=== PATIENT | male | born 1935 | race Caucasian/White ===

== ENCOUNTER 2018-05-09 12:53 | Inpatient (IN) | payer OTHER ==
--- OUTSIDE RECORDS SUMMARY | 2018-05-09 12:55 | XMS REPORT ---
:1935 [facility] Address [address] [place] [id number] Care Team Providers Name Role Phone Unavailable Unavailable Unavailable Problems This patient has no known problems. Allergies, Adverse Reactions, Alerts This patient has no known allergies or adverse reactions. Medications This patient has no known medications.
--- OUTSIDE RECORDS SUMMARY | 2018-05-09 12:55 | XMS REPORT | Clinical Summary ---
:1935 Author Organization [facility] Address [address] [place] [address] Care Team Providers Name Role Phone Rogelio Subramanian MD Primary Care Provider Allergies Active Allergy Reactions Severity Noted Date Comments Rlefdwnc-Ddakccirzy-Qcclpmhyv Other (See Comments) Medium 12/15/2015 BUMPS Medications Medication Sig Dispensed Refills Start Date End Date Status clobetasol Apply 1 2 06/26/2015 Active (TEMOVATE) 0.05 % application external solution topically nightly. clopidogrel (PLAVIX) Take 75 mg by 3 05/07/2015 Active 75 mg tablet mouth daily. TK 1 T PO QD flunisolide 1 spray daily. 0 08/06/2015 Active (NASALIDE) 25 mcg (0.025 %) spray,non-aerosol isosorbide Take 20 mg by 5 07/17/2015 Active mononitrate mouth 2 (two) (ISMO,MONOKET) 20 MG times a day. tablet TAKE 1 TABLET BY MOUTH BID metFORMIN Take 500 mg by 5 05/23/2015 Active (GLUCOPHAGE) 500 MG mouth 2 (two) tablet times a day with meals. 1 in am and 2 tabs at night pantoprazole Take 40 mg by 2 07/10/2015 Active (PROTONIX) 40 MG EC mouth nightly. tablet TK 1 T PO D multivitamin with Take 1 tablet by 0 Active minerals tablet mouth nightly. polyethylene glycol Take 17 g by 0 Active (MIRALAX) 17 gram mouth daily as packet needed. CYANOCOBALAMIN, Take 1,000 mcg 0 Active VITAMIN B-12, (B-12 by mouth DOTS ORAL) nightly. sotalol (BETAPACE) Take 80 mg by 0 Active 80 MG tablet mouth 2 (two) times a day. NITROGLYCERIN SL Place 0.4 mg 0 Active under the tongue as needed. As needed for chest pain as ordered and instructed by MD diphenhydrAMINE Take 25 mg by 0 Active (DIPHEDRYL) 25 mg mouth nightly as tablet needed for sleep. aspirin (ECOTRIN) 81 Take 81 mg by 0 Active MG enteric coated mouth nightly. tablet digOXIN (DIGOX) 125 Take 125 mcg by 0 Active mcg tablet mouth daily. losartan (COZAAR) 50 Take 50 mg by 0 Active MG tablet mouth daily. artificial 1 drop every 0 Active tears,hypromellose, morning. (SYSTANE) 0.3 % gel atorvastatin Take 40 mg by 0 Active (LIPITOR) 40 MG mouth daily. tablet predniSONE Take 10 mg by 0 Active (DELTASONE) 10 mg mouth daily. tablet glycopyrrolate/formo Inhale 2 0 Active terol fum (BEVESPI inhalations 2 AEROSPHERE INHL) (two) times a day. lutein 20 mg capsule Take 1 tablet by 0 Active mouth nightly. ketotifen fumarate Administer 1 0 Active (ZADITOR OPHT) drop to both eyes nightly. cholecalciferol, Take 1,000 Units 0 Active vitamin D3, (VITAMIN by mouth daily. D3) 1,000 unit tablet omeg3/epa/dha/fish Take 1 drop by 0 Active oil/flax/E (THERA mouth nightly. TEARS NUTRITION Eye drops not ORAL) oral ZETIA 10 mg tablet nightly. TK 1 T 3 07/09/2015 09/04/19 Discontinued PO QD 18 SPIRIVA WITH INHALE 1 CAPSULE 3 06/11/2015 08/26/19 Discontinued HANDIHALER 18 mcg VIA HANDIHALER 18 per inhalation PO QD capsule KETOTIFEN FUMARATE Apply 1 drop to 0 08/26/19 Discontinued (ZADITOR OPHT) eye nightly. 18 predniSONE TK 1 T PO QD PRN 1 01/10/2017 08/26/19 Discontinued (DELTASONE) 10 mg 18 tablet ezetimibe (ZETIA) 10 Take 10 mg by 0 08/26/19 Discontinued mg tablet mouth daily. 18 OMEG3/EPA/DHA/FISH Take by mouth. 0 09/04/19 Discontinued OIL/FLAX/E (THERA 18 TEARS NUTRITION ORAL) STIOLTO RESPIMAT 0 04/01/2017 08/26/19 Discontinued 2.5-2.5 18 mcg/actuation inhalation solution polyethylene glycol Take 1 packet by 0 09/04/19 Discontinued 3350 (MIRALAX ORAL) mouth nightly. 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 02/12/2016 Personal history of bladder cancer 11/13/2015 History of bladder cancer 08/07/2015 Encounters Date Type Specialty Care Team Description 12/10/2017 Lab Lab William Fragoso MD 12/10/2017 Office Visit [facility] [place], Malignant neoplasm alison Thomas MD urinary bladder, unspecified site (Primary Dx) 09/03/2017 Surgery Procedural [facility] Cv left heart cath w Cardiology MD Alvin lv gram cors [[id number] (CPT)] 09/03/2017 - Hospital Encounter Cardiology [place] [facility] History of bladder cancer (Primary Dx); 09/04/2017 MD Alvin 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 08/29/2017 Orders Only Cardiology [facility], Coronary artery ROSIO Burton disease involving morongo coronary artery of morongo heart with angina pectoris (Primary Dx) 08/25/2017 Surgery Procedural [place], Cv left heart cath w Cardiology MD Elaina lv gram cors [[id number] (CPT)] 08/25/2017 Hospital Encounter Procedural [place], Cardiomyopathy, unspecified type; Cardiology MD Elaina Coronary artery disease with angina pectoris, unspecified vessel or lesion type, unspecified whether morongo or transplanted heart 08/08/2017 Lab Lab [place] Malignant neoplasm alison Thomas MD urinary bladder, unspecified site (Primary Dx) 08/08/2017 Office Visit [facility] [place] Malignant Gildardo MD urinary bladder, unspecified site (Primary Dx) after 05/08/2017 Family History Medical History Relation Name Comments Lung disease Father Alzheimer's disease Mother Relation Name Status Comments Father Mother Social History Tobacco Use Types Packs/Day Years Used Date Current Some Day Smoker Cigarettes 0.25 Smokeless Tobacco: Current User Comments: 1 pack a week Alcohol Use Drinks/Week oz/Week Comments Yes 2 drink per year Sex Assigned at Date Recorded Not on file Job Start Date Occupation Industry Not on file Not on file Not on file Travel History Travel Start Travel End No recent travel history available. Last Filed Vital Signs Vital Sign Reading Time Taken Blood Pressure 101/58 09/04/2017 12:06 PM CDT Pulse 61 09/04/2017 12:06 PM CDT Temperature 36.7 C (98 F) 09/04/2017 12:06 PM CDT Respiratory Rate 16 09/04/2017 12:06 PM CDT Oxygen Saturation 96% 09/04/2017 12:06 PM CDT Inhaled Oxygen Concentration - - Weight 66.7 kg (147 lb) 09/03/2017 11:00 AM CDT Height 170.2 cm (5' 7") 09/03/2017 11:00 AM CDT Body Mass Index 23.02 09/03/2017 11:00 AM CDT Plan of Treatment Date Type Specialty Care Team Description 06/10/2018 Procedure visit Urology William Fragoso MD [address] [facility] [address] [place] [address] Health Maintenance Due Date Last Done Comments SHINGLES VACCINES (1 of 2) 1986 PNEUMOCOCCAL POLYSACCHARIDE VACCINE AGE 65 AND OVER 2001 PNEUMOCOCCAL-13 2001 INFLUENZA VACCINE 11/26/2017 Implants Implanted Type Area Direct Care Specialist Device Shelf Model / Identifier Expiration Serial / Date Lot Quartet, Lv Leads, Model 1458q-86 - [id number] Cardiac Pacing N/A: [employer] 01/25/2019 [id number] / Implanted: 05/10/2016 (Quantity not on file) Leads or N/A [id number] / Electrodes or [id number] Accessories Tendril Sts, Pacemaker Leads, Model 2088tc/52 - [id number] Cardiac Pacing N/A : [employer] 02/25/20198TC/52 / Implanted: 05/10/2016 (Quantity not on file) Leads or N/A [id number] / Electrodes or [id number] Accessories Envlp Impl Crdvrtr Dfb Antbctrl Fully Resorb Lg Aigissrx R - [id number] Cardiovascular N/A: [employer] [id number] / Implanted: 05/10/2016 (Quantity not on file) Implants N/A / Catheter Pump Set Impella Cp - [id number] Cardiovascular N/A: [employer] [id number] / Implanted: 09/03/2017 (Quantity not on file) Implants N/A / [id number] Stent Coronary Syst Synergy (Mr) 3.50mm X 24mm - [id number] Coronary Stents N /A[place] [facility] [id number] / Implanted: 09/03/2017 (Quantity not on file) N/A INTERVENTIONAL / CARDIOLOGY [id number] Stent Coronary Syst Synergy (Mr) 3.50mm X 12mm - [id number] Coronary Stents N /A: [facility] [place]/02/2018 [id number] / Implanted: 09/03/2017 (Quantity not on file) N/A INTERVENTIONAL / CARDIOLOGY [id number] Stent Coronary Syst Synergy (Mr) 3.00mm X 16mm - [id number] Coronary Stents N /A: [facility] [place]/26/2018 [id number] / Implanted: 09/03/2017 (Quantity not on file) N/A INTERVENTIONAL / CARDIOLOGY [id number] Stent Coronary Syst Synergy (Mr) 3.00mm X 8mm - [id number] Coronary Stents N/ A: [facility] [place]/05/2018 [id number] / Implanted: 09/03/2017 (Quantity not on file) N/A INTERVENTIONAL / CARDIOLOGY [id number] [employer] Mp Ecologist Technician-D Defibrillators & N/A: [employer] 01/25/2018 [id number] / Implanted: Qty: 1 on 05/10/2016 by Renata Sen Jr., MD Leads N/A [id number] / [id number] System Clsr Sut Meditd 6fr Perclose Proglide - [id number] Surgical N/A: [facility] 05/28/2019 [id number] / Implanted: 09/03/2017 (Quantity not on file) Implants; N/A DEVICES / Expanders; [id number] Extenders; Surgical Wires System Clsr Sut Meditd 6fr Perclose Proglide - [id number] Surgical N/A: [facility] 05/28/2019 [id number] / Implanted: 09/03/2017 (Quantity not on file) Implants; N/A DEVICES / Expanders; [id number] Extenders; Surgical Wires Procedures Procedure Name Priority Date/Time Associated Diagnosis Comments CYTOLOGY Routine 12/10/2017 2:12 Results for this (NON-GYNECOLOGICAL) PM CDT procedure are in REQUEST the results section. POC URINALYSIS Routine 12/10/2017 10:12 Malignant neoplasm Results for this DIPSTICK AM CDT of urinary bladder, procedure are in unspecified site the results section. POC GLUCOSE Routine 09/04/2017 7:28 Results for this AM CDT procedure are in the results section. ECG 12-LEAD Routine 09/04/2017 6:28 Results for this AM CDT procedure are in the results section. POC GLUCOSE Routine 09/04/2017 4:02 Results for this AM CDT procedure are in the results section. IONIZED CALCIUM Routine 09/04/2017 1:30 Results for this AM CDT procedure are in the results section. PHOSPHORUS LEVEL Routine 09/04/2017 1:30 Results for this AM CDT procedure are in the results section. MAGNESIUM LEVEL Routine 09/04/2017 1:20 Results for this AM CDT procedure are in the results section. ZZESTIMATED GFR Routine 09/04/2017 1:20 Results for this AM CDT procedure are in the results section. LIPID PANEL Routine 09/04/2017 1:20 Results for this AM CDT procedure are in the results section. HC COMPLETE BLD COUNT Routine 09/04/2017 1:20 Results for this W/AUTO DIFF AM CDT procedure are in the results section. BASIC METABOLIC PANEL Routine 09/04/2017 1:20 Results for this AM CDT procedure are in the results section. POC GLUCOSE Routine 09/03/2017 9:46 Results for this PM CDT procedure are in the results section. POC GLUCOSE Routine 09/03/2017 4:00 Results for this PM CDT procedure are in the results section. ECG PRE/POST OP Routine 09/03/2017 3:57 Results for this PM CDT procedure are in the results section. CV PERCUTANEOUS Routine 09/03/2017 3:02 Coronary artery Results for this INSERTION VAD ARTERY PM CDT disease involving procedure are in ACCESS morongo coronary the results artery of morongo section. heart with angina pectoris CV PCI STENT Routine 09/03/2017 3:02 Coronary artery Results for this PM CDT disease involving procedure are in morongo coronary the results artery of morongo section. heart with angina pectoris CV LEFT HEART CATH LV Routine 09/03/2017 3:02 Coronary artery Results for this GRAM WITH CORS PM CDT disease involving procedure are in morongo coronary the results artery of morongo section. heart with angina pectoris ACTIVATED CLOTTING Routine 09/03/2017 1:41 Results for this TIME PM CDT procedure are in the results section. POC GLUCOSE Routine 09/03/2017 11:04 Results for this AM CDT procedure are in the results section. ECG PRE/POST OP STAT 09/03/2017 11:02 Results for this AM CDT procedure are in the results section. POC GLUCOSE Routine 08/25/2017 5:57 Results for this PM CDT procedure are in the results section. CV LEFT HEART CATH LV Routine 08/25/2017 5:20 Cardiomyopathy, Results for this GRAM WITH CORS PM CDT unspecified type procedure are in Coronary artery the results disease with angina section. pectoris, unspecified vessel or lesion type, unspecified whether morongo or transplanted heart HC COMPLETE BLD COUNT STAT 08/25/2017 1:39 Results for this W/AUTO DIFF PM CDT procedure are in the results section. ZZESTIMATED GFR STAT 08/25/2017 1:18 Results for this PM CDT procedure are in the results section. BASIC METABOLIC PANEL STAT 08/25/2017 1:18 Results for this PM CDT procedure are in the results section. CYTOLOGY Routine 08/08/2017 11:43 Results for this (NON-GYNECOLOGICAL) AM CDT procedure are in REQUEST the results section. POC URINALYSIS Routine 08/08/2017 11:22 Malignant neoplasm Results for this DIPSTICK AM CDT of urinary bladder, procedure are in unspecified site the results section. after 05/08/2017 Results Cytology (non-gynecological) request (12/10/2017 2:12 PM CDT)Only the most recent of2 resultswithin the time period is included. [facility] DEPARTMENT OF PATHOLOGY AND GENOMIC MEDICINE Cytology See link below for PDF [facility] DEPARTMENT OF (non-gynecological) report Lab Report PATHOLOGY AND GENOMIC MEDICINE Result status This is Final Report to [facility] DEPARTMENT OF [id number] PATHOLOGY AND GENOMIC MEDICINE Performing Organization Address City/State/Zipcode Phone Number [facility] DEPARTMENT OF PATHOLOGY AND [address] [place] [address] GENOMIC MEDICINE POC urinalysis dipstick (12/10/2017 10:12 AM CDT)Only the most recent of2 resultswithin the time period is included. Color urine, POC Yellow Clarity urine, POC Clear Glucose urine, POC Negative Negative Bilirubin urine, POC Positive (A) Negative Ketones urine, POC 1+ (A) Negative Specific gravity urine, POC >/=1.030 1.005 - 1.030 Blood urine, POC Trace (A) Negative pH urine, POC 5.5 5.0, 5.5, 6.0, 6.5, 7.0, 7.5, 8.0, 8.5 Protein urine, POC 1+ (A) Negative Urobilinogen urine, POC <2.0 <2.0 Nitrite urine, POC Negative Negative Leukocyte esterase urine, POC Negative Negative Specimen Urine POC glucose (09/04/2017 7:28 AM CDT)Only the most recent of6 resultswithin the time period is included. POC glucose 141 (H) 65 - 99 mg/dL [facility] DEPARTMENT OF PATHOLOGY Comment: AND GENOMIC MEDICINE Meter ID: [id number] Fixed Wing Aircraft Crew Chief: Stoney Rivera Performing Organization Address City/[facility] Phone Number [facility] DEPARTMENT OF PATHOLOGY AND [address] [place] [phone] GENOMIC MEDICINE ECG 12 lead (09/04/2017 6:28 AM CDT) Ventricular rate 60 [facility] Atrial rate 60 [facility] NV interval 126 [facility] QRSD interval 116 [facility] QT interval 458 [facility] QTC interval 458 [facility] MUSE P axis 1 28 [facility]USE QRS axis 1 -8 [facility] MUSE T wave axis 168 [facility] MUSE EKG impression Electronic ventricular pacemaker-In automated [facility] MUSE comparison with ECG of 03-SEP-2017 15:57,-No significant change was found- Performing Organization Address City/[facility] Phone Number [facility] MUSE [address] [place] [phone] Phosphorus level (09/04/2017 1:30 AM CDT) Phosphorus 2.9 2.4 - 4.5 mg/dL [facility] DEPARTMENT OF PATHOLOGY AND GENOMIC MEDICINE Specimen Plasma specimen Performing Organization Address City/[facility] Phone Number [facility] DEPARTMENT OF PATHOLOGY AND [address] Ionized calcium (09/04/2017 1:30 AM CDT) pH 7.68 [facility] DEPARTMENT OF PATHOLOGY AND GENOMIC MEDICINE Ionized calcium 1.05 (L) 1.11 - 1.32 mmol/L [facility] DEPARTMENT OF PATHOLOGY AND GENOMIC MEDICINE Specimen Plasma specimen Performing Organization Address [facility] Phone Number [facility] DEPARTMENT PATHOLOGY AND [address] [place] [address] Estimated GFR (09/04/2017 1:20 AM CDT)Only the most recent of2 resultswithin the time period is included. GFR Non Af Amer >90 mL/min/1.73 m2 [facility] DEPARTMENT OF PATHOLOGY AND GENOMIC MEDICINE GFR Af Amer >90 mL/min/1.73 m2 [facility] DEPARTMENT OF Comment: PATHOLOGY AND GENOMIC Chronic kidney disease: <60 mL/min/1.73m2 MEDICINE Kidney failure: <15 mL/min/1.73m2 The estimated GFR is calculated from the IDMS-traceable Modification of Diet in Renal Disease Equation. The accuracy of the calculation is poor when the creatinine is normal. Calculated values >90 mL/min/1.73m2 are not reported. This equation has not been validated in children (<18 years), women, the elderly (>70 years), or ethnic groups other than Caucasians and Americans. Specimen Plasma specimen Performing Organization Address City/[facility] Phone Number [facility] DEPARTMENT OF PATHOLOGY AND [address] [place] [address] CBC with platelet and differential (09/04/2017 1:20 AM CDT)Only the most recent of2 resultswithin the time period is included. WBC 10.28 4.50 - 11.00 k/uL [facility] DEPARTMENT OF PATHOLOGY AND GENOMIC MEDICINE RBC 3.82 (L) 4.40 - 6.00 m/uL [facility] DEPARTMENT OF PATHOLOGY AND GENOMIC MEDICINE HGB 12.6 (L) 14.0 - 18.0 g/dL [facility] DEPARTMENT OF PATHOLOGY AND GENOMIC MEDICINE HCT 36.9 (L) 41.0 - 51.0 % [facility] DEPARTMENT OF PATHOLOGY AND GENOMIC MEDICINE MCV 96.6 82.0 - 100.0 fL [facility] DEPARTMENT OF PATHOLOGY AND GENOMIC MEDICINE MCH 33.0 27.0 - 34.0 pg [facility] DEPARTMENT OF PATHOLOGY AND GENOMIC MEDICINE MCHC 34.1 31.0 - 37.0 g/dL [facility] DEPARTMENT OF PATHOLOGY AND GENOMIC MEDICINE RDW - SD 44.2 37.0 - 55.0 fL [facility] DEPARTMENT OF PATHOLOGY AND GENOMIC MEDICINE MPV 10.3 8.8 - 13.2 fL [facility] DEPARTMENT OF PATHOLOGY AND GENOMIC MEDICINE Platelet count 164 150 - 400 k/uL [facility] DEPARTMENT OF PATHOLOGY AND GENOMIC MEDICINE Nucleated RBC 0.00 /100 WBC [facility] DEPARTMENT OF PATHOLOGY AND GENOMIC MEDICINE Neutrophils 67.6 39.0 - 69.0 % [facility] DEPARTMENT OF PATHOLOGY AND GENOMIC MEDICINE Lymphocytes 22.0 (L) 25.0 - 45.0 % [facility] DEPARTMENT OF PATHOLOGY AND GENOMIC MEDICINE Monocytes 8.4 0.0 - 10.0 % [facility] DEPARTMENT OF PATHOLOGY AND GENOMIC MEDICINE Eosinophils 1.2 0.0 - 5.0 % [facility] DEPARTMENT OF PATHOLOGY AND GENOMIC MEDICINE Basophils 0.5 0.0 - 1.0 % [facility] DEPARTMENT OF PATHOLOGY AND GENOMIC MEDICINE Immature granulocytes 0.3Comment: 0.0 - 1.0 % [facility] DEPARTMENT OF "Immature PATHOLOGY AND GENOMIC granulocytes" MEDICINE (promyelocytes, myelocytes, metamyelocytes) Specimen Blood Performing Organization Address City/[facility]/Zipcode Phone Number [facility] DEPARTMENT OF PATHOLOGY AND [address] [place] [phone] [facility] Magnesium level (09/04/2017 1:20 AM CDT) Magnesium 1.9 1.6 - 2.4 mg/dL [facility] DEPARTMENT OF PATHOLOGY AND GENOMIC MEDICINE Specimen Plasma specimen Performing Organization Address [facility]/Zipcode Phone Number [facility] DEPARTMENT OF PATHOLOGY AND [address] [place] [phone] [facility] Lipid panel (09/04/2017 1:20 AM CDT) Cholesterol 151 <200 mg/dL [facility] DEPARTMENT OF PATHOLOGY AND GENOMIC MEDICINE Triglycerides 124 <150 mg/dL [facility] DEPARTMENT OF PATHOLOGY AND GENOMIC MEDICINE HDL cholesterol 34 (L) >40 mg/dL [facility] DEPARTMENT OF PATHOLOGY AND GENOMIC MEDICINE LDL cholesterol 105 (H)Comment: Result <100 mg/dL [facility] DEPARTMENT OF obtained by direct LDL PATHOLOGY AND GENOMIC measurement MEDICINE Lipid panel interpretation SeeBelow [facility] DEPARTMENT OF Comment: PATHOLOGY AND GENOMIC Total Cholesterol (mg/dL) MEDICINE <200 Desirable 366-204Xuiimraoyn-vneu >=240High Triglycerides (mg/dL) <150 Normal [id number]-zgip 200-499High >=500Very high HDL Cholesterol (mg/dL) <40Low (male) <40Low (female) LDL Cholesterol (mg/dL) <100 Optimal 100-129Near or above optimal [phone]-gsif 160-189High >=190Very high Risk Catergories that modify LDL goals. Risk CatergoriesLDL goal (mg/dL) CHD and CHD risk equivalent<100 (10-year risk >20%) Multiple (2+) risk factors <130 (10-year risk=<20%) 0-1 risk factors <160 (<10-year risk) Defining levels of lipids in metabolic syndrome Triglycerides>=150 mg/dL HDL Cholesterol Men<40 mg/dL Women<40 mg/dL Non-HDL cholesterol is a second target for therapy in persons with high triglycerides (>=200 mg/dL) Specimen Plasma specimen Performing Organization Address City/[facility] Phone Number [facility] DEPARTMENT OF PATHOLOGY AND [address] [place] [phone] [employer] Basic metabolic panel (09/04/2017 1:20 AM CDT)Only the most recent of2 resultswithin the time period is included. Sodium 139 135 - 148 mEq/L [facility] DEPARTMENT OF PATHOLOGY AND GENOMIC MEDICINE Potassium 3.9 3.5 - 5.0 mEq/L [facility] DEPARTMENT OF PATHOLOGY AND GENOMIC MEDICINE Chloride 103 98 - 112 mEq/L [facility] DEPARTMENT OF PATHOLOGY AND GENOMIC MEDICINE CO2 25 24 - 31 mEq/L [facility] DEPARTMENT OF PATHOLOGY AND GENOMIC MEDICINE Anion gap 11 7 - 15 mEq/L [facility] DEPARTMENT OF PATHOLOGY Comment: AND GENOMIC MEDICINE Starting from July , anion gap calculation no longer incorporates potassium. Please note the change. BUN 13 8 - 23 mg/dL [facility] DEPARTMENT OF PATHOLOGY AND GENOMIC MEDICINE Creatinine 0.8 0.7 - 1.2 mg/dL [facility] DEPARTMENT OF PATHOLOGY AND GENOMIC MEDICINE Glucose 120 (H) 65 - 99 mg/dL [facility] DEPARTMENT OF PATHOLOGY AND GENOMIC MEDICINE Calcium 8.5 (L) 8.8 - 10.2 mg/dL [facility] DEPARTMENT OF PATHOLOGY AND GENOMIC MEDICINE Specimen Plasma specimen Performing Organization Address City/[facility] Phone Number [facility] DEPARTMENT OF PATHOLOGY AND [address] [place] [phone] [employer] [facility] ECG Pre/Post Op (in AM) (09/03/2017 3:57 PM CDT)Only the most recent of2 resultswithin the time period is included. Ventricular rate 60 [facility] Atrial rate 60 [facility] NV interval 128 [facility] QRSD interval 114 [facility] QT interval 402 [facility] QTC interval 402 [facility] P axis 1 13 [facility] QRS axis 1 47 [facility] T wave axis 61 [facility] EKG impression AV sequential or dual chamber electronic [facility] MUSE pacemaker-In automated comparison with ECG of 03-SEP-2017 11:02,-No significant change was found- Performing Organization Address [facility] Phone Number [facility] MUSE [address] [place] [address] Cv labor relations manager procedure (09/03/2017 3:02 PM CDT) Narrative Performed At Abdominal aortogram revealed tortuous but not-obstructed iliac arteries HM CUPID bilaterally Impella CP assisted PCI. PCI of SVG-LAD with overlapping 3.5 x 12 mm and 3.5 x 24 mm SARA stent post dilated with 3.75 mm NC balloon PCI of SVG-LAD at distal anastomosis with overlapping 3.0 x 16 mm and 3.0 x 8 mm SARA stents Left heart cath revealed LVEDP=28 mm Hg Moderate sedation was administered with physician supervisionof patient consciousness, respiration, Oxygen saturation and CO2 monitoring, beginning au9684 ( time)for a total period of 109 minutes. I was physically present for the critical portions of all procedures performed during this episode of care Performing Organization Address [facility] Phone Number [facility] [id number] [place] [address] Activated clotting time (09/03/2017 1:41 PM CDT) Activated clotting time 354 (H) 96 - 152 sec [facility] DEPARTMENT OF Comment: PATHOLOGY AND GENOMIC Meter ID: [id number] MEDICINE Fixed Wing Aircraft Crew Chief: Jnaa Tan Performing Organization Address [facility]/Zipcode Phone Number [facility] DEPARTMENT OF PATHOLOGY AND [address] [place] [address] GENOMIC MEDICINE Cv labor relations manager procedure (08/25/2017 5:20 PM CDT) Cath EF Estimated 25 % [facility] Narrative Performed At LAD, circumflex, and RCA 100% occluded. SVG to RCA severely and diffusely [facility] narrowed with distal right small. HART to OM patent. SVG to LAD with proximal patent stent; stent is followed immediately with a 75% lesion. At midpoint of the graft, there are two 50% lesions and then distal to anastomosis with a 95% lesion. LV EF 20-30%. Performing Organization Address City/State/Zipcode Phone Number [facility] [id number] [place] [address] after 05/08/2017 Insurance Payer Benefit Plan / Group Subscriber ID Type Phone Address AETNA MEDICARE AETNA MEDICARE HMO/PPO [facility] xxxxxxxx HMO ([place]) [place] [address] Advance Directives Patient has advance care planning documents on file. For more information, please contact:Marciano Yousif[address] [place] [address]
[2018-05-09 13:39] LABS: Absolute Lymphocytes (CBC) 0.9 K/uL (0.7-4.9); Absolute Monocytes 0.5 K/uL (0.1-1.3); Absolute Neutrophil 8.7 K/uL (1.8-8.0); Basophils % 0.6 % (0-1.3); Eosinophils % 0.2 % (0-4.4); Hematocrit 43.4 % (39.6-49.0); Lymphocytes % 8.5 % (15.3-44.8); MPV 8.9 fL (7.6-11.3); RBC Red Blood Cell Count 4.57 M/uL (4.33-5.43)
[2018-05-09] MEDS ORDERED: FUROSEMIDE 20 MG/ 2ML VIAL ONE (13:40)
[2018-05-09] MEDS ORDERED: ALBUTEROL 2.5 MG/3 ML NEB SOL ONE (13:40)
[2018-05-09] MEDS ORDERED: predniSONE 20 MG TAB ONE (13:40)
[2018-05-09] MEDS ORDERED: IPRATROPIUM BROM 0.5MG/2.5ML ONE (13:40)
[2018-05-09 13:41] LABS: Protime INR 1.02
[2018-05-09 14:06] LABS: ALT/SGPT 25 U/L (12-78); AST/SGOT 23 U/L (15-37); Albumin 3.4 g/dL (3.4-5.0); Alkaline Phosphatase 51 U/L (45-117); BUN Blood Urea Nitrogen 18 mg/dL (7-18); Bicarbonate 30 mmol/L (21-32); Bilirubin Direct 0.2 mg/dL (0-0.2); Bilirubin Total 0.8 mg/dL (0.2-1.0); Blood Morphology Comment NOT SEEN (NOT SEEN); Glucose Level 162 mg/dL (74-106); Magnesium 2.1 mg/dL (1.8-2.4); NT PRO-BNP 817 pg/mL (<450); Platelet Estimate ADEQ; Potassium 4.7 mmol/L (3.5-5.1); Protein, Total 7.1 g/dL (6.4-8.2); Sodium Level 141 mmol/L (136-145); Troponin (Emerg Dept Use Only) < 0.02 ng/mL (0.0-0.045); Urine White Blood Cell Casts OK
--- NOTE | 2018-05-09 14:26 | RAD REPORT ---
EXAM DESCRIPTION: RAD - Chest Single View - 05/09/2018 1:42 pm CLINICAL HISTORY: COPD, shortness of breath COMPARISON: August 2016 TECHNIQUE: AP portable chest image was obtained 1336 hours . FINDINGS: No focal infiltrate, mass or failure finding. Chronic interstitial lung disease is present not clearly different from comparison. Minimal acute disease could be masked by the chronic presenta tion. Left-sided pacemaker defibrillator is in place. Sternotomy wires also in place. Heart and vasculature are normal. No measurable pleural effusion and no pneumothorax. No acute bony abnormality seen. No a cute aortic findings suspected. IMPRESSION: Chronic interstitial lung disease present similar to comparison. No focal mass or consolidation. Early interstitial edema or infiltrate can be masked by chronic disea se.
--- NOTE | 2018-05-09 15:34 | ER ---
Nurse's Notes [facility] Name: Cornelius Tierney Age: 82 yrs Sex: Male : 1935 Arrival Date: 05/09/2018 Time: 12:54 Bed 4 Private MD: Sada Subramanian C Diagnosis: Chronic obstructive pulmonary disease with (acute) exacerbation;Hypoxemia Presentation: 05/09 13:05 Presenting complaint: Patient states: SOB that began 1 week ago, but has been getting ss worse over time. Pt was seen by his PCP (Dr. Subramanian) and given medications 3 days ago, but reports that he has not had any improvement as of yet. Denies fever. Transition of care: patient was not received from another setting of care. Onset of symptoms was May 04, 2018. Risk Assessment: Do you want to hurt yourself or someone else? Patient reports no desire to harm self or others. Initial Sepsis Screen: Does the patient meet any 2 criteria? No. Patient's initial sepsis screen is negative. Does the patient have a suspected source of infection? Yes: Productive cough/pneumonia. Care prior to arrival: None. 13:05 Method Of Arrival: Ambulatory ss 13:05 Acuity: WEI 2 ss Triage Assessment: 18:12 General: Appears in no apparent distress. Respiratory: Onset: The symptoms/episode aj1 began/occurred one week ago, the patient has mild shortness of breath. Respiratory: Airway is patent. Historical: - Allergies: 13:22 Neosporin ([id number]); ss - PMHx: 13:22 CHF; GERD; COPD; High Cholesterol; CAD; macular degeneration; constipation; AAA; ss Diabetes - NIDDM; cardiac arrest; - PSHx: 13:22 internal defib; Cataracts; AAA repair; Angioplasty; CABG; ss - Immunization history:: Adult Immunizations up to date. - Social history:: Smoking status: Patient uses tobacco products, denies chronic smoking, but will smoke occasionally. - Ebola Screening: : Patient denies exposure to infectious person Patient denies travel to an Ebola-affected area in the 21 days before illness onset. Screenin:30 Abuse screen: Denies threats or abuse. Denies injuries from another. Nutritional aj1 screening: No deficits noted. Tuberculosis screening: No symptoms or risk factors identified. 16:36 Fall Risk None identified. No fall in past 12 months (0 pts). No secondary diagnosis (0 ph pts). IV access (20 points). Ambulatory Aid- Crutches/Cane/Walker (15 pts). Gait-. Assessment: 13:30 General: Appears in no apparent distress. uncomfortable, Behavior is calm, cooperative, aj1 appropriate for age. Pain: Denies pain. Neuro: Level of Consciousness is awake, alert, obeys commands. Cardiovascular: Reports shortness of breath, Denies chest pain, Patient's skin is warm and dry. Rhythm is sinus rhythm. Respiratory: Reports cough that is persistent Airway is patent Respiratory effort is even, unlabored, Respiratory pattern is regular, symmetrical, tachypnea Breath sounds with wheezes bilaterally. GI: No signs and/or symptoms were reported involving the gastrointestinal system. : No signs and/or symptoms were reported regarding the genitourinary system. EENT: No signs and/or symptoms were reported regarding the EENT system. Derm: No signs and/or symptoms reported regarding the dermatologic system. Skin is pink, warm \T\ dry. normal. Musculoskeletal: No signs and/or symptoms reported regarding the musculoskeletal system. Circulation, motion, and sensation intact. 14:30 Reassessment: Patient appears in no apparent distress at this time. Patient and/or aj1 family updated on plan of care and expected duration. Pain level reassessed. Patient is alert, oriented x 3, equal unlabored respirations, skin warm/dry/pink. Patient states symptoms have improved. 15:28 Reassessment: Patient appears in no apparent distress at this time. No changes from aj1 previously documented assessment. Patient and/or family updated on plan of care and expected duration. Pain level reassessed. Patient is alert, oriented x 3, equal unlabored respirations, skin warm/dry/pink. 16:36 Reassessment: Patient appears in no apparent distress at this time. No changes from aj1 previously documented assessment. Patient and/or family updated on plan of care and expected duration. Pain level reassessed. Patient is alert, oriented x 3, equal unlabored respirations, skin warm/dry/pink. 17:30 Reassessment: Patient and/or family updated on plan of care and expected duration. Pain aj1 level reassessed. General: Appears in no apparent distress. comfortable, Behavior is calm, cooperative. Neuro: Level of Consciousness is awake, alert, obeys commands. Cardiovascular: Patient's skin is warm and dry. Rhythm is sinus rhythm. Respiratory: Airway is patent Respiratory effort is even, unlabored, Respiratory pattern is regular, symmetrical, Breath sounds with wheezes bilaterally. Derm: Skin is pink, warm \T\ dry. normal. Musculoskeletal: No signs and/or symptoms reported regarding the musculoskeletal system. Circulation, motion, and sensation intact. 18:05 Reassessment: Patient appears in no apparent distress at this time. No changes from aj1 previously documented assessment. Patient and/or family updated on plan of care and expected duration. Pain level reassessed. Patient is alert, oriented x 3, equal unlabored respirations, skin warm/dry/pink. Vital Signs: 13:22 BP 159 / 80; Pulse 64; Resp 25; Temp 97.4; Pulse Ox 91% on R/A; Weight 65.77 kg; Height ss 5 ft. 7 in. (170.18 cm); Pain 0/10; 15:28 BP 113 / 70; Pulse 62; Resp 26; Pulse Ox 95% on 2 lpm NC; aj1 16:35 BP 124 / 65; Pulse 60; Resp 16; Temp 97.5; Pulse Ox 93% on 2 lpm NC; ph 18:05 BP 111 / 60; Pulse 63; Resp 22; Pulse Ox 97% on 2 lpm NC; aj1 13:22 Body Mass Index 22.71 (65.77 kg, 170.18 cm) ED Course: 12:54 Patient arrived in ED. as 12:54 Sada Subramanian MD is Private Physician. as 13:00 Fernie Olivo MD is Attending Physician. gs 13:07 Triage completed. ss 13:13 Eboni Vazquez, RN is Primary Nurse. ph 13:22 Arm band placed on right wrist. ss 13:25 Initial lab(s) drawn, by ks, sent to lab. First set of blood cultures drawn. Inserted em1 saline lock: 20 gauge in right wrist, using aseptic technique. Blood collected. 13:30 Patient has correct armband on for positive identification. Bed in low position. Call aj1 light in reach. Side rails up X 1. loom technician on. Pulse ox on. NIBP on. 13:30 No provider procedures requiring assistance completed. aj1 13:42 XRAY Chest (1 view) In Process Unspecified. EDMS 15:32 Carlos Cook MD is Hospitalizing Provider. 15:32 Hospitalizing Provider role handed off by Carlos Cook MD 15:32 Sada Subramanian MD is Hospitalizing Provider. 18:02 Report given to ROSIO Gonzalez on 4th floor. aj1 18:02 Patient admitted, IV remains in place. aj1 Administered Medications: 13:42 Drug: Lasix 20 mg Route: IVP; Site: right forearm; ss 13:43 Drug: Albuterol 2.5 mg Route: Inhalation; ss 13:43 Drug: AtroVENT Aerosol 0.5 mg Route: Inhalation; ss 13:43 Drug: predniSONE 40 mg Route: PO; Outcome: 15:33 Decision to Hospitalize by Provider. 18:13 Admitted to Tele accompanied by tech, via wheelchair, with chart. aj1 18:13 Condition: stable 18:13 Discharge instructions given to patient, family, Instructed on the need for admit, Demonstrated understanding of instructions. 18:20 Patient left the ED. aj1 Signatures: Dispatcher [employer] EDKaterine Sarabia, RN RN [email or web address] Abbey Johnson Eric em1 Kateryna De Anda RN RN Eboni Vazquez RN RN Fernie Olivo MD MD
--- NOTE | 2018-05-09 15:34 | EDPHYS ---
Physician Documentation [facility] Name: Cornelius Tierney Age: 82 yrs Sex: Male : 1935 Arrival Date: 05/09/2018 Time: 12:54 Bed 4 Private MD: Sada Subramanian C ED Physician Fernie Olivo HPI: 05/09 15:27 This 82 yrs old Male presents to ER via Ambulatory with complaints of gs Shortness Of Breath. 15:27 Onset: The symptoms/episode began/occurred 1 week(s) ago, and became worse and became gs persistent. Duration: The symptoms are continuous. The patient's shortness of breath is aggravated by coughing. Associated signs and symptoms: Pertinent negatives: chest pain, diaphoresis, fever, hemoptysis, nausea. The patient has experienced similar episodes in the past, multiple times. The patient has been recently seen by a physician: Dr. Subramanian with similar presenting complaints, was given a prescription for antibiotics. Historical: - Allergies: 13:22 Neosporin ([id number]); ss - PMHx: 13:22 CHF; GERD; COPD; High Cholesterol; CAD; macular degeneration; constipation; AAA; ss Diabetes - NIDDM; cardiac arrest; - PSHx: 13:22 internal defib; Cataracts; AAA repair; Angioplasty; CABG; ss - Immunization history:: Adult Immunizations up to date. - Social history:: Smoking status: Patient uses tobacco products, denies chronic smoking, but will smoke occasionally. - Ebola Screening: : Patient denies exposure to infectious person Patient denies travel to an Ebola-affected area in the 21 days before illness onset. ROS: 15:27 All other systems are negative. gs Exam: 15:27 Head/Face: Normocephalic, atraumatic. Eyes: Pupils equal round and reactive to light, gs extra-ocular motions intact. Lids and lashes normal. Conjunctiva and sclera are non-icteric and not injected. Cornea within normal limits. Periorbital areas with no swelling, redness, or edema. ENT: Nares patent. No nasal discharge, no septal abnormalities noted. Tympanic membranes are normal and external auditory canals are clear. Oropharynx with no redness, swelling, or masses, exudates, or evidence of obstruction, uvula midline. Mucous membranes moist. Neck: Trachea midline, no thyromegaly or masses palpated, and no cervical lymphadenopathy. Supple, full range of motion without nuchal rigidity, or vertebral point tenderness. No Meningismus. Chest/axilla: Normal chest wall appearance and motion. Nontender with no deformity. No lesions are appreciated. 15:27 Abdomen/GI: Soft, non-tender, with normal bowel sounds. No distension or tympany. No guarding or rebound. No evidence of tenderness throughout. Back: No spinal tenderness. No costovertebral tenderness. Full range of motion. Skin: Warm, dry with normal turgor. Normal color with no rashes, no lesions, and no evidence of cellulitis. MS/ Extremity: Pulses equal, no cyanosis. Neurovascular intact. Full, normal range of motion. Neuro: Awake and alert, GCS 15, oriented to person, place, time, and situation. Cranial nerves II-XII grossly intact. Motor strength 5/5 in all extremities. Sensory grossly intact. Cerebellar exam normal. Normal gait. 15:27 Constitutional: The patient appears alert, awake, in obvious distress, severely distressed. 15:27 Cardiovascular: Rate: normal, Rhythm: regular, Edema: is not appreciated. 15:27 ECG was reviewed by the Attending Physician. 15:27 Respiratory: moderate respiratory distress is noted, Respirations: tachypnea, Breath sounds: rales, rhonchi, that are moderate, are heard diffusely. Vital Signs: 13:22 BP 159 / 80; Pulse 64; Resp 25; Temp 97.4; Pulse Ox 91% on R/A; Weight 65.77 kg; Height ss 5 ft. 7 in. (170.18 cm); Pain 0/10; 15:28 BP 113 / 70; Pulse 62; Resp 26; Pulse Ox 95% on 2 lpm NC; aj1 16:35 BP 124 / 65; Pulse 60; Resp 16; Temp 97.5; Pulse Ox 93% on 2 lpm NC; ph 18:05 BP 111 / 60; Pulse 63; Resp 22; Pulse Ox 97% on 2 lpm NC; aj1 13:22 Body Mass Index 22.71 (65.77 kg, 170.18 cm) MDM: 13:11 Patient medically screened. 15:27 Differential diagnosis: CHF exacerbation, Chronic Obstructive Pulmonary Disease gs Myocardial Infarction pneumonia. Data reviewed: vital signs, nurses notes. Counseling: I had a detailed discussion with the patient and/or guardian regarding: the historical points, exam findings, and any diagnostic results supporting the discharge/admit diagnosis, the need for further work-up and treatment in the hospital. Physician consultation: Carlos Cook MD and will see patient in office. 05/09 13:13 Order name: Basic Metabolic Panel; Complete Time: 14:21 05/09 13:13 Order name: CBC with Diff; Complete Time: 14:21 05/09 13:13 Order name: LFT's; Complete Time: 14:21 05/09 13:13 Order name: Magnesium; Complete Time: 14:21 05/09 13:13 Order name: NT PRO-BNP; Complete Time: 14:21 05/09 13:13 Order name: PT-INR; Complete Time: 14:21 05/09 13:13 Order name: Troponin (emerg Dept Use Only); Complete Time: 14:21 05/09 13:13 Order name: Blood Culture* 05/09 13:13 Order name: Digoxin; Complete Time: 14:21 05/09 13:42 Order name: CBC Smear Scan; Complete Time: 14:21 EDWA 05/09 15:41 Order name: Basic Metabolic Panel EDWA 05/09 15:41 Order name: Basic Metabolic Panel [facility] 05/09 15:41 Order name: CBC with Automated Diff EDWA 05/09 15:41 Order name: CBC with Automated Diff EDWA 05/09 13:13 Order name: XRAY Chest (1 view); Complete Time: 14:27 05/09 13:13 Order name: EKG; Complete Time: 13:14 05/09 13:13 Order name: Cardiac monitoring; Complete Time: 13:29 05/09 13:13 Order name: EKG - Nurse/Tech; Complete Time: 15:16 05/09 13:13 Order name: IV Saline Lock; Complete Time: 13:29 05/09 13:13 Order name: Labs collected and sent; Complete Time: 13:29 05/09 15:41 Order name: Heart Healthy EDWA 05/09 15:41 Order name: NT PRO-BNP EDWA 05/09 15:41 Order name: NT PRO-BNP [facility] 05/09 15:41 Order name: Troponin I EDWA 05/09 15:41 Order name: Troponin I [facility] 05/09 15:41 Order name: Troponin I [facility] 05/09 13:13 Order name: O2 Per Protocol; Complete Time: 13:29 05/09 13:13 Order name: O2 Sat Monitoring; Complete Time: 13:30 EC:27 Rate is 60 beats/min. Rhythm is regular. LA interval is normal. QRS interval is gs prolonged. QT interval is normal. T waves are Normal. No ST changes noted. Clinical impression: Abnormal EKG without significant change and av paced. Interpreted by me. Administered Medications: 13:42 Drug: Lasix 20 mg Route: IVP; Site: right forearm; 13:43 Drug: Albuterol 2.5 mg Route: Inhalation; 13:43 Drug: AtroVENT Aerosol 0.5 mg Route: Inhalation; 13:43 Drug: predniSONE 40 mg Route: PO; Disposition: 15:27 Critical Care:. Disposition: 05/09/18 15:33 Hospitalization ordered by Sada Subramanian for Inpatient Admission. Preliminary diagnosis are Chronic obstructive pulmonary disease with (acute) exacerbation, Hypoxemia. - Bed requested for Telemetry/MedSurg (Inpatient). - Status is Inpatient Admission. aj1 - Condition is Stable. - Problem is new. - Symptoms have improved. UTI on Admission? No Critical care time excluding procedures: 15:27 Critical care time: Bedside Care: 10 minutes, Consultation: 10 minutes, Family gs Intervention: 10 minutes. Total time: 30 minutes Signatures: Dispatcher [employer] Katerine Sarabia RN RN aj1 Kateryna De Anda RN RN Fernie Olivo MD MD Corrections: (The following items were deleted from the chart) 16:18 15:33 Hospitalization Ordered by A Moris CASTANON for Inpatient Admission. Preliminary ss diagnosis is Chronic obstructive pulmonary disease with (acute) exacerbation; Hypoxemia. Bed requested for Telemetry/MedSurg (Inpatient). Status is Inpatient Admission. Condition is Stable. Problem is new. Symptoms have improved. UTI on Admission? No. gs 18:20 16:18 05/09/2018 15:33 Hospitalization Ordered by A Moris CASTANON for Inpatient Admission. aj1 Preliminary diagnosis is Chronic obstructive pulmonary disease with (acute) exacerbation; Hypoxemia. Bed requested for Telemetry/MedSurg (Inpatient). Status is Inpatient Admission. Condition is Stable. Problem is new. Symptoms have improved. UTI on Admission? No. ss
[2018-05-09] MEDS ORDERED: IPRATROPIUM BROM 0.5MG/2.5ML NEB PRN (15:38)
[2018-05-09] MEDS ORDERED: ACETAMINOPHEN 500 MG TAB PO PRN (15:38)
[2018-05-09] MEDS ORDERED: ALBUTEROL 2.5 MG/3 ML NEB SOL NEB PRN (15:38)
[2018-05-09] MEDS ORDERED: D50W 25 GM/50 ML SYRINGE IV PRN (16:36)
[2018-05-09] MEDS ORDERED: GLUCAGON 1 MG/VIAL IM PRN (16:36)
[2018-05-09] MEDS: ENOXAPARIN 30 MG/0.3 ML SQ SCH (17:00)
[2018-05-09] MEDS: ALBUTEROL 2.5 MG/3 ML NEB SOL NEB SCH ×3 (17:00→23:30)
[2018-05-09] MEDS ORDERED: METHYLPREDNISOLONE 40 MG INJ IV SCH (17:00)
[2018-05-09] MEDS ORDERED: AMPICILLIN/SULBACT 1.5GM VIAL IVPB SCH (17:00)
[2018-05-09] MEDS ORDERED: IPRATROPIUM BROM 0.5MG/2.5ML NEB SCH (17:15)
[2018-05-09] MEDS: AMPICILLIN/SULBACT 1.5 GM in NA CHLORIDE 0.9% 100 ML IVPB SCH (17:49)
[2018-05-09] MEDS: SOTALOL HCL 80 MG TAB PO SCH (18:50)
[2018-05-09] MEDS: METHYLPREDNISOLONE 40 MG INJ IV SCH (18:51)
[2018-05-09] MEDS: IPRATROPIUM BROM 0.5MG/2.5ML NEB SCH ×2 (19:00→23:30)
[2018-05-09] MEDS: ISOSORBIDE DINIT 20 MG TAB PO SCH ×2 (21:00→21:30)
[2018-05-09] MEDS: ATORVASTATIN 80 MG TAB PO SCH ×2 (21:00→21:30)
[2018-05-09] MEDS: INSULIN -REGULAR HUMAN 50 UNIT/0.5 ML ML SQ SCH (21:00)
[2018-05-09 22:37] LABS: Urine Bilirubin NEGATIVE (NEG); Urine Blood NEGATIVE (NEG); Urine Color YELLOW; Urine Glucose NEGATIVE (NEG); Urine Protein NEGATIVE (NEG); Urine Specific Gravity 1.025 (1.005-1.030)
--- NOTE | 2018-05-09 22:41 | EKG ---
Test Date: 2018-05-09 Test Time: 14:35:27 Paper Inserter: RADHA MEASUREMENT RESULTS: Intervals: Rate: 60 IA: 120 QRSD: 120 QT: 470 QTc: 470 Bailey: P: 96 IA: 120 QRS: 71 T: 99 INTERPRETIVE STATEMENTS: AV dual-paced rhythm Biventricular pacemaker detected Abnormal ECG Compared to ECG 08/23/2014 11:55:32 Sinus bradycardia no longer present Ventricular premature complex(es) no longer present Intraventricular conduction delay no longer present ST (T wave) deviation no longer present Possible ischemia no longer present Electronically Signed On 05-09-18 22:40:41 KIT ASSEMBLER by Fred Gan
[2018-05-09 22:49] LABS: Urine Appearance CLEAR; Urine Microscopic Reflex NO UMIC
[2018-05-10] MEDS: METHYLPREDNISOLONE 40 MG INJ IV SCH ×4 (00:17→17:06)
[2018-05-10] MEDS: AMPICILLIN/SULBACT 1.5 GM in NA CHLORIDE 0.9% 100 ML IVPB SCH ×3 (00:18→17:05)
[2018-05-10] MEDS: IPRATROPIUM BROM 0.5MG/2.5ML NEB SCH ×6 (04:00→20:06)
[2018-05-10] MEDS: ALBUTEROL 2.5 MG/3 ML NEB SOL NEB SCH ×6 (04:00→20:06)
[2018-05-10] MEDS: SOTALOL HCL 80 MG TAB PO SCH ×2 (05:53→17:06)
[2018-05-10] MEDS: PANTOPRAZOLE 40MG TABLET PO SCH (05:54)
[2018-05-10 07:04] LABS: Absolute Lymphocytes (CBC) 0.8 K/uL (0.7-4.9); Absolute Monocytes 0.2 K/uL (0.1-1.3); Absolute Neutrophil 8.6 K/uL (1.8-8.0); Basophils % 0.1 % (0-1.3); Hematocrit 38.5 % (39.6-49.0); Lymphocytes % 8.4 % (15.3-44.8); MPV 9.4 fL (7.6-11.3); Monocytes % 2.3 % (3.3-12.3); RBC Red Blood Cell Count 4.05 M/uL (4.33-5.43)
[2018-05-10 07:27] LABS: Potassium 4.2 mmol/L (3.5-5.1)
[2018-05-10] MEDS: INSULIN -REGULAR HUMAN 50 UNIT/0.5 ML ML SQ SCH ×4 (07:30→20:46)
[2018-05-10] MEDS ORDERED: PNEUMOCOCCAL VACCINE 0.5 ML IMVAC ONE (09:00)
[2018-05-10] MEDS ORDERED: ASPIRIN EC 81 MG TAB PO SCH (09:00)
[2018-05-10] MEDS: LOSARTAN POTASSIUM 50 MG TABLET PO SCH (10:01)
[2018-05-10] MEDS: ASPIRIN EC 81 MG TAB PO SCH (10:01)
[2018-05-10] MEDS: DIGOXIN 0.125 MG TABLET PO SCH (10:01)
[2018-05-10] MEDS: CLOPIDOGREL 75 MG TABLET PO SCH (10:01)
[2018-05-10] MEDS: ISOSORBIDE DINIT 20 MG TAB PO SCH ×2 (10:01→20:46)
[2018-05-10] MEDS: ENOXAPARIN 30 MG/0.3 ML SQ SCH (17:00)
[2018-05-10] MEDS: ATORVASTATIN 80 MG TAB PO SCH (20:46)
[2018-05-11] MEDS: AMPICILLIN/SULBACT 1.5 GM in NA CHLORIDE 0.9% 100 ML IVPB SCH ×2 (00:30→08:45)
[2018-05-11] MEDS: METHYLPREDNISOLONE 40 MG INJ IV SCH ×2 (00:30→06:34)
[2018-05-11] MEDS: ALBUTEROL 2.5 MG/3 ML NEB SOL NEB SCH ×3 (00:56→07:43)
[2018-05-11] MEDS: IPRATROPIUM BROM 0.5MG/2.5ML NEB SCH ×3 (00:56→07:43)
--- NOTE | 2018-05-11 04:58 | HP ---
Date of Admission: 05/10/2018 Chief Complaint: Shortness of breath. History Of Present Illness: This is an 82-year-old male patient, who came in to see me on 05/07/2018 with 2 weeks history of cough, productive sputum, congestion, and sore throat. The patient denied any shortness of breath, nausea , vomiting, diarrhea. He takes prednisone [address] Galdamez for his COPD, and has been taking it like this for last 2 years. When I saw him, I diagnosed him as having acute bronchitis, and started him on antibiotic Augmentin. The patient came into emergency room yesterday with shortness of breath complaint. As his condition had deteriorated, and after he was evaluated , he was admitted to hospital with acute exacerbation of COPD. Allergies: HE IS LISTED ALLERGIC TO AMIODARONE, BACITRACIN, NEOMYCIN. Medications: List reviewed. Review of Systems: Respiratory: As mentioned above. All other systems reviewed and negative. Past Medical History: Significant for COPD, hyperlipidemia, type 2 diabetes mellitus, abdominal aortic aneurysm, hypertension, coronary artery disease, diverticulosis, gastroesophageal reflux disease, allergic rhinitis. 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 Family History: Significant for Alzheimer's disease and abdominal aortic aneurysm. Social History: Positive for smoking. Use of alcohol, negative. Physical Examination: Vital Signs: This morning, temperature 97.6, pulse 62, respiratory rate 18, blood pressure 135/61, height 5 feet 7 inches, weight 145 pounds. General: Awake, alert, oriented, not in distress. HEENT: Head atraumatic, normocephalic. Conjunctivae nonerythematous. Sclerae white. Mouth, no thrush or edema noted. Ears/Nose, no mass, lesion, discharge noted. Neck: Supple. No JVD, lymph nodes, bruit, thyromegaly noted. Lungs: Bilateral scattered wheezing. Not in any respiratory distress. Heart: Normal heart sounds, no murmur or gallop. Abdomen: Soft, bowel sounds normal. No guarding, rigidity, tenderness, mass, hepatosplenomegaly, distention, or bruit noted. Extremities: No leg edema. No calf tenderness. Skin: No rash, ulcer, cellulitis. Lymphatics: No lymph node enlargement in neck, supraclavicular, infraclavicular region. Neuro: No focal neurological deficit. Chest: Unremarkable. External Genitalia: Deferred. Rectal: Deferred. Laboratory Data: Chest x-ray, no infiltrate, no acute cardiopulmonary changes. White count yesterday 10.1, hemoglobin 14.4, platelets 197,000. This morning , white count 9.6, hemoglobin 13.2, platelets 169,000. Yesterday, sodium 141, potassium 4.7, chloride 105, bicarb 30, BUN 18, creatinine 0.95, glucose 162. Liver function tests normal. Troponin less than 0.02. Today, sodium 141, potassium 4.2, chloride 104, bicarb 29, BUN 28, creatinine 0.95, glucose 168. Urinalysis negative. Digoxin level 1.20. Impression: 1. Acute exacerbation of chronic obstructive pulmonary disease. 2. Acute bronchitis. 3. Type 2 diabetes mellitus. 4. Hypertension. 5. Mixed hyperlipidemia. 6. Abdominal aortic aneurysm. 7. Coronary artery disease. 8. Hypertension. 9. Diverticulosis. 10. Gastroesophageal reflux disease. 11. Anemia, unspecified. Plan: Admit the patient to hospital for further evaluation and management of this problem. The patient is appropriate for inpatient, and is expected to spend 2 midnights in hospital. We will go ahead and continue his necessary home medications per order. We will give IV antibiotic, Unasyn, for acute bronchitis problem. Treat COPD exacerbation with oxygen, nebulizer treatment, IV steroid. DVT prophylaxis will be given using Lovenox. Diabetes will be managed with sliding scale insulin, and home medications will be continued per order. Details and plan of treatment discussed with the patient. I will see him tomorrow for followup. FILOMENA/MODL Voice ID: [id number]
[2018-05-11] MEDS: SOTALOL HCL 80 MG TAB PO SCH (06:34)
[2018-05-11] MEDS: PANTOPRAZOLE 40MG TABLET PO SCH (06:34)
[2018-05-11] MEDS: INSULIN -REGULAR HUMAN 50 UNIT/0.5 ML ML SQ SCH (07:30)
[2018-05-11] MEDS: ASPIRIN EC 81 MG TAB PO SCH (08:42)
[2018-05-11] MEDS: CLOPIDOGREL 75 MG TABLET PO SCH (08:43)
[2018-05-11] MEDS: DIGOXIN 0.125 MG TABLET PO SCH (08:44)
[2018-05-11] MEDS: LOSARTAN POTASSIUM 50 MG TABLET PO SCH (10:30)
[2018-05-11] MEDS: ISOSORBIDE DINIT 20 MG TAB PO SCH (10:30)
--- NOTE | 2018-05-12 19:10 | DS ---
Date of Discharge: 05/11/2018 Disposition: Discharged to go home. Physical Examination: HEENT: Unremarkable. Lungs: Clear to auscultation. Heart: Sounds normal. Abdomen: Soft. Bowel sounds normal. No guarding, rigidity, tenderness, distention. Extremities: No leg edema. Discharge Medications And Instructions: 1. Continue all prior home medications except change prednisone 10 mg, the patient to take 3 tablets by mouth daily for 4 days, then 2 tablets by mouth daily for 2 days, then 1 tablet by mouth daily to continue as his maintenance dose. 2. Follow up at my office as per scheduled appointment. Laboratory Data: Labs done during this hospitalization, initial white count 10.1, hemoglobin 14.4, platelets 197. White count day after admission 9.6, hemoglobin 13.2, platelets 169. Initial chemistry, sodium 141, potassium 4.7, chloride 105, bicarb 30, BUN 18, creatinine 0.95, glucose 162. Liver function tests unremarkable. Troponin less than 0.02. Chest x-ray shows changes of COPD. No infiltrate. Hospital Course: An 82-year-old male patient who was recently diagnosed as having acute bronchitis and was prescribed Augmentin. He came into emergency room with shortness of breath problem. Please see dictated H and P for more information. After patient was evaluated in the ER, he was admitted to the hospital. The patient was started on oxygen nebulizer treatment, IV steroid and IV antibiotics. His home medications were continued. Overall, his condition improved. He started ambulating well. Shortness of breath has improved. Today, his room air oxygen saturation was 95%. The patient was discharged to go home in stable condition with above-mentioned medications and instructions. Final Diagnoses: 1. Acute exacerbation of chronic obstructive pulmonary disease. 2. Acute bronchitis. 3. Type 2 diabetes mellitus. 4. Hypertension. 5. Mixed hyperlipidemia. 6. Abdominal aortic aneurysm. 7. Coronary artery disease. 8. Hypertension. 9. Diverticulosis. 10. Gastroesophageal reflux disease. 11. Anemia, unspecified. FILOMENA/MODL Voice ID: [id number] Report ID: [id number] MTDD
== END 2018-05-11 11:28 | disposition home or self-care (01) | DRG 192 ==
LOC: ER 12:53 → ERHOLD 15:37 → 4TH 18:02
PROVIDERS: ADMIT Internal Medicine; ATTEND Internal Medicine
DX: J44.0 Chronic obstructive pulmonary disease with (acute) lower respiratory infection (principal); J44.1 Chronic obstructive pulmonary disease with (acute) exacerbation; J20.9 Acute bronchitis, unspecified; E11.9 Type 2 diabetes mellitus without complications; I10 Essential (primary) hypertension; E78.2 Mixed hyperlipidemia; I71.4 Abdominal aortic aneurysm, without rupture; I25.10 Atherosclerotic heart disease of native coronary artery without angina pectoris; K57.90 Diverticulosis of intestine, part unspecified, without perforation or abscess without bleeding; K21.9 Gastro-esophageal reflux disease without esophagitis; D64.9 Anemia, unspecified; Z23 Encounter for immunization
CPT/HCPCS: 36415; 71045; 80048; 80076; 80162; 81003; 82962; 83735; 83880; 84484; 85025; 85610; 87040; 90670; 93005; 94640; 94760; 96374; 97162; 99285; G0009; J0295; J1650; J1940; J2920; J7512

== ENCOUNTER 2018-07-06 10:06 | Emergency (ER) | payer OTHER ==
--- OUTSIDE RECORDS SUMMARY | 2018-07-06 10:08 | XMS REPORT | Clinical Summary ---
:1935 Author Organization [facility] Address [address] [place] [address] Care Team Providers Name Role Phone Rogelio Subramanian MD Primary Care Provider Allergies Active Allergy Reactions Severity Noted Date Comments Wzwuqjhs-Uhdrskpbpr-Zjwaaonbv Other (See Comments) Medium 12/15/2015 BUMPS Medications Medication Sig Dispensed Refills Start End Date Status Date clobetasol Apply 1 2 Active (TEMOVATE) 0.05 % application 6 external solution topically nightly. clopidogrel (PLAVIX) Take 75 mg by 3 Active 75 mg tablet mouth daily. TK 6 1 T PO QD flunisolide 1 spray daily. 0 Active (NASALIDE) 25 mcg 6 (0.025 %) spray,non-aerosol isosorbide Take 20 mg by 5 Active mononitrate mouth 2 (two) 6 (ISMO,MONOKET) 20 MG times a day. tablet TAKE 1 TABLET BY MOUTH BID metFORMIN Take 500 mg by 5 Active (GLUCOPHAGE) 500 MG mouth 2 (two) 6 tablet times a day with meals. 1 in am and 2 tabs at night pantoprazole Take 40 mg by 2 Active (PROTONIX) 40 MG EC mouth nightly. 6 tablet TK 1 T PO D multivitamin [...] mg tablet nightly. TK 1 T 3 09/04/19 Discontinued PO QD 6 18 SPIRIVA WITH INHALE 1 CAPSULE 3 08/26/19 Discontinued HANDIHALER 18 mcg VIA HANDIHALER 6 18 per inhalation PO QD capsule KETOTIFEN FUMARATE Apply 1 drop to 0 08/26/19 Discontinued (ZADITOR OPHT) eye nightly. 18 predniSONE TK 1 T PO QD PRN 1 08/26/19 Discontinued (DELTASONE) 10 mg 7 18 tablet ezetimibe (ZETIA) 10 Take 10 mg by 0 08/26/19 Discontinued mg tablet mouth daily. 18 OMEG3/EPA/DHA/FISH Take by mouth. 0 09/04/19 Discontinued OIL/FLAX/E (THERA 18 TEARS NUTRITION ORAL) STIOLTO RESPIMAT 0 08/26/19 Discontinued 2.5-2.5 7 18 mcg/actuation inhalation solution polyethylene glycol Take 1 packet by 0 09/04/19 Discontinued 3350 (MIRALAX ORAL) mouth nightly. 18 nitrofurantoin, Take 1 capsule 14 capsule 0 06/17/19 macrocrystal-monohyd (100 mg total) 9 19 rate, (MACROBID) 100 by mouth 2 (two) MG capsule times a day for 7 days. 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 02/12/2016 Personal history of bladder cancer 11/13/2015 History of bladder cancer 08/07/2015 Encounters Date Type Specialty Care Team Description 06/10/2018 Lab [facility] [place], History of bladder MD William cancer (Primary Dx) 06/10/2018 Procedure visit [facility] [place], History of bladder MD William cancer 12/10/2017 Lab Lab William Fragoso MD 12/10/2017 Office Visit [facility] [place], Malignant neoplasm of MD William urinary bladder, unspecified site (Primary Dx) 09/03/2017 Surgery Procedural [place] Cv left heart cath w Cardiology MD Alvin lv gram cors [[id number] (CPT)] 09/03/2017 - Hospital Encounter Cardiology [place] History of bladder cancer (Primary Dx); 09/04/2017 MD Alvin 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 08/29/2017 Orders Only Cardiology Ang, Coronary artery ROSIO Burton disease involving lone pine coronary artery of lone pine heart with angina pectoris (Primary Dx) 08/25/2017 Surgery Procedural [place], Cv left heart cath w Nasima Delaney MD lv gram cors [[id number] (CPT)] 08/25/2017 Hospital Encounter Procedural [place], Cardiomyopathy, unspecified type; Cardiology MD Elaina Coronary artery disease with angina pectoris, unspecified vessel or lesion type, unspecified whether lone pine or transplanted heart 08/08/2017 Lab Lab [place] Malignant neoplasm of MD William urinary bladder, unspecified site (Primary Dx) 08/08/2017 Office Visit [facility] [place] Malignant neoplasm of MD William urinary bladder, unspecified site (Primary Dx) after 07/05/2017 Family History Medical History Relation Name Comments [...] Treatment Date Type Specialty Care Team Description 06/11/2019 Procedure visit Urology William Fragoso MD [address] [facility] [address] [place] [address] Health Maintenance Due Date Last Done Comments SHINGLES VACCINES (#1) 1986 65+ PNEUMOCOCCAL VACCINE (1 of 2 - PCV13) 2001 PNEUMOCOCCAL POLYSACCHARIDE VACCINE AGE 65 AND OVER 2001 INFLUENZA VACCINE 11/26/2017 Implants Implanted Type Area Mirror Polisher Device Shelf Model / Identifier Expiration Serial / Date Lot Angelina, Lv Leads, Model 1458q-86 - [id number] Cardiac Pacing N/A: [employer] 01/25/2019 [id number] / Implanted: 05/10/2016 (Quantity not on file) Leads or N/A [id number] / Electrodes or [id number] Accessories Tendril Sts, Pacemaker Leads, Model 2088tc/52 - [id number] Cardiac Pacing N/A : [employer] 02/25/[id number] / Implanted: 05/10/2016 (Quantity not on file) Leads or N/A [id number] / Electrodes or [id number] Accessories Envlp Impl Crdvrtr Dfb Antbctrl Fully Resorb Lg Aigissrx R - [id number] Cardiovascular N/A: [employer] [id number] / Implanted: 05/10/2016 (Quantity not on file) Implants N/A / Catheter Pump Set Impella Cp - [id number] Cardiovascular N/A: [employer] [id number] / Implanted: 09/03/2017 (Quantity not on file) Implants N/A / [id number] Stent Coronary Syst Synergy (Mr) 3.50mm X 24mm - [id number] Coronary Stents N /A: [facility] [place] [id number] / Implanted: 09/03/2017 (Quantity not on file) N/A INTERVENTIONAL / CARDIOLOGY [id number] Stent Coronary Syst Synergy (Mr) 3.50mm X 12mm - [id number] Coronary Stents N /A: [facility] [place]/02/2018 [id number] / Implanted: 09/03/2017 (Quantity not on file) N/A INTERVENTIONAL / CARDIOLOGY [id number] Stent Coronary Syst Synergy (Mr) 3.00mm X 16mm - [id number] Coronary Stents N /A: [facility] [place]/26/2018 [id number] / Implanted: 09/03/2017 (Quantity not on file) N/A INTERVENTIONAL / CARDIOLOGY [id number] Stent Coronary Syst Synergy (Mr) 3.00mm X 8mm - [id number] Coronary Stents N/ A: [facility] [place]/05/2018 [id number] / Implanted: 09/03/2017 (Quantity not on file) N/A INTERVENTIONAL / CARDIOLOGY [id number] [employer] Mp Cuff Presser-D Defibrillators & N/A: [employer] 01/25/2018 [id number] / Implanted: Qty: 1 on 05/10/2016 by Renata Sen Jr., MD Leads N/A [id number] / [id number] System Clsr Sut Meditd 6fr Perclose Proglide - [id number] Surgical N/A: [facility] 05/28/2019 [id number] / Implanted: 09/03/2017 (Quantity not on file) Implants; N/A DEVICES / Expanders; [id number] Extenders; Surgical Wires System Clsr Sut Meditd 6fr Perclose Proglide - [id number] Surgical N/A: [facility] VASCULAR 05/28/2019 [id number] / Implanted: 09/03/2017 (Quantity not on file) Implants; N/A DEVICES / Expanders; [id number] Extenders; Surgical Wires Procedures Procedure Name Priority Date/Time Associated Diagnosis Comments CYTOLOGY Routine 06/10/2018 3:03 Results for this (NON-GYNECOLOGICAL) PM JOB LITHOGRAPHER procedure are in REQUEST the results section. CYTOLOGY Routine 12/10/2017 2:12 Results for this [...] CDT disease involving procedure are in ACCESS lone pine coronary the results artery of lone pine section. heart with angina pectoris CV PCI STENT Routine 09/03/2017 3:02 Coronary artery Results for this PM CDT disease involving procedure are in lone pine coronary the results artery of lone pine section. heart with angina pectoris CV LEFT HEART CATH LV Routine 09/03/2017 3:02 Coronary artery Results for this GRAM WITH CORS PM CDT disease involving procedure are in lone pine coronary the results artery of lone pine section. heart with angina pectoris ACTIVATED CLOTTING [...] unspecified vessel or lesion type, unspecified whether lone pine or transplanted heart HC COMPLETE BLD COUNT [...] in unspecified site the results section. after 07/05/2017 Results Cytology (non-gynecological) request (06/10/2018 3:03 PM JOB LITHOGRAPHER)Only the most recent of3 resultswithin the time period is included. [facility] DEPARTMENT OF PATHOLOGY AND GENOMIC MEDICINE Cytology See link below for PDF [facility] DEPARTMENT OF (non-gynecological) report Lab Report PATHOLOGY AND GENOMIC MEDICINE Result status This is Final Report [facility] DEPARTMENT OF for [id number] PATHOLOGY AND GENOMIC MEDICINE Performing Organization Address City/[facility] Phone Number [facility] DEPARTMENT OF PATHOLOGY AND [address] [place] [address] GENOMIC MEDICINE POC urinalysis dipstick (12/10/2017 10:12 [...] glucose 141 (H) 65 - 99 mg/dL [facility] DEPARTMENT OF PATHOLOGY Comment: AND GENOMIC MEDICINE Meter ID: [id number] Inspector Eyeglass Frames: Stoney Rivera Performing Organization Address City/[facility] Phone Number [facility] DEPARTMENT OF PATHOLOGY AND [address] [place] [address] [facility] MEDICINE ECG 12 lead (09/04/2017 6:28 AM CDT) Ventricular rate 60 [facility] Atrial rate 60 [facility] [place] interval 126 [facility] QRSD interval 116 [facility] QT interval 458 [facility] QTC interval 458 [facility] P axis 1 28 [facility] QRS axis 1 -8 [facility] T wave axis 168 [facility]USE EKG impression Electronic ventricular pacemaker-In automated [facility] MUSE comparison with ECG of 03-SEP-2017 15:57,-No significant change was found- Performing Organization Address City/[facility] Phone Number [facility] MUSE [address] [place] [address] Phosphorus level (09/04/2017 1:30 AM CDT) Phosphorus 2.9 2.4 - 4.5 mg/dL [facility] DEPARTMENT OF PATHOLOGY AND GENOMIC MEDICINE Specimen Plasma specimen Performing Organization Address [facility] Phone Number [facility] DEPARTMENT OF PATHOLOGY AND [address] [place] [address] MEDICINE Ionized calcium (09/04/2017 1:30 AM CDT) pH 7.68 [facility] DEPARTMENT OF PATHOLOGY AND GENOMIC MEDICINE Ionized calcium 1.05 (L) 1.11 - 1.32 mmol/L [facility] DEPARTMENT OF PATHOLOGY AND GENOMIC MEDICINE Specimen Plasma specimen Performing Organization Address [facility] Phone Number [facility] DEPARTMENT OF PATHOLOGY AND [address] [place] [address] MEDICINE Estimated GFR (09/04/2017 1:20 AM CDT)Only the most recent of2 resultswithin the time period is included. GFR Non Af Amer >90 mL/min/1.73 m2 [facility] DEPARTMENT OF PATHOLOGY AND GENOMIC MEDICINE GFR Af Amer >90 mL/min/1.73 m2 [facility] DEPARTMENT OF Comment: PATHOLOGY AND GENOMIC Chronic [...] Americans. Specimen Plasma specimen Performing Organization Address [facility] Phone Number [facility] DEPARTMENT OF PATHOLOGY AND [address] [place] [address] CBC with platelet and differential (09/04/2017 1:20 AM CDT)Only the most recent of2 resultswithin the time period is included. WBC 10.28 4.50 - 11.00 k/uL [facility] DEPARTMENT OF PATHOLOGY AND GENOMIC MEDICINE RBC 3.82 (L) 4.40 - 6.00 m/uL [facility] DEPARTMENT OF PATHOLOGY AND GENOMIC MEDICINE HGB 12.6 (L) 14.0 - 18.0 g/dL [facility] DEPARTMENT OF PATHOLOGY AND GENOMIC MEDICINE HCT 36.9 (L) 41.0 - 51.0 % [facility] DEPARTMENT OF PATHOLOGY AND GENOMIC MEDICINE MCV 96.6 82.0 - 100.0 fL [facility] DEPARTMENT OF PATHOLOGY AND GENOMIC MEDICINE MCH 33.0 27.0 - 34.0 pg [facility] DEPARTMENT OF PATHOLOGY AND GENOMIC MEDICINE MCHC 34.1 31.0 - 37.0 g/dL [facility] DEPARTMENT OF PATHOLOGY AND GENOMIC MEDICINE RDW - SD 44.2 37.0 - 55.0 fL [facility] DEPARTMENT OF PATHOLOGY AND GENOMIC MEDICINE MPV 10.3 8.8 - 13.2 fL [facility] DEPARTMENT OF PATHOLOGY AND GENOMIC MEDICINE Platelet count 164 150 - 400 k/uL [facility] DEPARTMENT OF PATHOLOGY AND GENOMIC MEDICINE Nucleated RBC 0.00 /100 WBC [facility] DEPARTMENT OF PATHOLOGY AND GENOMIC MEDICINE Neutrophils 67.6 39.0 - 69.0 % [facility] DEPARTMENT OF PATHOLOGY AND GENOMIC MEDICINE Lymphocytes 22.0 (L) 25.0 - 45.0 % [facility] DEPARTMENT OF PATHOLOGY AND GENOMIC MEDICINE Monocytes 8.4 0.0 - 10.0 % [facility] DEPARTMENT OF PATHOLOGY AND GENOMIC MEDICINE Eosinophils 1.2 0.0 - 5.0 % [facility] DEPARTMENT OF PATHOLOGY AND GENOMIC MEDICINE Basophils 0.5 0.0 - 1.0 % [facility] DEPARTMENT OF PATHOLOGY AND GENOMIC MEDICINE Immature granulocytes 0.3Comment: 0.0 - 1.0 % [facility] DEPARTMENT OF "Immature PATHOLOGY AND GENOMIC granulocytes" MEDICINE (promyelocytes, myelocytes, metamyelocytes) Specimen Blood Performing Organization Address City/[facility]/Zipcode Phone Number [facility] DEPARTMENT OF PATHOLOGY AND [address] [place] [address] [facility] Magnesium level (09/04/2017 1:20 AM CDT) Magnesium 1.9 1.6 - 2.4 mg/dL [facility] DEPARTMENT OF PATHOLOGY AND GENOMIC MEDICINE Specimen Plasma specimen Performing Organization Address City/State/Zipcode Phone Number [facility] DEPARTMENT OF PATHOLOGY AND [address] [place] [address] GENOMIC MEDICINE Lipid panel (09/04/2017 1:20 AM CDT) Cholesterol 151 <200 mg/dL [facility] DEPARTMENT OF PATHOLOGY AND GENOMIC MEDICINE Triglycerides 124 <150 mg/dL [facility] DEPARTMENT OF PATHOLOGY AND GENOMIC MEDICINE HDL cholesterol 34 (L) >40 mg/dL [facility] DEPARTMENT OF PATHOLOGY AND GENOMIC MEDICINE LDL cholesterol 105 (H)Comment: Result <100 mg/dL [facility] DEPARTMENT obtained by direct LDL PATHOLOGY AND GENOMIC measurement MEDICINE Lipid panel interpretation SeeBelow [facility] DEPARTMENT OF Comment: PATHOLOGY AND GENOMIC Total Cholesterol (mg/dL) MEDICINE <200 Desirable [phone]-qqod >=240High Triglycerides (mg/dL) <150 Normal [phone]-rszc 200-499High >=500Very high HDL Cholesterol (mg/dL) <40Low (male) <40Low (female) LDL Cholesterol (mg/dL) <100 Optimal 100-129Near or above optimal 324-809Mgxzzbwgog-aaor 160-189High >=190Very high Risk Catergories that modify [...] mg/dL) Specimen Plasma specimen Performing Organization Address City/State/[facility] Phone Number [facility] DEPARTMENT OF PATHOLOGY AND [address] [place] [address] [facility] MEDICINE Basic metabolic panel (09/04/2017 1:20 AM CDT)Only the most recent of2 resultswithin the time period is included. Sodium 139 135 - 148 mEq/L [facility] DEPARTMENT OF PATHOLOGY AND GENOMIC MEDICINE Potassium 3.9 3.5 - 5.0 mEq/L [facility] DEPARTMENT OF PATHOLOGY AND GENOMIC MEDICINE Chloride 103 98 - 112 mEq/L [facility] DEPARTMENT OF PATHOLOGY AND GENOMIC MEDICINE CO2 25 24 - 31 mEq/L [facility] DEPARTMENT OF PATHOLOGY AND GENOMIC MEDICINE Anion gap 11 7 - 15 mEq/L [facility] DEPARTMENT OF PATHOLOGY Comment: AND GENOMIC MEDICINE Starting from July , anion gap calculation no longer incorporates potassium. Please note the change. BUN 13 8 - 23 mg/dL [facility] DEPARTMENT OF PATHOLOGY AND GENOMIC MEDICINE Creatinine 0.8 0.7 - 1.2 mg/dL [facility] DEPARTMENT OF PATHOLOGY AND GENOMIC MEDICINE Glucose 120 (H) 65 - 99 mg/dL [facility] DEPARTMENT OF PATHOLOGY AND GENOMIC MEDICINE Calcium 8.5 (L) 8.8 - 10.2 mg/dL [facility] DEPARTMENT OF PATHOLOGY AND GENOMIC MEDICINE Specimen Plasma specimen Performing Organization Address City/[facility] Phone Number [facility] OF PATHOLOGY AND [address] [place] [address] [facility] MEDICINE ECG Pre/Post Op (in AM) (09/03/2017 3:57 PM CDT)Only the most recent of2 resultswithin the time period is included. Ventricular rate 60 [facility] Atrial rate 60 [facility] MUSE [place] interval 128 [facility] QRSD interval 114 [facility] M[facility] QT interval 402 [facility] QTC interval 402 [facility] MUSE P axis 1 13 [facility] QRS axis 1 47 [facility] T wave axis 61 [facility] EKG impression AV sequential or dual chamber electronic [facility] MUSE pacemaker-In automated comparison with ECG of 03-SEP-2017 11:02,-No significant change was found- Performing Organization Address [facility] Phone Number [facility] MUSE [address] [place] [address] Cv senior laboratory technician procedure (09/03/2017 3:02 PM CDT) Narrative Performed [...] respiration, Oxygen saturation and CO2 monitoring, beginning [id number] ( time)for a total period of 109 minutes. I was physically present for the critical portions of all procedures performed during this episode of care Performing Organization Address City/[facility]/Zipcode Phone Number [facility] [address] [place] [address] Activated clotting time (09/03/2017 1:41 PM CDT) Activated clotting time 354 (H) 96 - 152 sec [facility] DEPARTMENT OF Comment: PATHOLOGY AND GENOMIC Meter ID: [id number] MEDICINE Inspector Eyeglass Frames: Jana Tan Performing Organization Address City/[facility]/Zipcode Phone Number [facility] DEPARTMENT OF PATHOLOGY AND [address] [place] [address] [facility] Cv senior laboratory technician procedure (08/25/2017 5:20 PM CDT) Cath EF [...] lesion. LV EF 20-30%. Performing Organization Address [facility] Phone Number [facility] [address] [place] [address] after 07/05/2017 Insurance Payer Benefit Plan / Group Subscriber ID Type Phone Address AETNA MEDICARE AETNA MEDICARE HMO/PPO [facility] xxxxxxxx HMO ([place]) [place] [address] Advance Directives Patient has advance care planning documents on file. For more information, please contact:[facility] [place] [address]
--- OUTSIDE RECORDS SUMMARY | 2018-07-06 10:08 | XMS REPORT ---
:1935 Author [facility] Address [address] [place] [address] Care Team Providers Name Role Phone Unavailable Unavailable Unavailable Problems This patient has no known problems. Allergies, Adverse Reactions, Alerts This patient has no known allergies or adverse reactions. Medications This patient has no known medications.
[2018-07-06] MEDS ORDERED: TETANUS & DIPHTHERIA TOX,ADULT 0.5 ML VIAL ONE (10:47)
--- NOTE | 2018-07-06 11:41 | RAD REPORT ---
EXAM DESCRIPTION: CT - [id number] - 07/06/2018 10:28 am CLINICAL HISTORY: Fall, head and neck injury, patient on Plavix therapy, left ear pain COMPARISON: CT head August 2016 TECHNIQUE: Axial 5 mm thick images of the head were obtained. Axial 2 mm thick images of the cervic al spine were obtained with sagittal and coronal reconstruction images generated and reviewed. All CT scans are performed using dose optimization technique as appropriate and may include automated exposure control or mA/KV adjustment according to patient size. FINDINGS: No intracranial hemorrhage, mass, edema or acute intracranial finding. Minimal hyperdensit y along the anterior falx is similar to the comparison. No suspicion for acute infarction. Patient dee s advanced atrophy and chronic ischemic change. Ventricles are in proportion to the volume loss in th e intracranial findings are similar to the comparison. Old right occipital CVA changes are present. M astoid air cells and paranasal sinuses are clear. No globe or orbit abnormality seen. Cervical body height and alignment are normal. No significant disc space narrowing. No pathologic bon e process. No significant central spinal stenosis or foraminal stenosis identified. No fracture or ac tanana bony abnormality. Approximately 12 x 14 millimeter area of increased density is present within th e left parotid gland. No prior imaging of this region. A parotid mass is possible. Hemorrhage within the parotid gland is possible given the history of fall and left ear pain. No paraspinal mass or other hematoma. Due to technical problems with the PACs system, report was delayed due to unavailability of the image s. IMPRESSION: Advanced atrophy and chronic ischemic change with no acute intracranial finding identifi able. Cervical spine degenerative changes are present with no fracture or acute finding. A 12-14 millimeter focal density in the left parotid gland is identified. No comparison available to establish stability. Available history indicates trauma and pain to the left side of the head near the ear. It is possible for the parotid mass to be posttraumatic hemorrhage within the gland. A solid mass of the parotid gl and such as pleomorphic adenoma or Warthin's tumor cannot be excluded. Follow-up sonography in 4 week s could be performed of the left parotid gland to evaluate for a mass and to allow resolution of any hemorrhage.
--- NOTE | 2018-07-06 12:05 | RAD REPORT ---
EXAM DESCRIPTION: RAD - Chest Single View - 07/06/2018 11:59 am CLINICAL HISTORY: fall Chest pain. COMPARISON: Chest Single View dated 05/09/2018; Chest Pa And Lat (2 Views) dated 09/02/2016; CHEST PA A ND LAT 2 VIEW dated 07/27/2014; CHEST PA AND LAT 2 VIEW dated 02/07/2014 FINDINGS: Portable technique limits examination quality. Emphysematous changes are present throughout the lungs. No focal infiltrate detected. The heart is no rmal in size. Sternotomy wires present. Multi lead pacer/ defibrillator device present. IMPRESSION: COPD.
--- NOTE | 2018-07-06 12:08 | RAD REPORT ---
EXAM DESCRIPTION: RAD - Knee Left 3 View - 07/06/2018 11:59 am CLINICAL HISTORY: fall;Pain COMPARISON: No comparisons FINDINGS: Mild degenerative changes are present involving the medial joint space. Diffuse osteopenia seen. No acute fracture or dislocation. A small suprapatellar joint effusion is present.
--- NOTE | 2018-07-06 12:10 | RAD REPORT ---
EXAM DESCRIPTION: RAD - Elbow Left 3 View - 07/06/2018 11:59 am CLINICAL HISTORY: fall;Pain COMPARISON: No comparisons FINDINGS: No acute fracture or dislocation is seen. Mild soft tissue swelling is seen about the olec ranon.
--- NOTE | 2018-07-06 12:11 | RAD REPORT ---
EXAM DESCRIPTION: RAD - Pelvis - 07/06/2018 12:02 pm CLINICAL HISTORY: fall COMPARISON: No comparisons FINDINGS: Mild arthritic changes are present both hips. No acute fracture or dislocation is seen.
[2018-07-06] MEDS ORDERED: TRAMADOL HCL 50 MG TAB ONE (12:36)
--- NOTE | 2018-07-06 13:50 | RAD REPORT ---
EXAM DESCRIPTION: CT - Chest Abd Pelvis Wo Con - 07/06/2018 1:28 pm CLINICAL HISTORY: Chest and abdomen pain. left lower rib pain COMPARISON: No comparisons TECHNIQUE: A limited noncontrast study is submitted. All CT scans are performed using dose optimization technique as appropriate and may include automated exposure control or mA/KV adjustment according to patient size. FINDINGS: Emphysematous changes are present throughout the lungs.No pulmonary nodule, mass or infilt rate is seen.No pleural or pericardial effusion.Pacer wiring is noted.No intrathoracic adenopathy. The liver, spleen, pancreas, adrenal glands are within normal limits. 8 cm cyst is present superior m edial left kidney, benign appearance. Punctate right nephrolithiasis. No hydronephrosis is evident. . No bowel obstruction, free air, free fluid or abscess. Normal appendix. Aortoiliac atherosclerosis. N o pathologic lymphadenopathy in the abdomen or pelvis. No rib fracture identified. IMPRESSION: No acute abnormality is seen.
--- NOTE | 2018-07-06 14:19 | ER ---
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 Transition of care: patient was not received from another setting of care. Onset of symptoms was July 06, 2018. Risk Assessment: Do you want to hurt yourself or someone else? Patient reports no desire to harm self or others. Initial Sepsis Screen: Does the patient meet any 2 criteria? No. Patient's initial sepsis screen is negative. Does the patient have a suspected source of infection? No. Patient's initial sepsis screen is negative. Care prior to arrival: None. 10:09 Method Of Arrival: EMS: [facility] 10:09 Acuity: WEI 4 10:19 Mechanism of Injury: Fall from standing position. Trauma event details: Injury occurred hj in the [facility], Injury occurred: at home. Injury occurred: July 06, 2018. Triage Assessment: 10:18 General: Appears in no apparent distress. uncomfortable, Behavior is calm, cooperative, hj appropriate for age. Pain: Complains of pain in left ear. Trauma Activation: Alert Physician: ED Physician; Name: ; Notified At: ; Arrived At: Physician: General Surgeon; Name: ; Notified At: ; Arrived At: Physician: Radiology; Name: ; Notified At: ; Arrived At: Physician: Respiratory; Name: ; Notified At: ; Arrived At: Physician: Lab; Name: ; Notified At: ; Arrived At: Historical: - Allergies: 10:13 Neosporin ([id number]); hj - Home Meds: 10:30 aspirin 81 mg Oral TbEC [Active]; Benadryl 25 mg Oral cap [Active]; clopidogrel 75 mg pc1 oral tab [Active]; Digoxin Oral [Active]; isosorbide mononitrate 20 mg Oral tab [Active]; losartan 50 mg oral tab [Active]; lutein 20 mg oral cap [Active]; metformin 500 mg Oral tab [Active]; Nitroglycerin Oral [Active]; pantoprazole 40 mg oral TbEC [Active]; sotalol 80 mg Oral tab [Active]; Ventolin HFA 90 mcg/actuation Nebulizer HFAA [Active]; - PMHx: 10:13 AAA; CAD; cardiac arrest; CHF; constipation; COPD; Diabetes - NIDDM; GERD; High hj Cholesterol; macular degeneration; - PSHx: 10:13 internal defib; Cataracts; AAA repair; Angioplasty; CABG; hj - Immunization history:: Adult Immunizations up to date. - Social history:: Smoking status: Patient/guardian denies using tobacco, Patient/guardian denies using alcohol. - Immunization history: Last tetanus immunization: - up to date. - Ebola Screening: : Patient negative for fever greater than or equal to 101.5 degrees Fahrenheit, and additional compatible Ebola Virus Disease symptoms Patient denies exposure to infectious person Patient denies travel to an Ebola-affected area in the 21 days before illness onset. Screenin:13 Abuse screen: Denies threats or abuse. Denies injuries from another. Nutritional hj screening: No deficits noted. Tuberculosis screening: No symptoms or risk factors identified. Fall Risk None identified. Primary Survey: 10:13 NO uncontrolled hemorrhage observed. A: The patient is alert. Airway: patent, No hj supplemental oxygen in use on arrival. Oral cavity: clear, gag reflex present, Trachea midline. Breathing/Chest: Respiratory pattern: regular, Respiratory effort: spontaneous, unlabored, Breath sounds: clear, Chest inspection: symmetrical rise and fall of the chest. Circulation: Cardiac rhythm: Heart tones present. Pulses: palpable right radial artery, right posterior tibial artery, left radial artery and left posterior tibial artery. Skin color: pink, Skin temperature: warm, dry. Disability Alert. Exposure/Environment: All clothing and personal items were removed. Forensic evidence collection is not deemed to be indicated at this time. Items placed in patient belonging bag. There is no evidence of uncontrolled external bleeding. A warming method has been applied: A warm blanket has been provided to the patient. 10:18 Reassessment Airway Airway Patent Oxygen Nasal cannula Oral cavity Clear +Gag reflex hj Trachea Midline Breathing/Chest Respiratory pattern Regular Respiratory effort Spontaneous Breath sounds Clear Chest inspection Symmetrical Circulation Heart rhythm Sinus rhythm Heart tones Present Pulses Palpable Color [place] Temperature Warm Dry Disability Alert. 11:30 Reassessment Airway Airway Patent Oxygen No O2 Oral cavity Clear +Gag reflex Trachea hj Midline Breathing/Chest Respiratory pattern Regular Respiratory effort Spontaneous Unlabored Breath sounds Clear Chest inspection Symmetrical Circulation Heart rhythm Sinus rhythm Heart tones Present Pulses Palpable Color [place] Temperature Warm Dry Disability Alert. 14:33 Reassessment Airway Airway Patent Oxygen No O2 Nasal cannula Oral cavity Clear +Gag hj reflex Trachea Midline Breathing/Chest Respiratory pattern Regular Respiratory effort Spontaneous Unlabored Breath sounds Clear Chest inspection Symmetrical Circulation Heart rhythm Sinus rhythm Heart tones Present Pulses Palpable Color [place] Temperature Warm Dry Disability Alert. Secondary Survey: 10:13 HEENT: Ears: bleeding noted from left ear lac. Gastrointestinal: No deficits noted. : hj No signs and/or symptoms were reported regarding the genitourinary system. Musculoskeletal: No signs and/or symptoms reported regarding the musculoskeletal system. Assessment: 10:13 General: Appears in no apparent distress. uncomfortable, Behavior is calm, cooperative, hj appropriate for age. Pain: Complains of pain in left ear. Neuro: Level of Consciousness is awake, alert, obeys commands, Oriented to person, place, time, situation, Appropriate for age. Cardiovascular: Capillary refill < 3 seconds Patient's skin is warm and dry. Respiratory: Airway is patent Respiratory effort is even, unlabored, Respiratory pattern is regular, symmetrical. GI: No signs and/or symptoms were reported involving the gastrointestinal system. : No signs and/or symptoms were reported regarding the genitourinary system. EENT: No signs and/or symptoms were reported regarding the EENT system. Derm: No signs and/or symptoms reported regarding the dermatologic system. Musculoskeletal: No signs and/or symptoms reported regarding the musculoskeletal system. 12:30 Reassessment: Patient and/or family updated on plan of care and expected duration. Pain hj level reassessed. Patient is alert, oriented x 3, equal unlabored respirations, skin warm/dry/pink. able to ambulate approx 50-70 steps with cane and minimal assistance;. 13:30 Reassessment: Patient and/or family updated on plan of care and expected duration. Pain hj level reassessed. Patient is alert, oriented x 3, equal unlabored respirations, skin warm/dry/pink. awaiting results and POC;. 14:27 Reassessment: D/C instructions given;. hj Vital Signs: 10:17 Pulse Ox 96% on 2 lpm NC; hj 10:17 BP 107 / 73; Pulse 76; Resp 18; Temp 98.1(O); Pulse Ox 92% on R/A; Weight 68.04 kg; hj Height 5 ft. 10 in. (177.80 cm); 14:28 BP 110 / 75; Pulse 75; Resp 18; Pulse Ox 100% on R/A; hj 10:17 Body Mass Index 21.52 (68.04 kg, 177.80 cm) hj Ider Coma Score: 10:17 Eye Response: spontaneous(4). Verbal Response: oriented(5). Motor Response: obeys hj commands(6). Total: 15. Trauma Score (Adult): 10:17 Eye Response: spontaneous(1); Verbal Response: oriented(1); Motor Response: obeys hj commands(2); Systolic BP: > 89 mm Hg(4); Respiratory Rate: 10 to 29 per min(4); Lorelei Score: 15; Trauma Score: 12 ED Course: 10:09 Patient arrived in ED. hj 10:10 Bryce Cantu PA is PHCP. cp 10:10 Yoav Shankar MD is Attending Physician. cp 10:11 Triage completed. hj 10:16 Germán Rushing, ROSIO is Primary Nurse. hj 10:18 Arm band placed on right wrist. hj 10:20 Patient has correct armband on for positive identification. Placed in gown. Bed in low hj position. Call light in reach. Side rails up X2. 10:20 Patient maintains SpO2 saturation greater than 95% on room air. hj 10:20 Thermoregulation: warm blanket given to patient. hj 10:27 CT completed. Patient tolerated procedure well. Patient moved to CT via stretcher. [id number] Patient moved back from CT. 10:29 CT Head C Spine In Process Unspecified. EDMS 11:59 XRAY Elbow LEFT 3 view In Process Unspecified. EDMS 11:59 XRAY Knee LEFT 3 view In Process Unspecified. EDMS 11:59 XRAY Pelvis In Process Unspecified. EDMS 11:59 XRAY Chest (1 view) In Process Unspecified. EDMS 13:27 CT completed. Patient tolerated procedure well. Patient moved to CT via stretcher. Patient moved back from CT. 13:28 CT Chest Abdomen Pelvis W/O Contrast In Process Unspecified. EDMS 13:30 Wound care: to abrasion, located on L arm was cleaned with dressed with 4X4s, Kerlix, hj Patient tolerated. 14:23 No provider procedures requiring assistance completed. Patient did not have IV access hj during this emergency room visit. Administered Medications: 10:43 Drug: Tetanus-Diphtheria Toxoid Adult 0.5 ml {Seat Cover Maker: Work in [employer]. Exp: pc1 06/11/2020. Lot #: [id number]. } Route: IM; Site: right deltoid; 12:23 Follow up: Response: No adverse reaction hj 12:20 Drug: UltRAM 50 mg Route: PO; hj 12:30 Follow up: Response: No adverse reaction; Pain is decreased hj Intake: 14:26 PO: 100ml (Water); Total: 100ml. hj Output: 14:26 Urine: 150ml (Voided); Total: 150ml. hj Outcome: 14:19 Discharge ordered by MD. cp 14:23 Discharged to home ambulatory, with family. hj 14:23 Condition: stable 14:23 Discharge instructions given to patient, family, Instructed on discharge instructions, follow up and referral plans. medication usage, Demonstrated understanding of instructions, follow-up care, medications, Prescriptions given X 1. 14:26 Patient's length of stay in the Emergency Department was greater than 2 hours. hj 14:33 Patient left the ED. hj Signatures: Dispatcher [employer] Nicole Morrison Henry, RN RN Bryce Ryan PA PA cp Garcia, Jessica jg6 [place] pc1 Corrections: (The following items were deleted from the chart) 10:20 10:17 BP 146 / 100; Pulse 76bpm; Resp 18bpm; Pulse Ox 92% RA; Temp 98.1F Oral; 68.04 hj kg; Height 5 ft. 10 in.; BMI: 21.5; hj
--- NOTE | 2018-07-06 14:19 | EDPHYS ---
Physician Documentation [facility] Name: Cornelius Tierney Age: 82 yrs Sex: Male : 1935 Arrival Date: 07/06/2018 Time: 10:09 Bed 14 Private MD: ED Physician Yoav Shankar HPI: 07/06 10:15 This 82 yrs old Male presents to ER via EMS with complaints of Fall Injury. cp 10:15 Details of fall: The patient fell from an upright position, while walking, and struck dirt, a grass-covered surface. Onset: The symptoms/episode began/occurred this morning. Associated injuries: The patient sustained injury to the head, laceration, of the left ear, left elbow, contusion, skin tear, left knee, abrasion, contusion. Historical: - Allergies: 10:13 Neosporin ([id number]); hj - Home Meds: 10:30 aspirin 81 mg Oral TbEC [Active]; Benadryl 25 mg Oral cap [Active]; clopidogrel 75 mg pc1 oral tab [Active]; Digoxin Oral [Active]; isosorbide mononitrate 20 mg Oral tab [Active]; losartan 50 mg oral tab [Active]; lutein 20 mg oral cap [Active]; metformin 500 mg Oral tab [Active]; Nitroglycerin Oral [Active]; pantoprazole 40 mg oral TbEC [Active]; sotalol 80 mg Oral tab [Active]; Ventolin HFA 90 mcg/actuation Nebulizer HFAA [Active]; - PMHx: 10:13 AAA; CAD; cardiac arrest; CHF; constipation; COPD; Diabetes - NIDDM; GERD; High hj Cholesterol; macular degeneration; - PSHx: 10:13 internal defib; Cataracts; AAA repair; Angioplasty; CABG; hj - Immunization history:: Adult Immunizations up to date. - Social history:: Smoking status: Patient/guardian denies using tobacco, Patient/guardian denies using alcohol. - Immunization history: Last tetanus immunization: - up to date. - Ebola Screening: : Patient negative for fever greater than or equal to 101.5 degrees Fahrenheit, and additional compatible Ebola Virus Disease symptoms Patient denies exposure to infectious person Patient denies travel to an Ebola-affected area in the 21 days before illness onset. ROS: 10:20 Constitutional: Negative for body aches, chills, fever, poor PO intake. cp 10:20 Eyes: Negative for injury, pain, redness, and discharge. cp 10:20 ENT: Negative for drainage from ear(s), ear pain, sore throat, difficulty swallowing, difficulty handling secretions. 10:20 Cardiovascular: Negative for chest pain. 10:20 Respiratory: Negative for cough, shortness of breath, wheezing. 10:20 Abdomen/GI: Negative for abdominal pain, nausea, vomiting, and diarrhea. 10:20 MS/extremity: Positive for pain, tenderness, of the left elbow and left knee, Negative for decreased range of motion, deformity. 10:20 Neuro: Negative for altered mental status, dizziness, headache, loss of consciousness, syncope, weakness. 10:20 All other systems are negative. Exam: 10:30 Constitutional: The patient appears in no acute distress, alert, awake, cp non-diaphoretic, well developed, well nourished. 10:30 Head/face: Noted is contusion, that is superficial, of the left church and left ear, cp swelling, that is mild, of the left ear and left church. 10:30 Eyes: Periorbital structures: appear normal, Pupils: equal, round, and reactive to light and accomodation, Extraocular movements: intact throughout, Conjunctiva: normal, no exudate, no injection, Sclera: no appreciated abnormality, Lids and lashes: appear normal, bilaterally. 10:30 ENT: External ear(s): are unremarkable, Ear canal(s): are normal, clear, TM's: dullness, bilaterally, Nose: is normal, Mouth: Lips: moist, Oral mucosa: moist, Posterior pharynx: Airway: no evidence of obstruction, patent. 10:30 Neck: C-spine: vertebral tenderness, is not appreciated, crepitus, is not appreciated. cp 10:30 Chest/axilla: Inspection: normal, Palpation: tenderness, that is moderate, of the left cp lower lateral ribs. 10:30 Cardiovascular: Rate: normal, Rhythm: regular, Pulses: Pulses are 2+ in right radial artery and left radial artery. Edema: is not appreciated, JVD: is not appreciated. 10:30 Respiratory: the patient does not display signs of respiratory distress, Respirations: normal, no use of accessory muscles, no retractions, no splinting, no tachypnea, labored breathing, is not present, Breath sounds: are clear throughout, no decreased breath sounds, no wheezing. 10:30 Abdomen/GI: Inspection: abdomen appears normal, Bowel sounds: active, all quadrants, Palpation: abdomen is soft and non-tender, in all quadrants, rebound tenderness, is not appreciated, voluntary guarding, is not appreciated, involuntary guarding, is not appreciated. 10:30 Back: vertebral tenderness, is not appreciated. 10:30 Skin: injury, abrasion(s), large abrasion noted, of the left elbow, laceration(s), are not present. 10:30 Neuro: Orientation: to person, place \T\ time. Mentation: is normal, Cerebellar function: is grossly normal, Motor: moves all fours, strength is normal, Sensation: is normal. Vital Signs: 10:17 Pulse Ox 96% on 2 lpm NC; hj 10:17 BP 107 / 73; Pulse 76; Resp 18; Temp 98.1(O); Pulse Ox 92% on R/A; Weight 68.04 kg; hj Height 5 ft. 10 in. (177.80 cm); 14:28 BP 110 / 75; Pulse 75; Resp 18; Pulse Ox 100% on R/A; hj 10:17 Body Mass Index 21.52 (68.04 kg, 177.80 cm) hj Lorelei Coma Score: 10:17 Eye Response: spontaneous(4). Verbal Response: oriented(5). Motor Response: obeys hj commands(6). Total: 15. Trauma Score (Adult): 10:17 Eye Response: spontaneous(1); Verbal Response: oriented(1); Motor Response: obeys hj commands(2); Systolic BP: > 89 mm Hg(4); Respiratory Rate: 10 to 29 per min(4); Lorelei Score: 15; Trauma Score: 12 MDM: 10:12 Patient medically screened. cp 11:00 Differential diagnosis: closed head injury, contusion, fracture, laceration, multiple cp trauma. 14:17 Data reviewed: vital signs, nurses notes, radiologic studies, CT scan, plain films. cp 14:17 Test interpretation: by ED physician or midlevel provider: plain radiologic studies. cp Counseling: I had a detailed discussion with the patient and/or guardian regarding: the historical points, exam findings, and any diagnostic results supporting the discharge/admit diagnosis, radiology results, the need for outpatient follow up, an tune up mechanic, to return to the emergency department if symptoms worsen or persist or if there are any questions or concerns that arise at home. Response to treatment: the patient's symptoms have markedly improved after treatment, and as a result, I will discharge patient. ED course: VSS. Pain improved with meds. Radiology studies negative for acute injury. 07/06 10:12 Order name: XRAY Elbow LEFT 3 view; Complete Time: 12:13 cp 07/06 12:14 Interpretation: Report reviewed. cp 07/06 10:12 Order name: XRAY Knee LEFT 3 view; Complete Time: 12:13 cp 07/06 12:14 Interpretation: Report reviewed. cp 07/06 10:12 Order name: XRAY Pelvis; Complete Time: 12:13 cp 07/06 12:14 Interpretation: Report reviewed. 07/06 10:12 Order name: CT Head C Spine; Complete Time: 12:13 cp 07/06 12:15 Interpretation: Reviewed report. 07/06 10:12 Order name: XRAY Chest (1 view); Complete Time: 12:13 cp 07/06 12:15 Interpretation: Report review. cp 07/06 12:43 Order name: CT Chest Abdomen Pelvis W/O Contrast; Complete Time: 13:54 cp 07/06 13:55 Interpretation: Report reviewed. 07/06 12:20 Order name: Misc. Order: ambulate patient; Complete Time: 12:29 cp Administered Medications: 10:43 Drug: Tetanus-Diphtheria Toxoid Adult 0.5 ml {Assistant Professor Of Spanish: LOOKSIMA. Exp: pc1 06/11/2020. Lot #: [id number]. } Route: IM; Site: right deltoid; 12:23 Follow up: Response: No adverse reaction hj 12:20 Drug: UltRAM 50 mg Route: PO; hj 12:30 Follow up: Response: No adverse reaction; Pain is decreased hj Disposition: 14:35 Chart complete. cp 14:40 Co-signature as Attending Physician, Yoav Shankar MD. rn Disposition: 07/06/18 14:19 Discharged to Home. Impression: Other slipping, tripping and stumbling and falls, Pain in left knee - from fall, Contusion of unspecified part of head - from fall, Abrasion of left elbow - from fall. - Condition is Stable. - Discharge Instructions: Abrasion, Head Injury, Adult, Fall Prevention in the Home, Knee Pain. - Prescriptions for Tramadol 50 mg Oral Tablet - take 1 tablet by ORAL route every 8 hours as needed; 12 tablet. - Medication Reconciliation Form, Thank You Letter, Antibiotic Education, Prescription Opioid Use form. - Follow up: Private Physician; When: 48 Hours; Reason: Wound Recheck. - Problem is new. - Symptoms have improved. Signatures: Dispatcher [employer] EDMS Yoav Shankar MD MD rn Joaquin, Henry, RN RN hj Page, Corey, PA PA cp Cantu, Patrick pc1 Corrections: (The following items were deleted from the chart) 14:33 14:19 07/06/2018 14:19 Discharged to Home. Impression: Other slipping, tripping and hj stumbling and falls; Pain in left knee - from fall; Contusion of unspecified part of head - from fall; Abrasion of left elbow - from fall. Condition is Stable. Forms are Medication Reconciliation Form, Thank You Letter, Antibiotic Education, Prescription Opioid Use. Follow up: Private Physician; When: 48 Hours; Reason: Wound Recheck. Problem is new. Symptoms have improved. cp
== END 2018-07-06 14:33 | disposition home or self-care (01) ==
LOC: ER 10:06
DX: S00.93XA Contusion of unspecified part of head, initial encounter (principal); S50.312A Abrasion of left elbow, initial encounter; W01.0XXA Fall on same level from slipping, tripping and stumbling without subsequent striking against object, initial encounter; Y93.01 Activity, walking, marching and hiking; Y92.9 Unspecified place or not applicable; Z23 Encounter for immunization; Z79.82 Long term (current) use of aspirin; Z88.8 Allergy status to other drugs, medicaments and biological substances; Z95.1 Presence of aortocoronary bypass graft; E11.9 Type 2 diabetes mellitus without complications; E78.00 Pure hypercholesterolemia, unspecified; I50.9 Heart failure, unspecified
CPT/HCPCS: 70450; 71045; 71250; 72125; 72170; 74176; 90714; 99285

== ENCOUNTER 2018-11-13 08:17 | Observation (INO) | payer OTHER ==
--- OUTSIDE RECORDS SUMMARY | 2018-11-13 08:31 | XMS REPORT | Clinical Summary ---
:1935 Author Organization [facility] Address [address] [place] [address] Care Team Providers Name Role Phone Rogelio Subramanian MD Primary Care Provider Allergies Active Allergy Reactions Severity Noted Date Comments Werwuqpv-Ijsmpkxtok-Slenkwqvz Other (See Comments) Medium 12/15/2015 BUMPS Medications Medication Sig Dispensed Refills Start Date End Date Status clobetasol (TEMOVATE) Apply 1 2 06/26/2015 Active 0.05 % external application solution topically nightly. clopidogrel (PLAVIX) Take 75 mg by 3 05/07/2015 Active 75 mg tablet mouth daily. TK 1 T PO QD flunisolide 1 spray daily. 0 08/06/2015 Active (NASALIDE) 25 mcg (0.025 %) spray,non-aerosol isosorbide Take 20 mg by 5 07/17/2015 Active mononitrate mouth 2 (two) (ISMO,MONOKET) 20 MG times a day. TAKE tablet 1 TABLET BY MOUTH BID metFORMIN Take 500 mg by 5 05/23/2015 Active (GLUCOPHAGE) 500 MG mouth 2 (two) tablet times a day with meals. 1 in am and 2 tabs at night pantoprazole Take 40 mg by 2 07/10/2015 Active (PROTONIX) 40 MG EC mouth nightly. TK tablet 1 T PO D multivitamin with Take 1 tablet by 0 Active minerals tablet mouth nightly. polyethylene glycol Take 17 g by 0 Active (MIRALAX) 17 gram mouth daily as packet needed. CYANOCOBALAMIN, Take 1,000 mcg by 0 Active VITAMIN B-12, (B-12 mouth nightly. DOTS ORAL) sotalol (BETAPACE) 80 Take 80 mg by 0 Active MG tablet mouth 2 (two) times a day. NITROGLYCERIN SL Place 0.4 mg 0 Active under the tongue as needed. As needed for chest pain as ordered and instructed by diphenhydrAMINE Take 25 mg by 0 Active [...] Active (DELTASONE) 10 mg mouth daily. tablet glycopyrrolate/formot Inhale 2 0 Active stanley fum (BEVESPI inhalations 2 AEROSPHERE INHL) (two) times a day. lutein 20 mg capsule Take 1 tablet by 0 Active mouth nightly. ketotifen fumarate Administer 1 drop 0 Active (ZADITOR OPHT) to both eyes nightly. cholecalciferol, Take 1,000 Units 0 Active vitamin D3, (VITAMIN by mouth daily. D3) 1,000 unit tablet omeg3/epa/dha/fish Take 1 drop by 0 Active oil/flax/E (THERA mouth nightly. TEARS NUTRITION ORAL) Eye drops not oral nitrofurantoin, Take 1 capsule 14 capsule 0 06/10/2018 macrocrystal-monohydr (100 mg total) by 9 ate, (MACROBID) 100 mouth 2 (two) MG capsule times a day for 7 days. 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 Overview: Added automatically from request for surgery [id number] Combined systolic and diastolic congestive heart failure 05/10/2016 Malignant neoplasm of trigone of urinary bladder 02/12/2016 Personal history of bladder cancer 11/13/2015 History of bladder cancer 08/07/2015 Encounters Date Type Specialty Care Team Description 06/10/2018 Lab Lab William Fragoso MD History of bladder cancer (Primary Dx) 06/10/2018 Procedure visit Urology William Fragoso MD History of bladder cancer 12/10/2017 Lab Lab William Fragoso MD 12/10/2017 Office Visit Urology William Fragoso MD Malignant neoplasm of urinary bladder, unspecified site (Primary Dx) after 11/12/2017 Family History Medical History Relation Name Comments [...] travel history available. Last Filed Vital Signs Not on file Plan of Treatment Date Type Specialty Care Team Description 06/11/2019 Procedure visit Urology William Fragoso MD [address] [address] Health Maintenance Due Date Last Done Comments SHINGLES VACCINES (#1) 1986 65+ PNEUMOCOCCAL VACCINE (1 of 2 - PCV13) 2001 INFLUENZA VACCINE 11/26/2018 Implants Implanted Type Area Spring Coiler Device Shelf Model / Identifier Expiration Serial / Date Lot Quartet, Lv Leads, Model 1458q-86 - [id number] Cardiac Pacing N/A: [employer] 01/25/2019 [id number] / Implanted: 05/10/2016 (Quantity not on file) Leads or N/A [id number] / Electrodes or [id number] Accessories Tendril Sts, Pacemaker Leads, Model 2088tc/52 - [id number] Cardiac Pacing N/A : [employer] 02/25/2019 [id number] / Implanted: 05/10/2016 (Quantity not on file) Leads or N/A [id number] / Electrodes or [id number] Accessories Envlp Impl Crdvrtr Dfb Antbctrl Fully Resorb Lg Aigissrx R - [id number] Cardiovascular N/A: [employer] [id number] / Implanted: 05/10/2016 (Quantity not on file) Implants N/A / Catheter Pump Set Impella Cp - [id number] Cardiovascular N/A: [employer]OMED [id number] / Implanted: 09/03/2017 (Quantity not on file) Implants N/A / [id number] Stent Coronary Syst Synergy (Mr) 3.50mm X 24mm - [id number] Coronary Stents N /A: [facility] [id number] / Implanted: 09/03/2017 (Quantity not on file) N/A INTERVENTIONAL / CARDIOLOGY [id number] Stent Coronary Syst Synergy (Mr) 3.50mm X 12mm - [id number] Coronary Stents N /A: [facility] [id number] / Implanted: 09/03/2017 (Quantity not on file) N/A INTERVENTIONAL / CARDIOLOGY [id number] Stent Coronary Syst Synergy (Mr) 3.00mm X 16mm - [id number] Coronary Stents N /A: [facility] [place]/26/2018 [id number] / Implanted: 09/03/2017 (Quantity not on file) N/A INTERVENTIONAL / CARDIOLOGY [id number] Stent Coronary Syst Synergy (Mr) 3.00mm X 8mm - [id number] Coronary Stents N/ A: [facility] [place]05/2018 [id number] / Implanted: 09/03/2017 (Quantity not on file) N/A INTERVENTIONAL / CARDIOLOGY [id number] Quadra Adiliaura Mp Endless Bed Drum Sander-D Defibrillators & N/A: [employer] 01/25/2018 [id number] / Implanted: Qty: 1 on 05/10/2016 by Renata Sen Jr., MD Leads N/A [id number] / [id number] System Clsr Sut Meditd 6fr Perclose Proglide - [id number] Surgical N/A: [facility] 05/28/2019 [id number] / Implanted: 09/03/2017 (Quantity not on file) Implants; N/A DEVICES / Expanders; [id number] Extenders; Surgical Wires System Clsr Sut Meditd 6fr Perclose Proglide - [id number] Surgical N/A: [facility] 05/28/2019 [id number] / Implanted: 09/03/2017 (Quantity not on file) Implants; N/A DEVICES / Expanders; [id number] Extenders; Surgical Wires Procedures Procedure Name Priority Date/Time Associated Diagnosis Comments CYTOLOGY Routine 06/10/2018 3:03 Results for this (NON-GYNECOLOGICAL) PM NETTING WEAVER procedure are in REQUEST the results section. CYTOLOGY Routine 12/10/2017 2:12 Results for this (NON-GYNECOLOGICAL) PM CDT procedure are in REQUEST the results section. POC URINALYSIS Routine 12/10/2017 10:12 Malignant neoplasm Results for this DIPSTICK AM CDT of urinary bladder, procedure are in unspecified site the results section. after 11/12/2017 Results Cytology (non-gynecological) request (06/10/2018 3:03 PM NETTING WEAVER)Only the most recent of2 resultswithin the time period is included. [facility] DEPARTMENT OF PATHOLOGY AND GENOMIC MEDICINE Cytology See link below [facility] DEPARTMENT OF (non-gynecological) for PDF Lab PATHOLOGY AND report Report GENOMIC MEDICINE Result status This is Final [facility] DEPARTMENT OF Report for PATHOLOGY AND [id number] GENOMIC MEDICINE Specimen Performing Organization Address City/State/[facility] Phone Number [facility] DEPARTMENT OF PATHOLOGY AND [address] [place] [address] GENOMIC MEDICINE POC urinalysis dipstick (12/10/2017 10:12 AM CDT) Color urine, POC Yellow Clarity urine, POC Clear Glucose urine, POC Negative Negative Bilirubin urine, POC Positive (A) Negative Ketones urine, POC 1+ (A) Negative Specific gravity >/=1.030 1.005 - 1.030 urine, POC Blood urine, POC Trace (A) Negative pH urine, POC 5.5 5.0, 5.5, 6.0, 6.5, 7.0, 7.5, 8.0, 8.5 Protein urine, POC 1+ (A) Negative Urobilinogen urine, <2.0 <2.0 POC Nitrite urine, POC Negative Negative Leukocyte esterase Negative Negative urine, POC Specimen Urine after 11/12/2017 ([place]) [place] [address] Advance Directives Patient has advance care planning documents on file. For more information, please contact:Marciano [id number] [facility] [place] [address]
--- OUTSIDE RECORDS SUMMARY | 2018-11-13 08:31 | XMS REPORT ---
:1935 [facility] Address [address] [place] [id number] Care Team Providers Name Role Phone Unavailable Unavailable Unavailable Problems This patient has no known problems. Allergies, Adverse Reactions, Alerts This patient has no known allergies or adverse reactions. Medications This patient has no known medications.
[2018-11-13 09:01] LABS: Absolute Lymphocytes (CBC) 1.6 K/uL (0.7-4.9); Basophils % 0.6 % (0-1.3); Eosinophils % 1.3 % (0-4.4); Hematocrit 38.6 % (39.6-49.0); Monocytes % 7.7 % (3.3-12.3); RBC Red Blood Cell Count 4.07 M/uL (4.33-5.43)
[2018-11-13 09:04] LABS: Protime INR 0.95
[2018-11-13 09:30] LABS: Bilirubin Direct 0.2 mg/dL (0-0.2); Bilirubin Total 0.5 mg/dL (0.2-1.0); Digoxin Level 0.9 ng/mL (0.80-2.00); Magnesium 1.7 mg/dL (1.8-2.4); Potassium 3.9 mmol/L (3.5-5.1); Protein, Total 6.1 g/dL (6.4-8.2); Troponin (Emerg Dept Use Only) 0.1 ng/mL (0.0-0.045)
--- NOTE | 2018-11-13 09:36 | RAD REPORT ---
EXAM DESCRIPTION: Juna Single View11/13/2018 9:23 am CLINICAL HISTORY: Hypertension COMPARISON: June 2018 FINDINGS: The lungs appear clear of acute infiltrate. The heart is mildly enlarged. Pacemaker leads are in place. Postsurgical changes involve the chest IMPRESSION: No acute abnormalities displayed
--- NOTE | 2018-11-13 10:28 | ER ---
Nurse's Notes [facility] Name: Cornelius Tierney Age: 82 yrs Sex: Male : 1935 Arrival Date: 11/13/2018 Time: 08:21 Bed 7 Private MD: Diagnosis: Unstable angina Presentation: 11/13 08:21 Presenting complaint: EMS states: Chest pain that woke pt this morning, toook approx 4 ph nitro w/ no relief, reports that pain is sharp and intermittent 5/10, also reports SOB, hx of COPD, CHF and pacemaker/defib, all VSS, BGL 120s. Transition of care: patient was not received from another setting of care. Onset of symptoms was November 13, 2018. Risk Assessment: Do you want to hurt yourself or someone else? Patient reports no desire to harm self or others. Initial Sepsis Screen: Does the patient meet any 2 criteria? No. Patient's initial sepsis screen is negative. Does the patient have a suspected source of infection? No. Patient's initial sepsis screen is negative. Care prior to arrival: Glucose check: 120. 08:21 Method Of Arrival: EMS: [facility] ph 08:21 Acuity: WEI 3 ph Historical: - Allergies: 08:36 Neomycin Sulfate; tw2 08:36 Bacitracin Zinc; tw2 08:36 polymyxin B; tw2 08:36 bacitracin; tw2 08:42 Neosporin ([id number]); ph - Home Meds: 08:42 rosuvastatin 20 mg oral tab 1 tab once daily [Active]; Miralax 17 gram/dose Oral powd ph once daily [Active]; pantoprazole 40 mg Oral TbEC [Active]; Ventolin HFA 90 mcg/actuation Nebulizer HFAA [Active]; Benadryl 25 mg Oral cap [Active]; clopidogrel 75 mg Oral tab [Active]; Digoxin Oral [Active]; isosorbide mononitrate 20 mg Oral tab [Active]; losartan 50 mg Oral tab 1 tab [Active]; Nitroglycerin Oral [Active]; lutein 20 mg Oral cap [Active]; metformin 500 mg Oral tab [Active]; sotalol 80 mg Oral tab [Active]; prednisone 10 mg Oral tab once daily [Active]; - PMHx: 13:19 AAA; CAD; cardiac arrest; CHF; constipation; COPD; Diabetes - NIDDM; GERD; High ph Cholesterol; macular degeneration; - PSHx: 13:19 internal defib; Cataracts; AAA repair; Angioplasty; CABG; ph - Immunization history:: Adult Immunizations Adult Immunizations unknown. - Social history:: Smoking status: Smoking status: Patient uses tobacco products, 1 pack per week. - Ebola Screening: : Patient denies travel to an Ebola-affected area in the 21 days before illness onset No symptoms or risks identified at this time. Screenin:35 Abuse screen: Denies threats or abuse. Nutritional screening: No deficits noted. tw2 Tuberculosis screening: No symptoms or risk factors identified. Fall Risk Secondary diagnosis (15 points) impaired mobility. Assessment: 08:37 Pain: Pain began this morning. tw2 08:45 General: Appears in no apparent distress. comfortable, slender, well groomed, Behavior ph is calm, cooperative, appropriate for age, Denies fever, feeling ill. Pain: Complains of pain in anterior aspect of left upper chest Pain does not radiate. Pain currently is 5 out of 10 on a pain scale. Neuro: Level of Consciousness is awake, alert, obeys commands, Oriented to person, place, time, situation. Cardiovascular: Reports chest pain, shortness of breath, Denies nausea, palpitations, Capillary refill < 3 seconds in bilateral fingers Patient's skin is warm and dry. Rhythm is Chest pain quality is sharp, is located in left anterior chest wall episodes are intermittent. Respiratory: Reports shortness of breath at rest Airway is patent Respiratory effort is even, unlabored, Respiratory pattern is regular, symmetrical, Breath sounds are clear bilaterally. Denies cough. GI: No signs and/or symptoms were reported involving the gastrointestinal system. Derm: Skin is fragile, is thin, Skin is pink, warm \T\ dry. Musculoskeletal: Circulation, motion, and sensation intact. Range of motion: intact in all extremities. 10:00 Reassessment: Patient appears in no apparent distress at this time. Patient and/or ph family updated on plan of care and expected duration. Pain level reassessed. Patient is alert, oriented x 3, equal unlabored respirations, skin warm/dry/pink. 11:00 Reassessment: Patient appears in no apparent distress at this time. Patient and/or ph family updated on plan of care and expected duration. Pain level reassessed. Patient is alert, oriented x 3, equal unlabored respirations, skin warm/dry/pink. 12:00 Reassessment: Patient appears in no apparent distress at this time. Patient and/or ph family updated on plan of care and expected duration. Pain level reassessed. Patient is alert, oriented x 3, equal unlabored respirations, skin warm/dry/pink. 13:22 Reassessment: Patient appears in no apparent distress at this time. Patient and/or ph family updated on plan of care and expected duration. Pain level reassessed. Patient is alert, oriented x 3, equal unlabored respirations, skin warm/dry/pink. Pt eating lunch, family at bedside. 13:39 Reassessment: Patient appears in no apparent distress at this time. Patient and/or ph family updated on plan of care and expected duration. Pain level reassessed. Patient is alert, oriented x 3, equal unlabored respirations, skin warm/dry/pink. Attempted to call report, nurse assisting surgeon w/ dressing change and will call back to ED for report. 14:23 Reassessment: Patient appears in no apparent distress at this time. Patient and/or ph family updated on plan of care and expected duration. Pain level reassessed. Patient is alert, oriented x 3, equal unlabored respirations, skin warm/dry/pink. Pt taken to 4th via wheelchair by research food technologist. Vital Signs: 08:25 BP 133 / 75; Pulse 69; Resp 20; Temp 97.0; Pulse Ox 98% on R/A; Weight 68.04 kg; Height ph 5 ft. 7 in. (170.18 cm); Pain 5/10; 10:00 BP 122 / 78; Pulse 65; Resp 16; Pulse Ox 98% on R/A; ph 11:15 BP 116 / 68; Pulse 66; Resp 16; Pulse Ox 99% on R/A; ph 12:40 BP 118 / 72; Pulse 67; Resp 18; Pulse Ox 98% on R/A; ph 13:17 BP 111 / 62; Pulse 68; Resp 16; Temp 97.8; Pulse Ox 99% on R/A; ph 14:24 BP 115 / 68; Pulse 64; Resp 18; Temp 97.8; Pulse Ox 98% on R/A; ph 08:25 Body Mass Index 23.49 (68.04 kg, 170.18 cm) ph Vitals: 10:00 Cardiac Rhythm Assessment Paced. ph ED Course: 08:21 Patient arrived in ED. ph 08:22 Fernie Olivo MD is Attending Physician. gs 08:22 Bed in low position. Call light in reach. grocery bagger on. Pulse ox on. NIBP on. tw2 Warm blanket given. 08:25 Triage completed. ph 08:29 EKG done, by copy room technician. reviewed by Fernie Olivo MD. at1 08:35 Patient maintains SpO2 saturation greater than 95% on room air. tw2 08:36 Arm band placed on. tw2 09:09 Eboni Vazquez RN is Primary Nurse. ph 09:25 XRAY Chest (1 view) In Process Unspecified. EDMS 10:25 Kimberly Willson MD is Hospitalizing Provider. gs 13:02 2D Echocardiogram with Doppler completed by Professor Of Environmental Studies. dt2 13:20 No provider procedures requiring assistance completed. Patient admitted, IV remains in ph place. Administered Medications: 11:17 Drug: Magnesium Sulfate 1 grams Route: IVPB; Infused Over: 1 hrs; Site: right forearm; ph 12:30 Follow up: Response: No adverse reaction; IV Status: Completed infusion ph 11:18 Not Given (Other Intervention Used; Given by EMS): Aspirin Chewable Tablet 324 mg PO ph once; 81 mg tablets x 4 11:18 Drug: Lovenox 70 mg Route: Sub-Q; Site: right lower abdomen; ph 12:40 Follow up: Response: No adverse reaction ph 11:18 Drug: Lasix 20 mg Route: IVP; Site: right forearm; ph 13:38 Follow up: Urine output 1100 ml; Response: No adverse reaction ph Output: 13:33 Urine: 1100ml (Voided); Total: 1100ml. ph 13:38 Urine: 1100ml; Total: 2200ml. ph 14:24 Urine: 150ml (Voided); Total: 2350ml. ph Outcome: 10:26 Decision to Hospitalize by Provider. gs 14:23 Admitted to Tele accompanied by tech, family with patient, via wheelchair, room 408, ph with chart, Report called to ROSIO George 14:23 Condition: stable 14:23 Instructed on the need for admit. 14:25 Patient left the ED. ph Signatures: Dispatcher [employer] EDMS Cyrus Amanda, utility system operator EKG Tat1 Eboni Vazquez RN RN ph Quach, ROSIO Larose RN tw2 Fernie Olivo MD MD Nayeli Alvarado dt2
--- NOTE | 2018-11-13 10:28 | EDPHYS ---
Physician Documentation [facility] Name: Cornelius Tierney Age: 82 yrs Sex: Male : 1935 Arrival Date: 11/13/2018 Time: 08:21 Bed 7 Private MD: ED Physician Fernie Olivo HPI: 11/13 10:14 This 82 yrs old Male presents to ER via EMS with complaints of Chest Pain > gs 30 y/o. 10:14 The patient or guardian reports chest pain that is located primarily in the anterior gs chest wall. Onset: this morning, at 01:00. The pain does not radiate. Associated signs and symptoms: Pertinent positives: shortness of breath. The chest pain is described as a heaviness. Duration: The patient or guardian reports multiple episodes, that are intermittent, that wax and wane, with no pattern, the episodes last approximately 2 minute(s). Modifying factors: The symptoms are alleviated by nothing. the symptoms are aggravated by nothing. Severity of pain: At its worst the pain was moderate in the emergency department the pain has resolved. The patient has experienced similar episodes in the past, a few times. Historical: - Allergies: 08:36 Neomycin Sulfate; tw2 08:36 Bacitracin Zinc; tw2 08:36 polymyxin B; tw2 08:36 bacitracin; tw2 08:42 Neosporin ([id number]); ph - Home Meds: 08:42 rosuvastatin 20 mg oral tab 1 tab once daily [Active]; Miralax 17 gram/dose Oral powd ph once daily [Active]; pantoprazole 40 mg Oral TbEC [Active]; Ventolin HFA 90 mcg/actuation Nebulizer HFAA [Active]; Benadryl 25 mg Oral cap [Active]; clopidogrel 75 mg Oral tab [Active]; Digoxin Oral [Active]; isosorbide mononitrate 20 mg Oral tab [Active]; losartan 50 mg Oral tab 1 tab [Active]; Nitroglycerin Oral [Active]; lutein 20 mg Oral cap [Active]; metformin 500 mg Oral tab [Active]; sotalol 80 mg Oral tab [Active]; prednisone 10 mg Oral tab once daily [Active]; - PMHx: 13:19 AAA; CAD; cardiac arrest; CHF; constipation; COPD; Diabetes - NIDDM; GERD; High ph Cholesterol; macular degeneration; - PSHx: 13:19 internal defib; Cataracts; AAA repair; Angioplasty; CABG; ph - Immunization history:: Adult Immunizations Adult Immunizations unknown. - Social history:: Smoking status: Smoking status: Patient uses tobacco products, 1 pack per week. - Ebola Screening: : Patient denies travel to an Ebola-affected area in the 21 days before illness onset No symptoms or risks identified at this time. ROS: 10:30 All other systems are negative. gs Exam: 10:30 Head/Face: Normocephalic, atraumatic. Eyes: Pupils equal round and reactive to light, gs extra-ocular motions intact. Lids and lashes normal. Conjunctiva and sclera are non-icteric and not injected. Cornea within normal limits. Periorbital areas with no swelling, redness, or edema. ENT: Nares patent. No nasal discharge, no septal abnormalities noted. Tympanic membranes are normal and external auditory canals are clear. Oropharynx with no redness, swelling, or masses, exudates, or evidence of obstruction, uvula midline. Mucous membranes moist. Neck: Trachea midline, no thyromegaly or masses palpated, and no cervical lymphadenopathy. Supple, full range of motion without nuchal rigidity, or vertebral point tenderness. No Meningismus. Chest/axilla: Normal chest wall appearance and motion. Nontender with no deformity. No lesions are appreciated. 10:30 Constitutional: The patient appears alert, awake. 10:30 Cardiovascular: Rate: normal, Rhythm: regular, Pulses: no pulse deficits are appreciated, Edema: is not appreciated. 10:30 ECG was reviewed by the Attending Physician. Vital Signs: 08:25 BP 133 / 75; Pulse 69; Resp 20; Temp 97.0; Pulse Ox 98% on R/A; Weight 68.04 kg; Height ph 5 ft. 7 in. (170.18 cm); Pain 5/10; 10:00 BP 122 / 78; Pulse 65; Resp 16; Pulse Ox 98% on R/A; ph 11:15 BP 116 / 68; Pulse 66; Resp 16; Pulse Ox 99% on R/A; ph 12:40 BP 118 / 72; Pulse 67; Resp 18; Pulse Ox 98% on R/A; ph 13:17 BP 111 / 62; Pulse 68; Resp 16; Temp 97.8; Pulse Ox 99% on R/A; ph 14:24 BP 115 / 68; Pulse 64; Resp 18; Temp 97.8; Pulse Ox 98% on R/A; ph 08:25 Body Mass Index 23.49 (68.04 kg, 170.18 cm) ph MDM: 08:30 Patient medically screened. 10:30 Differential diagnosis: acute myocardial infarction, coronary artery disease stable gs angina, unstable angina. Data reviewed: vital signs, nurses notes, lab test result(s), EKG, radiologic studies. Counseling: I had a detailed discussion with the patient and/or guardian regarding: the historical points, exam findings, and any diagnostic results supporting the discharge/admit diagnosis. Response to treatment: the patient's symptoms have resolved after treatment, the patient's pain is gone. Physician consultation: Hemanth Rai MD regarding patient's condition, ekg, and will see patient in inpatient room. 11/13 08:31 Order name: Digoxin 11/13 08:31 Order name: Basic Metabolic Panel 11/13 08:31 Order name: CBC with Diff; Complete Time: 09:54 11/13 08:31 Order name: LFT's; Complete Time: 09:54 11/13 08:31 Order name: Magnesium; Complete Time: 09:54 11/13 08:31 Order name: NT PRO-BNP; Complete Time: 09:54 11/13 08:31 Order name: PT-INR; Complete Time: 09:54 11/13 08:31 Order name: Troponin (emerg Dept Use Only); Complete Time: 09:54 11/13 08:31 Order name: XRAY Chest (1 view); Complete Time: 09:54 11/13 08:31 Order name: Digoxin Level; Complete Time: 09:54 EDMS 11/13 08:31 Order name: Basic Metabolic Panel; Complete Time: 09:54 EDMS 11/13 08:31 Order name: EKG; Complete Time: 08:32 11/13 08:31 Order name: Cardiac monitoring; Complete Time: 09:27 11/13 08:31 Order name: EKG - Nurse/Tech; Complete Time: 09:27 11/13 08:31 Order name: IV Saline Lock; Complete Time: 09:27 11/13 08:31 Order name: Labs collected and sent; Complete Time: 09: 11/13 08:31 Order name: O2 Per Protocol; Complete Time: : 11/13 08:31 Order name: O2 Sat Monitoring; Complete Time: 09:27 11/13 11:10 Order name: CONS Physician Consult [facility] 11/13 12:39 Order name: Diet Heart Healthy; Complete Time: 12:41 ph EC:30 Rate is 73 beats/min. Rhythm is regular with Left bundle branch block. IN interval is gs normal. QRS interval is prolonged. No ST changes noted. Clinical impression: Abnormal EKG without significant change. Interpreted by me. Administered Medications: 11:17 Drug: Magnesium Sulfate 1 grams Route: IVPB; Infused Over: 1 hrs; Site: right forearm; ph 12:30 Follow up: Response: No adverse reaction; IV Status: Completed infusion ph 11:18 Not Given (Other Intervention Used; Given by EMS): Aspirin Chewable Tablet 324 mg PO ph once; 81 mg tablets x 4 11:18 Drug: Lovenox 70 mg Route: Sub-Q; Site: right lower abdomen; ph 12:40 Follow up: Response: No adverse reaction ph 11:18 Drug: Lasix 20 mg Route: IVP; Site: right forearm; ph 13:38 Follow up: Urine output 1100 ml; Response: No adverse reaction ph Disposition: 11/13/18 10:26 Hospitalization ordered by Kimberly Willson for Inpatient Admission. Preliminary diagnosis is Unstable angina. - Bed requested for Telemetry/MedSurg (Inpatient). - Status is Inpatient Admission. ph - Condition is Stable. - Problem is new. - Symptoms have improved. UTI on Admission? No Signatures: Dispatcher [employer] [facility] Olga Lidia Gardner RN RN dw Eboni Vazquez RN RN Lachelle Quach RN RN tw2 Fernie Olivo MD MD Corrections: (The following items were deleted from the chart) 12:43 10:26 Hospitalization Ordered by Kimberly Willson MD for Inpatient Admission. Preliminary diagnosis is Unstable angina. Bed requested for Telemetry/MedSurg (Inpatient). Status is Inpatient Admission. Condition is Stable. Problem is new. Symptoms have improved. UTI on Admission? No. 14:25 12:43 11/13/2018 10:26 Hospitalization Ordered by Kimberly Willson MD for Inpatient ph Admission. Preliminary diagnosis is Unstable angina. Bed requested for Telemetry/MedSurg (Inpatient). Status is Inpatient Admission. Condition is Stable. Problem is new. Symptoms have improved. UTI on Admission? No. dw
[2018-11-13] MEDS ORDERED: ASPIRIN 81 MG CHEWABLE TABLET ONE (11:05)
[2018-11-13] MEDS ORDERED: MAGNESIUM SULFATE 1 gm IVPB 1 GM/100 ML BAG IV ONE (11:05)
[2018-11-13] MEDS ORDERED: ENOXAPARIN 80 MG/0.8 ML SQ ONE (11:05)
[2018-11-13] MEDS ORDERED: FUROSEMIDE 20 MG/ 2ML VIAL ONE (11:05)
--- NOTE | 2018-11-13 15:38 | EKG ---
Test Date: 2018-11-13 Test Time: 08:17:17 Electronic Coils Supervisor: HENRI MEASUREMENT RESULTS: Intervals: Rate: 73 AL: 136 QRSD: 110 QT: 388 QTc: 427 [place]: P: 51 AL: 136 QRS: 5 T: 131 INTERPRETIVE STATEMENTS: Demand pacemaker, interpretation is based on intrinsic rhythm Sinus rhythm with premature ventricular complexes or fusion complexes Incomplete left bundle branch block Nonspecific ST and T wave abnormality Abnormal ECG Compared to ECG 05/09/2018 14:35:27 Fusion complex(es) now present Ventricular premature complex(es) now present Left bundle-branch block now present ST (T wave) deviation now present AV dual-paced complex(es) or rhythm no longer present Electronically Signed On 11-13-18 15:35:28 CDT by Hemanth Rai
[2018-11-13 16:26] LABS: Urine Appearance CLEAR; Urine Bilirubin NEGATIVE (NEG); Urine Blood NEGATIVE (NEG); Urine Color YELLOW; Urine Glucose NEGATIVE (NEG); Urine Protein NEGATIVE (NEG); Urine Urobilinogen 0.2 mg/dL (0.2-1.0)
[2018-11-13 16:32] LABS: Urine Microscopic Reflex NO UMIC
--- NOTE | 2018-11-13 16:44 | ECHO ---
HEIGHT: 5 ft 7 in WEIGHT: 149 lb 11.2 oz DATE OF STUDY: 11/13/[address]: Kimberly Willson MD 2-DIMENSIONAL: YES M.MODE: YES DOPPLER: YES COLOR FLOW: YES TDS: YES PORTABLE: NO DEFINITY: NO BUBBLE STUDY: NO DIAGNOSIS: CHEST PAIN CARDIAC HISTORY: CATHERIZATION: YES SURGERY: YES PROSTHETIC VALVE: NO PACEMAKER: YES MEASUREMENTS (cm) DIASTOLIC (NORMALS) SYSTOLIC (NORMALS) IVSd 1.0 (0.6-1.2) LA Diam 4.1 (1.9-4.0) LVEF 26% LVIDd 6.3 (3.5-5.7) LVIDs 5.6 (2.0-3.5) %FS 12% LVPWd 1.0 (0.6-1.2) Ao Diam 3.8 (2.0-3.7) 2 DIMENSIONAL ASSESSMENT: RIGHT ATRIUM: NORMAL LEFT ATRIUM: DILATED RIGHT VENTRICLE: NORMAL LEFT VENTRICLE: DILATED TRICUSPID VALVE: NORMAL MITRAL VALVE: MITRAL ANNULAR CALCIFICATION PULMONIC VALVE: NORMAL AORTIC VALVE: NORMAL PERICARDIAL EFFUSION: NONE AORTIC ROOT: NORMAL LEFT VENTRICULAR WALL MOTION: SEVERE GLOBAL HYPOKINESIS. DOPPLER/COLOR FLOW: MILD MITRAL REGURGITATION, TRICUSPID REGURGITATION, AND AORTIC REGURGITATION. COMMENTS: MILD AORTIC REGURGITATION, TRICUSPID REGURGITATION, AND MITRAL REGURGITATION. SEVERE GLOBAL HYPOKINESIS- EJECTION FRACTION 20%. LEFT ATRIAL ENLARGEMENT. LEFT VENTRICULAR ENLARGEMENT. MITRAL ANNULAR CALCIFICATION. PACEMAKER IN RIGHT VENTRICULAR APEX. TECHNOLOGIST: FROY MATTHEW RDCS
[2018-11-13] MEDS ORDERED: SACUBITRIL/VALSARTAN 24/26 MG TAB PO SCH (17:00)
--- NOTE | 2018-11-13 17:10 | P.HP ---
Certification for Inpatient Patient admitted to: Observation With expected LOS: <2 Midnights Patient will require the following post-hospital care: None Practitioner: I am a practitioner with admitting privileges, knowledge of patient current condition, hospital course, and medical plan of care. Services: Services provided to patient in accordance with Admission requirements found in Title 42 Section 412.3 of the Code of Federal Regulations Patient History Date of Service: 11/13/18 Primary Care Provider: Dr. Subramanian Reason for admission: Chest pain History of Present Illness: This is a 82-year-old male with significant past medical history of hypertension , COPD, CAD with CABG x2 pacemaker defibrillator implant an AAA repair will presented to the ED complaining of having chest pain. Patient stated that he was sleeping at night time and woke up all of a sudden with excruciating chest pain at around 1 o'clock. Pain was dull in nature and was radiating to his back and thus he decided to come to the ER for further workup. Patient stated that he has this pain was similar to before when he had a heart attack. Patient has been seen by his primary care provider a couple of weeks ago and had workup done which was within normal limits. Denies having any nausea vomiting shortness of breath, abdominal pain or any other associated symptoms. Chest pain worse is 8/10. Allergies bacitracin [From Neosporin ([id number])] Allergy (Verified 11/13/18 15:58) Unknown bacitracin zinc [From Neosporin ([id number]-[id number])] Allergy (Verified 11/13/18 15: 58) Unknown neomycin sulfate [From Neosporin (vor-qpx-wpokq)] Allergy (Verified 11/13/18 15: 58) Unknown polymyxin B [From Neosporin (bod-fix-[id number])] Allergy (Verified 11/13/18 15:58) Unknown Home Medications: Clopidogrel Bisulfate [Plavix] 1 tab PO DAILY 05/09/18 Digoxin [Lanoxin*] 1 tab PO DAILY 05/09/18 Diphenhydramine HCl [Benadryl] 25 mg PO BEDTIME 05/09/18 Isosorbide Mononitrate [Ismo] 1 tab PO BID 05/09/18 Lutein 1 cap PO BEDTIME 05/09/18 Metformin HCl 1 tab PO BEDTIME 05/09/18 Metformin HCl 500 mg PO DAILY 05/09/18 Pantoprazole [Protonix Tab*] 40 mg PO DAILY AT SUPPER 05/09/18 Polyethylene Glycol 3350 [Miralax] 1 packet PO BEDTIME PRN PRN 05/09/18 Prednisone [Deltasone] 10 mg PO DAILY 05/09/18 Albuterol Sulfate [Ventolin Hfa] 2 puff IH DAILY 05/10/18 Flunisolide 0.025 2 spray IH DAILY 05/10/18 Losartan Potassium [Cozaar] 1 tab PO DAILY 05/10/18 Sotalol HCl [Sotalol] 80 mg PO BID 05/10/18 Clobetasol Propionate 0.05% 2 drop TD PRN 11/13/18 Fluticasone/Umeclidin/Vilanter [Trelegy Ellipta 100-62.5-25] 1 puff PO DAILY Multivit-Min/FA/Lycopen/Lutein [Centrum Silver Tablet] 1 tab PO DAILY 11/13/18 Nitroglycerin [Nitrostat] 0.4 mg SL PRN PRN 11/13/18 Rosuvastatin Calcium [Crestor] 20 mg PO BEDTIME 11/13/18 Thera Tears 1 drop EACH EYE BEDTIME 11/13/18 - Past Medical/Surgical History Has patient received pneumonia vaccine in the past: Yes Diabetic: Yes -: GERD -: COPD -: CAD -: DM Type 2 -: CHF -: Hiatus Hernia, Colon Diverticula, Bladder tumors -: Large Cyst Left Kidney -: Abdominal Aneurysm 2.9cm 02/2015 -: MIx2, Bypassx2 -: Heart Defib implanted 04/11 -: Angioplasty with 4 short stents impeller motor assist, Angiogram -: 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 moist/pink, EOMI, Sclerae nonicteric Neck: Supple, 2+ carotid pulse no bruit, No LAD, Without JVD or thyroid abnormality Respiratory: Clear to auscultation bilaterally, Normal air movement Cardiovascular: Normal S1 S2, Systolic murmur Gastrointestinal: Normal bowel sounds, No tenderness Musculoskeletal: No tenderness Integumentary: No rashes Neurological: Normal gait, Normal speech, Normal strength at 5/5 x4 extr, Normal tone, Normal affect Lymphatics: No axilla or inguinal lymphadenopathy - Studies Laboratory Data (last 24 hrs) 11/13/18 08:50: PT 11.2, INR 0.95 11/13/18 08:50: WBC 8.7, Hgb 12.7 L, Hct 38.6 L, Plt Count 165 11/13/18 08:50: Sodium 145, Potassium 3.9, BUN 16, Creatinine 1.04, Glucose 172 H, Magnesium 1.7 L, Total Bilirubin 0.5, AST 33, ALT 35, Alkaline Phosphatase 43 L Assessment and Plan - Problems (Diagnosis) (1) Chest pain Current Visit: Yes Status: Acute Plan: Chest pain ACS rule out. Past medical history of CAD -troponin x1 in the ER negative. EKG with nonspecific changes -Patient started on ACS protocol -cardiology consulted. Appreciated recommendations at this -echocardiogram done with ejection fraction 20% -restart home medication and start patient on Entresto on Friday per cardiology recommendation -will monitor here closely Qualifiers: Chest pain type: unspecified Qualified Code(s): R07.9 - Chest pain, unspecified (2) Hypertension Current Visit: Yes Status: Chronic Plan: Stable at this time will restart home medication except losartan Qualifiers: Hypertension type: essential hypertension Qualified Code(s): I10 - Essential (primary) hypertension (3) COPD (chronic obstructive pulmonary disease) Current Visit: Yes Status: Chronic Plan: Stable at this time will restart inhalers Qualifiers: COPD type: unspecified COPD Qualified Code(s): J44.9 - Chronic obstructive pulmonary disease, unspecified (4) CAD (coronary artery disease) Current Visit: Yes Status: Chronic Plan: History of CAD with bypass x2 and triple AAA repair -restart home medication of aspirin Plavix along with beta-ryann will hold losartan at this time Qualifiers: Coronary Disease-Associated Artery/Lesion type: [place] artery [place] vs. transplanted heart: [place] heart Associated angina: with stable angina Qualified Code(s): I25.118 - Atherosclerotic heart disease of [place] coronary artery with other forms of angina pectoris Discharge Plan: Home Plan to discharge in: Greater than 2 days - Advance Directives Does patient have a Living Will: Yes Does patient have a Durable POA for Healthcare: Yes - Code Status/Comfort Care Code Status Assessed: Yes Critical Care: No
[2018-11-13] MEDS ORDERED: HOME MED 1 EA UNK (Rosuvastatin Calcium [Crestor] 20 MG) PO SCH (21:00)
[2018-11-13] MEDS ORDERED: HOME MED 1 EA UNK (Sotalol Hcl [Sotalol] 80 MG) PO SCH (21:00)
[2018-11-13] MEDS ORDERED: SOTALOL HCL 80 MG TAB PO SCH (21:00)
[2018-11-13] MEDS ORDERED: ROSUVASTATIN 10 MG TAB PO SCH (21:00)
[2018-11-13] MEDS ORDERED: ISOSORBIDE MONONITRATE PO SCH (21:00)
[2018-11-13] MEDS ORDERED: ISOSORBIDE MONO 10 MG TAB PO SCH (21:00)
[2018-11-14] MEDS: NITROGLYCERIN 0.4 MG/TAB SL PRN ×2 (01:39→08:58)
--- NOTE | 2018-11-14 06:06 | CON ---
Date of Consultation: 11/13/2018 Reason For Consultation: Chest pain. History Of Present Illness: Mr. Tierney is an 82-year-old male, who has a complicated past cardiac hi story. He has had a history of coronary artery bypass surgery, history of cardiac arrest, congestive heart failure. He has had a defibrillator. He has an abdominal aortic aneurysm repair. He has a k nown ejection fraction of 20% to 25%. He also has a history of COPD, diabetes, dyslipidemia, gastroe sophageal reflux disease, and a pacemaker placement. He came into the emergency room with chest pain , slightly elevated troponin of 0.1. His BNP was 2219. He had a negative chest x-ray. EKG showed a paced rhythm. Echo showed ejection fractions of 20% to 25%. His glucose was 172. His pain was cla ssic anginal-type pain. He denied any congestive heart failure. Allergies: BACITRACIN AND POLYMYXIN. Review of Systems: Negative. Social History: Negative. Family History: Noncontributory. Medications: At home include sotalol, prednisone, Protonix, metformin, Imdur, inhalers, Cozaar, digo shaila, aspirin, Plavix, and Lipitor. Physical Examination: Vital Signs: Stable. He was in a paced rhythm. He was afebrile. HEENT: Negative. Neck: Supple with no bruit, lymphadenopathy, JVD, or thyromegaly. Chest: Clear to auscultation and percussion. Cardiac: Revealed a paced rhythm. No murmurs, gallops, or rubs. Abdomen: Benign. Extremities: Revealed trace edema. Skin: Dry and intact. Neurological: He was nonfocal. Pulses were present distally bilaterally. Diagnostic Data: As stated earlier. Impression And Plan: 1.Stable angina in a patient with severe coronary artery disease status post coronary artery bypass graft. 2.Elevated troponin consistent with coronary artery disease. I do not think we are dealing with an acute coronary syndrome however. 3.Status post pacemakers, defibrillator, and history of cardiac arrest. 4.Chronic systolic congestive heart failure, ejection fraction of 20% to 25%. 5.Atrial fibrillation on sotalol. The patient is on aspirin and Plavix. I am assuming he has had s ome issue with anticoagulants before that is why he is not on any, but I will discuss the case furthe r with Dr. Willson. 6.Diabetes. 7.Chronic obstructive pulmonary disease. 8.Gastroesophageal reflux disease. 9.Dyslipidemia well controlled. 10.Status post abdominal aortic aneurysm repair. I think we need to consider using Entresto on him. Stop the Cozaar, increase the Imdur. Plan for medical therapy at this point. CRISTIAN/BETTY Voice ID: [id number] Report ID: [id number]
[2018-11-14 06:20] LABS: Absolute Lymphocytes (CBC) 1.7 K/uL (0.7-4.9); Basophils % 0.5 % (0-1.3); Eosinophils % 1.6 % (0-4.4); Hematocrit 36.2 % (39.6-49.0); Lymphocytes % 21.3 % (15.3-44.8); MPV 9.3 fL (7.6-11.3); Monocytes % 9.2 % (3.3-12.3); RBC Red Blood Cell Count 3.85 M/uL (4.33-5.43)
[2018-11-14 06:22] LABS: Albumin 2.8 g/dL (3.4-5.0); Bilirubin Total 0.7 mg/dL (0.2-1.0); Phosphorus 2.9 mg/dL (2.5-4.9); Potassium 4.1 mmol/L (3.5-5.1); Protein, Total 5.8 g/dL (6.4-8.2)
[2018-11-14] MEDS ORDERED: predniSONE 20 MG TAB PO SCH (09:00)
[2018-11-14] MEDS ORDERED: FLUNISOLIDE IH SCH (09:00)
[2018-11-14] MEDS ORDERED: CLOPIDOGREL 75 MG TABLET PO SCH (09:00)
[2018-11-14] MEDS ORDERED: DIGOXIN 0.125 MG TABLET PO SCH (09:00)
[2018-11-14] MEDS ORDERED: ISOSORBIDE MONONITRATE 20 MG TABLET PO SCH (09:00)
[2018-11-14] MEDS: PREDNISONE 10 MG PO SCH ×2 (09:30→10:42)
--- NOTE | 2018-11-14 09:36 | EKG ---
Test Date: 2018-11-14 Test Time: 03:34:25 Supervisor Corduroy Cutting: RT Packer MEASUREMENT RESULTS: Intervals: Rate: 62 SC: 120 QRSD: 116 QT: 468 QTc: 475 [place]: P: 13 SC: 120 QRS: -56 T: 119 INTERPRETIVE STATEMENTS: AV sequential or dual chamber electronic pacemaker Compared to ECG 11/13/2018 08:17:17 Ventricular-paced complex(es) or rhythm no longer present Sinus rhythm no longer present Fusion complex(es) no longer present Ventricular premature complex(es) no longer present Left bundle-branch block no longer present ST (T wave) deviation no longer present Electronically Signed On 11-14-18 09:35:33 CDT by Hemanth Rai
[2018-11-14] MEDS: DIGOXIN 125 MCG TABLET PO SCH (10:41)
[2018-11-14] MEDS: SOTALOL 80 MG TABLET PO SCH ×2 (10:42→20:23)
[2018-11-14] MEDS: FLUNISOLIDE 0.025% NAS SCH (10:43)
[2018-11-14] MEDS: HOME MED 1 EA UNK (Fluticasone/Umeclidin/Vilanter [Trelegy Ellipta 100-62.5-25] 1 PUFF) PO SCH (10:43)
[2018-11-14] MEDS: CLOPIDOGREL 75 MG TABLET PO SCH (10:43)
[2018-11-14] MEDS: ISOSORBIDE MONO SR 30 MG TAB PO SCH (10:44)
[2018-11-14] MEDS: PREDNISONE 5 MG PO SCH (11:12)
--- NOTE | 2018-11-14 12:15 | P.PN ---
Subjective Date of Service: 11/14/18 Primary Care Provider: Dr. Subramanian Chief Complaint: Chest pain Patient seen and examined at bedside with RN. Chart reviewed. Case discussed with cardiology. This morning patient has no complaints to offer. Does keep and having intermittent chest pain. No other complaints to offer Review of Systems 10-point ROS is otherwise unremarkable Physical Examination - Vital Signs Temperature: 97.4 F Blood Pressure: 119/65 Pulse: 61 Respirations: 15 Pulse Ox (%): 95 - Physical Exam General: Alert, In no apparent distress HEENT: Atraumatic, PERRLA, EOMI Neck: Supple, JVD not distended Respiratory: Clear to auscultation bilaterally, Normal air movement Cardiovascular: Regular rate/rhythm, Normal S1 S2 Gastrointestinal: Normal bowel sounds, No tenderness Musculoskeletal: No tenderness Integumentary: No rashes Neurological: Normal speech, Normal tone, Normal affect Lymphatics: No axilla or inguinal lymphadenopathy - Studies Medications List Reviewed: Yes Assessment And Plan - Current Problems (Diagnosis) (1) Chest pain Current Visit: Yes Status: Acute Plan: Chest pain ACS rule out. Past medical history of CAD -troponin x1 in the ER negative. Repeated troponin x2 with elevated. EKG with nonspecific changes -cardiology consulted. Appreciated recommendations at this -echocardiogram done with ejection fraction 20% -patient started on Entresto, and Imdur here in the hospital. Hold Cozaar at this time -medical management for cardiology Qualifiers: Chest pain type: unspecified Qualified Code(s): R07.9 - Chest pain, unspecified (2) Hypertension Current Visit: Yes Status: Chronic Plan: Stable at this time will restart home medication except losartan Qualifiers: Hypertension type: essential hypertension Qualified Code(s): I10 - Essential (primary) hypertension (3) COPD (chronic obstructive pulmonary disease) Current Visit: Yes Status: Chronic Plan: Stable at this time will restart inhalers Qualifiers: COPD type: unspecified COPD Qualified Code(s): J44.9 - Chronic obstructive pulmonary disease, unspecified (4) CAD (coronary artery disease) Current Visit: Yes Status: Chronic Plan: History of CAD with bypass x2 and triple AAA repair -restart home medication of aspirin Plavix along with beta-ryann will hold losartan at this time Qualifiers: Coronary Disease-Associated Artery/Lesion type: [place] artery [place] vs. transplanted heart: [place] heart Associated angina: with stable angina Qualified Code(s): I25.118 - Atherosclerotic heart disease of [place] coronary artery with other forms of angina pectoris - Plan Pending clinical improvement at this time Discharge Plan: Home Plan to discharge in: Greater than 2 days - Code Status/Comfort Care Code Status Assessed: Yes Critical Care: No
[2018-11-14] MEDS: ROSUVASTATIN 20 MG TABLET PO SCH (20:23)
[2018-11-15 06:49] LABS: Absolute Lymphocytes (CBC) 1.7 K/uL (0.7-4.9); Basophils % 0.9 % (0-1.3); Eosinophils % 1.5 % (0-4.4); Hematocrit 40.4 % (39.6-49.0); Lymphocytes % 22.5 % (15.3-44.8); MPV 9.5 fL (7.6-11.3); Monocytes % 9.7 % (3.3-12.3); RBC Red Blood Cell Count 4.24 M/uL (4.33-5.43)
[2018-11-15 06:50] LABS: Albumin 3.1 g/dL (3.4-5.0); Bilirubin Total 0.8 mg/dL (0.2-1.0); Potassium 4.6 mmol/L (3.5-5.1); Protein, Total 6.2 g/dL (6.4-8.2)
[2018-11-15] MEDS: CLOPIDOGREL 75 MG TABLET PO SCH (07:41)
[2018-11-15] MEDS: ISOSORBIDE MONO SR 30 MG TAB PO SCH (07:41)
[2018-11-15] MEDS: SOTALOL 80 MG TABLET PO SCH (07:42)
[2018-11-15] MEDS: FLUNISOLIDE 0.025% NAS SCH (07:42)
[2018-11-15] MEDS: PREDNISONE 5 MG PO SCH (07:42)
[2018-11-15] MEDS: HOME MED 1 EA UNK (Fluticasone/Umeclidin/Vilanter [Trelegy Ellipta 100-62.5-25] 1 PUFF) PO SCH (07:42)
[2018-11-15] MEDS: DIGOXIN 125 MCG TABLET PO SCH (07:43)
[2018-11-15] MEDS: ROSUVASTATIN 20 MG TABLET PO SCH (07:43)
[2018-11-15] MEDS ORDERED: ISOSORBIDE MONO SR 60 MG TAB PO SCH (09:00)
[2018-11-15] MEDS ORDERED: SACUBITRIL/VALSARTAN 24/26 MG TAB PO SCH (09:00)
--- NOTE | 2018-11-15 10:27 | PN ---
Date of Progress Note: 11/15/2018 Mr. Tierney had come in with angina. I believe his angina is chronic. He has severe chronic coronary artery disease status post bypass surgery, multiple stents. He came in with chest pain positive tro ponin, peaked at 2.0. He is on appropriate therapy in general. I did, however, take him off the los sera and started him on Entresto for chronic systolic congestive heart failure with an ejection frac tion of 20%. I also gave him Imdur 60 mg daily while he was in the hospital. He has been pain free now for approximately 36 hours. I am comfortable with him going home. Follow up with Dr. Yancey in t he near future. His last intervention about a year ago, required an Impella for interventional suppo rt. I think medical therapy for him now is the right thing to do at this point. CRISTIAN/BETTY Voice ID: [id number] Report ID: [id number]
[2018-11-15] MEDS ORDERED: METFORMIN HCL 500 MG TAB PO ONE (10:44)
--- NOTE | 2018-11-15 13:36 | P.SSS ---
Patient History Date of Service: 11/15/18 Primary Care Provider: Dr. Subramanian Reason for admission: Chest pain History of Present Illness: This is a 82-year-old male with significant past medical history of hypertension , COPD, CAD with CABG x2 pacemaker defibrillator implant an AAA repair will presented to the ED complaining of having chest pain. Patient stated that he was sleeping at night time and woke up all of a sudden with excruciating chest pain at around 1 o'clock. Pain was dull in nature and was radiating to his back and thus he decided to come to the ER for further workup. Patient stated that he has this pain was similar to before when he had a heart attack. Patient has been seen by his primary care provider a couple of weeks ago and had workup done which was within normal limits. Denies having any nausea vomiting shortness of breath, abdominal pain or any other associated symptoms. Chest pain worse is 8/10. Allergies bacitracin [From Neosporin (wty-[id number]-iexcj)] Allergy (Verified 11/13/18 15:58) Unknown bacitracin zinc [From Neosporin (pid-kbz-jebfm)] Allergy (Verified 11/13/18 15: 58) Unknown neomycin sulfate [From Neosporin (mdq-dnz-hrrie)] Allergy (Verified 11/13/18 15: 58) Unknown polymyxin B [From Neosporin (xly-spa-hzqep)] Allergy (Verified 11/13/18 15:58) Unknown Home Medications: Clopidogrel Bisulfate [Plavix] 1 tab PO DAILY 05/09/18 Digoxin [Lanoxin*] 1 tab PO DAILY 05/09/18 Diphenhydramine HCl [Benadryl] 25 mg PO BEDTIME 05/09/18 Lutein 1 cap PO BEDTIME 05/09/18 Metformin HCl 1 tab PO BEDTIME 05/09/18 Metformin HCl 500 mg PO DAILY 05/09/18 Pantoprazole [Protonix Tab*] 40 mg PO DAILY AT SUPPER 05/09/18 Polyethylene Glycol 3350 [Miralax] 1 packet PO BEDTIME PRN PRN 05/09/18 Prednisone [Deltasone] 5 mg PO DAILYPRN PRN 05/09/18 Albuterol Sulfate [Ventolin Hfa] 2 puff IH DAILY 05/10/18 Flunisolide 0.025 2 spray MARIA LUISA DAILY 05/10/18 Sotalol HCl [Sotalol] 80 mg PO BID 05/10/18 Clobetasol Propionate 0.05% 2 drop TD PRN 11/13/18 Fluticasone/Umeclidin/Vilanter [Trelegy Ellipta 100-62.5-25] 1 puff PO DAILY Multivit-Min/FA/Lycopen/Lutein [Centrum Silver Tablet] 1 tab PO DAILY 11/13/18 Rosuvastatin Calcium [Crestor] 20 mg PO BEDTIME 11/13/18 Thera Tears 1 drop EACH EYE BEDTIME 11/13/18 Isosorbide Mononitrate [Isosorbide Mononitrate ER] 60 mg PO DAILY #30 tab.er.24h 11/15/18 Nitroglycerin [Nitrostat] 0.4 mg SL PRN PRN #1 btl 11/15/18 Sacubitril/Valsartan [Entresto 24 mg-26 mg Tablet] 1 tab PO BID #60 tab - Past Medical/Surgical History Has patient received pneumonia vaccine in the past: Yes Diabetic: Yes -: GERD -: COPD -: CAD -: DM Type 2 -: CHF -: Hiatus Hernia, Colon Diverticula, Bladder tumors -: Large Cyst Left Kidney -: Abdominal Aneurysm 2.9cm 02/2015 -: MIx2, Bypassx2 -: Heart Defib implanted 04/11 -: Angioplasty with 4 short stents impeller motor assist, Angiogram -: 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 moist/pink, EOMI, Sclerae nonicteric Neck: Supple, 2+ carotid pulse no bruit, No LAD, Without JVD or thyroid abnormality Respiratory: Clear to auscultation bilaterally, Normal air movement Cardiovascular: Regular rate/rhythm, Normal S1 S2 Gastrointestinal: Normal bowel sounds, No tenderness Musculoskeletal: No tenderness Integumentary: No rashes Neurological: Normal gait, Normal speech, Normal strength at 5/5 x4 extr, Normal tone, Normal affect Lymphatics: No axilla or inguinal lymphadenopathy - Diagnosis (Problem(s)) (1) Chest pain Status: Acute Plan: Chest pain ACS rule out. Past medical history of CAD -troponin x1 in the ER negative. Repeated troponin x2 with elevated. EKG with nonspecific changes -cardiology consulted. Appreciated recommendations at this -echocardiogram done with ejection fraction 20% -patient started on Entresto, and Imdur here in the hospital. STOP Cozaar at this time -medical management per cardiology -did well overall post new medication and thus was discharged home under stable condition Qualifiers: Chest pain type: unspecified Qualified Code(s): R07.9 - Chest pain, unspecified (2) Hypertension Status: Chronic Qualifiers: Hypertension type: essential hypertension Qualified Code(s): I10 - Essential (primary) hypertension (3) COPD (chronic obstructive pulmonary disease) Status: Chronic Qualifiers: COPD type: unspecified COPD Qualified Code(s): J44.9 - Chronic obstructive pulmonary disease, unspecified (4) CAD (coronary artery disease) Status: Chronic Qualifiers: Coronary Disease-Associated Artery/Lesion type: [place] artery [place] vs. transplanted heart: [place] heart Associated angina: with stable angina Qualified Code(s): I25.118 - Atherosclerotic heart disease of [place] coronary artery with other forms of angina pectoris - Disposition Disposition: ROUTINE DISCHARGE Condition: GOOD
== END 2018-11-15 11:15 | disposition home or self-care (01) ==
LOC: ER 08:17 → ERHOLD 11:05 → 4TH 13:59
PROVIDERS: ADMIT Family Medicine; ATTEND Family Medicine
DX: I25.118 Atherosclerotic heart disease of native coronary artery with other forms of angina pectoris (principal); I11.0 Hypertensive heart disease with heart failure; I50.22 Chronic systolic (congestive) heart failure; I48.91 Unspecified atrial fibrillation; E11.9 Type 2 diabetes mellitus without complications; E78.5 Hyperlipidemia, unspecified; J44.9 Chronic obstructive pulmonary disease, unspecified; K21.9 Gastro-esophageal reflux disease without esophagitis; I25.2 Old myocardial infarction; F17.210 Nicotine dependence, cigarettes, uncomplicated; Z79.84 Long term (current) use of oral hypoglycemic drugs; Z79.82 Long term (current) use of aspirin; Z79.02 Long term (current) use of antithrombotics/antiplatelets; Z79.52 Long term (current) use of systemic steroids; Z79.899 Other long term (current) drug therapy; Z95.1 Presence of aortocoronary bypass graft; Z95.5 Presence of coronary angioplasty implant and graft; Z95.810 Presence of automatic (implantable) cardiac defibrillator; Z85.828 Personal history of other malignant neoplasm of skin
CPT/HCPCS: 96365; 93005 ×2; 93306; 85025 ×3; 80048; 36415 ×2; 83735 ×2; 84100; 85610; 80162 ×2; 82962 ×5; 80076; 81003; 84484 ×3; 80053 ×2; 83880; 71045; 96375; 96372; 99285; J1940; J3475; J1650; G0378 ×2; J7512

== ENCOUNTER 2018-11-18 08:47 | Emergency (ER) | payer OTHER ==
--- OUTSIDE RECORDS SUMMARY | 2018-11-18 08:59 | XMS REPORT | Clinical Summary ---
:1935 Author Organization [facility] Address [address] [place] [address] Care Team Providers Name Role Phone Rogelio Subramanian MD Primary Care Provider Allergies Active Allergy Reactions Severity Noted Date Comments Wqimieuv-Qhrtvdhtul-Zabhinybq Other (See Comments) Medium 12/15/2015 BUMPS Medications [...] Problem Noted Date Coronary artery disease involving [place] coronary artery of [place] heart 08/29 with angina pectoris Overview: Added automatically from request for surgery [id number] Combined systolic and diastolic congestive heart failure [...] urinary bladder, unspecified site (Primary Dx) after 11/17/2017 Family History Medical History Relation Name Comments [...] 06/11/2019 Procedure visit Urology William Fragoso MD [address] [address] Health Maintenance Due Date Last Done Comments SHINGLES VACCINES (#1) 1986 65+ PNEUMOCOCCAL VACCINE (1 of 2 - PCV13) 2001 INFLUENZA VACCINE 11/26/2018 Implants Implanted Type Area Meatman Device Shelf Model / Identifier Expiration Serial / Date Lot Quartet, Lv Leads, Model 1458q-86 - [id number] Cardiac Pacing N/A: [employer] 01/25/2019 [id number] / Implanted: 05/10/2016 (Quantity not on file) Leads or N/A [id number] / Electrodes or [id number] Accessories Tendril Sts, Pacemaker Leads, Model [id number]/52 - [id number] Cardiac Pacing N/A : [employer] 02/25/2019 [id number] / Implanted: 05/10/2016 (Quantity not on file) Leads or N/A [id number] / Electrodes or [id number] Accessories Envlp Impl Crdvrtr Dfb Antbctrl Fully Resorb Lg Aigissrx R - [id number] Cardiovascular N/A: [employer] [id number] / Implanted: 05/10/2016 (Quantity not on file) Implants N/A / Catheter Pump Set Impella Cp - [id number] Cardiovascular N/A: [employer]OMED [id number] / Implanted: 09/03/2017 (Quantity not on file) Implants N/A / [id number] Stent Coronary Syst Synergy (Mr) 3.50mm X 24mm - [id number] Coronary Stents N /A: [facility] 06/30/2018 [id number] / Implanted: 09/03/2017 (Quantity not on file) N/A INTERVENTIONAL / CARDIOLOGY [id number] Stent Coronary Syst Synergy (Mr) 3.50mm X 12mm - [id number] Coronary Stents N /A: [facility] 06/02/2018 [id number] / Implanted: 09/03/2017 (Quantity not on file) N/A INTERVENTIONAL / CARDIOLOGY [id number] Stent Coronary Syst Synergy (Mr) 3.00mm X 16mm - [id number] Coronary Stents N /A: [facility] 05/26/2018 [id number] / Implanted: 09/03/2017 (Quantity not on file) N/A INTERVENTIONAL / CARDIOLOGY [id number] Stent Coronary Syst Synergy (Mr) 3.00mm X 8mm - [id number] Coronary Stents N/ A: [facility] 05/05/2018 [id number] / Implanted: 09/03/2017 (Quantity not on file) N/A INTERVENTIONAL / CARDIOLOGY [id number] Quadra Adiliaura Mp Travel Attendants-D Defibrillators & N/A: [employer] 01/25/2018 [id number] / Implanted: Qty: 1 on 05/10/2016 by Renata Sen Jr., MD Leads N/A [id number] / [id number] System Clsr Sut Meditd 6fr Perclose Proglide - [id number] Surgical N/A: [facility] 05/28/2019 [id number] / Implanted: 09/03/2017 (Quantity not on file) Implants; N/A DEVICES / Expanders; [id number] Extenders; Surgical Wires System Clsr Sut Meditd 6fr Perclose Proglide - [id number] Surgical N/A: SE[facility]ASCULAR 05/28/2019 [id number] / Implanted: 09/03/2017 (Quantity not on file) Implants; N/A DEVICES / Expanders; [id number] Extenders; Surgical Wires Procedures Procedure Name Priority Date/Time Associated Diagnosis Comments CYTOLOGY Routine 06/10/2018 3:03 Results for this (NON-GYNECOLOGICAL) PM WASTE WATER OPERATOR procedure are in REQUEST the results section. CYTOLOGY Routine 12/10/2017 2:12 Results for this (NON-GYNECOLOGICAL) PM CDT procedure are in REQUEST the results section. POC URINALYSIS Routine 12/10/2017 10:12 Malignant neoplasm Results for this DIPSTICK AM CDT of urinary bladder, procedure are in unspecified site the results section. after 11/17/2017 Results Cytology (non-gynecological) request (06/10/2018 3:03 PM WASTE WATER OPERATOR)Only the most recent of2 resultswithin the time period is included. [facility] DEPARTMENT OF PATHOLOGY AND GENOMIC MEDICINE Cytology See link below [facility] DEPART[facility] OF (non-gynecological) for PDF Lab PATHOLOGY AND report Report GENOMIC MEDICINE Result status This is Final [facility] OF Report for PATHOLOGY AND [id number] GENOMIC MEDICINE Specimen Performing Organization Address [facility]/State[facility] Phone Number [facility] DEPARTMENT OF PATHOLOGY AND [address] [place] [address] GENOMIC MEDICINE POC urinalysis dipstick (12/10/2017 10:12 [...] Negative Negative urine, POC Specimen Urine after 11/17/2017 ([place]) [place] [address] Advance Directives Patient has advance care planning documents on file. For more information, please contact:Marciano [id number] [place] [place] [address]
--- OUTSIDE RECORDS SUMMARY | 2018-11-18 08:59 | XMS REPORT ---
:1935 [facility] Address [address] [place] [address] Dr. Singleton [address] [place] [address] Care Team Providers Name Role Phone Unavailable Unavailable Unavailable Problems This patient has no known problems. Allergies, Adverse Reactions, Alerts This patient has no known allergies or adverse reactions. Medications This patient has no known medications.
[2018-11-18 09:12] LABS: Absolute Lymphocytes (CBC) 1.3 K/uL (0.7-4.9); Basophils % 0.5 % (0-1.3); Hematocrit 37.6 % (39.6-49.0); Lymphocytes % 16.3 % (15.3-44.8); RBC Red Blood Cell Count 3.93 M/uL (4.33-5.43)
[2018-11-18 09:20] LABS: Protime INR 0.95
[2018-11-18 09:28] LABS: Potassium 4.1 mmol/L (3.5-5.1); Troponin (Emerg Dept Use Only) 0.18 ng/mL (0.0-0.045)
--- NOTE | 2018-11-18 10:12 | RAD REPORT ---
EXAM DESCRIPTION: RAD - Chest Single View - 11/18/2018 9:07 am CLINICAL HISTORY: Chest pain COMPARISON: November 13 TECHNIQUE: AP portable chest image was obtained 0900 hours . FINDINGS: No focal lung parenchymal process. Interstitial pattern is similar to the comparison study . Trachea is midline. Heart and vasculature are normal. No measurable pleural effusion and no pneumot horax. No acute bony abnormality seen. No acute aortic finding. Defibrillator is in place. Sternotomy wires in place. IMPRESSION: No acute cardiopulmonary process. Chest findings are not substantially different from November 13.
--- NOTE | 2018-11-18 11:04 | EDPHYS ---
Physician Documentation [facility] Name: Cornelius Tierney Age: 82 yrs Sex: Male : 1935 Arrival Date: 11/18/2018 Time: 08:48 Bed 7 Private MD: ED Physician Yoav Shankar HPI: 11/18 08:51 This 82 yrs old Male presents to ER via Unassigned with complaints of Chest rn Pain. 08:51 The patient or guardian reports chest pain that is located primarily in the substernal rn area. Onset: this morning, at 04:30. The pain does not radiate. The chest pain is described as a heaviness. Modifying factors: The symptoms are alleviated by NTG, X3. the symptoms are aggravated by nothing. Severity of pain: At its worst the pain was moderate in the emergency department the pain is unchanged. The patient has experienced similar episodes in the past. Reports chest pain, woke him up, has been happening more frequently lately, took 3 nitro due to 3 episodes of chest pain, each resolved pain, no exertion required. Has had 2 MIs in past with stents. Recently admitted and discharged this past week for same problem. . Historical: - Allergies: 09:01 BACITRACIN; bp 09:01 Bacitracin Zinc; bp 09:01 Neomycin Sulfate; bp 09:01 Neosporin (nfb-vay-wekby); bp 09:01 polymyxin B; bp - Home Meds: 09:01 Benadryl 25 mg Oral cap [Active]; clopidogrel 75 mg Oral tab [Active]; digoxin 125 mcg bp oral tab 1 tab once daily [Active]; Entresto 24-26 mg oral tab 1 tab twice a day [Active]; isosorbide mononitrate 20 mg Oral tab 1 tab 2 times per day [Active]; lutein 20 mg Oral cap [Active]; metformin 500 mg Oral tab 2 times per day [Active]; Miralax 17 gram/dose Oral powd once daily [Active]; Nitroglycerin Oral [Active]; pantoprazole 40 mg Oral TbEC 1 tab once daily [Active]; prednisone 10 mg Oral tab 1 tab once daily [Active]; Ranexa 500 mg oral Tb12 1 tab 2 times per day [Active]; rosuvastatin 20 mg Oral tab 1 tab once daily [Active]; sotalol 80 mg Oral tab 1 tab 2 times per day [Active]; Ventolin HFA 90 mcg/actuation Nebulizer HFAA [Active]; - PMHx: 09:01 AAA; CAD; cardiac arrest; CHF; constipation; COPD; Diabetes - NIDDM; GERD; High bp Cholesterol; macular degeneration; Myocardial infarction; - PSHx: 09:01 CARDIAC STENTS; bp - Immunization history:: Adult Immunizations up to date. - Social history:: Smoking status: Patient/guardian denies using tobacco. - Ebola Screening: : No symptoms or risks identified at this time. - Family history:: not pertinent. - Hospitalizations: : No recent hospitalization is reported. ROS: 08:51 Constitutional: Negative for fever, chills, and weight loss, Eyes: Negative for injury, rn pain, redness, and discharge, Neck: Negative for injury, pain, and swelling, Cardiovascular: Negative for palpitations, and edema, Respiratory: Negative for shortness of breath, cough, wheezing, and pleuritic chest pain, Abdomen/GI: Negative for abdominal pain, nausea, vomiting, diarrhea, and constipation, MS/Extremity: Negative for injury and deformity, Skin: Negative for injury, rash, and discoloration, Neuro: Negative for headache, weakness, numbness, tingling, and seizure. Exam: 08:51 Constitutional: This is a well developed, well nourished patient who is awake, alert, rn and in no acute distress. Head/Face: Normocephalic, atraumatic. Eyes: Pupils equal round and reactive to light, extra-ocular motions intact. Lids and lashes normal. Conjunctiva and sclera are non-icteric and not injected. Cornea within normal limits. Periorbital areas with no swelling, redness, or edema. Cardiovascular: Regular rate and rhythm. No pulse deficits. Respiratory: Lungs have equal breath sounds bilaterally, clear to auscultation. No increased work of breathing, no retractions or nasal flaring. Abdomen/GI: soft, non-tender MS/ Extremity: Pulses equal, no cyanosis. Neurovascular intact. Full, normal range of motion. Equal circumference. Neuro: Awake and alert, GCS 15, oriented to person, place, time, and situation. Vital Signs: 08:50 BP 115 / 59; Pulse 60; Resp 14; Temp 98; Pulse Ox 97% on R/A; Weight 68.04 kg; Height 5 bp ft. 7 in. (170.18 cm); 10:17 BP 104 / 69; Pulse 66; Resp 22; Pulse Ox 97% ; bp 11:35 BP 110 / 56; Pulse 62; Resp 15; Pulse Ox 97% ; bp 13:24 BP 105 / 57; Pulse 66; Resp 19; Temp 98; Pulse Ox 98% ; bp 08:50 Body Mass Index 23.49 (68.04 kg, 170.18 cm) bp MDM: 08:49 Patient medically screened. rn 08:55 ED course: No current chest pain.. rn 08:59 ED course: NO change in ECG from previous admission. . rn 09:55 The patient was not given aspirin in the Emergency Department. Patient reports taking rn aspirin within the past 24 hours. 10: ED course: Waiting second watch sergeant back from Dr. Rai.. rn 11:01 Differential diagnosis: acute myocardial infarction, stable angina, unstable angina. rn Data reviewed: vital signs, nurses notes, lab test result(s), EKG, radiologic studies, plain films, and as a result, I will admit patient. Counseling: I had a detailed discussion with the patient and/or guardian regarding: the historical points, exam findings, and any diagnostic results supporting the discharge/admit diagnosis, lab results, radiology results, the need to transfer to another facility, for higher level of care. ED course: Consulted with Dr. Rai, who recommended I speak with Dr. Yancey, I spoke with Dr. Yancey, who recommended transfer to [facility] given last cath required LV support device. . 11/18 08:50 Order name: Basic Metabolic Panel; Complete Time: rn 11/18 08:50 Order name: CBC with Diff; Complete Time: rn 11/18 08:50 Order name: NT PRO-BNP; Complete Time: rn 11/18 08:50 Order name: Troponin (emerg Dept Use Only); Complete Time: rn 11/18 08:55 Order name: PT-INR; Complete Time: rn 11/18 08:55 Order name: Ptt, Activated; Complete Time: 11/18 08:50 Order name: XRAY Chest (1 view); Complete Time: 10:16 rn 11/18 08:50 Order name: EKG; Complete Time: 08:51 rn 11/18 08:50 Order name: Cardiac monitoring; Complete Time: 08:55 rn 11/18 08:50 Order name: EKG - Nurse/Tech; Complete Time: 08:55 rn 11/18 08:50 Order name: IV Saline Lock; Complete Time: 09:04 rn 11/18 08:50 Order name: Labs collected and sent; Complete Time: 09:04 rn 11/18 08:50 Order name: O2 Per Protocol; Complete Time: 08:55 rn 11/18 08:50 Order name: O2 Sat Monitoring; Complete Time: 08:55 rn Administered Medications: No medications were administered Disposition: 11/18/18 11:03 Transfer ordered to [facility]. Diagnosis are Chest pain, unspecified, Angina pectoris, unspecified. - Reason for transfer: Higher level of care. - Accepting physician is Dr. Poncho Penny. - Condition is Stable. - Problem is new. - Symptoms have improved. Signatures: Dispatcher [employer] EDMS Yoav Shankar MD MD rn Peltier, Brian, RN RN bp Corrections: (The following items were deleted from the chart) 13:28 11:03 11/18/2018 11:03 Transfer ordered to [facility]. Diagnosis is bp Chest pain, unspecified; Angina pectoris, unspecified. Reason for transfer: Higher level of care. Accepting physician is Dr. Poncho Penny. Condition is Stable. Problem is new. Symptoms have improved. rn
--- NOTE | 2018-11-18 11:04 | ER ---
Nurse's Notes [facility] Name: Cornelius Tierney Age: 82 yrs Sex: Male : 1935 Arrival Date: 11/18/2018 Time: 08:48 Bed 7 Private MD: Diagnosis: Chest pain, unspecified;Angina pectoris, unspecified Presentation: 11/18 08:50 Presenting complaint: EMS states: "SHARP" CHEST PAINS SINCE 0430, RELIEVED BY NTG. bp Transition of care: patient was not received from another setting of care. Onset of symptoms was November 18, 2018 at 04:30. Risk Assessment: Do you want to hurt yourself or someone else? Patient reports no desire to harm self or others. Initial Sepsis Screen: Does the patient meet any 2 criteria? No. Patient's initial sepsis screen is negative. Does the patient have a suspected source of infection? No. Patient's initial sepsis screen is negative. Care prior to arrival: Glucose check: 228 Oxygen administered. via nasal cannula. 08:50 Method Of Arrival: EMS: [facility] bp 08:50 Acuity: WEI 2 bp Triage Assessment: 08:50 General: Appears in no apparent distress. comfortable, Behavior is calm, cooperative, bp appropriate for age. Pain: Denies pain. EENT: No deficits noted. Neuro: No deficits noted. Cardiovascular: Chest pain is denied is alleviated by NTG. Respiratory: No deficits noted. GI: No signs and/or symptoms were reported involving the gastrointestinal system. : No signs and/or symptoms were reported regarding the genitourinary system. Derm: No deficits noted. Musculoskeletal: No deficits noted. Historical: - Allergies: 09:01 BACITRACIN; bp 09:01 Bacitracin Zinc; bp 09:01 Neomycin Sulfate; bp 09:01 Neosporin (ims-gzf-yfwrn); bp 09:01 polymyxin B; bp - Home Meds: 09:01 Benadryl 25 mg Oral cap [Active]; clopidogrel 75 mg Oral tab [Active]; digoxin 125 mcg bp oral tab 1 tab once daily [Active]; Entresto 24-26 mg oral tab 1 tab twice a day [Active]; isosorbide mononitrate 20 mg Oral tab 1 tab 2 times per day [Active]; lutein 20 mg Oral cap [Active]; metformin 500 mg Oral tab 2 times per day [Active]; Miralax 17 gram/dose Oral powd once daily [Active]; Nitroglycerin Oral [Active]; pantoprazole 40 mg Oral TbEC 1 tab once daily [Active]; prednisone 10 mg Oral tab 1 tab once daily [Active]; Ranexa 500 mg oral Tb12 1 tab 2 times per day [Active]; rosuvastatin 20 mg Oral tab 1 tab once daily [Active]; sotalol 80 mg Oral tab 1 tab 2 times per day [Active]; Ventolin HFA 90 mcg/actuation Nebulizer HFAA [Active]; - PMHx: 09:01 AAA; CAD; cardiac arrest; CHF; constipation; COPD; Diabetes - NIDDM; GERD; High bp Cholesterol; macular degeneration; Myocardial infarction; - PSHx: 09:01 CARDIAC STENTS; bp - Immunization history:: Adult Immunizations up to date. - Social history:: Smoking status: Patient/guardian denies using tobacco. - Ebola Screening: : No symptoms or risks identified at this time. - Family history:: not pertinent. - Hospitalizations: : No recent hospitalization is reported. Screenin:53 Abuse screen: Denies threats or abuse. Denies injuries from another. Nutritional bp screening: No deficits noted. Tuberculosis screening: No symptoms or risk factors identified. Fall Risk None identified. Assessment: 08:53 General: SEE TRIAGE NOTE. Pain: Denies pain. Pain does not radiate. Pain began 4 hours bp ago. 10:18 Reassessment: ALL CURRENT ORDERS COMPLETED, PT ASYMPTOMATIC AT THIS TIME. bp 11:36 Reassessment: TRANSFER COMPLETED, TRANSPORT PENDING. bp 12:13 Reassessment: REPORT TO NATAN RN AT [facility]. bp 13:24 Reassessment: EMS AT B/S FOR TRANSPORT. bp Vital Signs: 08:50 BP 115 / 59; Pulse 60; Resp 14; Temp 98; Pulse Ox 97% on R/A; Weight 68.04 kg; Height 5 bp ft. 7 in. (170.18 cm); 10:17 BP 104 / 69; Pulse 66; Resp 22; Pulse Ox 97% ; bp 11:35 BP 110 / 56; Pulse 62; Resp 15; Pulse Ox 97% ; bp 13:24 BP 105 / 57; Pulse 66; Resp 19; Temp 98; Pulse Ox 98% ; bp 08:50 Body Mass Index 23.49 (68.04 kg, 170.18 cm) bp ED Course: 08:48 Patient arrived in ED. hj 08:48 Malcom Leslie, RN is Primary Nurse. bp 08:48 Yoav Shankar MD is Attending Physician. rn 08:50 Arm band placed on. bp 08:51 Triage completed. bp 08:52 EKG completed in triage. Results shown to MD. bp 08:53 Patient has correct armband on for positive identification. Bed in low position. Call bp light in reach. Side rails up X2. virologist on. Pulse ox on. NIBP on. 08:56 EKG done, by ED staff, reviewed by Yoav Shankar MD. hj 09:00 X-ray completed. Portable x-ray completed in exam room. Patient tolerated procedure jb2 well. 09:01 XRAY Chest (1 view) In Process Unspecified. EDMS 09:03 Inserted saline lock: 20 gauge in right antecubital area, using aseptic technique. bp Blood collected. Patient maintains SpO2 saturation greater than 95% on room air. Administered Medications: No medications were administered Outcome: 11:03 ER care complete, transfer ordered by . rn 13:28 Patient left the ED. bp Signatures: Dispatcher [employer] EDMS Symone Rancho jb2 Yoav Shankar MD MD rn Joaquin, Henry, RN RN Malcom Ortiz, RN RN bp
--- NOTE | 2018-11-18 15:49 | EKG ---
Test Date: 2018-11-18 Test Time: 08:52:29 Pulmonology Technician: JONATHAN MEASUREMENT RESULTS: Intervals: Rate: 60 CA: 160 QRSD: 116 QT: 430 QTc: 430 Casa: P: 13 CA: 160 QRS: -12 T: 99 INTERPRETIVE STATEMENTS: AV dual-paced rhythm Biventricular pacemaker detected Abnormal ECG Compared to ECG 11/14/2018 03:34:25 No significant changes Electronically Signed On 11-18-18 15:48:55 CDT by Fred Gan
== END 2018-11-18 13:28 | disposition short-term general hospital (02) ==
LOC: ER 08:47
DX: I20.9 Angina pectoris, unspecified (principal); R07.9 Chest pain, unspecified; J44.9 Chronic obstructive pulmonary disease, unspecified; E11.9 Type 2 diabetes mellitus without complications; K21.9 Gastro-esophageal reflux disease without esophagitis; E78.00 Pure hypercholesterolemia, unspecified; I25.2 Old myocardial infarction; Z88.1 Allergy status to other antibiotic agents; Z79.84 Long term (current) use of oral hypoglycemic drugs
CPT/HCPCS: 36415; 71045; 80048; 83880; 84484; 85025; 85610; 85730; 93005; 99285

== ENCOUNTER 2019-02-16 14:10 | Inpatient (IN) | payer OTHER ==
[2019-02-16] MEDS: ALBUTEROL 2.5 MG/3 ML NEB SOL NEB SCH ×2 (15:41→20:00)
[2019-02-16] MEDS: IPRATROPIUM BROM 0.5MG/2.5ML NEB SCH ×2 (15:41→20:00)
[2019-02-16] MEDS: CEFTRIAXONE/SWI 1gm 1 GM/10 ML SYR IVP SCH ×2 (15:51→20:08)
[2019-02-16] MEDS: NA CHLORIDE 0.9% 1,000 ML IV SCH (15:52)
[2019-02-16 16:08] LABS: Absolute Lymphocytes (CBC) 0.7 K/uL (0.7-4.9); Basophils % 0.5 % (0-1.3); Lymphocytes % 6.5 % (15.3-44.8); MPV 9.3 fL (7.6-11.3); RBC Red Blood Cell Count 3.79 M/uL (4.33-5.43)
[2019-02-16 16:12] VITALS: BMI 24.3
--- NOTE | 2019-02-16 16:41 | RAD REPORT ---
EXAM DESCRIPTION: Juan Crocker (2 Views)02/16/2019 3:32 pm CLINICAL HISTORY: Chest pain COMPARISON: None FINDINGS: The lungs appear clear of acute infiltrate. The heart is mildly enlarged. Postsurgical changes involve the chest. Pacemaker leads in place IMPRESSION: No acute abnormalities displayed
[2019-02-16 16:42] LABS: Albumin 3.1 g/dL (3.4-5.0); Magnesium 1.7 mg/dL (1.8-2.4); Potassium 3.8 mmol/L (3.5-5.1)
[2019-02-16 16:47] LABS: Thyroid Stimulating Hormone 5.03 uIU/mL (0.360-3.740)
[2019-02-16] MEDS ORDERED: AZITHROMYCIN IV 500 MG in NA CHLORIDE 0.9% 250 ML IVPB SCH (17:00)
[2019-02-16] MEDS ORDERED: POTASSIUM CL SA 10 MEQ TAB PO ONE (17:00)
[2019-02-16] MEDS ORDERED: MAGNESIUM SULFATE 1 gm IVPB 1 GM/100 ML BAG IV ONE (17:00)
[2019-02-16] MEDS: METHYLPREDNISOLONE 40 MG INJ IV SCH (17:30)
[2019-02-16 18:18] LABS: Urine Appearance CLOUDY; Urine Blood NEGATIVE (NEG); Urine Color DK YELLOW; Urine Glucose NEGATIVE (NEG); Urine Protein 1+ (NEG); Urine Specific Gravity >=1.030 (1.005-1.030); Urine pH 5.5 (5.0-7.0)
[2019-02-16 18:23] LABS: Urine Bilirubin NEGATIVE (NEG)
[2019-02-16 18:24] LABS: Urine Microscopic Reflex ORDER UMIC
[2019-02-16 18:36] LABS: Urine Bacteria 20-50 /HPF (NONE SEEN); Urine Culture Reflex Order REFLEXED; Urine Mucus 2+ /HPF (NONE SEEN); Urine RBC <5 /HPF (NONE SEEN)
[2019-02-17] MEDS: NA CHLORIDE 0.9% 1,000 ML IV SCH (00:31)
[2019-02-17] MEDS: METHYLPREDNISOLONE 40 MG INJ IV SCH ×4 (00:31→17:03)
[2019-02-17] MEDS: IPRATROPIUM BROM 0.5MG/2.5ML NEB SCH ×4 (02:00→20:00)
[2019-02-17] MEDS: ALBUTEROL 2.5 MG/3 ML NEB SOL NEB SCH ×4 (02:00→20:00)
--- NOTE | 2019-02-17 04:42 | HP ---
Date of Admission: 02/16/2019 Chief Complaint: Cough, congestion, feeling weak. History Of Present Illness: Mr. Tierney is an 83-year-old male patient admitted to the hospital after he came into office today with his and daughter. Patient has been feeling sick for last 1 week and symptoms are increasingly getting worse. He has cough, lot of chest congestion, not able to cough up any mucus, feels very weak, tired, and sleepy. His appetite has been very poor. He lost about 11 pounds in the last 2 months and most of the weight loss happened in last 1 week, as reported by the patient's family member with loss of his appetite with his acute illness. Also having shortness of breath with this. He has not traveled recently, has not been in contact with any sick person lately. After he was evaluated at the office, I was concerned about pneumonia and COPD exacerbation and patient was admitted to the hospital. Allergies: AMIODARONE AND NEOSPORIN CAUSING RASH. Medications: Ventolin, aspirin, atorvastatin, Plavix, digoxin, digoxin, Trelegy inhaler, isosorbide dinitrate, losartan, metformin, prednisone 10 mg daily, pantoprazole, and sotalol. Review of Systems: Respiratory: As mentioned above. Constitutional: As mentioned above. All other systems reviewed and negative. Past Medical History: Significant for type 2 diabetes mellitus, COPD, hypertension, mixed hyperlipidemia, coronary artery disease, abdominal aortic aneurysm, gastroesophageal reflux disease, diverticulosis, renal cyst, and chronic fatigue problem. Past Surgical History: Significant for cataract surgery for a retinal tear, coronary artery stent placement, coronary artery bypass surgery, surgery for abdominal aortic aneurysm, cholecystectomy, and removal of squamous cell carcinoma of skin. Family History: Significant for father had abdominal aortic aneurysm. Mother had Alzheimer disease. Social History: Prior history of smoking, not at present time. Use of alcohol negative. Physical Examination: At office when I saw him today, blood pressure was 93/57, pulse 63, temperature 97.2, respiratory rate 15, weight 140 pounds, height 66 inches. General: Patient awake, alert, appears weaker than normal, not in distress. HEENT: Head atraumatic, normocephalic. Conjunctivae nonerythematous. Sclerae white. His mouth examination has thick slightly yellowish colored mucus noted in posterior pharyngeal wall and inside his oral cavity. Ears/Nose, no mass, lesion, discharge noted. Neck: Supple. No JVD, lymph nodes, bruit, thyromegaly noted. Lungs: Presence of crackles noted in bilateral lower half of lung beebe. Not using any accessory muscles of respirations. Heart: Normal heart sounds, no murmur or gallop. Abdomen: Soft, bowel sounds normal. No guarding, rigidity, tenderness, mass, hepatosplenomegaly, distention, or bruit noted. Extremities: No leg edema. No calf tenderness. Skin: No rash, ulcer, cellulitis. Lymphatics: No lymph node enlargement in neck, supraclavicular, infraclavicular region. Neuro: No focal neurological deficit. Chest: Unremarkable. External Genitalia: Deferred. Rectal: Deferred. Laboratory Data: White count 11.5, hemoglobin 11.3, platelets 194. Sodium 142 , potassium 3.8, chloride 106, bicarb 29, BUN 27, creatinine 1.18, glucose 130, magnesium 1.7. Liver function tests unremarkable. Procalcitonin 0.19. Lactic acid 1.7. TSH 5.03. Chest x-ray, no acute cardiopulmonary changes noted. Impression: 1. Pneumonia. 2. Acute exacerbation of chronic obstructive pulmonary disease. 3. Volume depletion. 4. Weight loss. 5. Hypotension. 6. Hypomagnesemia. 7. Congestive heart failure, chronic systolic. 8. Type 2 diabetes mellitus. 9. Coronary artery disease. 10. Hyperlipidemia, mixed. 11. Gastroesophageal reflux disease. 12. Diverticulosis. Plan: Admit patient to hospital for further evaluation and management of this problem. The patient is appropriate for inpatient and is expected to spend 2 midnights in hospital. We will start the patient on IV antibiotics, which is ceftriaxone and azithromycin. We will also start him on IV steroid therapy, IV fluid will be given per order. The patient is on chronic steroid therapy at home. His blood pressure was low at office, so we will go ahead and give him IV fluid hydration as well as IV antibiotics. Nebulizer treatment will be given per order. Home medications will be continued per order. I did discuss with him about his advanced directive at office in presence of his and daughter and DNR order will be written in the chart as per patient's decision as he does not want any heroic measures like CPR, defibrillation, or ventilator support. I will see him tomorrow for followup. DVT prophylaxis will be given per order. Chest x-ray has not shown any infiltrate. Clinically, I suspect the patient has pneumonia along with acute exacerbation of COPD. Blood culture , sputum culture will be ordered and I will order a CAT scan of the chest without contrast. FILOMENA/BETTY Voice ID: [id number] MTDD
[2019-02-17 04:59] LABS: Potassium 4.7 mmol/L (3.5-5.1)
[2019-02-17] MEDS ORDERED: NITROGLYCERIN 0.4 MG/TAB SL PRN (07:13)
[2019-02-17] MEDS ORDERED: POLYETHYL GLY 3350 17 GM/DOSE PO PRN (07:13)
[2019-02-17] MEDS: CEFTRIAXONE/SWI 1gm 1 GM/10 ML SYR IVP SCH ×2 (08:37→20:54)
[2019-02-17] MEDS: CLOPIDOGREL 75 MG TABLET PO SCH (08:38)
[2019-02-17] MEDS: ENOXAPARIN 30 MG/0.3 ML SQ SCH (08:38)
[2019-02-17] MEDS: METFORMIN HCL 500 MG TAB PO SCH (08:38)
[2019-02-17] MEDS: METOPROLOL TAR 25 MG TAB PO SCH ×2 (08:39→21:00)
[2019-02-17] MEDS: ISOSORBIDE MONO SR 60 MG TAB PO SCH (08:39)
[2019-02-17] MEDS: SOTALOL HCL 80 MG TAB PO SCH ×2 (08:40→21:00)
[2019-02-17] MEDS: DIGOXIN 0.125 MG TABLET PO SCH (08:40)
[2019-02-17] MEDS: FLUNISOLIDE NAS SCH (08:41)
[2019-02-17] MEDS: SACUBITRIL/VALSARTAN 24/26 MG TAB PO SCH ×2 (08:41→20:53)
[2019-02-17] MEDS ORDERED: HOME MED 1 EA UNK (Fluticasone/Umeclidin/Vilanter [Trelegy Ellipta 100-62.5-25] 1 PUFF) PO SCH (09:00)
[2019-02-17 09:49] VITALS: O2SAT 97
--- NOTE | 2019-02-17 10:52 | RAD REPORT ---
EXAM DESCRIPTION: CT - Thorax Wo Con - 02/17/2019 8:20 am CLINICAL HISTORY: Cough/COPD/pneumonia COMPARISON: February 16, 2019 chest x-ray TECHNIQUE: Computed axial tomography of the chest was obtained. Contrast was not requested. All CT scans are performed using dose optimization technique as appropriate and may include automated exposure control or mA/KV adjustment according to patient size. FINDINGS: The evaluation of mediastinum, red and vessels is limited secondary to lack of IV contras t administration. Mild right lower lobe opacities. The left lung is essentially clear. No mediastinal or hilar lymphadenopathy is seen. Minimal right pleural effusion. No pericardial effusion Coronary arterial calcifications 7.3 centimeter cyst without significant change from June 2018 cat scan IMPRESSION: Mild right lower lobe opacities consistent with pneumonia Minimal right pleural effusion
[2019-02-17] MEDS ORDERED: GLUCAGON 1 MG/VIAL IM PRN (11:32)
[2019-02-17] MEDS ORDERED: D50W 25 GM/50 ML SYRINGE IV PRN (11:32)
[2019-02-17] MEDS: INSULIN -REGULAR HUMAN 50 UNIT/0.5 ML ML SQ SCH ×3 (11:46→21:00)
--- NOTE | 2019-02-17 12:18 | ECHO ---
HEIGHT: 5 ft 7 in WEIGHT: 155 lb 0 oz DATE OF STUDY: 02/17/[address]: Rogelio Subramanian MD 2-DIMENSIONAL: YES M.MODE: YES DOPPLER: YES COLOR FLOW: YES TDS: PORTABLE: DEFINITY: BUBBLE STUDY: DIAGNOSIS: EVALUATE LEFT VENTRICULAR EJECTION FRACTION CARDIAC HISTORY: CATHERIZATION: YES SURGERY: YES PROSTHETIC VALVE: NO PACEMAKER: YES MEASUREMENTS (cm) DIASTOLIC (NORMALS) SYSTOLIC (NORMALS) IVSd 1.0 (0.6-1.2) LA Diam 3.6 (1.9-4.0) LVEF 25-29% LVIDd 6.6 (3.5-5.7) LVIDs 5.5 (2.0-3.5) %FS 16% LVPWd 1.2 (0.6-1.2) Ao Diam 3.2 (2.0-3.7) 2 DIMENSIONAL ASSESSMENT: RIGHT ATRIUM: DILATED LEFT ATRIUM: DILATED RIGHT VENTRICLE: PACEMAKER CATHETER IN RIGHT VENTRICULAR APEX LEFT VENTRICLE: DILATED TRICUSPID VALVE: NORMAL MITRAL VALVE: NORMAL PULMONIC VALVE: NORMAL AORTIC VALVE: NORMAL PERICARDIAL EFFUSION: NONE AORTIC ROOT: NORMAL LEFT VENTRICULAR WALL MOTION: SEVERE GLOBAL HYPOKINESIS DOPPLER/COLOR FLOW: MILD AORTIC, MITRAL AND TRICUSPID REGURGITATION. ESTIMATED RIGHT VENTRICULAR SYSTOLIC PRESSURE 45 mmHg, MILD PULMONARY HYPERTENSION. COMMENTS: FOUR CHAMBER DILATION. SEVERELY DEPRESSED LEFT VENTRICULAR EJECTION FRACTION. PACEMAKER IN RIGHT VENTRICLE. MILD AORTIC, MITRAL AND TRICUSPID REGURGITATION. MILD PULMONARY HYPERTENSION. TECHNOLOGIST: FREDIS FINLEY
[2019-02-17] MEDS ORDERED: PANTOPRAZOLE 40MG TABLET PO SCH (17:00)
[2019-02-17] MEDS ORDERED: METFORMIN HCL 500 MG TAB PO SCH (21:00)
[2019-02-17] MEDS ORDERED: ROSUVASTATIN 10 MG TAB PO SCH (21:00)
[2019-02-17] MEDS ORDERED: DIPHENHYDRAMINE 25 MG TAB/CAP PO SCH (21:00)
[2019-02-18] MEDS: METHYLPREDNISOLONE 40 MG INJ IV SCH ×3 (00:49→12:00)
--- NOTE | 2019-02-18 01:03 | PN ---
Date of Progress Note: 02/17/2019 Subjective: Patient was seen this morning for followup. He was feeling better today than yesterday. Denied any new complaints. Objective: Vital Signs: Reviewed. HEENT: Unremarkable. Lungs: Bilateral good equal air entry. Presence of scattered wheezing, but significantly better tod ay than yesterday, not in respiratory distress. Heart: Sounds normal. Abdomen: Soft. Bowel sounds normal. No guarding, rigidity, tenderness, or distention. Extremities: No leg edema. Laboratory Data: Sodium 145, potassium 4.7, chloride 111, bicarb 27, BUN 25, creatinine 0.99, glucos e 177. Impression: 1.Pneumonia. 2.Acute exacerbation of chronic obstructive pulmonary disease. 3.Generalized weakness. 4.Volume depletion. Plan: Patient's volume depletion problem has improved with IV fluid hydration. We will go ahead and discontinue his IV fluid. Blood pressure is normal today. Yesterday he had low blood pressure when he was admitted. We will continue current antibiotic, IV steroid, oxygen nebulizer treatment. He h ad hypoxia last night and required oxygen at 2 L/minute. We will continue that. Today, we will get a CAT scan of the chest done without contrast, echocardiogram to evaluate left ventricular ejection f raction. Home medications will be continued per order and physical therapy to help ambulate the chacha ent. I will see him tomorrow for followup. Patient is on sotalol and considering that we will disco ntinue azithromycin and ceftriaxone, which was started yesterday, will be continued as per order. Follow up on culture results. Start DVT prophylaxis arnoldo mccoy Lovenox per order. FILOMENA/MODL Voice ID: [id number] Report ID: [id number]
[2019-02-18] MEDS: IPRATROPIUM BROM 0.5MG/2.5ML NEB SCH ×3 (02:00→13:32)
[2019-02-18] MEDS: ALBUTEROL 2.5 MG/3 ML NEB SOL NEB SCH ×3 (02:00→13:32)
[2019-02-18 04:58] LABS: MPV 9.6 fL (7.6-11.3)
[2019-02-18 05:04] LABS: Magnesium 1.9 mg/dL (1.8-2.4); Potassium 3.9 mmol/L (3.5-5.1)
[2019-02-18 05:08] LABS: Absolute Lymphocytes (CBC) 0.4 K/uL (0.7-4.9); Basophils % 0.1 % (0-1.3); Hematocrit 30.1 % (39.6-49.0); Lymphocytes % 3.6 % (15.3-44.8); RBC Red Blood Cell Count 3.32 M/uL (4.33-5.43)
[2019-02-18 05:41] LABS: Blood Morphology Comment NOTED (NOT SEEN); Burr Cells 1+; Platelet Estimate ADEQ
[2019-02-18] MEDS: INSULIN -REGULAR HUMAN 50 UNIT/0.5 ML ML SQ SCH ×2 (07:30→12:00)
[2019-02-18] MEDS: ENOXAPARIN 30 MG/0.3 ML SQ SCH (08:51)
[2019-02-18] MEDS: CEFTRIAXONE/SWI 1gm 1 GM/10 ML SYR IVP SCH (08:51)
[2019-02-18] MEDS: METFORMIN HCL 500 MG TAB PO SCH (08:51)
[2019-02-18] MEDS: CLOPIDOGREL 75 MG TABLET PO SCH (08:52)
[2019-02-18] MEDS: SOTALOL HCL 80 MG TAB PO SCH (08:52)
[2019-02-18] MEDS: DIGOXIN 0.125 MG TABLET PO SCH (08:52)
[2019-02-18] MEDS: SACUBITRIL/VALSARTAN 24/26 MG TAB PO SCH (08:52)
[2019-02-18] MEDS: METOPROLOL TAR 25 MG TAB PO SCH (08:52)
[2019-02-18] MEDS: ISOSORBIDE MONO SR 60 MG TAB PO SCH (08:55)
[2019-02-18] MEDS: FLUNISOLIDE NAS SCH (08:56)
[2019-02-18] MEDS ORDERED: POTASSIUM 25 MEQ EFFERV TAB PO ONE (09:00)
[2019-02-18 12:51] VITALS: BP 95/51; TEMP 98.1
--- NOTE | 2019-02-19 18:18 | DS ---
Date of Discharge: 02/18/2019 Subjective: Patient was seen this morning for followup. No new complaints or problems reported. Ly ing in bed, feeling much better. Yesterday, he did ambulate outside in the hallway. He feels like abraham navas is back to his normal usual self again. Objective: Vital Signs: Reviewed. HEENT: Unremarkable. Lungs: Clear to auscultation. No rhonchi. No rales. Heart: Sounds normal. Abdomen: Soft. Bowel sounds normal. No guarding, rigidity, tenderness, or distention. Extremities: No leg edema. Laboratory Data: Upon admission, white count 11.5, hemoglobin 11.3 platelets 194. Today, white coun t 11.8, hemoglobin 9.9, platelets 207. Today, sodium 144, potassium 3.9, chloride 111, bicarb 26, BU N 30, creatinine 0.92, glucose 187, magnesium 1.9. Echocardiogram shows ejection fraction 25% to 29% . Chest x-ray, no acute changes. CAT scan of the chest shows evidence of right base pneumonia and l eft-sided renal cyst unchanged from before, appears benign. Final Diagnoses: 1.Pneumonia. 2.Acute exacerbation of chronic obstructive pulmonary disease. 3.Chronic systolic congestive heart failure. 4.Volume depletion. 5.Weight loss. 6.Hypotension. 7.Hypomagnesemia. 8.Type 2 diabetes mellitus. 9.Coronary artery disease. 10.Hyperlipidemia, mixed. 11.Gastroesophageal reflux disease. 12.Diverticulosis. Hospital Course: This is an 83-year-old pleasant male patient, came into office with cough, congesti on, feeling weak. Please see dictated H and P for more information. After patient was evaluated at the office, decision was made to admit him to the hospital and I was concerned about pneumonia, hypot ension and volume depletion problem along with acute exacerbation of chronic obstructive pulmonary di sease. Please see dictated H and P for more details. After patient was evaluated, he was admitted t o the hospital, routine blood work and x-ray were done. The patient was started on IV steroid, IV an tibiotics, and oxygen nebulizer treatment. Home medications were continued. IV fluid was given init ially, which was day after admission was discontinued. Overall, patient's condition has improved. P hysical Therapy was consulted. Patient started to ambulate well. Echocardiogram shows low ejection fraction as outlined above. Overall, patient's condition has improved. He feels like he is back to his normal usual self. His sputum culture and blood culture results pending. We will follow up on o utpatient basis. He was given IV antibiotics ceftriaxone. One dose of azithromycin was given IV and after that it was discontinued due to potential and possible interaction between sotalol and azithro mycin. Sotalol was started a day after azithromycin dose was given, which was on the day of admissio n. Discharge Medications And Instructions: 1.Continue prior home medications. 2.Take antibiotic cefuroxime IV 250 mg 2 times a day for 10 days. 3.Follow up at my office next week on Friday. FILOMENA/MODL Voice ID: [id number] Report ID: [id number]
== END 2019-02-18 13:49 | disposition home or self-care (01) | DRG 190 ==
LOC: 4TH 14:18
PROVIDERS: ADMIT Internal Medicine; ATTEND Internal Medicine
DX: J44.0 Chronic obstructive pulmonary disease with (acute) lower respiratory infection (principal); J18.9 Pneumonia, unspecified organism; I50.22 Chronic systolic (congestive) heart failure; I25.810 Atherosclerosis of coronary artery bypass graft(s) without angina pectoris; J44.1 Chronic obstructive pulmonary disease with (acute) exacerbation; E83.42 Hypomagnesemia; E86.9 Volume depletion, unspecified; R63.4 Abnormal weight loss; I95.9 Hypotension, unspecified; I11.0 Hypertensive heart disease with heart failure; E78.2 Mixed hyperlipidemia; K21.9 Gastro-esophageal reflux disease without esophagitis; E11.9 Type 2 diabetes mellitus without complications; R53.82 Chronic fatigue, unspecified; K57.90 Diverticulosis of intestine, part unspecified, without perforation or abscess without bleeding; Z68.24 Body mass index [BMI] 24.0-24.9, adult
CPT/HCPCS: 36415; 71046; 71250; 80048; 80053; 81003; 81015; 82947; 83605; 83735; 84145; 84439; 84443; 85025; 87040; 87070; 87086; 87088; 87205; 93306; 94640; 97161; J0456; J0696; J1650; J2920; J3475; J7030

== ENCOUNTER 2019-03-02 15:43 | Emergency (ER) | payer OTHER ==
--- NOTE | 2019-03-02 16:37 | RAD REPORT ---
EXAM DESCRIPTION: CT - CTHCSPWOC - 03/02/2019 4:25 pm CLINICAL HISTORY: Fall, head and neck injury, anticoagulation therapy COMPARISON: June 2018 TECHNIQUE: Axial 5 mm thick images of the head were obtained. Axial 2 mm thick images of the cervic al spine were obtained with sagittal and coronal reconstruction images generated and reviewed. All CT scans are performed using dose optimization technique as appropriate and may include automated exposure control or mA/KV adjustment according to patient size. FINDINGS: No intracranial hemorrhage, mass, edema or acute intracranial finding. No acute cortical based infarc tion. No cortical edema or sulcal effacement. Advanced atrophy changes are present. Ventricles are in proportion to the volume loss. Advanced chronic ischemic change seen in the cerebral white matter, b maritza ganglia and brainstem. Old medial right occipital CVA changes noted. Mastoid air cells and paran maritza sinuses are clear. No globe or orbit abnormality seen. Cervical body height and alignment are normal. No disk space narrowing. Prominent anterior endplate s purring changes are present C4-T1 levels. No bridging ossification. Foraminal stenosis changes are pr esent at C3-4 from uncovertebral joint hypertrophy. Minimal foraminal encroachment at C4-5. Facet deg enerative changes relatively mild. No paraspinal mass or hematoma. Central canal detail is inherently limited. IMPRESSION: No hemorrhage, edema or acute intracranial finding. Patient has advanced atrophy and chr onic ischemic change. Cervical spine degenerative changes are present with no fracture or acute finding.
--- NOTE | 2019-03-02 17:00 | RAD REPORT ---
EXAM DESCRIPTION: RAD - Chest Single View - 03/02/2019 4:35 pm CLINICAL HISTORY: Cough COMPARISON: February 16 TECHNIQUE: AP portable chest image was obtained 1630 hours . FINDINGS: No acute lung parenchymal process. Interstitial pattern matches comparison. No failure or volume overload. Defibrillator is in place. CABG surgical changes are noted. Heart and vasculature ar e normal. No measurable pleural effusion and no pneumothorax. No acute bony abnormality seen. No acut e aortic findings suspected. IMPRESSION: No acute cardiopulmonary process. No significant change from comparison.
[2019-03-02 17:14] LABS: Absolute Lymphocytes (CBC) 0.9 K/uL (0.7-4.9); Hematocrit 34.9 % (39.6-49.0); Lymphocytes % 8.3 % (15.3-44.8); MPV 8.8 fL (7.6-11.3); RBC Red Blood Cell Count 3.84 M/uL (4.33-5.43)
[2019-03-02 17:18] LABS: Protime INR 1.1
[2019-03-02 17:42] LABS: Potassium 4.4 mmol/L (3.5-5.1)
[2019-03-02 17:47] LABS: Thyroid Stimulating Hormone 4.76 uIU/mL (0.360-3.740)
[2019-03-02 18:17] LABS: Urine Blood NEGATIVE (NEG); Urine Glucose NEGATIVE (NEG); Urine Protein 1+ (NEG); Urine Specific Gravity >1.030 (1.005-1.030)
--- NOTE | 2019-03-02 18:26 | ER ---
Nurse's Notes [facility] Name: Cornelius Tierney Age: 83 yrs Sex: Male : 1935 Arrival Date: 03/02/2019 Time: 15:45 Bed 14 Private MD: Diagnosis: Fall on same level, unspecified;Unspecified injury of head Presentation: 03/02 15:45 Presenting complaint: Patient states: patient became dizzy and fell from a standing ss position just prior to arrival. Denies LOC. Patient does take Plavix. Denies pain at this time, is A\T\O x 4. Has been becoming increasingly unbalance over the past few days. Transition of care: patient was not received from another setting of care. Onset of symptoms was March 02, 2019. Risk Assessment: Do you want to hurt yourself or someone else? Patient reports no desire to harm self or others. Initial Sepsis Screen: Does the patient have a suspected source of infection? No. Patient's initial sepsis screen is negative. 15:45 Method Of Arrival: EMS: [facility] 15:45 Acuity: WEI 2 15:45 Care prior to arrival: Glucose check: 139. ss 15:45 Mechanism of Injury: Fall from standing position. Trauma event details: Injury occurred ss in the [facility], Injury occurred: at home. Injury occurred: March 02, 2019. Trauma Activation: Alert Physician: ED Physician; Name: ; Notified At: ; Arrived At: Physician: General Surgeon; Name: ; Notified At: ; Arrived At: Physician: Radiology; Name: ; Notified At: ; Arrived At: Physician: Respiratory; Name: ; Notified At: ; Arrived At: Physician: Lab; Name: ; Notified At: ; Arrived At: Historical: - Allergies: 16:01 BACITRACIN; ss 16:01 Bacitracin Zinc; ss 16:01 Neomycin Sulfate; ss 16:01 Neosporin ([id number]); ss 16:01 polymyxin B; ss - PMHx: 16:01 AAA; cardiac arrest; CAD; CHF; COPD; constipation; Diabetes - NIDDM; GERD; High ss Cholesterol; macular degeneration; Myocardial infarction; - PSHx: 16:01 CARDIAC STENTS; pacemaker; ss - Immunization history:: Adult Immunizations up to date. - Social history:: Smoking status: Patient/guardian denies using tobacco. - Immunization history: Last tetanus immunization: unknown. - Ebola Screening: : Patient denies exposure to infectious person Patient denies travel to an Ebola-affected area in the 21 days before illness onset. Screenin:45 Abuse screen: Denies threats or abuse. Denies injuries from another. Tuberculosis ss screening: Never had TB. Primary Survey: 15:45 NO uncontrolled hemorrhage observed. A: The patient is alert. Airway: patent, No ss supplemental oxygen in use on arrival. Oral cavity: clear, Trachea midline. Breathing/Chest: Respiratory pattern: regular, Respiratory effort: spontaneous, unlabored, Breath sounds: clear, bilaterally. Chest inspection: symmetrical rise and fall of the chest. Circulation: Pulses: palpable right radial artery, right posterior tibial artery, left radial artery and left posterior tibial artery. Skin color: pale, Skin temperature: warm. Disability Alert. Exposure/Environment: There is no evidence of uncontrolled external bleeding. No obvious injuries are noted at this time. Assessment: 17:15 Reassessment: pt family at bedside at this [facility]. Vital Signs: 16:01 Resp 16; Temp 98.6(TE); Weight 65.77 kg; Height 5 ft. 7 in. (170.18 cm); Pain 0/10; ss 16:12 BP 97 / 58; Pulse 59; Resp 18; Temp 98.6(TE); Pulse Ox 97% on R/A; em1 17:08 BP 125 / 69; Pulse 70; Resp 18; Pulse Ox 100% on R/A; em1 16:01 Body Mass Index 22.71 (65.77 kg, 170.18 cm) ss Lorelei Coma Score: 15:45 Eye Response: spontaneous(4). Verbal Response: oriented(5). Motor Response: obeys ss commands(6). Total: 15. Trauma Score (Adult): 15:45 Eye Response: spontaneous(1); Verbal Response: oriented(1); Motor Response: obeys ss commands(2); Systolic BP: > 89 mm Hg(4); Respiratory Rate: 10 to 29 per min(4); Lorelei Score: 15; Trauma Score: 12 ED Course: 15:45 Patient arrived in ED. ss 15:45 Patient has correct armband on for positive identification. Bed in low position. Call ss light in reach. 15:45 Patient maintains SpO2 saturation greater than 95% on room air. ss 15:48 Kateryna De Anda, RN is Primary Nurse. ss 15:49 [facility] Green[facility]C [facility] snw 15:49 Asa Edwards MD is Attending Physician. snw 15:58 Triage completed. ss 16:01 Arm band placed on left wrist. ss 16:20 EKG done, by technical solutions director. reviewed by Roxy KEY. sm3 16:25 CT Head C Spine In Process Unspecified. EDMS 16:34 XRAY Chest (1 view) In Process Unspecified. EDMS 17:07 Initial lab(s) drawn, by me, sent to lab. T\T\S collected, blood band applied to patient. em1 Inserted saline lock: 20 gauge in left forearm, using aseptic technique. Blood collected. Administered Medications: No medications were administered Outcome: 18:26 Discharge ordered by MD. snw 18:55 Patient left the ED. sg Signatures: Dispatcher [employer] EDYared Sierra, RN RN Roxy Greenwood FNP-C FNP-Csnw Jose Daniel Johnson em1 Kateryna De Anda, RN RN Saritha Reyes sm3 Corrections: (The following items were deleted from the chart) 15:58 15:46 Presenting complaint: ss ss 17:15 16:20 Reassessment: Patient appears in no apparent distress at this time. pt daughter chip at bedside, at bedside, administer Ehsan-Synephrine x2 to bilateral nares, viscous lidocaine applied as well, a RhinoRocket has been applied to the left nare, bleeding controlled at this time, pt tolerated procedure well, will continue to monitor sg
--- NOTE | 2019-03-02 18:26 | EDPHYS ---
Physician Documentation [facility] Name: Cornelius Tierney Age: 83 yrs Sex: Male : 1935 Arrival Date: 03/02/2019 Time: 15:45 Bed 14 Private MD: ED Physician Asa Ewdards HPI: 03/02 15:58 This 83 yrs old Male presents to ER via Unassigned with complaints of fall, snw no LOC. 15:58 Trauma demographics: County: The injury occurred in [place] Location of Injury: The snw injury occurred at home, Date: March 02, 2019. Mechanism of injury: Fall: the patient fell from a standing position. Associated injuries: The patient sustained injury to the head, contusion, to occiput. Onset: The symptoms/episode began/occurred suddenly, just prior to arrival. It is unknown whether or not the patient has had similar symptoms in the past. The patient has been recently seen by a physician: with different complaint(s), just finished abx for pneumonia. Historical: - Allergies: 16:01 BACITRACIN; ss 16:01 Bacitracin Zinc; ss 16:01 Neomycin Sulfate; ss 16:01 Neosporin ([id number]); ss 16:01 polymyxin B; ss - PMHx: 16:01 AAA; cardiac arrest; CAD; CHF; COPD; constipation; Diabetes - NIDDM; GERD; High ss Cholesterol; macular degeneration; Myocardial infarction; - PSHx: 16:01 CARDIAC STENTS; pacemaker; ss - Immunization history:: Adult Immunizations up to date. - Social history:: Smoking status: Patient/guardian denies using tobacco. - Immunization history: Last tetanus immunization: unknown. - Ebola Screening: : Patient denies exposure to infectious person Patient denies travel to an Ebola-affected area in the 21 days before illness onset. ROS: 16:04 Constitutional: Negative for fever, chills, and weight loss, Eyes: Negative for injury, snw pain, redness, and discharge, ENT: Negative for injury, pain, and discharge, Neck: Negative for injury, pain, and swelling, Cardiovascular: Negative for chest pain, palpitations, and edema, Respiratory: Negative for shortness of breath, cough, wheezing, and pleuritic chest pain, Abdomen/GI: Negative for abdominal pain, nausea, vomiting, diarrhea, and constipation, Back: Negative for injury and pain, : Negative for injury, bleeding, discharge, and swelling, MS/Extremity: Negative for injury and deformity, Skin: Negative for injury, rash, and discoloration. 16:04 Neuro: Positive for dizziness. Exam: 16:04 Constitutional: This is a well developed, well nourished patient who is awake, alert, snw and in no acute distress. Head/Face: Normocephalic, atraumatic. Eyes: Pupils equal round and reactive to light, extra-ocular motions intact. Lids and lashes normal. Conjunctiva and sclera are non-icteric and not injected. Cornea within normal limits. Periorbital areas with no swelling, redness, or edema. ENT: Nares patent. No nasal discharge, no septal abnormalities noted. Tympanic membranes are normal and external auditory canals are clear. Oropharynx with no redness, swelling, or masses, exudates, or evidence of obstruction, uvula midline. Mucous membranes moist. Neck: Trachea midline, no thyromegaly or masses palpated, and no cervical lymphadenopathy. Supple, full range of motion without nuchal rigidity, or vertebral point tenderness. No Meningismus. Chest/axilla: Normal chest wall appearance and motion. Nontender with no deformity. No lesions are appreciated. Cardiovascular: Regular rate and rhythm with a normal S1 and S2. No gallops, murmurs, or rubs. Normal PMI, no JVD. No pulse deficits. Respiratory: Lungs have equal breath sounds bilaterally, clear to auscultation and percussion. No rales, rhonchi or wheezes noted. No increased work of breathing, no retractions or nasal flaring. Abdomen/GI: Soft, non-tender, with normal bowel sounds. No distension or tympany. No guarding or rebound. No evidence of tenderness throughout. Back: No spinal tenderness. No costovertebral tenderness. Full range of motion. Skin: Warm, dry with normal turgor. Normal color with no rashes, no lesions, and no evidence of cellulitis. MS/ Extremity: Pulses equal, no cyanosis. Neurovascular intact. Full, normal range of motion. Psych: Awake, alert, with orientation to person, place and time. Behavior, mood, and affect are within normal limits. 16:04 Neuro: Orientation: is normal, Mentation: is normal, Memory: is normal, seizure activity, is not displayed by the patient, Abnormal movements: there are no abnormal movements. Vital Signs: 16:01 Resp 16; Temp 98.6(TE); Weight 65.77 kg; Height 5 ft. 7 in. (170.18 cm); Pain 0/10; ss 16:12 BP 97 / 58; Pulse 59; Resp 18; Temp 98.6(TE); Pulse Ox 97% on R/A; em1 17:08 BP 125 / 69; Pulse 70; Resp 18; Pulse Ox 100% on R/A; em1 16:01 Body Mass Index 22.71 (65.77 kg, 170.18 cm) ss Clifton Coma Score: 15:45 Eye Response: spontaneous(4). Verbal Response: oriented(5). Motor Response: obeys ss commands(6). Total: 15. Trauma Score (Adult): 15:45 Eye Response: spontaneous(1); Verbal Response: oriented(1); Motor Response: obeys ss commands(2); Systolic BP: > 89 mm Hg(4); Respiratory Rate: 10 to 29 per min(4); Clifton Score: 15; Trauma Score: 12 MDM: 15:49 Patient medically screened. snw 18:26 Data reviewed: vital signs, nurses notes. Data interpreted: Pulse oximetry: on room air snw is 100 %. Interpretation: normal. Counseling: I had a detailed discussion with the patient and/or guardian regarding: the historical points, exam findings, and any diagnostic results supporting the discharge/admit diagnosis, lab results, radiology results, the need for outpatient follow up, to return to the emergency department if symptoms worsen or persist or if there are any questions or concerns that arise at home. Response to treatment: the patient's symptoms have mildly improved after treatment. Special discussion: Based on the patient's history, exam and DX evaluation, there is no indication for emergent intervention or inpatient TX. It is understood by the patient/guardian that if the SXs persist or worsen they need to return immediately for re-evaluation. Based on the history and exam findings, there is no indication for further emergent testing or inpatient evaluation. I discussed with the patient/guardian the need to see the primary care provider for further evaluation of the symptoms. 18:33 ED course: Pt has appt with Dr. Subramanian on . . snw 03/02 15:48 Order name: Basic Metabolic Panel; Complete Time: 18:12 ss 03/02 15:48 Order name: CBC with Diff; Complete Time: 17:17 ss 03/02 15:48 Order name: NT PRO-BNP; Complete Time: 18:12 ss 03/02 15:48 Order name: PT-INR; Complete Time: 17:22 ss 03/02 15:48 Order name: TS; Complete Time: 18:25 ss 03/02 15:48 Order name: TSH; Complete Time: 18:12 ss 03/02 15:46 Order name: CT Head C Spine; Complete Time: 16:50 ss 03/02 15:48 Order name: XRAY Chest (1 view); Complete Time: 17:09 ss 03/02 15:48 Order name: EKG; Complete Time: 15:49 ss 03/02 15:48 Order name: Cardiac monitoring; Complete Time: 16:39 ss 03/02 15:48 Order name: EKG - Nurse/Tech; Complete Time: 16:39 ss 03/02 15:48 Order name: IV Saline Lock; Complete Time: 17:07 ss 03/02 17:52 Order name: T4 Free; Complete Time: 18:12 EDMS 03/02 17:55 Order name: Urine Dipstick--Ancillary (enter results); Complete Time: 18:25 bd 03/02 15:48 Order name: Labs collected and sent; Complete Time: 17:07 ss 03/02 15:48 Order name: O2 Per Protocol; Complete Time: 16:38 ss 03/02 15:48 Order name: O2 Sat Monitoring; Complete Time: 16:38 ss Administered Medications: No medications were administered Disposition: 03/03 07:18 Co-signature as Attending Physician, Asa Edwards MD I agree with the assessment and kdr plan of care. Disposition: 03/02/19 18:26 Discharged to Home. Impression: Fall on same level, unspecified, Unspecified injury of head. - Condition is Stable. - Discharge Instructions: Head Injury, Adult, Fall Prevention in the Home. - Medication Reconciliation Form, Thank You Letter, Antibiotic Education, Prescription Opioid Use form. - Follow up: Emergency Department; When: As needed; Reason: Worsening of condition. Follow up: Private Physician; When: 2 - 3 days; Reason: Recheck today's complaints, Continuance of care, Re-evaluation by your physician. - Notes: Please keep appointment with Dr. Subramanian on Signatures: Dispatcher [employer] Yared Rivera, RN RN sg Asa Edwards MD MD [facility] Roxy Greenwood, GRINDER SET UP OPERATOR [employer]-C GRINDER SET UP OPERATOR [facility] Kateryna De Anda RN RN ss Corrections: (The following items were deleted from the chart) 03/02 18:55 18:26 03/02/2019 18:26 Discharged to Home. Impression: Fall on same level, unspecified; sg Unspecified injury of head. Condition is Stable. Forms are Medication Reconciliation Form, Thank You Letter, Antibiotic Education, Prescription Opioid Use. Follow up: Emergency Department; When: As needed; Reason: Worsening of condition. Follow up: Private Physician; When: 2 - 3 days; Reason: Recheck today's complaints, Continuance of care, Re-evaluation by your physician. snw
[2019-03-02 22:57] VITALS: TEMP 98.6
[2019-03-02 23:00] VITALS: BP 125/69; O2SAT 100
--- NOTE | 2019-03-03 06:37 | EKG ---
Test Date: 2019-03-02 Test Time: 16:12:18 House Furnishings Supervisor: JOCELINE MEASUREMENT RESULTS: Intervals: Rate: 65 WA: 150 QRSD: 124 QT: 422 QTc: 438 Drummond: P: 49 WA: 150 QRS: 27 T: -34 INTERPRETIVE STATEMENTS: AV dual-paced rhythm Abnormal ECG Compared to ECG 11/18/2018 08:52:29 No significant changes Electronically Signed On 03-03-19 06:36:20 DRUG SAFETY SPECIALIST by Fred Gan
--- OUTSIDE RECORDS SUMMARY | 2019-03-08 00:01 | XMS REPORT ---
:1935 [facility] Address [address] [place] [address] Dr. Singleton [address] [place] [address] Care Team Providers Name Role Phone Unavailable Unavailable Unavailable Problems This patient has no known problems. Allergies, Adverse Reactions, Alerts This patient has no known allergies or adverse reactions. Medications This patient has no known medications.
== END 2019-03-02 18:55 | disposition home or self-care (01) ==
LOC: ER 15:43
DX: S09.90XA Unspecified injury of head, initial encounter (principal); W18.30XA Fall on same level, unspecified, initial encounter; Y93.9 Activity, unspecified; Y92.009 Unspecified place in unspecified non-institutional (private) residence as the place of occurrence of the external cause; Z88.1 Allergy status to other antibiotic agents; Z88.3 Allergy status to other anti-infective agents; Z88.8 Allergy status to other drugs, medicaments and biological substances; Z95.818 Presence of other cardiac implants and grafts; Z95.0 Presence of cardiac pacemaker
CPT/HCPCS: 36415; 70450; 71045; 72125; 80048; 81003; 83880; 84439; 84443; 85025; 85610; 86850; 86900; 86901; 93005; 99284

== ENCOUNTER 2019-04-03 11:53 | Inpatient (IN) | payer OTHER ==
--- OUTSIDE RECORDS SUMMARY | 2019-04-03 11:56 | XMS REPORT ---
:1935 [facility] Address [address] [place] [id number] Care Team Providers Name Role Phone Unavailable Unavailable Unavailable Problems This patient has no known problems. Allergies, Adverse Reactions, Alerts This patient has no known allergies or adverse reactions. Medications This patient has no known medications.
[2019-04-03 12:39] LABS: Protime INR 1.02
[2019-04-03 12:41] LABS: Hematocrit 34.3 % (39.6-49.0); Lymphocytes % 13.5 % (15.3-44.8); MPV 9.1 fL (7.6-11.3)
[2019-04-03 12:55] LABS: Albumin 2.7 g/dL (3.4-5.0); Bilirubin Direct 0.2 mg/dL (0-0.2); Bilirubin Total 0.6 mg/dL (0.2-1.0); Magnesium 1.7 mg/dL (1.8-2.4); Protein, Total 5.7 g/dL (6.4-8.2); Troponin (Emerg Dept Use Only) 0.03 ng/mL (0.0-0.045)
--- NOTE | 2019-04-03 13:59 | RAD REPORT ---
EXAM DESCRIPTION: Juan Single View04/03/2019 1:29 pm CLINICAL HISTORY: Chest pain COMPARISON: February 2019 FINDINGS: Mild bilateral pulmonary opacities The heart is mildly enlarged. Pacemaker leads are in place. Postsurgical changes involve the chest IMPRESSION: Mild CHF
--- NOTE | 2019-04-03 16:54 | ER ---
Nurse's Notes [facility] Name: Cornelius Tierney Age: 83 yrs Sex: Male : 1935 Arrival Date: 04/03/2019 Time: 11:54 Bed 6 Private MD: Sada Subramanian C Diagnosis: Chest pain, unspecified;Unspecified combined systolic (congestive) and diastolic (congestive) heart failure Presentation: 04/03 12:10 Presenting complaint: EMS states: Chest soreness that started this morning, reports sg having shortness of breath that worsened this morning. Transition of care: patient was not received from another setting of care. Onset of symptoms was April 03, 2019. Risk Assessment: Do you want to hurt yourself or someone else? Patient reports no desire to harm self or others. Initial Sepsis Screen: Does the patient meet any 2 criteria? No. Patient's initial sepsis screen is negative. Does the patient have a suspected source of infection? No. Patient's initial sepsis screen is negative. Care prior to arrival: Glucose check: 142 Oxygen administered. via nasal cannula. 12:10 Method Of Arrival: EMS: [facility] sg 12:10 Acuity: WEI 3 sg Historical: - Allergies: 12:21 BACITRACIN; sg 12:21 Bacitracin Zinc; sg 12:21 Neomycin Sulfate; sg 12:21 Neosporin ([id number]); sg 12:21 polymyxin B; sg 12:24 BACITRACIN; hb 12:24 Bacitracin Zinc; hb 12:24 Neomycin Sulfate; hb 12:24 Neosporin ([id number]); hb 12:24 polymyxin B; hb - Home Meds: 12:24 Benadryl 25 mg Oral cap [Active]; clopidogrel 75 mg Oral tab [Active]; digoxin 125 mcg hb Oral tab 1 tab once daily [Active]; Entresto 24-26 mg Oral tab 1 tab twice a day [Active]; isosorbide mononitrate 20 mg Oral tab 1 tab 2 times per day [Active]; lutein 20 mg Oral cap [Active]; metformin 500 mg Oral tab 2 times per day [Active]; Miralax 17 gram/dose Oral powd once daily [Active]; Nitroglycerin Oral [Active]; pantoprazole 40 mg Oral TbEC 1 tab once daily [Active]; prednisone 10 mg Oral tab 1 tab once daily [Active]; Ranexa 500 mg Oral Tb12 1 tab 2 times per day [Active]; rosuvastatin 20 mg Oral tab 1 tab once daily [Active]; sotalol 80 mg Oral tab 1 tab 2 times per day [Active]; Ventolin HFA 90 mcg/actuation Nebulizer HFAA [Active]; - PMHx: 12:21 AAA; CAD; cardiac arrest; CHF; constipation; COPD; Diabetes - NIDDM; GERD; High sg Cholesterol; macular degeneration; Myocardial infarction; 12:24 AAA; CAD; cardiac arrest; CHF; constipation; COPD; Diabetes - NIDDM; GERD; High hb Cholesterol; macular degeneration; Myocardial infarction; Bladder CA; - PSHx: 12:21 CARDIAC STENTS; pacemaker; Triple A repair; sg 12:24 CARDIAC STENTS; pacemaker; Cholecystectomy; Cataracts; hb - Immunization history:: Adult Immunizations up to date. - Social history:: Smoking status: Patient/guardian denies using tobacco. - Ebola Screening: : Patient negative for fever greater than or equal to 101.5 degrees Fahrenheit, and additional compatible Ebola Virus Disease symptoms Patient denies exposure to infectious person Patient denies travel to an Ebola-affected area in the 21 days before illness onset No symptoms or risks identified at this time. Screenin:30 Abuse screen: Denies threats or abuse. Denies injuries from another. Nutritional hb screening: No deficits noted. Tuberculosis screening: No symptoms or risk factors identified. Fall Risk Total Kelly Fall Scale indicates High Risk Score (45 or more points). Fall prevention measures have been instituted. Side Rails Up X 2 Frequent Obs/Assessments Occuring As available patient and family educated on Fall Prevention Program and Strategies. Assessment: 12:20 General: Appears in no apparent distress. Behavior is calm, cooperative. Pain: hb Complains of pain in chest Pain does not radiate. Pain currently is 2 out of 10 on a pain scale. Pain began 2 hours ago. Neuro: Level of Consciousness is awake, alert, obeys commands, Oriented to person, place, situation. Cardiovascular: Heart tones S1 S2 present Capillary refill < 3 seconds Patient's skin is warm and dry. Respiratory: Airway is patent Respiratory effort is even, unlabored, Respiratory pattern is regular, symmetrical, Breath sounds are clear bilaterally. GI: No signs and/or symptoms were reported involving the gastrointestinal system. : No signs and/or symptoms were reported regarding the genitourinary system. EENT: No signs and/or symptoms were reported regarding the EENT system. Derm: Skin is pink, warm \\T\\ dry. Musculoskeletal: No signs and/or symptoms reported regarding the musculoskeletal system. 13:15 Reassessment: Patient appears in no apparent distress at this time. No changes from hb previously documented assessment. Patient and/or family updated on plan of care and expected duration. Pain level reassessed. 13:49 Reassessment: Patient appears in no apparent distress at this time. Patient and/or sg family updated on plan of care and expected duration. Pain level reassessed. 16:17 Reassessment: Patient appears in no apparent distress at this time. notified sg of repeat troponin is back at this time. 17:10 Reassessment: Patient appears in no apparent distress at this time. Patient and/or sg family updated on plan of care and expected duration. Pain level reassessed. Patient is alert, oriented x 3, equal unlabored respirations, skin warm/dry/pink. pt requests to go home, awaiting update from ERP , pt reports " we just hurry up and wait for them to tell us anything." pt reports feeling fine at this time, awaiting a bed assignment will continue to monitor. 17:30 Reassessment: at bedside speaking with pt and pt , pt and pt state sg understanding of results and need for admission, pt reports she will be going home at this time, pt to be admitted, awaiting a bed assignment, will continue to monitor. 17:42 Reassessment: Patient is alert, oriented x 3, equal unlabored respirations, skin sg warm/dry/pink. pt tolerated turkey sandwich and chips at this time. 17:48 Reassessment: pt assisted with urinal. sg 17:49 Reassessment: Patient appears in no apparent distress at this time. at bedside at this time. 18:40 Reassessment: Patient appears in no apparent distress at this time. Patient and/or hb family updated on plan of care and expected duration. Pain level reassessed. Patient is alert, oriented x 3, equal unlabored respirations, skin warm/dry/pink. 19:15 General: Appears in no apparent distress. comfortable, Behavior is calm, cooperative, rr5 appropriate for age, awaiting for room assignment. Pain: Denies pain. Neuro: Level of Consciousness is awake, alert, obeys commands, Oriented to person, place, situation. Cardiovascular: Capillary refill < 3 seconds Patient's skin is warm and dry. Respiratory: Airway is patent Respiratory effort is even, unlabored, Respiratory pattern is regular, symmetrical. GI: No signs and/or symptoms were reported involving the gastrointestinal system. : No signs and/or symptoms were reported regarding the genitourinary system. EENT: No signs and/or symptoms were reported regarding the EENT system. Derm: Skin is fragile, is thin, Skin is pink, warm \\T\\ dry. Skin temperature is warm Bruising that is dark purple, on right arm and left arm. Musculoskeletal: Capillary refill < 3 seconds. 20:31 Reassessment: Patient appears in no apparent distress at this time. Patient is alert, rr5 oriented x 3, equal unlabored respirations, skin warm/dry/pink. for transfer to room 406. verbalized i feel fine now. Patient states feeling better. Patient states symptoms have improved. Vital Signs: 12:10 Pulse 62 MON; Resp 20 S; Temp 97.2; Pulse Ox 92% on R/A; sg 12:10 BP 120 / 59; sg 12:12 Pulse Ox 97% on 2 lpm NC; sg 13:48 BP 126 / 62; Pulse 60 MON; Resp 17; Pulse Ox 98% on 2 lpm NC; sg 15:00 BP 129 / 63; Pulse 60; Resp 23; Pulse Ox 98% on 2 lpm NC; Pain 0/10; hb 16:00 BP 132 / 70; Pulse 66; Resp 21; Pulse Ox 99% on 2 lpm NC; Pain 0/10; hb 18:40 BP 109 / 61; Pulse 68; Resp 18; Pulse Ox 97% on R/A; Pain 0/10; hb 20:00 BP 120 / 64; Pulse 70; Resp 22; Temp 98; Pulse Ox 99% on 2 lpm NC; rr5 12:10 Paced sg 13:48 Paced sg 12:10 pt placed to 2 lpm NC sg ED Course: 11:54 Patient arrived in ED. am2 11:55 Sada Subramanian MD is Private Physician. am2 12:10 Asa Edwards MD is Attending Physician. kdr 12:18 Triage completed. sg 12:19 Arm band placed on. sg 12:20 Initial lab(s) drawn, by me, sent to lab. Inserted saline lock: 22 gauge in left sg forearm, using aseptic technique. Blood collected. 12:22 Yared Phillip, RN is Primary Nurse. sg 12:30 Patient has correct armband on for positive identification. Placed in gown. Bed in low hb position. Call light in reach. Side rails up X2. patient monitor on. Pulse ox on. NIBP on. 13:30 XRAY Chest (1 view) In Process Unspecified. EDMS 15:20 Repeat lab(s) drawn. by me, sent to lab. sg 16:09 Oxygen administration via nasal cannula \\T\\ 2L/min. hb 16:52 Sada Subramanian MD is Hospitalizing Provider. kdr 19:22 Primary Nurse role handed off by Yared Phillip RN ak1 19:22 Linda Ramirez RN is Primary Nurse. ak1 20:26 No provider procedures requiring assistance completed. Patient admitted, IV remains in rr5 place. intact, No redness/swelling at site. Administered Medications: 17:04 Drug: Lasix 40 mg Route: IVP; Site: left forearm; sg 19:30 Follow up: Response: No adverse reaction rr5 Output: 18:09 Urine: 200ml (Voided); Total: 200ml. sg 18:40 Urine: 300ml (Voided); Total: 500ml. sg 19:06 Urine: 450ml (Voided); Total: 950ml. sg 20:25 Urine: 500ml (Voided); Total: 1450ml. rr5 Outcome: 16:53 Decision to Hospitalize by Provider. kdr 20:26 Admitted to Tele accompanied by tech, room 406, with oxygen, with chart, Report called rr5 to sonya 20:26 Condition: stable 20:26 Instructed on the need for admit. 20:33 Patient left the ED. rr5 Signatures: Dispatcher [employer] EDMS Yared Phillip, ROSIO AVELAR Asa Edwards MD MD [facility] Linda Ramirez RN RN ak1 Yari Galicia RN RN Parvin Avitia am2 Tony Mcdaniel RN RN rr5
[2019-04-03] MEDS ORDERED: ACETAMINOPHEN 500 MG TAB PO PRN (16:55)
[2019-04-03] MEDS ORDERED: ALBUTEROL 2.5 MG/3 ML NEB SOL NEB PRN (16:55)
[2019-04-03] MEDS ORDERED: IPRATROPIUM BROM 0.5MG/2.5ML NEB PRN (16:55)
[2019-04-03] MEDS ORDERED: FUROSEMIDE 40 MG/4 ML VIAL ONE (16:55)
--- NOTE | 2019-04-03 16:55 | EDPHYS ---
Physician Documentation [facility] Name: Cornelius Tierney Age: 83 yrs Sex: Male : 1935 Arrival Date: 04/03/2019 Time: 11:54 Bed 6 Private MD: Sada Subramanian C ED Physician Asa Edwards HPI: 04/03 13:58 This 83 yrs old Male presents to ER via EMS with complaints of Chest Pain > kdr 31 y/o. 13:58 The patient or guardian reports chest pain that is located primarily in the substernal kdr area, anterior chest wall. Onset: suddenly, this morning. The pain does not radiate. Associated signs and symptoms: The patient has no apparent associated signs or symptoms, Pertinent negatives: abdominal pain, cough, diaphoresis, dizziness, headache, lower extremity pain, lower extremity swelling, lightheadedness, nausea, near syncope, recent travel, shortness of breath. The chest pain is described as aching, burning, dull, a pressure. 15:34 Duration: The patient or guardian reports a single episode, that is now resolved, that kdr lasted an unknown period of time. Modifying factors: The symptoms are alleviated by nothing. the symptoms are aggravated by nothing. Severity of pain: At its worst the pain was mild in the emergency department the pain has resolved and did so just prior to arrival. The patient has experienced similar episodes in the past, a few times, has not had pain like this in years since his last [place]. The patient has not recently seen a physician. Historical: - Allergies: 12:21 BACITRACIN; sg 12:21 Bacitracin Zinc; sg 12:21 Neomycin Sulfate; sg 12:21 Neosporin ([id number]); sg 12:21 polymyxin B; sg 12:24 BACITRACIN; hb 12:24 Bacitracin Zinc; hb 12:24 Neomycin Sulfate; hb 12:24 Neosporin ([id number]); hb 12:24 polymyxin B; hb - Home Meds: 12:24 Benadryl 25 mg Oral cap [Active]; clopidogrel 75 mg Oral tab [Active]; digoxin 125 mcg hb Oral tab 1 tab once daily [Active]; Entresto 24-26 mg Oral tab 1 tab twice a day [Active]; isosorbide mononitrate 20 mg Oral tab 1 tab 2 times per day [Active]; lutein 20 mg Oral cap [Active]; metformin 500 mg Oral tab 2 times per day [Active]; Miralax 17 gram/dose Oral powd once daily [Active]; Nitroglycerin Oral [Active]; pantoprazole 40 mg Oral TbEC 1 tab once daily [Active]; prednisone 10 mg Oral tab 1 tab once daily [Active]; Ranexa 500 mg Oral Tb12 1 tab 2 times per day [Active]; rosuvastatin 20 mg Oral tab 1 tab once daily [Active]; sotalol 80 mg Oral tab 1 tab 2 times per day [Active]; Ventolin HFA 90 mcg/actuation Nebulizer HFAA [Active]; - PMHx: 12:21 AAA; CAD; cardiac arrest; CHF; constipation; COPD; Diabetes - NIDDM; GERD; High sg Cholesterol; macular degeneration; Myocardial infarction; 12:24 AAA; CAD; cardiac arrest; CHF; constipation; COPD; Diabetes - NIDDM; GERD; High hb Cholesterol; macular degeneration; Myocardial infarction; Bladder CA; - PSHx: 12:21 CARDIAC STENTS; pacemaker; Triple A repair; sg 12:24 CARDIAC STENTS; pacemaker; Cholecystectomy; Cataracts; hb - Immunization history:: Adult Immunizations up to date. - Social history:: Smoking status: Patient/guardian denies using tobacco. - Ebola Screening: : Patient negative for fever greater than or equal to 101.5 degrees Fahrenheit, and additional compatible Ebola Virus Disease symptoms Patient denies exposure to infectious person Patient denies travel to an Ebola-affected area in the 21 days before illness onset No symptoms or risks identified at this time. ROS: 15:34 Constitutional: Negative for fever, chills, and weight loss, Eyes: Negative for injury, kdr pain, redness, and discharge, ENT: Negative for injury, pain, and discharge, Neck: Negative for injury, pain, and swelling, Respiratory: Negative for shortness of breath, cough, wheezing, and pleuritic chest pain, Abdomen/GI: Negative for abdominal pain, nausea, vomiting, diarrhea, and constipation, Back: Negative for injury and pain, : Negative for injury, bleeding, discharge, and swelling, MS/Extremity: Negative for injury and deformity, Skin: Negative for injury, rash, and discoloration, Neuro: Negative for headache, weakness, numbness, tingling, and seizure activity. Psych: Negative for depression, anxiety, suicide ideation, homicidal ideation, and hallucinations, Allergy/Immunology: Negative for hives, rash, and allergies, Endocrine: Negative for neck swelling, polydipsia, polyuria, polyphagia, and marked weight changes, Hematologic/Lymphatic: Negative for swollen nodes, abnormal bleeding, and unusual bruising. 15:34 Cardiovascular: Positive for chest pain, Negative for edema, orthopnea, palpitations, paroxysmal nocturnal dyspnea, acute changes. Exam: 15:34 Constitutional: This is a well developed, well nourished patient who is awake, alert, kdr and in no acute distress. Head/Face: Normocephalic, atraumatic. Eyes: Pupils equal round and reactive to light, extra-ocular motions intact. Lids and lashes normal. Conjunctiva and sclera are non-icteric and not injected. Cornea within normal limits. Periorbital areas with no swelling, redness, or edema. Neck: Trachea midline, no thyromegaly or masses palpated, and no cervical lymphadenopathy. Supple, full range of motion without nuchal rigidity, or vertebral point tenderness. No Meningismus. Chest/axilla: Normal chest wall appearance and motion. Nontender with no deformity. No lesions are appreciated. Cardiovascular: Regular rate and rhythm with a normal S1 and S2. No gallops, murmurs, or rubs. Normal PMI, no JVD. No pulse deficits. Respiratory: Lungs have equal breath sounds bilaterally, clear to auscultation and percussion. No rales, rhonchi or wheezes noted. No increased work of breathing, no retractions or nasal flaring. Abdomen/GI: Soft, non-tender, with normal bowel sounds. No distension or tympany. No guarding or rebound. No evidence of tenderness throughout. Back: No spinal tenderness. No costovertebral tenderness. Full range of motion. Skin: Warm, dry with normal turgor. Normal color with no rashes, no lesions, and no evidence of cellulitis. MS/ Extremity: Pulses equal, no cyanosis. Neurovascular intact. Full, normal range of motion. Psych: Awake, alert, with orientation to person, place and time. Behavior, mood, and affect are within normal limits. 15:34 Neuro: Orientation: is normal, Mentation: is normal, Memory: appropriate for stated kdr age, Motor: moves all fours. Vital Signs: 12:10 Pulse 62 MON; Resp 20 S; Temp 97.2; Pulse Ox 92% on R/A; sg 12:10 BP 120 / 59; sg 12:12 Pulse Ox 97% on 2 lpm NC; sg 13:48 BP 126 / 62; Pulse 60 MON; Resp 17; Pulse Ox 98% on 2 lpm NC; sg 15:00 BP 129 / 63; Pulse 60; Resp 23; Pulse Ox 98% on 2 lpm NC; Pain 0/10; hb 16:00 BP 132 / 70; Pulse 66; Resp 21; Pulse Ox 99% on 2 lpm NC; Pain 0/10; hb 18:40 BP 109 / 61; Pulse 68; Resp 18; Pulse Ox 97% on R/A; Pain 0/10; hb 20:00 BP 120 / 64; Pulse 70; Resp 22; Temp 98; Pulse Ox 99% on 2 lpm NC; rr5 12:10 Paced sg 13:48 Paced sg 12:10 pt placed to 2 lpm NC sg MDM: 15:34 HEART Score: History: Moderately Suspicious (1), ECG: Normal (0), Age: > or = 65 years kdr (2), Risk Factors: > or = 3 Risk factors for atherosclerotic disease (2). 16:53 Patient medically screened. kdr 17:00 Data reviewed: vital signs, nurses notes, lab test result(s), radiologic studies. kdr Counseling: I had a detailed discussion with the patient and/or guardian regarding: the historical points, exam findings, and any diagnostic results supporting the discharge/admit diagnosis, lab results, radiology results, the need for further work-up and treatment in the hospital. Physician consultation: Andrei Howell MD was called at 17:01, was contacted at 17:01, regarding admission, and will see patient in inpatient room, tomorrow. 04/03 12:10 Order name: Basic Metabolic Panel; Complete Time: 13:56 kdr 04/03 12:10 Order name: CBC with Diff; Complete Time: 13:56 kdr 04/03 12:10 Order name: LFT's; Complete Time: 13:56 kdr 04/03 12:10 Order name: Magnesium; Complete Time: 13:56 kdr 04/03 12:10 Order name: NT PRO-BNP; Complete Time: 13:56 kdr 04/03 12:10 Order name: PT-INR; Complete Time: 13:56 kdr 04/03 12:10 Order name: Troponin (emerg Dept Use Only); Complete Time: 13:56 kdr 04/03 13:58 Order name: Troponin (emerg Dept Use Only): Draw three (3) hours after initial; kdr Complete Time: 16:45 04/03 16:59 Order name: Basic Metabolic Panel EDMS 04/03 16:59 Order name: Basic Metabolic Panel EDMS 04/03 16:59 Order name: CBC with Automated Diff EDMS 04/03 16:59 Order name: CBC with Automated Diff EDMS 04/03 16:59 Order name: NT PRO-BNP EDMS 04/03 16:59 Order name: NT PRO-BNP EDMS 04/03 12:10 Order name: XRAY Chest (1 view); Complete Time: 16:45 kdr 04/03 12:10 Order name: EKG; Complete Time: 12:11 kdr 04/03 12:10 Order name: Cardiac monitoring; Complete Time: 12:15 kdr 04/03 12:10 Order name: EKG - Nurse/Tech; Complete Time: 12:15 kdr 04/03 12:10 Order name: IV Saline Lock; Complete Time: 12:15 kdr 04/03 12:10 Order name: Labs collected and sent; Complete Time: 12:15 kdr 04/03 12:10 Order name: O2 Per Protocol; Complete Time: 12:15 kdr 04/03 16:59 Order name: Low Sodium EDMS 04/03 16:59 Order name: Consistent Carb (ADA) 1800 James EDMS 04/03 16:59 Order name: Troponin I EDMS 04/03 16:59 Order name: Troponin I EDMS 04/03 16:59 Order name: Troponin I EDMS 04/03 16:59 Order name: Chest Single View EDMS 04/03 16:59 Order name: Chest Single View EDMS 04/03 18:16 Order name: Urine Dipstick--Ancillary (enter results) ar5 04/03 12:10 Order name: O2 Sat Monitoring; Complete Time: 12:15 kdr Administered Medications: 17:04 Drug: Lasix 40 mg Route: IVP; Site: left forearm; sg 19:30 Follow up: Response: No adverse reaction rr5 Disposition: 04/03/19 16:53 Hospitalization ordered by Sada Subramanian for Inpatient Admission. Preliminary diagnosis are Chest pain, unspecified, Unspecified combined systolic (congestive) and diastolic (congestive) heart failure. - Bed requested for Telemetry/MedSurg (Inpatient). - Status is Inpatient Admission. rr5 - Condition is Fair. - Problem is new. - Symptoms have improved. UTI on Admission? No Signatures: Dispatcher [employer] EDMS Yared Phillip RN RN Asa Pandya MD MD kdr Garcia, Cindy, RN RN Yari Galicia RN RN Mariluz Cee Raymond, RN RN rr5 Corrections: (The following items were deleted from the chart) 15:41 15:34 Constitutional: This is a well developed, well nourished patient who is awake, kdr alert, and in no acute distress. Head/Face: Normocephalic, atraumatic. Eyes: Pupils equal round and reactive to light, extra-ocular motions intact. Lids and lashes normal. Conjunctiva and sclera are non-icteric and not injected. Cornea within normal limits. Periorbital areas with no swelling, redness, or edema. Neck: Trachea midline, no thyromegaly or masses palpated, and no cervical lymphadenopathy. Supple, full range of motion without nuchal rigidity, or vertebral point tenderness. No Meningismus. Chest/axilla: Normal chest wall appearance and motion. Nontender with no deformity. No lesions are appreciated. Cardiovascular: Regular rate and rhythm with a normal S1 and S2. No gallops, murmurs, or rubs. Normal PMI, no JVD. No pulse deficits. Respiratory: Lungs have equal breath sounds bilaterally, clear to auscultation and percussion. No rales, rhonchi or wheezes noted. No increased work of breathing, no retractions or nasal flaring. Abdomen/GI: Soft, non-tender, with normal bowel sounds. No distension or tympany. No guarding or rebound. No evidence of tenderness throughout. Back: No spinal tenderness. No costovertebral tenderness. Full range of motion. Skin: Warm, dry with normal turgor. Normal color with no rashes, no lesions, and no evidence of cellulitis. MS/ Extremity: Pulses equal, no cyanosis. Neurovascular intact. Full, normal range of motion. Neuro: Awake and alert, GCS 15, oriented to person, place, time, and situation. Cranial nerves II-XII grossly intact. Motor strength 5/5 in all extremities. Sensory grossly intact. Cerebellar exam normal. Normal gait. Psych: Awake, alert, with orientation to person, place and time. Behavior, mood, and affect are within normal limits. kdr 17:47 16:53 Hospitalization Ordered by A Moris CASTANON for Inpatient Admission. Preliminary eb diagnosis is Chest pain, unspecified; Unspecified combined systolic (congestive) and diastolic (congestive) heart failure. Bed requested for Telemetry/MedSurg (Inpatient). Status is Inpatient Admission. Condition is Fair. Problem is new. Symptoms have improved. UTI on Admission? No. kdr 19:51 17:47 04/03/2019 16:53 Hospitalization Ordered by A Moris CASTANON for Inpatient Admission. cg Preliminary diagnosis is Chest pain, unspecified; Unspecified combined systolic (congestive) and diastolic (congestive) heart failure. Bed requested for Telemetry/MedSurg (Inpatient). Status is Inpatient Admission. Condition is Fair. Problem is new. Symptoms have improved. UTI on Admission? No. eb 20:32 19:51 04/03/2019 16:53 Hospitalization Ordered by A Moris CASTANON for Inpatient Admission. rr5 Preliminary diagnosis is Chest pain, unspecified; Unspecified combined systolic (congestive) and diastolic (congestive) heart failure. Bed requested for Telemetry/MedSurg (Inpatient). Status is Inpatient Admission. Condition is Fair. Problem is new. Symptoms have improved. UTI on Admission? No. cg 20:33 20:32 04/03/2019 16:53 Hospitalization Ordered by A Moris CASTANON for Inpatient Admission. rr5 Preliminary diagnosis is Chest pain, unspecified; Unspecified combined systolic (congestive) and diastolic (congestive) heart failure. Bed requested for Telemetry/MedSurg (Inpatient). Status is Inpatient Admission. Condition is Fair. Problem is new. Symptoms have improved. UTI on Admission? No. rr5
[2019-04-03] MEDS: FUROSEMIDE 20 MG/ 2ML VIAL IV SCH (17:30)
[2019-04-03 18:47] LABS: Urine Blood NEGATIVE (NEG); Urine Glucose NEGATIVE (NEG); Urine Protein TRACE (NEG); Urine pH 5.5 (5.0-7.0)
--- NOTE | 2019-04-04 02:18 | CON ---
Reason For Consult: Chest pain. Reason For Admission: Congestive heart failure. History Of Present Illness: Mr. Tierney feels short of breath all the time, he has mild orthopnea all the time. He does not feel particularly worse. He had an episode of chest pain, it was left pectoral muscle radiated some to the left arm and resolved with nitroglycerin. He gets chest pain every couple of months. He has a history of bypass surgery twice, the first one was in the and second one in 1993. Since then, he has had at least 4 intracoronary stent procedures the last one of those was 2 months ago under the care of Dr. Yancey at [facility]. Following that, he was told he should not have any other heart catheterization or intervention for coronary heart disease. The patient also has a defibrillator, history of aortic aneurysm repair, and history of a very poor ejection fraction. EF is in the 20s. He has a biventricular pacing defibrillator. His defibrillator has not shocked him. He denies any chest pain at the time of the examination. Outpatient Medications: Benadryl, Plavix digoxin, Entresto, isosorbide mononitrate, metformin, MiraLax, nitroglycerin, Protonix, prednisone, Ranexa, Crestor, sotalol, and Ventolin. He reports drug intolerance to bacitracin, neomycin, polymyxin. Social History: He uses no tobacco. He was a regular cigarette smoker remotely. He has underlying diabetes, hypertension, congestive heart failure, coronary heart disease, peripheral vascular disease, obstructive lung disease. Physical Examination: General: He is alert, oriented, and pleasant. He is not in distress. Lungs: Reveal diffuse bronchial type breath sounds. There are some basilar pulmonary crackles. No wheezing. Heart: Reveals a laterally displaced apical impulse. There is an S3 gallop. There is a systolic murmur. Abdomen: Soft. Extremities: No edema, distal pulses diminished, barely palpable posterior tibials bilaterally. His electrocardiogram reveals AV sequential pacing. His troponins are both [place] [address]. Impression: The patient has some imbalance in his heart. I do not really think he is having an acute coronary syndrome. He should have some more diuresis. He can probably be discharged tomorrow on similar medications that he was on, perhaps increasing the amount of Ranexa he is on to 1000 twice a day. Thank you very much for your kind referral of Mr. Tierney. I will follow him with you. YI Voice ID: [id number] Report ID: [id number] MTDD
[2019-04-04 04:14] LABS: Absolute Lymphocytes (CBC) 1.2 K/uL (0.7-4.9); Basophils % 0.7 % (0-1.3); Hematocrit 35.6 % (39.6-49.0); Lymphocytes % 16.9 % (15.3-44.8); MPV 8.7 fL (7.6-11.3); RBC Red Blood Cell Count 3.92 M/uL (4.33-5.43)
[2019-04-04 04:23] LABS: Potassium 4.4 mmol/L (3.5-5.1)
--- NOTE | 2019-04-04 06:05 | EKG ---
Test Date: 2019-04-03 Test Time: 12:04:08 Redipper: SWG MEASUREMENT RESULTS: Intervals: Rate: 60 NE: 148 QRSD: 120 QT: 434 QTc: 434 [place]: P: 14 NE: 148 QRS: -51 T: 38 INTERPRETIVE STATEMENTS: AV dual-paced rhythm Abnormal ECG Compared to ECG 03/02/2019 16:12:18 No significant changes Electronically Signed On 04-04-19 06:04:57 [employer] by Fred Gan
--- NOTE | 2019-04-04 07:42 | RAD REPORT ---
EXAM DESCRIPTION: RAD - Chest Single View - 04/04/2019 6:30 am CLINICAL HISTORY: Chest pain COMPARISON: April 03 TECHNIQUE: AP portable chest image was obtained 0627 hours . FINDINGS: No new lung parenchymal mass or consolidation. Heart size and vasculature remain prominent . Trachea is midline. Defibrillator is in place. Small right pleural effusion is present. No acute zora ny abnormality seen. No acute aortic findings suspected. IMPRESSION: Mild CHF/volume overload pattern is similar or fractionally improved. Small right pleural effusion is no evident.
[2019-04-04] MEDS: FUROSEMIDE 20 MG/ 2ML VIAL IV SCH ×2 (07:57→16:37)
[2019-04-04] MEDS ORDERED: PNEUMOCOCCAL VACCINE 0.5 ML IMVAC ONE (09:00)
[2019-04-04] MEDS ORDERED: NITROGLYCERIN 0.4 MG/TAB SL PRN (09:42)
[2019-04-04] MEDS ORDERED: ALBUTEROL INHALER 60 PUFF/8 GM IH PRN ×2 (09:42→10:39)
[2019-04-04] MEDS ORDERED: POLYETHYL GLY 3350 17 GM/DOSE PO PRN (09:42)
[2019-04-04] MEDS ORDERED: HOME MED 1 EA UNK (Fluticasone/Umeclidin/Vilanter [Trelegy Ellipta 100-62.5-25] 1 PUFF) IH PRN (09:42)
[2019-04-04] MEDS ORDERED: HOME MED 1 EA UNK (Sotalol Hcl [Sotalol] 80 MG) PO SCH (10:00)
[2019-04-04] MEDS: predniSONE 20 MG TAB PO SCH (10:46)
[2019-04-04] MEDS: SACUBITRIL/VALSARTAN 24/26 MG TAB PO SCH ×2 (10:46→20:09)
[2019-04-04] MEDS: CLOPIDOGREL 75 MG TABLET PO SCH (10:46)
[2019-04-04] MEDS: ISOSORBIDE MONO 10 MG TAB PO SCH ×2 (10:46→20:09)
--- NOTE | 2019-04-04 15:19 | PN ---
Mr. Tierney looks perfectly comfortable. Not having chest pain or any dyspnea. His internal proBNP h as gone up, but he looks very comfortable. Troponins are normal. Not having any more chest pain. I would recommend that he be discharged home and return to the care of Dr. Yancey and he should probabl y go home with a higher dose of Ranexa. DELLA/BETTY Voice ID: [id number] Report ID: [id number]
[2019-04-04] MEDS: PANTOPRAZOLE 40MG TABLET PO SCH (16:37)
[2019-04-04] MEDS: CLOBETASOL PROPIONATE 0.05% TD SCH (20:09)
[2019-04-04] MEDS: SOTALOL HCL 80 MG TAB PO SCH (20:09)
[2019-04-04] MEDS: ROSUVASTATIN 10 MG TAB PO SCH (20:09)
--- NOTE | 2019-04-04 20:28 | SS ---
Date of Discharge: 04/04/2019 Chief Complaint: Chest pain. History Of Present Illness: Mr. Tierney is an 83-year-old pleasant male patient, who was doing fine i n his normal usual state of health until yesterday. Around 10:30 in the morning, he had chest pain o n the left side of the upper anterior chest area. He describes his pain as sharp in nature. He took 1 tablet of nitroglycerin sublingually and called the ambulance. By that time EMS arrived to his ho use, his chest pain had resolved completely. He was brought into the emergency room. After he was e valuated in the ER, he was admitted to the hospital. He has not had any recurrence of chest pain aft er his admission. Patient says that last time he had to use nitroglycerin tablet like this was few m onths ago. He describes his chest pain, not any different than what he had in the past, so not sure why he ended up calling ambulance after taking 1 tablet of nitroglycerin. Denies any fever, chills. Not coughing up any mucus. He is feeling like he is back to his normal self when I saw him this mor ellie. After he was admitted yesterday, Cardiology consultation was requested. Allergies: AMIODARONE AND NEOSPORIN CAUSING RASH. Medications: List reviewed. Review of Systems: Cardiovascular: As mentioned above. All other systems reviewed and negative. Past Medical History: Significant for chronic systolic congestive heart failure, type 2 diabetes trudy litus, COPD, hypertension, mixed hyperlipidemia, coronary artery disease, abdominal aortic aneurysm, gastroesophageal reflux disease, diverticulosis, renal cyst, and fatigue. Patient's echocardiogram f rom 02/17/2019 shows ejection fraction 25% to 29%. 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 Family History: Significant for father, who had abdominal aortic aneurysm. Mother had Alzheimer dis ease. Social History: Prior history of smoking, not at present time. Use of alcohol negative. Physical Examination: Vital Signs: This morning, temperature 96.8, pulse 63, respiratory rate 18, blood pressure 140/72. Height 5 feet 7 inches, weight 133 pounds. General: Awake, alert, oriented, not in distress. HEENT: Head atraumatic, normocephalic. Conjunctivae nonerythematous. Sclerae white. Mouth, no thr ush or edema noted. Ears/Nose, no mass, lesion, discharge noted. Neck: Supple. No JVD, lymph nodes, bruit, thyromegaly noted. Lungs: Bilateral good equal air entry. Clear to auscultation. No rhonchi. No rales. Heart: Normal heart sounds, no murmur or gallop. Abdomen: Soft, bowel sounds normal. No guarding, rigidity, tenderness, mass, hepatosplenomegaly, dis tention, or bruit noted. Extremities: No leg edema. No calf tenderness. Skin: No rash, ulcer, cellulitis. Lymphatics: No lymph node enlargement in neck, supraclavicular, infraclavicular region. Neuro: No focal neurological deficit. Chest: Unremarkable. External Genitalia: Deferred. Rectal: Deferred. Laboratory Data: White count yesterday 7.1, hemoglobin 11.2, platelets 243. This morning, white cou nt 6.9, hemoglobin 11.8, platelets 228. Yesterday; sodium 145, potassium 4, chloride 112, bicarb 28, BUN 23, creatinine 1, glucose 134. Magnesium 1.7. Liver function tests unremarkable. Initial trop onin 0.03, second troponin 0.04, third troponin 0.02, and fourth troponin 0.03. Initial proBNP 25,27 9 and today it is 27,075. This morning; sodium 144, potassium 4.4, chloride 110, bicarb 31, BUN 21, creatinine 0.90, glucose 97. Urinalysis unremarkable. Chest x-ray done yesterday in the emergency r oom shows changes of mild congestive heart failure and chest x-ray repeat this morning shows that CHF changes unchanged or slightly better compared to yesterday. Chest x-ray, AV dual paced rhythm. Hospital Course: After patient was admitted to the hospital, he was seen in consultation by cardiolo gist and the patient is cleared for discharge from Cardiology point of view. Medically, he is stable for discharge. There is no clinical evidence of any congestive heart failure and elevated proBNP is to be expected and somebody like him even in chronic stable condition, but clinically, there is no e vidence of any exacerbation of congestive heart failure problem. I have advised him to keep a new english pply of nitroglycerin on hand. After he opens of the bottle 3 months later, he should get a new supp ly and then discard his old supply. So, we will send a refill of nitroglycerin to his pharmacy today . Otherwise, he was instructed to continue all his previously prescribed home medications as before. Final Diagnoses: 1.Angina. 2.Coronary artery disease. 3.Chronic systolic congestive heart failure. 4.Hypertension. 5.Hypomagnesemia. 6.Type 2 diabetes mellitus. 7.Hyperlipidemia, mixed. 8.Gastroesophageal reflux disease. 9.Diverticulosis. Discharge Medications And Instructions: Follow up at my office as per scheduled appointment. FILOMENA/MODL Voice ID: [id number] Report ID: [id number]
[2019-04-04] MEDS ORDERED: DIPHENHYDRAMINE HCL 25 MG PO SCH (21:00)
[2019-04-04] MEDS ORDERED: HOME MED 1 EA UNK (Ranolazine [Ranexa] 500 MG) PO SCH (21:00)
[2019-04-04] MEDS ORDERED: HOME MED 1 EA UNK (Rosuvastatin Calcium [Crestor] 20 MG) PO SCH (21:00)
[2019-04-05] MEDS: ISOSORBIDE MONO 10 MG TAB PO SCH ×2 (08:12→21:21)
[2019-04-05] MEDS: SACUBITRIL/VALSARTAN 24/26 MG TAB PO SCH ×2 (08:12→21:21)
[2019-04-05] MEDS: FUROSEMIDE 20 MG/ 2ML VIAL IV SCH ×2 (08:12→16:26)
[2019-04-05] MEDS: DIGOXIN 0.125 MG TABLET PO SCH (08:12)
[2019-04-05] MEDS: SOTALOL HCL 80 MG TAB PO SCH ×2 (08:13→21:21)
[2019-04-05] MEDS: predniSONE 20 MG TAB PO SCH (08:15)
[2019-04-05] MEDS: CLOPIDOGREL 75 MG TABLET PO SCH (08:15)
[2019-04-05] MEDS: FLUNISOLIDE NAS SCH (08:15)
[2019-04-05] MEDS: DIPHENHYDRAMINE 25 MG TAB/CAP PO SCH (08:54)
[2019-04-05] MEDS: PANTOPRAZOLE 40MG TABLET PO SCH (16:26)
[2019-04-05] MEDS: CLOBETASOL PROPIONATE 0.05% TD SCH (21:00)
[2019-04-05] MEDS: ROSUVASTATIN 10 MG TAB PO SCH (21:21)
--- NOTE | 2019-04-06 00:55 | PN ---
Date of Progress Note: 04/05/2019 Subjective: Patient was seen this morning for followup. He was lying in bed, not in distress. Wild ed any new complaints. Objective: Vital Signs: Reviewed. HEENT: Unremarkable. Lungs: Clear to auscultation. No rhonchi. No rales. Cardiac: Heart sounds normal. Abdomen: Soft, bowel sounds normal. No guarding, rigidity, tenderness, or distention. Extremities: No leg edema. Impression: 1.Chronic obstructive pulmonary disease. 2.Congestive heart failure. 3.Coronary artery disease. Plan: We will continue current medications. I did talk to patient regarding the need for home oxyge n and Social Service will assist with home oxygen set-up. We talked about different devices includin g Inogen and recommended for him if he can financially afford it and that will be a better device for him and he is agreeable to go ahead and buy such device so Social Service will assist him with setup . Once that is arranged, we can discharge him to go home. FILOMENA/MODL Voice ID: [id number] Report ID: [id number]
[2019-04-06] MEDS: SOTALOL HCL 80 MG TAB PO SCH ×2 (08:57→22:08)
[2019-04-06] MEDS: DIPHENHYDRAMINE 25 MG TAB/CAP PO SCH (08:57)
[2019-04-06] MEDS: CLOPIDOGREL 75 MG TABLET PO SCH (08:58)
[2019-04-06] MEDS: DIGOXIN 0.125 MG TABLET PO SCH (08:58)
[2019-04-06] MEDS: predniSONE 20 MG TAB PO SCH (08:58)
[2019-04-06] MEDS: FUROSEMIDE 20 MG/ 2ML VIAL IV SCH ×2 (08:59→17:05)
[2019-04-06] MEDS: SACUBITRIL/VALSARTAN 24/26 MG TAB PO SCH ×2 (08:59→22:08)
[2019-04-06] MEDS: ISOSORBIDE MONO 10 MG TAB PO SCH ×2 (08:59→22:07)
[2019-04-06] MEDS: FLUNISOLIDE NAS SCH (09:00)
--- NOTE | 2019-04-06 15:17 | PN ---
Mr. Tierney is 83, was admitted on 04/03/2019, has been followed by Dr. Subramanian and Dr. Gan because of history of coronary artery disease, angina, congestive heart failure. He has a documented ejection fraction of 20%. Has had 2 separate bypass surgery in 1979 and 1993, has had stents after that. Rec ently 3 months ago, Dr. Yancey did a stent on him. The plan was to continue medical therapy. No plan for reintervention. Has had no chest pain overnight. Telemetry remained in sinus rhythm. I think he can go home on a higher dose of Ranexa whenever it is okay with Dr. Subramanian. CRISTIAN/BETTY Voice ID: [id number] Report ID: [id number]
[2019-04-06] MEDS: PANTOPRAZOLE 40MG TABLET PO SCH (17:06)
[2019-04-06] MEDS: CLOBETASOL PROPIONATE 0.05% TD SCH (21:00)
[2019-04-06] MEDS: ROSUVASTATIN 10 MG TAB PO SCH (22:14)
--- NOTE | 2019-04-07 00:51 | PN ---
Date of Progress Note: 04/06/2019 Subjective: The patient was seen this morning for followup. Objective: General: Lying in bed, not in distress Vital Signs: Reviewed. HEENT: Unremarkable. Lungs: Clear to auscultation. No rhonchi or rales. Heart: Heart sounds normal. Abdomen: Soft, bowel sounds normal. No guarding, rigidity, tenderness, or distention. Extremities: No leg edema. Impression: 1.Chronic obstructive pulmonary disease. 2.Congestive heart failure, chronic, systolic. 3.Coronary artery disease. Plan: Social Service is working on oxygen arrangements. Form for home oxygen use was signed and onc e arrangements gets completed, we will be able to discharge him to go home. FILOMENA/MODL Voice ID: [id number] Report ID: [id number]
[2019-04-07 05:35] VITALS: BMI 20.2
[2019-04-07] MEDS: FLUNISOLIDE NAS SCH (09:00)
[2019-04-07] MEDS: predniSONE 20 MG TAB PO SCH (09:26)
[2019-04-07] MEDS: DIPHENHYDRAMINE 25 MG TAB/CAP PO SCH (09:27)
[2019-04-07] MEDS: CLOPIDOGREL 75 MG TABLET PO SCH (09:27)
[2019-04-07] MEDS: DIGOXIN 0.125 MG TABLET PO SCH (09:27)
[2019-04-07] MEDS: SOTALOL HCL 80 MG TAB PO SCH (09:27)
[2019-04-07] MEDS: SACUBITRIL/VALSARTAN 24/26 MG TAB PO SCH (09:30)
[2019-04-07] MEDS: ISOSORBIDE MONO 10 MG TAB PO SCH (09:31)
[2019-04-07] MEDS: FUROSEMIDE 20 MG/ 2ML VIAL IV SCH ×2 (09:34→17:00)
[2019-04-07 16:05] VITALS: BP 112/60; TEMP 97.3
[2019-04-07 16:42] VITALS: O2SAT 96
[2019-04-07] MEDS: PANTOPRAZOLE 40MG TABLET PO SCH (17:14)
--- NOTE | 2019-04-08 05:20 | DS ---
Date of Discharge: 04/07/2019 Disposition: Discharged to go home. Physical Examination: HEENT: Unremarkable. Lungs: Clear to auscultation. Heart: Heart sounds normal. Abdomen: Soft, bowel sounds normal. No guarding, rigidity, tenderness, or distention. Extremities: No leg edema. Laboratory Data: Upon admission, white count 7.1, hemoglobin 11.2, platelets 243. Day after admissi on, white count 6.9, hemoglobin 11.8, platelets 228. Last chemistry on 04/04/2019, sodium 144, potas sium 4.4, chloride 110, bicarb 31, BUN 21, creatinine 0.90, glucose 97. Hospital Course: An 83-year-old pleasant male patient, admitted to the hospital with complaints of c hest pain. Please see dictated H and P for more information. The patient was evaluated in the emerg ency room. He was admitted to the hospital, [place] was ruled out by getting serial cardiac enzymes. EKG showed AV dual paced rhythm. Chest x-ray showed changes of congestive heart failure. Clinically, abraham navas did not have any signs or symptoms of congestive heart failure. Cardiology consultation was reques alma from Dr. Gan, who recommended patient to take higher dose of Ranexa. He normally takes at mary e 500 mg 2 times a day, so we will increase the dose to 1000 mg 2 times a day and he will do so when he goes home by taking 2 tablets of 500 mg each tablet, so he will take 2 tablets 2 times a day, and we will send a new prescription for 1000 mg. We noted that he had significant hypoxia problem with o xygen saturation dropping down like 86% to 87% with any activity and at rest. His oxygen saturation was 90% to 91% with oxygen use. His oxygen saturation remained adequate around 94% to 96%. Home oxy gen use was recommended and the patient agreed to buy Inogen device, which will allow him to be more independent and active with such device, so social service was consulted to help make arrangements an d today I was informed that his oxygen will be delivered to his house tomorrow and the patient is med ically stable for discharge. His room air oxygen saturation has been around 94% to 96%, so the patie nt is anxious to go home. Medically, he is stable for discharge, so we have discharged the patient t rosaura with instructions not to do any strenuous activity at home and once he gets his oxygen, to use o xygen 2 L/minute nasal cannula all the time. Final Diagnoses: 1.Angina. 2.Coronary artery disease. 3.Congestive heart failure, chronic, systolic. 4.Chronic obstructive pulmonary disease. 5.Hypertension. 6.Hypomagnesemia. 7.Type 2 diabetes mellitus. 8.Hyperlipidemia, mixed. 9.Gastroesophageal reflux disease. 10.Diverticulosis. Discharge Medications And Instructions: 1.Continue prior home medication except change Ranexa 500 mg, patient takes 2 tablets by mouth 2 kye es a day. 2.Follow up with Dr. Yancey in 2 weeks and follow up at my office next week on Friday, which is , and call office for appointment. FILOMENA/BETTY Voice ID: [id number] Report ID: [id number]
== END 2019-04-07 17:36 | disposition home health service (06) | DRG 303 ==
LOC: ER 11:53 → ERHOLD 17:51 → INTOOBSV 17:51 → OBSVTOIN 17:51 → 4TH 20:26
PROVIDERS: ADMIT Internal Medicine; ATTEND Internal Medicine
DX: I25.119 Atherosclerotic heart disease of native coronary artery with unspecified angina pectoris (principal); I50.22 Chronic systolic (congestive) heart failure; J44.9 Chronic obstructive pulmonary disease, unspecified; I11.0 Hypertensive heart disease with heart failure; E83.42 Hypomagnesemia; E11.9 Type 2 diabetes mellitus without complications; E78.2 Mixed hyperlipidemia; K21.9 Gastro-esophageal reflux disease without esophagitis; K57.90 Diverticulosis of intestine, part unspecified, without perforation or abscess without bleeding; Z95.5 Presence of coronary angioplasty implant and graft; Z95.1 Presence of aortocoronary bypass graft; Z23 Encounter for immunization
CPT/HCPCS: 36415; 71045; 80048; 80076; 81003; 82947; 83735; 83880; 84484; 85025; 85610; 90471; 90670; 93005; 96374; 99285; J1940; J7512

== ENCOUNTER 2019-04-22 19:16 | Inpatient (IN) | payer OTHER ==
--- OUTSIDE RECORDS SUMMARY | 2019-04-22 19:18 | XMS REPORT ---
:1935 [facility] Address [address] [place] [address] Care Team Providers Name Role Phone Unavailable Unavailable Unavailable Problems This patient has no known problems. Allergies, Adverse Reactions, Alerts This patient has no known allergies or adverse reactions. Medications This patient has no known medications.
[2019-04-22] MEDS ORDERED: FAMOTIDINE 20 MG/2 ML VIAL IV ONE (19:56)
[2019-04-22] MEDS ORDERED: IPRATROPIUM BROM 0.5MG/2.5ML ONE (19:56)
[2019-04-22] MEDS ORDERED: NA CHLORIDE 0.9% 500 ML ONE (19:56)
[2019-04-22] MEDS ORDERED: NA CHLORIDE 0.9% 1,000 ML ONE (19:56)
[2019-04-22] MEDS ORDERED: METHYLPREDNISOLONE 125 MG INJ ONE (19:56)
[2019-04-22] MEDS ORDERED: ALBUTEROL 2.5 MG/3 ML NEB SOL ONE (19:56)
--- NOTE | 2019-04-22 20:12 | RAD REPORT ---
EXAM DESCRIPTION: RAD - Chest Single View - 04/22/2019 7:39 pm CLINICAL HISTORY: Fall, chest trauma COMPARISON: April 04 TECHNIQUE: AP portable chest image was obtained 1933 hours . FINDINGS: Chronic interstitial lung pattern is present accentuated by shallow inspiration. Cardiomeg fredo is present. Vasculature is prominent. Defibrillator is in place. Shallow inspiration and chronic lung pattern can mask early failure, edema or infiltrate. Approximately 30-40% pneumothorax along the lateral left chest. No pleural fluid or blood collections seen. No displaced rib fractures seen. There do appear to be multiple nondisplaced lateral lower lef t chest rib fractures. No acute aortic findings suspected. IMPRESSION: Approximately 30-40% pneumothorax lateral left chest with multiple nondisplaced rib frac tures. Heart, vasculature and lung findings are all prominent. A mild failure or volume overload suspected b ut needs clinical correlation.
[2019-04-22 20:23] LABS: Absolute Lymphocytes (CBC) 1.2 K/uL (0.7-4.9); Basophils % 0.8 % (0-1.3); Hematocrit 35.8 % (39.6-49.0); Lymphocytes % 17.5 % (15.3-44.8); MPV 9.3 fL (7.6-11.3); RBC Red Blood Cell Count 3.86 M/uL (4.33-5.43)
[2019-04-22 20:41] LABS: Creatine Phosphokinase 56 U/L (39-308)
[2019-04-22 20:43] LABS: Bilirubin Direct 0.3 mg/dL (0-0.2); Bilirubin Total 0.7 mg/dL (0.2-1.0); Magnesium 1.8 mg/dL (1.8-2.4); Potassium 4.6 mmol/L (3.5-5.1); Protein, Total 6.5 g/dL (6.4-8.2); Troponin (Emerg Dept Use Only) 0.02 ng/mL (0.0-0.045)
[2019-04-22 20:44] LABS: C-Reactive Protein < 2.90 mg/L (<3.00)
[2019-04-22] MEDS ORDERED: LIDOCAINE 1% MPF 30 ML VIAL ONE (20:48)
[2019-04-22] MEDS ORDERED: ONDANSETRON 4 MG/2 ML VIAL ONE (21:20)
[2019-04-22] MEDS ORDERED: MORPHINE 2 MG/ML SYR ONE (21:20)
[2019-04-22 21:37] LABS: Protime INR 0.99
--- NOTE | 2019-04-22 21:51 | EDPHYS ---
Physician Documentation [facility] Name: Cornelius Tierney Age: 83 yrs Sex: Male : 1935 Arrival Date: 04/22/2019 Time: 19:18 Bed 6 Private MD: ED Physician Bryce Juan HPI: 04/22 19:48 This 83 yrs old Male presents to ER via EMS with complaints of Fall Injury. karson 19:48 Details of fall: The patient fell from an upright position. Onset: The symptoms/episode karson began/occurred just prior to arrival. Associated injuries: The patient sustained injury to the chest. Severity of symptoms: At their worst the symptoms were mild, in the emergency department the symptoms are unchanged. The patient has not experienced similar symptoms in the past. Historical: - Allergies: 20:31 BACITRACIN; ea 20:31 Bacitracin Zinc; ea 20:31 Neomycin Sulfate; ea 20:31 Neosporin ([id number]); ea 20:31 polymyxin B; ea - Home Meds: 20:31 Ventolin HFA 90 mcg/actuation Nebulizer HFAA [Active]; sotalol 80 mg Oral tab 1 tab 2 ea times per day [Active]; rosuvastatin 20 mg Oral tab 1 tab once daily [Active]; Ranexa 500 mg Oral Tb12 1 tab 2 times per day [Active]; prednisone 10 mg Oral tab 1 tab once daily [Active]; pantoprazole 40 mg Oral TbEC 1 tab once daily [Active]; Nitroglycerin Oral [Active]; Miralax 17 gram/dose Oral powd once daily [Active]; metformin 500 mg Oral tab 2 times per day [Active]; lutein 20 mg Oral cap [Active]; isosorbide mononitrate 20 mg Oral tab 1 tab 2 times per day [Active]; Entresto 24-26 mg Oral tab 1 tab twice a day [Active]; digoxin 125 mcg Oral tab 1 tab once daily [Active]; clopidogrel 75 mg Oral tab [Active]; Benadryl 25 mg Oral cap [Active]; - PMHx: 20:31 Myocardial infarction; macular degeneration; High Cholesterol; GERD; Diabetes - NIDDM; ea COPD; constipation; CHF; cardiac arrest; CAD; Bladder CA; AAA; - PSHx: 20:31 Cataracts; Cholecystectomy; pacemaker; CARDIAC STENTS; Triple A repair; ea - Immunization history:: Adult Immunizations up to date. - Social history:: Smoking status: Patient/guardian denies using tobacco. - Immunization history: Last tetanus immunization: unknown. - Family history:: not pertinent. - Ebola Screening: : No symptoms or risks identified at this time. ROS: 19:48 Constitutional: Negative for fever, chills, and weight loss, Eyes: Negative for injury, karson pain, redness, and discharge, ENT: Negative for injury, pain, and discharge, Neck: Negative for injury, pain, and swelling, Cardiovascular: Negative for chest pain, palpitations, and edema, Abdomen/GI: Negative for abdominal pain, nausea, vomiting, diarrhea, and constipation, Back: Negative for injury and pain, : Negative for injury, bleeding, discharge, and swelling, MS/Extremity: Negative for injury and deformity, Neuro: Negative for headache, weakness, numbness, tingling, and seizure, Psych: Negative for depression, anxiety, suicide ideation, homicidal ideation, and hallucinations, Allergy/Immunology: Negative for hives, rash, and allergies, Endocrine: Negative for neck swelling, polydipsia, polyuria, polyphagia, and marked weight changes, Hematologic/Lymphatic: Negative for swollen nodes, abnormal bleeding, and unusual bruising. 19:48 Skin: Positive for pallor. Exam: 19:48 Constitutional: This is a well developed, well nourished patient who is awake, alert, karson and in no acute distress. Head/Face: Normocephalic, atraumatic. Eyes: Pupils equal round and reactive to light, extra-ocular motions intact. Lids and lashes normal. Conjunctiva and sclera are non-icteric and not injected. Cornea within normal limits. Periorbital areas with no swelling, redness, or edema. ENT: Nares patent. No nasal discharge, no septal abnormalities noted. Tympanic membranes are normal and external auditory canals are clear. Oropharynx with no redness, swelling, or masses, exudates, or evidence of obstruction, uvula midline. Mucous membranes moist. Neck: Trachea midline, no thyromegaly or masses palpated, and no cervical lymphadenopathy. Supple, full range of motion without nuchal rigidity, or vertebral point tenderness. No Meningismus. Chest/axilla: Normal chest wall appearance and motion. Nontender with no deformity. No lesions are appreciated. Abdomen/GI: Soft, non-tender, with normal bowel sounds. No distension or tympany. No guarding or rebound. No evidence of tenderness throughout. Back: No spinal tenderness. No costovertebral tenderness. Full range of motion. Skin: Warm, dry with normal turgor. Normal color with no rashes, no lesions, and no evidence of cellulitis. MS/ Extremity: Pulses equal, no cyanosis. Neurovascular intact. Full, normal range of motion. Neuro: Awake and alert, GCS 15, oriented to person, place, time, and situation. Cranial nerves II-XII grossly intact. Motor strength 5/5 in all extremities. Sensory grossly intact. Cerebellar exam normal. Normal gait. Psych: Awake, alert, with orientation to person, place and time. Behavior, mood, and affect are within normal limits. 19:48 Cardiovascular: Rate: tachycardic, Rhythm: regular, Pulses: Pulses are 4+ in bilateral radial, brachial, femoral, popliteal, posterior tibial and and dorsalis pedis arteries.. Heart sounds: normal, Edema: is not appreciated, JVD: is not appreciated. Vital Signs: 19:21 BP 155 / 87; Pulse 88; Resp 32; Temp 97; Pulse Ox 95% on R/A; Weight 65.77 kg; Height 5 ea ft. 7 in. (170.18 cm); 20:33 BP 138 / 73; Pulse 60; Resp 27; Pulse Ox 97% on 4 lpm NC; ea 22:23 BP 116 / 71; Pulse 72; Resp 20; Temp 97.6; Pulse Ox 100% ; ea 04/23 00:37 BP 127 / 67; Pulse 64; Resp 21 S; Pulse Ox 99% on 2 lpm NC; jd3 04/22 19:21 Body Mass Index 22.71 (65.77 kg, 170.18 cm) ea Lorelei Coma Score: 04/22 19:21 Eye Response: spontaneous(4). Verbal Response: oriented(5). Motor Response: obeys ea commands(6). Total: 15. Trauma Score (Adult): 19:21 Eye Response: spontaneous(1); Verbal Response: oriented(1); Motor Response: obeys ea commands(2); Systolic BP: > 89 mm Hg(4); Respiratory Rate: > 29 per min(3); Lorelei Score: 15; Trauma Score: 11 MDM: 19:23 Patient medically screened. [facility] 19:51 Data reviewed: vital signs, nurses notes, lab test result(s), EKG, radiologic studies, [facility] CT scan, plain films. 04/22 19:41 Order name: Basic Metabolic Panel; Complete Time: 21:25 04/22 19:41 Order name: CBC with Diff; Complete Time: 21: 04/22 19:41 Order name: LFT's; Complete Time: 21: 04/22 19:41 Order name: Magnesium; Complete Time: 21:25 04/22 19:41 Order name: NT PRO-BNP; Complete Time: 21: 04/22 19:41 Order name: PT-INR 04/22 19:41 Order name: Troponin (emerg Dept Use Only); Complete Time: 21: 04/22 20:01 Order name: C-Reactive Protein; Complete Time: 21:25 [facility] 04/22 20:01 Order name: Procalcitonin; Complete Time: 21: [facility] 04/22 20:01 Order name: Ckmb; Complete Time: 21: [facility] 04/22 19:33 Order name: CXR XRAY; Complete Time: 21:25 04/22 19:47 Order name: CT Traumagram (Head C Spine CAP W Con) [facility] 04/22 19:47 Order name: Chest Single View XRAY: post chest tube [facility] 04/22 20:01 Order name: CPK; Complete Time: 21:25 [facility] 04/22 20:01 Order name: Blood Culture Adult (2) [facility] 04/22 20:01 Order name: Lactate; Complete Time: 21:25 [facility] 04/22 20:20 Order name: PTT, Activated Partial Thromb [facility] 04/22 20:20 Order name: Fibrinogen [facility] 04/22 20:20 Order name: Lipase; Complete Time: 21:25 [facility] 04/22 22:27 Order name: Digoxin ar5 04/22 23:14 Order name: Digoxin Level [facility] 04/23 00:11 Order name: Lactate Sepsis 2 HR Follow-up [facility] 04/22 19:41 Order name: EKG; Complete Time: 19:42 04/22 19:41 Order name: Cardiac monitoring; Complete Time: 19:42 04/22 19:41 Order name: EKG - Nurse/Tech; Complete Time: 19:42 ea 04/22 19:41 Order name: IV Saline Lock; Complete Time: 19:58 04/22 19:41 Order name: Labs collected and sent; Complete Time: 19:58 04/22 19:41 Order name: O2 Per Protocol; Complete Time: 19:45 04/22 19:41 Order name: O2 Sat Monitoring; Complete Time: 19:45 04/22 21:43 Order name: CONS Physician Consult EDMS 04/22 21:43 Order name: CONS Physician Consult EDMS Administered Medications: 20:00 Drug: NS 0.9% 500 ml Route: IV; Rate: bolus; Site: right antecubital; ea 21:00 Follow up: Response: No adverse reaction; IV Status: Completed infusion; IV Intake: ea 500ml 20:01 Drug: SOLU-Medrol 125 mg Route: IVP; Site: right antecubital; ea 21:35 Follow up: Response: No adverse reaction ea 20:02 Drug: Pepcid 20 mg Route: IVP; Site: right antecubital; ea 21:35 Follow up: Response: No adverse reaction ea 20:15 Drug: NS 0.9% 1000 ml Route: IV; Rate: 125 ml/hr; Site: right antecubital; ea 22:39 Follow up: Response: No adverse reaction; IV Status: Infusion continued upon admission ea 21:17 Drug: Zofran 4 mg Route: IVP; Site: right antecubital; ea 22:00 Follow up: Response: No adverse reaction ea 21:20 Drug: morphine 2 mg {Note: RASS 0.} Route: IVP; Site: right antecubital; ea 22:00 Follow up: Response: No adverse reaction; Pain is decreased; RASS: Alert and Calm (0) ea 23:03 Not Given (Physician Discretion): Albuterol - atroVENT (3:1) (2.5 mg - 0.5 mg) 3 ml ea Nebulizer once Disposition: 04/22/19 21:49 Hospitalization ordered by Rogelio Subramanian for Inpatient Admission. Preliminary diagnosis are Fall due to bumping against object, Unspecified combined systolic (congestive) and diastolic (congestive) heart failure, Multiple fractures of ribs, left side, Pneumothorax, unspecified, Pleural effusion in conditions classified elsewhere. - Bed requested for Intensive Care Unit. - Status is Inpatient Admission. jd3 - Condition is Fair. - Problem is new. - Symptoms have improved. UTI on Admission? No Signatures: Dispatcher [employer] EDWV Bryce Juan MD MD cha Antunez, Elena, RN Vik Fischer ea, RN RN jThierry Pimentel RN RN ja1 Corrections: (The following items were deleted from the chart) 20:15 19:49 LIPASE+C.LAB.BRZ ordered. EDWV EDWV 20:18 20:02 PTT, ACTIVATED+COAG.LAB.BRZ ordered. [facility] EDWV 20:18 20:02 FIBRINOGEN+COAG.LAB.BRZ ordered. [facility] 20:20 20:02 BILIRUBIN, DIRECT+C.LAB.BRZ ordered. [facility] 22:10 21:49 Hospitalization Ordered by Rogelio Subramanian MD for Inpatient Admission. Preliminary ja1 diagnosis is Fall due to bumping against object; Unspecified combined systolic (congestive) and diastolic (congestive) heart failure; Multiple fractures of ribs, left side; Pneumothorax, unspecified. Bed requested for Intensive Care Unit. Status is Inpatient Admission. Condition is Fair. Problem is new. Symptoms have improved. UTI on Admission? No. karson 23:51 22:10 04/22/2019 21:49 Hospitalization Ordered by Rogelio Subramanian MD for Inpatient karson Admission. Preliminary diagnosis is Fall due to bumping against object; Unspecified combined systolic (congestive) and diastolic (congestive) heart failure; Multiple fractures of ribs, left side; Pneumothorax, unspecified. Bed requested for Intensive Care Unit. Status is Inpatient Admission. Condition is Fair. Problem is new. Symptoms have improved. UTI on Admission? No. ja1 04/23 00:56 04/22 23:51 04/22/2019 21:49 Hospitalization Ordered by Rogelio Subramanian MD for Inpatient jd3 Admission. Preliminary diagnosis is Fall due to bumping against object; Unspecified combined systolic (congestive) and diastolic (congestive) heart failure; Multiple fractures of ribs, left side; Pneumothorax, unspecified; Pleural effusion in conditions classified elsewhere. Bed requested for Intensive Care Unit. Status is Inpatient Admission. Condition is Fair. Problem is new. Symptoms have improved. UTI on Admission? No. karson
--- NOTE | 2019-04-22 21:51 | ER ---
Nurse's Notes [facility] Name: Cornelius Tierney Age: 83 yrs Sex: Male : 1935 Arrival Date: 04/22/2019 Time: 19:18 Bed 6 Private MD: Diagnosis: Fall due to bumping against object;Unspecified combined systolic (congestive) and diastolic (congestive) heart failure;Multiple fractures of ribs, left side;Pneumothorax, unspecified;Pleural effusion in conditions classified elsewhere Presentation: 04/22 19:21 Presenting complaint: EMS states: They were called to pt's residence pt reported he ea fell in the restroom and hit his back on the sink. Reported SOB, pt 91% on RA placed on 2 L per n/c. EMS reported diminished breath sounds on left lower lobe A \T\ A treatment initiated. Care prior to arrival: Medication(s) given: Albuterol Neb Atrovent Neb. Mechanism of Injury: Fall from standing position. Trauma event details: Injury occurred in the [facility], Injury occurred: at home. Injury occurred: April 22, 2019 Injury occurred at: 19:29. 19:21 Acuity: WEI 3 ea 19:21 Method Of Arrival: EMS: [facility] ea 19:21 Transition of care: patient was not received from another setting of care. Onset of ea symptoms was April 22, 2019. Risk Assessment: Do you want to hurt yourself or someone else? Patient reports no desire to harm self or others. Initial Sepsis Screen: Does the patient meet any 2 criteria? RR > 20 per min. Yes Does the patient have a suspected source of infection? No. Patient's initial sepsis screen is negative. 20:27 Initial Sepsis Screen: Does the patient have a suspected source of infection?. ea Triage Assessment: 19:21 General: Appears uncomfortable, Behavior is restless. Pain: Complains of pain in left ea lateral anterior chest. Neuro: Level of Consciousness is awake, alert, obeys commands, Oriented to person, place, time, situation. Trauma Activation: Alert Physician: ED Physician; Name: Drake; Notified At: ; Arrived At: Physician: General Surgeon; Name: ; Notified At: ; Arrived At: Physician: Radiology; Name: ; Notified At: ; Arrived At: Physician: Respiratory; Name: ; Notified At: ; Arrived At: Physician: Lab; Name: ; Notified At: ; Arrived At: Historical: - Allergies: 20:31 BACITRACIN; ea 20:31 Bacitracin Zinc; ea 20:31 Neomycin Sulfate; ea 20:31 Neosporin ([id number]); ea 20:31 polymyxin B; ea - Home Meds: 20:31 Ventolin HFA 90 mcg/actuation Nebulizer HFAA [Active]; sotalol 80 mg Oral tab 1 tab 2 ea times per day [Active]; rosuvastatin 20 mg Oral tab 1 tab once daily [Active]; Ranexa 500 mg Oral Tb12 1 tab 2 times per day [Active]; prednisone 10 mg Oral tab 1 tab once daily [Active]; pantoprazole 40 mg Oral TbEC 1 tab once daily [Active]; Nitroglycerin Oral [Active]; Miralax 17 gram/dose Oral powd once daily [Active]; metformin 500 mg Oral tab 2 times per day [Active]; lutein 20 mg Oral cap [Active]; isosorbide mononitrate 20 mg Oral tab 1 tab 2 times per day [Active]; Entresto 24-26 mg Oral tab 1 tab twice a day [Active]; digoxin 125 mcg Oral tab 1 tab once daily [Active]; clopidogrel 75 mg Oral tab [Active]; Benadryl 25 mg Oral cap [Active]; - PMHx: 20:31 Myocardial infarction; macular degeneration; High Cholesterol; GERD; Diabetes - NIDDM; ea COPD; constipation; CHF; cardiac arrest; CAD; Bladder CA; AAA; - PSHx: 20:31 Cataracts; Cholecystectomy; pacemaker; CARDIAC STENTS; Triple A repair; ea - Immunization history:: Adult Immunizations up to date. - Social history:: Smoking status: Patient/guardian denies using tobacco. - Immunization history: Last tetanus immunization: unknown. - Family history:: not pertinent. - Ebola Screening: : No symptoms or risks identified at this time. Screenin:36 Abuse screen: Denies threats or abuse. Nutritional screening: No deficits noted. ea Tuberculosis screening: No symptoms or risk factors identified. Fall Risk Fall in past 12 months (25 points). Primary Survey: 19:21 NO uncontrolled hemorrhage observed. A: The patient is alert. Airway: patent, Oxygen ea via nasal cannula at 2 liters per minute. Breathing/Chest: Respiratory pattern: tachypnea, Respiratory effort: labored, Breath sounds: diminished. Circulation: Skin color: pale, Skin temperature: warm. Disability Alert. Exposure/Environment: All clothing and personal items were removed. Forensic evidence collection is not deemed to be indicated at this time. Items placed in patient belonging bag. There is no evidence of uncontrolled external bleeding. No obvious injuries are noted at this time. 20:30 Reassessment Breathing/Chest Respiratory pattern Tachypnea. ea Secondary Survey: 19:21 Musculoskeletal: Reports hitting the bathroom sink with his back. ea Assessment: 19:21 Reassessment: see triage assessment. ea 19:35 Reassessment: Pt reports he is having shortness of breath, respiratory at bedside, pt ea O2 increased to 4 L per nasal cannula. 21:00 Reassessment: Patient and/or family updated on plan of care and expected duration. Pain ea level reassessed. Patient is alert, oriented x 3, equal unlabored respirations, skin warm/dry/pink. 22:00 Reassessment: Patient and/or family updated on plan of care and expected duration. Pain ea level reassessed. Patient is alert, oriented x 3, equal unlabored respirations, skin warm/dry/pink. 22:47 Reassessment: Patient and/or family updated on plan of care and expected duration. Pain ea level reassessed. Patient is alert, oriented x 3, equal unlabored respirations, skin warm/dry/pink. Awaiting on CT results. 04/23 00:35 Reassessment: report given to Tomas RN in the ICU. jd3 Vital Signs: 04/22 19:21 BP 155 / 87; Pulse 88; Resp 32; Temp 97; Pulse Ox 95% on R/A; Weight 65.77 kg; Height 5 ea ft. 7 in. (170.18 cm); 20:33 BP 138 / 73; Pulse 60; Resp 27; Pulse Ox 97% on 4 lpm NC; ea 22:23 BP 116 / 71; Pulse 72; Resp 20; Temp 97.6; Pulse Ox 100% ; ea 04/23 00:37 BP 127 / 67; Pulse 64; Resp 21 S; Pulse Ox 99% on 2 lpm NC; jd3 04/22 19:21 Body Mass Index 22.71 (65.77 kg, 170.18 cm) ea Pender Coma Score: 04/22 19:21 Eye Response: spontaneous(4). Verbal Response: oriented(5). Motor Response: obeys ea commands(6). Total: 15. Trauma Score (Adult): 19:21 Eye Response: spontaneous(1); Verbal Response: oriented(1); Motor Response: obeys ea commands(2); Systolic BP: > 89 mm Hg(4); Respiratory Rate: > 29 per min(3); Lorelei Score: 15; Trauma Score: 11 ED Course: 19:18 Patient arrived in ED. cf2 19:21 Iliana Suárez, ROSIO is Primary Nurse. ea 19:21 Oxygen administration via nasal cannula \T\ 2L/min. ea 19:21 Thermoregulation: warm blanket given to patient. ea 19:21 Patient has correct armband on for positive identification. Placed in gown. Bed in low ea position. Call light in reach. Side rails up X2. radiation monitor on. Pulse ox on. NIBP on. 19:21 Arm band placed on right wrist. Patient placed in an exam room, on a stretcher, on ea oxygen, on radiation monitor, on pulse oximetry. 19:23 Bryce Juan MD is Attending Physician. karson 19:32 Triage completed. ea 19:39 CXR XRAY In Process Unspecified. EDMS 21:10 Assist provider with chest tube insertion with 16 Fr. in left Tray was set up. Attached ea to Heimlich valve Chest tube inserted by Bryce Juan MD Placement verified by CXR, Dressed with Vaseline gauze, foam tape, 4X4s, Patient tolerated well. 21:20 Chest Single View XRAY: post chest tube In Process Unspecified. EDMS 21:33 Rogelio Subramanian MD is Hospitalizing Provider. karson 21:[address] via stretcher. 04/23 00:36 Patient admitted, IV remains in place. jd3 Administered Medications: 04/22 20:00 Drug: NS 0.9% 500 ml Route: IV; Rate: bolus; Site: right antecubital; ea 21:00 Follow up: Response: No adverse reaction; IV Status: Completed infusion; IV Intake: ea 500ml 20:01 Drug: SOLU-Medrol 125 mg Route: IVP; Site: right antecubital; ea 21:35 Follow up: Response: No adverse reaction ea 20:02 Drug: Pepcid 20 mg Route: IVP; Site: right antecubital; ea 21:35 Follow up: Response: No adverse reaction ea 20:15 Drug: NS 0.9% 1000 ml Route: IV; Rate: 125 ml/hr; Site: right antecubital; ea 22:39 Follow up: Response: No adverse reaction; IV Status: Infusion continued upon admission ea 21:17 Drug: Zofran 4 mg Route: IVP; Site: right antecubital; ea 22:00 Follow up: Response: No adverse reaction ea 21:20 Drug: morphine 2 mg {Note: RASS 0.} Route: IVP; Site: right antecubital; ea 22:00 Follow up: Response: No adverse reaction; Pain is decreased; RASS: Alert and Calm (0) ea 23:03 Not Given (Physician Discretion): Albuterol - atroVENT (3:1) (2.5 mg - 0.5 mg) 3 ml ea Nebulizer once Intake: 21:00 IV: 500ml; Total: 500ml. ea 12 00:37 PO: 0ml; Total: 500ml. jd3 Outcome: 04/22 21:49 Decision to Hospitalize by Provider. karson 21:53 Instructed on the need for admit, Demonstrated understanding of instructions. ea 22:47 Patient's length of stay in the Emergency Department was greater than [address] resultsPatient's length of stay extended due to 23:52 Condition: stable ea 04/23 00:36 Admitted to ICU accompanied by nurse, via stretcher, room 7, on monitor, with chart, jyue Report called to Tomas AVELAR 00:56 Patient left the ED. mikayla Signatures: Dispatcher [employer] EDMO Bryce Juan MD MD cha Hagler, Ervin eh Antunez, Elena, RN RN ea Davies, Jonathon, RN RN jd3 Frazier, Celesta cf2 Corrections: (The following items were deleted from the chart) 04/22 21:35 21:20 morphine 2 mg IVP in right antecubital ea ea
--- NOTE | 2019-04-22 22:53 | P.CNS ---
Date of Consult: 04/22/19 PC: I was asked to see this 83-year-old male who sustained a fall and has had a left-sided pneumothorax. HPC: Patient was at home, got tangled up with his feet and fell over his walker. No loss of consciousness. Noticed he had extreme however pain on the left side of his chest particularly when he tries to inhale or tries to cough. PMH: Pacemaker, atrial fibrillation PSHx: Previous thoracotomy for CAD SOC: Medicines reviewed, and allergies noted SYS REVIEW: Says he has been in relatively good health all things considered. Has had some falls because he gets tangled up in his walker walker at home. States his appetite is okay, no abdominal pain, no change in bowel habit. Has some trouble with his bladder control O/E awake alert vital signs are stable HEENT: Not jaundiced Chest: Chest movement is equal bilaterally, has a left-sided thoracostomy catheter attached to a Heimlich valve ABD: Soft nontender LOCO: Some old abrasions on both his right and left hands and arms. Legs intact, no edema DATA: CT scan shows undisplaced fractures left-sided chest, he also has a right -sided what appears to be effusion. Large cyst on his kidney, no blood or ascites noted. (still awaiting official radiology report) IMPRESSION: Left-sided chest rib fractures, pneumothorax, treated with thoracostomy catheter PLAN: Patient will be admitted for observation pain control. Chest tube will need to be in position for at least 48 hr. Will follow with serial chest x- rays. This is all pending the official radiology report.
[2019-04-23] MEDS ORDERED: ONDANSETRON 4 MG/2 ML VIAL IV PRN (00:38)
[2019-04-23] MEDS ORDERED: ALBUTEROL 2.5 MG/3 ML NEB SOL NEB PRN (00:38)
[2019-04-23] MEDS ORDERED: ACETAMINOPHEN 500 MG TAB PO PRN (00:38)
[2019-04-23] MEDS ORDERED: IPRATROPIUM BROM 0.5MG/2.5ML NEB PRN (00:38)
[2019-04-23] MEDS: MORPHINE 2 MG/ML SYR IV PRN ×4 (01:20→21:37)
[2019-04-23] MEDS ORDERED: PIPERACIL/TAZO 3.375 GM VIAL IV ONE (01:38)
[2019-04-23] MEDS: PIPER/TAZO/NS 3.375gm 3.375 GM/100 ML BAG IVPB SCH ×3 (01:51→17:15)
[2019-04-23] MEDS ORDERED: NA CHLORIDE 0.9% 100 ML ONE (01:53)
[2019-04-23 04:56] LABS: Absolute Lymphocytes (CBC) 0.4 K/uL (0.7-4.9); Basophils % 0.2 % (0-1.3); Hematocrit 34.3 % (39.6-49.0); Lymphocytes % 6.6 % (15.3-44.8); MPV 9.2 fL (7.6-11.3)
[2019-04-23 05:30] LABS: Potassium 4.4 mmol/L (3.5-5.1); Troponin I 0.22 ng/mL (0.0-0.045)
--- NOTE | 2019-04-23 08:03 | RAD REPORT ---
EXAM DESCRIPTION: RAD - Chest Single View - 04/22/2019 9:23 pm CLINICAL HISTORY: Pneumothorax, left-sided chest tube placement COMPARISON: April 22 TECHNIQUE: AP portable chest image was obtained 8 hours . FINDINGS: Left-sided chest tube has been placed. Tip is obscured by the pacemaker that overlies the lateral upper left chest. Little or no pneumothorax remains. No enlarging pleural fluid collection. C hronic interstitial opacification seen in the right lung field. Defibrillator wires overlie the chest . Sternotomy wires in place. Heart and vasculature are normal. No acute aortic findings suspected. IMPRESSION: Left-sided chest tube has been placed. There is little or no pneumothorax remaining.
--- NOTE | 2019-04-23 08:09 | RAD REPORT ---
EXAM DESCRIPTION: RAD - Chest Single View - 04/23/2019 7:37 am CLINICAL HISTORY: Pneumothorax COMPARISON: April 22 TECHNIQUE: AP portable chest image was obtained 0735 hours . FINDINGS: Chest tube remains in place. There remains a little or no measurable pneumothorax left-roberta ed chest. Anterior pneumothorax remnant can be occult on portable imaging. Chest tube is positioned a long the lateral left chest. Tip is obscured by the defibrillator battery pack. Patchy lung parenchymal opacification present not clearly different. Heart size remains prominent. No acute bony abnormality seen. No acute aortic findings suspected. IMPRESSION: Stable chest. Left-sided chest tube remains in place. Tip is obscured by defibrillator b attery pack. Little or no measurable pneumothorax seen.
[2019-04-23 09:09] LABS: Anisocytosis 2+; Blood Morphology Comment NOTED (NOT SEEN); Burr Cells 1+; Platelet Estimate ADEQ; Poikilocytosis 1+
[2019-04-23] MEDS: FUROSEMIDE 20 MG/ 2ML VIAL IV SCH ×2 (09:17→17:16)
--- NOTE | 2019-04-23 10:21 | RAD REPORT ---
EXAM DESCRIPTION: CT - Head C Spine Iraj Estrada - 04/23/2019 3:42 am CLINICAL HISTORY: The patient is 83 years old and is Male; Pain; lower back pain TECHNIQUE: Axial computed tomography images of the head and cervical spine without IV contrast and C T chest, abdomen, pelvis, thoracic spine and lumbar spine with intravenous contrast. Sagittal and c oronal reformatted images were created and reviewed. This CT exam was performed using one or more o f the following dose reduction techniques: automated exposure control, adjustment of the mA and/or kV according to patient size, and/or use of iterative reconstruction technique. COMPARISON: CT chest dated February 17, 2019 FINDINGS: BRAIN: Prominence of the cerebral sulci and cisterns. Prominence of the ventricular system without hydroceph alus. Multifocal gangliocapsular and subinsular hypodensities. Confluent periventricular and subcorti reji white matter hypodensity. Right occipital encephalomalacia. No hemorrhage. No extra-axial collect ion. No mass effect or midline shift. Globes and orbits are within normal limits. Mastoid air cells a re well pneumatized. Paranasal sinuses are clear. CERVICAL SPINE: No acute fracture. No subluxation. Diffuse osteopenia. Mild multilevel disc space narrowing. Scattered facet arthropathy. Paraspinal soft tissues are within normal limits. CHEST: LUNGS: Scattered chronic lung changes. Right midlung opacity concerning for contusion. PLEURAL SPACE: Small left pneumothorax. Associated small left pleural effusion concerning for hydr opneumothorax. Left apical chest tube is present. Right pleural effusion is also noted with associated atelectasis. HEART: Cardiomegaly with partially seen anteriorly. No significant pericardial effusion. ABDOMEN: LIVER: Unremarkable. No mass. GALLBLADDER AND BILE DUCTS: Prior cholecystectomy with intra and extra hepatic ductal dilatation. PANCREAS: Atrophy of the pancreas. No ductal dilation. SPLEEN: Unremarkable. No splenomegaly. ADRENALS: Unremarkable. No mass. KIDNEYS AND URETERS: Large left renal cyst measuring up to 8.3 cm. No hydronephrosis. No solid mass. STOMACH AND BOWEL: Distal colonic diverticulosis without CT evidence of acute diverticulitis. No obstruction. PELVIS: APPENDIX: The appendix is seen and is within normal limits. BLADDER: Bladder is decompressed. REPRODUCTIVE: Unremarkable as visualized. THORACIC and LUMBAR SPINE: VERTEBRAE: Diffuse osteopenia. Grade 1 anterolisthesis of L4 and L5. Multilevel degenerative escobar es. No acute fracture. DISCS/SPINAL CANAL/NEURAL FORAMINA: No acute findings. No spinal canal stenosis. CHEST, ABDOMEN and PELVIS: INTRAPERITONEAL SPACE: Unremarkable. No significant fluid collection. No free air. BONES/JOINTS: Acute minimally displaced left seventh, eighth and ninth rib fractures. SOFT TISSUES: Unremarkable. VASCULATURE: Scattered vascular calcifications. No aortic aneurysm. LYMPH NODES: Unremarkable. No enlarged lymph nodes. IMPRESSION: 1. No acute intracranial hemorrhage, hydrocephalus or herniation. 2. Cerebral volume loss, cortical vessel ischemic changes in right occipital encephalomalacia. If p ersistent clinical concern for acute ischemia, consider MRI brain without contrast for further evalua tion. 3. No cervical spine fracture or subluxation. 4. Small left apical hydropneumothorax with left apical chest tube. 5. Acute minimally displaced left seventh, eighth and ninth rib fractures. 6. Chronic lung changes with right pleural effusion and possible right midlung contusion. 7. Advanced coronary and mild interstitial edema. 8. Distal colonic diverticulosis without CT evidence of acute diverticulitis. 9. Large left renal cyst measuring up to 8.3 cm. Electronically signed by: Luis Linda DO 04/22/2019 11:12 PM FOOD STYLIST Due to temporary technical issues with the PACS/Fluency reporting system, reports are being signed by the in house radiologist as a courtesy to ensure prompt reporting. The interpreting radiologist is f ully responsible for the content of the report.
[2019-04-23] MEDS ORDERED: POLYETHYL GLY 3350 17 GM/DOSE PO PRN (10:39)
[2019-04-23] MEDS ORDERED: NITROGLYCERIN 0.4 MG/TAB SL PRN (10:39)
[2019-04-23] MEDS ORDERED: ALBUTEROL INHALER 60 PUFF/8 GM IH PRN (10:39)
[2019-04-23] MEDS ORDERED: HOME MED 1 EA UNK (Fluticasone/Umeclidin/Vilanter [Trelegy Ellipta 100-62.5-25] 1 PUFF) IH PRN (10:39)
[2019-04-23] MEDS: GUAIFENESIN/CODEINE 5ML UCUP PO SCH ×4 (11:05→20:37)
[2019-04-23] MEDS: predniSONE 10 MG TAB PO SCH (11:05)
[2019-04-23] MEDS: METFORMIN HCL 500 MG TAB PO SCH ×2 (11:05→17:16)
--- NOTE | 2019-04-23 13:31 | P.PN ---
Date of Service: 04/23/19 S: The patient has no specific complaints. However he appears to be rambling quite a bit. No true signs of focal neurological deficit. States that his pain appears to be controlled. O: Small residual pneumothorax per x-ray report. Has some serosanguineous drainage from the chest tube (more serous than sanguinous) A: Surgically stable P: Heimlich valve was put on low intermittent suction. This in an effort to help re-expand the lung, as well as provide a close system for this drainage will x-ray in the a.m.. Anticipate resolution of this pneumo by Friday.
--- NOTE | 2019-04-23 13:48 | EKG ---
Test Date: 2019-04-22 Test Time: 19:28:33 Riverboat Master: JESSIE MEASUREMENT RESULTS: Intervals: Rate: 75 SD: 92 QRSD: 136 QT: 396 QTc: 442 [place]: P: 23 SD: 92 QRS: 238 T: 26 INTERPRETIVE STATEMENTS: Electronic ventricular pacemaker Compared to ECG 04/03/2019 12:04:08 AV dual-paced complex(es) or rhythm no longer present Electronically Signed On 04-23-19 13:46:29 MACHINE SHORTHAND TEACHER by Hemanth Rai
[2019-04-23] MEDS: PANTOPRAZOLE 40MG TABLET PO SCH (17:16)
[2019-04-23] MEDS: SACUBITRIL/VALSARTAN 24/26 MG TAB PO SCH (20:37)
[2019-04-23] MEDS: ROSUVASTATIN 10 MG TAB PO SCH (20:37)
[2019-04-23] MEDS: DIPHENHYDRAMINE 25 MG TAB/CAP PO SCH (20:37)
[2019-04-23] MEDS: SOTALOL HCL 80 MG TAB PO SCH (20:37)
[2019-04-23] MEDS: ISOSORBIDE MONO 10 MG TAB PO SCH (20:37)
[2019-04-23] MEDS: CLOBETASOL PROPIONATE 0.05% TD SCH (21:00)
[2019-04-23] MEDS: THERA TEARS EACH EYE SCH (21:00)
--- NOTE | 2019-04-23 21:49 | HP ---
Date of Admission: 04/22/2019 Chief Complaint: Fall and pain. History Of Present Illness: This is an 83-year-old male patient who fell down yesterday in his house . The patient uses his walker and he reports that he was walking in the house from one room to anoth er room using his walker and he was going through a door, the wheel of the walker probably got stuck in the door frame and he lost balance and fell backwards. He was brought into the emergency room. Colton navas was complaining of pain in his rib cage area. Denied any hemoptysis. No shortness of breath was r eported. After he was evaluated in the ER, he was diagnosed as having 30% to 40% pneumothorax on the left side with multiple rib fractures on the left side. Chest tube was placed in the emergency room and that resulted in complete expansion of his left lung and the patient was admitted to intensive c are unit. Dr. Burkett, General Surgeon, who was on-call came on to emergency room to evaluate the jelly perez. I saw him this morning he was lying in bed in ICU and was feeling better. He continues to dee ve very frequent cough and some pain in his rib cage, but no other complaints reported by him. Hemod ynamically, he is stable. Allergies: TO AMIODARONE, NEOSPORIN CAUSING RASH. Medications: List reviewed. Review of Systems: Musculoskeletal: As mentioned above. Respiratory: As mentioned above. All other systems reviewed and negative. Past Medical History: Significant for chronic systolic congestive heart failure with ejection fracti on of about 25% to 29%, type 2 diabetes mellitus, COPD, hypertension, mixed hyperlipidemia, coronary artery disease, abdominal aortic aneurysm, gastroesophageal reflux disease, diverticulosis, renal cys t, fatigue. Last echocardiogram from 02/17/2019, showing ejection fraction 25% to 29%. Past Surgical History: Significant for cataract surgery, retinal tear surgery, coronary artery stent placement, coronary artery bypass surgery and surgery for abdominal aortic aneurysm, cholecystectomy , removal of squamous cell carcinoma of skin. Family History: Significant for father had abdominal aortic aneurysm. Mother had Alzheimer disease. Social History: Prior history of smoking not at present time. Use of alcohol negative. Physical Examination: Vital Signs: Temperature 97.6, pulse 67, respiratory rate 16, blood pressure 130/71, oxygen saturati on 97% on 2 L nasal cannula oxygen. General: Awake, alert, oriented, not in distress. HEENT: Head atraumatic, normocephalic. Conjunctivae nonerythematous. Sclerae white. Mouth, no thr ush or edema noted. Ears/Nose, no mass, lesion, discharge noted. Neck: Supple. No JVD, lymph nodes, bruit, thyromegaly noted. Lungs: Presence of some rales noted in lower lung field in the basal region with diminished air entr y in the lower lung field. Not using any accessory muscles of respiration and presence of chest tube in the left thoracic area. Heart: Normal heart sounds, no murmur or gallop. Abdomen: Soft, bowel sounds normal. No guarding, rigidity, tenderness, mass, hepatosplenomegaly, dis tention, or bruit noted. Extremities: No leg edema. No calf tenderness. Skin: Shows multiple bruising of extremities. Lymphatics: No lymph node enlargement in neck, supraclavicular, infraclavicular region. Neuro: No focal neurological deficit. Chest: Unremarkable. External Genitalia: Deferred. Rectal: Deferred. Laboratory Data: Yesterday, white count 7, hemoglobin 11.5, platelets 219. This morning, white coun t 6.8, hemoglobin 11.1, platelets 118, INR 0.99, fibrinogen 336. Yesterday, sodium 143, potassium 4. 6, chloride 110, bicarb 26, BUN 30, creatinine 1.25, glucose 200. Liver function tests unremarkable except SGOT 68. Troponin 0.02. Procalcitonin less than 0.05. This morning, sodium 145, potassium 4 .4, chloride 112, bicarb 28, BUN 29, creatinine 1.06, glucose 153. Digoxin level 1.50. Chest x-ray, approximately 30% to 40% pneumothorax, lateral left chest with multiple non-displaced ri b fractures. Heart and vasculature in the lung are prominent. Repeat chest x-ray from this morning shows stable chest, left-sided chest tube remains in place, patchy lung parenchymal opacification pre sent not clearly different and the lung has fully expanded. The radiologist reported a little or no measurable pneumothorax on the left side. Impression: 1.Left-sided pneumothorax, traumatic. 2.Multiple left-sided rib fractures secondary to fall. 3.Anemia, chronic. 4.Congestive heart failure, chronic, systolic. 5.Type 2 diabetes mellitus. 6.Chronic obstructive pulmonary disease. 7.Hypertension. 8.Mixed hyperlipidemia. 9.Coronary artery disease. 10.Abdominal aortic aneurysm. 11.Gastroesophageal reflux disease. 12.Diverticulosis. 13.Fatigue. 14.Renal cyst. Plan: Admit the patient to hospital for further evaluation and management of this problem. Patient is appropriate for inpatient and is expected to spend 2 midnights in hospital. Home medications will be continued per order. SCD was ordered for DVT prophylaxis. We will start his Plavix starting licha orrow morning per order. Oxygen nebulizer treatment will be given. Pain medications will be given p er order. Patient was noted to have very frequent coughing while I was in the room with him this mor ellie in ICU and we will go ahead and give him some cough syrup with codeine on a scheduled basis 4 ti mes a day to see how that helps to provide him relief with cough as well as pain. Consult Physical T herapy to help ambulate the patient and we will continue to follow up with General Surgeon, Dr. Lori garcía, for chest tube management. Continue current empiric antibiotics. Patient is at high risk of dev eloping pneumonia and incentive spirometer use was advised. I will see him tomorrow for followup. P atient is stable for transfer out of ICU to regular room. See copy of transfer order for more details. FILOMENA/MODL Voice ID: [id number]
--- NOTE | 2019-04-23 23:31 | CON ---
Date of Consultation: 04/23/[address] Subramanian's service on 04/22/2019. I saw the patient on 04/23/2019. History Of Present Illness: Mr. Tierney is known to us from previous hospital admissions. He sees Dr Arnoldo Yancey in [place] from a cardiology standpoint. He has chronic systolic congestive heart failure with an ejection fraction of 25% to 29%. He has a defibrillator. He has had severe coronary artery disease. He has had 2 separate bypass surgery. He has had a cardiac arrest in the past. Th e last catheterization by Dr. Yancey was done within the last year and he was told that he is not a ca ndidate for any more intervention. He has been treated medically for his coronary artery disease. F rom a congestive heart failure standpoint, he has a defibrillator, has not had any shocks recently. His AICD has been checked and has been functioning up appropriately. He also has a history of dyslip idemia, gastroesophageal reflux disease, diabetes, COPD, and abdominal aortic aneurysm as well as his tory of bladder cancer. He came in after a fall. He developed a pneumothorax, has a chest tube in p lace. A chest x-ray showed rib fracture and some mild congestive heart failure. When I saw him toda y, he is feeling much better, has diuresed. Denied any chest pain. Denied any palpitation. Denied any syncope. Denied any fever or chills. Denied any PND, orthopnea, or pedal edema. Past Medical History: As stated earlier. Review of Systems: Negative. Social History: Negative. Family History: Noncontributory. Medications: At home include: 1.Lasix. 2.Metformin. 3.Plavix. 4.Inhalers. 5.Digoxin. 6.Imdur. 7.Ranexa. 8.Crestor. 9.Entresto. 10.Protonix. He is presently taking his home medication. He is also on Lasix, Zosyn, and steroids. Physical Examination: GENERAL: Mr. Tierney is pleasant thin male in no acute distress. VITAL SIGNS: Stable afebrile. He was in a paced rhythm. HEENT: Negative. NECK: Supple without any bruit, lymphadenopathy, JVD, or thyromegaly. CHEST: To me sounded normal with poor airway movement, but no rales. CARDIAC: Showed sinus rhythm without any murmurs, gallops, or rubs. ABDOMEN: Thin, but benign. EXTREMITIES: Revealed no clubbing, cyanosis, or edema. Diagnostic Data: He had a GFR of 67, glucose of 153. His troponin was 0.08. [place] BNP was [address]. Impression And Plan: 1.Patient with severe coronary artery disease status post CABG twice. He has had multiple stents. Last catheterization Dr. Yancey recommended only medical therapy. He is on Ranexa and Imdur and Plavi x, as well as sotalol for atrial fibrillation. I think his congestive heart failure right now is acu te on chronic systolic congestive heart failure, that is mild. It has resolved with diuresis. 2.Status post pneumothorax with chest tube, still in place. Lungs appear to have expanded. I do no t hear any rales. He has poor airway movement, but no wheezing. 3.Chronic systolic congestive heart failure with acute exacerbation. Ejection fraction 25% to 29%. He is on appropriate therapy with Entresto and digoxin and sotalol. AICD has been checked recently. It is functioning appropriately. No change in medical therapy is recommended at this point. 4.His other problems include renal insufficiency stage II, diabetes, gastroesophageal reflux disease , and dyslipidemia. All of those are stable at this point. He has a history of abdominal aortic aneurysm that is being observed by Dr. Yancey. I will continue to follow him with Dr. Subramanian. CRISTIAN/BETTY Voice ID: [id number] Report ID: [id number]
[2019-04-24] MEDS: PIPER/TAZO/NS 3.375gm 3.375 GM/100 ML BAG IVPB SCH ×3 (00:08→16:57)
--- NOTE | 2019-04-24 07:41 | RAD REPORT ---
EXAM DESCRIPTION: RAD - Chest Single View - 04/24/2019 6:42 am CLINICAL HISTORY: Pneumothorax COMPARISON: April 23 TECHNIQUE: AP portable chest image was obtained [id number] hours . FINDINGS: Chest tube remains in place on the left. Rib fractures are only partially imaged but appea r stable in positioning. Cardiomegaly is stable. Right base opacification is present probably atelect asis rather than infiltrate. This can be monitored. No pleural fluid evident. No pneumothorax is identifiable. No acute aortic findings suspected. IMPRESSION: No change in positioning of the left-sided chest tube. No residual pneumothorax is ident ifiable. Anterior pneumothorax can be occult on a portable chest exam. Right base opacification could be atelectasis or infiltrate. This can be monitored on follow-up zandra isaacs.
[2019-04-24] MEDS: METFORMIN HCL 500 MG TAB PO SCH ×3 (08:28→16:57)
[2019-04-24] MEDS: DIGOXIN 0.125 MG TABLET PO SCH (08:28)
[2019-04-24] MEDS: CLOPIDOGREL 75 MG TABLET PO SCH (08:28)
[2019-04-24] MEDS: predniSONE 10 MG TAB PO SCH (08:29)
[2019-04-24] MEDS: SOTALOL HCL 80 MG TAB PO SCH ×2 (08:38→21:29)
[2019-04-24] MEDS: SACUBITRIL/VALSARTAN 24/26 MG TAB PO SCH ×2 (08:45→21:30)
[2019-04-24] MEDS: FLUNISOLIDE NAS SCH (08:46)
[2019-04-24] MEDS: FUROSEMIDE 20 MG/ 2ML VIAL IV SCH ×2 (08:46→16:59)
[2019-04-24] MEDS: ISOSORBIDE MONO 10 MG TAB PO SCH ×2 (08:46→21:31)
[2019-04-24] MEDS: GUAIFENESIN/CODEINE 5ML UCUP PO SCH ×4 (10:07→21:28)
--- NOTE | 2019-04-24 14:17 | PN ---
Date of Progress Note: 04/24/2019 Subjective: Patient was seen this morning for followup, lying in bed, not in distress. He was on me dical floor as he was transferred out of ICU. Hemodynamically, he is stable. Last night, nurses rep orted after he came to his room from ICU around 10 o'clock his bed alarm. Nursing staff went into e room right away saw that he was trying to get out of bed without calling anybody and he ended up lo sing balance at the bedside and hit his forearm against the end table. He has a small skin tear in e right forearm area. Denies any pain in his rib cage or anywhere else. His cough is significantly better compared to yesterday and this morning, when I visited him, he did not cough a single time. Y when I saw him, he was coughing every few seconds. Objective: Vital Signs: Reviewed. HEENT: Examination unremarkable. Lungs: Clear to auscultation. Heart: Sounds normal. Abdomen: Soft. Bowel sounds normal. No guarding, rigidity, tenderness, distention. Extremities: No leg edema. Right forearm has a skin tear present. No active bleeding. Impression: 1.Pneumothorax. 2.Multiple rib fractures, left side, traumatic. 3.Skin tear, right forearm. 4.Chronic systolic congestive heart failure. 5.Coronary artery disease. 6.Rule out pneumonia. Plan: Chest x-ray from today reviewed. Pneumothorax has resolved. Left lung has completely re-expa nded. There is some opacity in the right lung base, cannot rule out pneumonia. We will continue cur rent empiric antibiotic. Chest tube is in place. We will continue to follow with Dr. Burkett and he will decide at what point to remove the chest tube. Physical therapy to help ambulate the patient a nd the patient was advised not to get out of bed without calling for help as he needs assistance due to his weakness. His systolic blood pressure was around 100 this morning and I have advised nursing staff to hold his some of his medication if systolic blood pressure less than 110, but we will give h im his sotalol and Ranexa per order. FILOMENA/MODL Voice ID: [id number] Report ID: [id number]
[2019-04-24] MEDS: PANTOPRAZOLE 40MG TABLET PO SCH (16:56)
[2019-04-24] MEDS: CLOBETASOL PROPIONATE 0.05% TD SCH (21:00)
[2019-04-24] MEDS: THERA TEARS EACH EYE SCH (21:00)
[2019-04-24] MEDS: ROSUVASTATIN 10 MG TAB PO SCH (21:29)
[2019-04-24] MEDS: DIPHENHYDRAMINE 25 MG TAB/CAP PO SCH (21:29)
[2019-04-25] MEDS: PIPER/TAZO/NS 3.375gm 3.375 GM/100 ML BAG IVPB SCH ×3 (01:07→17:36)
[2019-04-25 04:39] LABS: Basophils % 0.8 % (0-1.3); Hematocrit 32.1 % (39.6-49.0); Lymphocytes % 12.9 % (15.3-44.8); MPV 9.3 fL (7.6-11.3)
[2019-04-25 04:51] LABS: Magnesium 1.8 mg/dL (1.8-2.4); Potassium 4.2 mmol/L (3.5-5.1)
[2019-04-25] MEDS: FLUNISOLIDE NAS SCH (08:49)
[2019-04-25] MEDS: predniSONE 10 MG TAB PO SCH (08:53)
[2019-04-25] MEDS: METFORMIN HCL 500 MG TAB PO SCH ×3 (08:53→17:36)
[2019-04-25] MEDS: SOTALOL HCL 80 MG TAB PO SCH ×2 (08:53→21:34)
[2019-04-25] MEDS: DIGOXIN 0.125 MG TABLET PO SCH (08:54)
[2019-04-25] MEDS: GUAIFENESIN/CODEINE 5ML UCUP PO SCH ×4 (08:54→21:34)
[2019-04-25] MEDS: SACUBITRIL/VALSARTAN 24/26 MG TAB PO SCH ×2 (08:54→21:34)
[2019-04-25] MEDS: ISOSORBIDE MONO 10 MG TAB PO SCH ×2 (08:54→21:34)
[2019-04-25] MEDS: CLOPIDOGREL 75 MG TABLET PO SCH (08:54)
[2019-04-25] MEDS: FUROSEMIDE 20 MG/ 2ML VIAL IV SCH ×2 (08:54→17:36)
--- NOTE | 2019-04-25 10:03 | RAD REPORT ---
EXAM DESCRIPTION: Juan Single View04/25/2019 6:40 am CLINICAL HISTORY: Pneumothorax COMPARISON: April 24, 2019 FINDINGS: The right lung opacities have mostly resolved. Left lung appears clear of acute infiltrat e Upper lobe vessels are prominent indicative of pulmonary venous hypertension The heart is moderately enlarged Pacemaker leads in place. Postsurgical changes involve the chest. A pneumothorax is not visualized. IMPRESSION: Right lung opacities have mostly resolved Pulmonary venous hypertension
--- NOTE | 2019-04-25 11:49 | EKG ---
Test Date: 2019-04-23 Test Time: 08:39:25 Adaptive Physical Educator: HENRI MEASUREMENT RESULTS: Intervals: Rate: 72 MO: 116 QRSD: 128 QT: 402 QTc: 440 [place]: P: -1 MO: 116 QRS: -10 T: -17 INTERPRETIVE STATEMENTS: AV sequential or dual chamber electronic pacemaker Compared to ECG 04/22/2019 19:28:33 Ventricular-paced complex(es) or rhythm no longer present Electronically Signed On 04-25-19 11:42:47 SHOTBLASTER by Hemanth Rai
--- NOTE | 2019-04-25 13:40 | PN ---
Date of Progress Note: 04/25/2019 Subjective: The patient was seen this morning for followup. No new complaints or problems reported by patient. He was lying in bed, not in any distress. Denies any pain anywhere except has left-side d ribcage pain with coughing, but not with breathing, and overall his cough is much better. Objective: Vital Signs: Reviewed. HEENT: Unremarkable. Lungs: Clear to auscultation except diminished air entry in lung bases. Heart: Heart sounds normal. ABDOMEN: Soft. Bowel sounds normal. No guarding, rigidity, tenderness, or distention. Extremities: No leg edema. Laboratory Data: White count 8.1, hemoglobin 10.5, platelets 166. Sodium 146, potassium 4.2, chlori de 110, bicarb 32, BUN 21, creatinine 0.97, glucose 87, magnesium 1.8. Impression: 1.Pneumothorax. 2.Anemia. 3.Chronic systolic congestive heart failure. 4.Chronic obstructive pulmonary disease. Plan: We will continue current medications. Patient still has chest tube in place. Today's chest x -ray is pending. We will follow up with Dr. Burkett who is wanting to see at what point he will be a ble to remove the chest tube; and yesterday the patient's blood pressure was low and once he was plac ed back in the bed, it came back to his baseline. We will see how he does today. I am concerned abo ut his ability to return directly back home upon discharge from the hospital the way his condition is at present time and I did talk to him about it. The patient, of course, would like to return back h ome if possible, but he understands that, that may not happen and we will request consultation from i npatient rehab to see whether he qualifies for inpatient rehab program or not. I will see him tomorrow for followup. FILOMENA/MODL Voice ID: [id number] Report ID: [id number]
[2019-04-25] MEDS: PANTOPRAZOLE 40MG TABLET PO SCH (17:36)
[2019-04-25] MEDS: CLOBETASOL PROPIONATE 0.05% TD SCH (21:00)
[2019-04-25] MEDS: THERA TEARS EACH EYE SCH (21:00)
[2019-04-25] MEDS: ROSUVASTATIN 10 MG TAB PO SCH (21:34)
[2019-04-25] MEDS: DIPHENHYDRAMINE 25 MG TAB/CAP PO SCH (21:34)
[2019-04-26] MEDS: PIPER/TAZO/NS 3.375gm 3.375 GM/100 ML BAG IVPB SCH ×3 (00:53→18:05)
[2019-04-26] MEDS: SACUBITRIL/VALSARTAN 24/26 MG TAB PO SCH ×2 (09:00→21:05)
[2019-04-26] MEDS: ENSURE CLEAR 200 ML CAN PO SCH ×3 (09:00→21:08)
[2019-04-26] MEDS: FLUNISOLIDE NAS SCH (09:00)
[2019-04-26] MEDS: ISOSORBIDE MONO 10 MG TAB PO SCH ×2 (09:00→21:05)
[2019-04-26] MEDS: FUROSEMIDE 20 MG/ 2ML VIAL IV SCH ×2 (09:00→18:05)
[2019-04-26] MEDS: DIGOXIN 0.125 MG TABLET PO SCH (09:33)
[2019-04-26] MEDS: CLOPIDOGREL 75 MG TABLET PO SCH (09:33)
[2019-04-26] MEDS: SOTALOL HCL 80 MG TAB PO SCH ×2 (09:33→21:05)
[2019-04-26] MEDS: METFORMIN HCL 500 MG TAB PO SCH ×3 (09:33→17:21)
[2019-04-26] MEDS: predniSONE 10 MG TAB PO SCH (09:33)
[2019-04-26] MEDS: GUAIFENESIN/CODEINE 5ML UCUP PO SCH ×4 (09:34→21:05)
[2019-04-26] MEDS: PANTOPRAZOLE 40MG TABLET PO SCH (17:22)
[2019-04-26] MEDS: THERA TEARS EACH EYE SCH (21:00)
[2019-04-26] MEDS: CLOBETASOL PROPIONATE 0.05% TD SCH (21:00)
[2019-04-26] MEDS: ROSUVASTATIN 10 MG TAB PO SCH (21:05)
[2019-04-26] MEDS: DIPHENHYDRAMINE 25 MG TAB/CAP PO SCH (21:07)
[2019-04-27] MEDS: PIPER/TAZO/NS 3.375gm 3.375 GM/100 ML BAG IVPB SCH ×3 (01:00→17:00)
--- NOTE | 2019-04-27 02:51 | PN ---
Date of Progress Note: 04/26/2019 Subjective: Patient was seen this morning for followup. No new complaints or problems reported by katina telles. Lying in bed, not in any distress. Chest tube came out yesterday. Denies any complaints ex cept pain in the left rib cage, especially with coughing, not with breathing. Objective: Vital Signs: Reviewed. HEENT: Unremarkable. Lungs: Clear to auscultation. Heart: Heart sounds normal. Abdomen: Bowel sounds normal. No guarding, rigidity, tenderness, or distention. Extremities: No leg edema. Impression: 1.Left-sided pneumothorax. 2.Multiple rib fractures. 3.Chronic obstructive pulmonary disease. 4.Coronary artery disease. 5.Chronic systolic congestive heart failure. Plan: We will continue current medications, antibiotics, physical therapy, social service to assist the patient with the discharge planning and I will see him tomorrow for followup. FILOMENA/MODL Voice ID: [id number] Report ID: [id number]
[2019-04-27] MEDS: FLUNISOLIDE NAS SCH (09:00)
[2019-04-27] MEDS: ENSURE CLEAR 200 ML CAN PO SCH ×3 (09:00→21:13)
[2019-04-27] MEDS: FUROSEMIDE 20 MG/ 2ML VIAL IV SCH ×2 (09:06→17:43)
[2019-04-27] MEDS: DIGOXIN 0.125 MG TABLET PO SCH (09:07)
[2019-04-27] MEDS: CLOPIDOGREL 75 MG TABLET PO SCH (09:10)
[2019-04-27] MEDS: SACUBITRIL/VALSARTAN 24/26 MG TAB PO SCH ×2 (09:10→21:12)
[2019-04-27] MEDS: ISOSORBIDE MONO 10 MG TAB PO SCH ×2 (09:10→21:12)
[2019-04-27] MEDS: predniSONE 10 MG TAB PO SCH (09:10)
[2019-04-27] MEDS: SOTALOL HCL 80 MG TAB PO SCH ×2 (09:10→21:12)
[2019-04-27] MEDS: METFORMIN HCL 500 MG TAB PO SCH ×3 (09:10→17:43)
[2019-04-27] MEDS: GUAIFENESIN/CODEINE 5ML UCUP PO SCH ×4 (10:05→21:12)
[2019-04-27] MEDS: PANTOPRAZOLE 40MG TABLET PO SCH (17:43)
--- NOTE | 2019-04-27 19:42 | PN ---
Date of Progress Note: 04/27/2019 Subjective: Patient was seen this afternoon for followup. No new complaints or problems reported by him earlier this morning. Objective: Vital Signs: Orthostatic vitals show blood pressure changes. Supine blood pressure was 121/64 with pulse 70, sitting blood pressure 100/60 with pulse 74, standing blood pressure 90/51 with pulse 81. When I saw him, he was sitting in the wheelchair. Vital signs reviewed. HEENT: Unremarkable. Lungs: Clear to auscultation. Heart: Sounds normal. Abdomen: Soft. Bowel sounds normal. No guarding, rigidity, tenderness, or distention. Extremities: No leg edema. Impression: 1.Multiple rib fracture. 2.Pneumonia. 3.Chronic obstructive pulmonary disease. 4.Chronic systolic congestive heart failure. 5.Weakness. 6.Debility. Plan: We will continue current medication, antibiotic, oxygen nebulizer treatment. Physical therapy and I will see him tomorrow for followup. We are waiting on approval from insurance [employer] for rajendra ab request. FILOMENA/MODL Voice ID: [id number] Report ID: [id number]
[2019-04-27] MEDS: CLOBETASOL PROPIONATE 0.05% TD SCH (21:00)
[2019-04-27] MEDS: THERA TEARS EACH EYE SCH (21:00)
[2019-04-27] MEDS: DIPHENHYDRAMINE 25 MG TAB/CAP PO SCH (21:12)
[2019-04-27] MEDS: ROSUVASTATIN 10 MG TAB PO SCH (21:12)
[2019-04-28] MEDS: PIPER/TAZO/NS 3.375gm 3.375 GM/100 ML BAG IVPB SCH ×3 (00:18→16:27)
[2019-04-28] MEDS: predniSONE 10 MG TAB PO SCH (08:24)
[2019-04-28] MEDS: CLOPIDOGREL 75 MG TABLET PO SCH (08:25)
[2019-04-28] MEDS: DIGOXIN 0.125 MG TABLET PO SCH (08:25)
[2019-04-28] MEDS: GUAIFENESIN/CODEINE 5ML UCUP PO SCH ×4 (08:25→20:42)
[2019-04-28] MEDS: METFORMIN HCL 500 MG TAB PO SCH ×3 (08:25→16:28)
[2019-04-28] MEDS: SOTALOL HCL 80 MG TAB PO SCH ×2 (08:29→20:42)
[2019-04-28] MEDS: FUROSEMIDE 20 MG/ 2ML VIAL IV SCH (09:00)
[2019-04-28] MEDS: FLUNISOLIDE NAS SCH (09:00)
[2019-04-28] MEDS: ISOSORBIDE MONO 10 MG TAB PO SCH ×2 (10:42→20:42)
[2019-04-28] MEDS: SACUBITRIL/VALSARTAN 24/26 MG TAB PO SCH ×2 (10:42→20:42)
[2019-04-28] MEDS: ENSURE CLEAR 200 ML CAN PO SCH ×3 (10:43→20:43)
[2019-04-28 11:31] LABS: Absolute Lymphocytes (CBC) 0.8 K/uL (0.7-4.9); Basophils % 0.8 % (0-1.3); Hematocrit 38.3 % (39.6-49.0); Lymphocytes % 8.7 % (15.3-44.8); MPV 8.9 fL (7.6-11.3); RBC Red Blood Cell Count 4.14 M/uL (4.33-5.43)
[2019-04-28 11:46] LABS: Magnesium 1.7 mg/dL (1.8-2.4); Potassium 3.6 mmol/L (3.5-5.1)
[2019-04-28] MEDS ORDERED: MAGNESIUM SULFATE 1 gm IVPB 1 GM/100 ML BAG IV ONE (11:49)
[2019-04-28] MEDS ORDERED: POTASSIUM CL SA 10 MEQ TAB PO ONE (11:49)
--- NOTE | 2019-04-28 13:13 | PN ---
Date of Progress Note: 04/28/2019 Subjective: Patient was seen this morning for followup. He was sitting in a chair next to the bed w hen I saw him. He did ambulate with physical therapy, had to stop once because his leg was getting t ired. Denies any other complaints. Vital signs reviewed. His pain in the left ribcage with coughin g or movement remains unchanged. Not coughing up any mucus. Physical Examination: HEENT: Unremarkable. Lungs: Clear to auscultation. No rhonchi. No rales. Heart: Sounds normal. Abdomen: Soft. Bowel sounds normal. No guarding, rigidity, tenderness, or distention. Extremities: No leg edema. Laboratory Data: White count 9.6, hemoglobin 12.2, platelets 227. Sodium 140, potassium 3.6, chlori de 103, bicarb 35, BUN 19, creatinine 0.98, glucose 144, magnesium 1.7. Impression: 1.Pneumonia. 2.Pneumothorax. 3.Multiple rib fracture. 4.Chronic systolic congestive heart failure. 5.Chronic obstructive pulmonary disease. 6.Hypomagnesemia. 7.Anemia. Plan: We will replace magnesium per order. Considering potassium level, we will also give one dose of oral potassium replacement. Discontinue IV Lasix that the patient was getting so far. Continue o ther current medication. Systolic blood pressure was around 100 and appropriate orders given to nurs ing staff to hold medications if systolic blood pressure less than 100. His Ranexa and sotalol will be on hold if systolic blood pressure less than 110. I will see him tomorrow for followup. FILOMENA/MODL Voice ID: [id number] Report ID: [id number]
[2019-04-28] MEDS: PANTOPRAZOLE 40MG TABLET PO SCH (16:28)
[2019-04-28] MEDS: THERA TEARS EACH EYE SCH (20:35)
[2019-04-28] MEDS: CLOBETASOL PROPIONATE 0.05% TD SCH (20:35)
[2019-04-28] MEDS: ROSUVASTATIN 10 MG TAB PO SCH (20:42)
[2019-04-28] MEDS: DIPHENHYDRAMINE 25 MG TAB/CAP PO SCH (20:42)
[2019-04-29] MEDS: PIPER/TAZO/NS 3.375gm 3.375 GM/100 ML BAG IVPB SCH ×3 (00:39→16:49)
[2019-04-29] MEDS: CLOPIDOGREL 75 MG TABLET PO SCH (08:56)
[2019-04-29] MEDS: METFORMIN HCL 500 MG TAB PO SCH ×3 (08:57→16:48)
[2019-04-29] MEDS: GUAIFENESIN/CODEINE 5ML UCUP PO SCH ×4 (08:57→21:07)
[2019-04-29] MEDS: predniSONE 10 MG TAB PO SCH (08:57)
[2019-04-29] MEDS: DIGOXIN 0.125 MG TABLET PO SCH (08:58)
[2019-04-29] MEDS: ISOSORBIDE MONO 10 MG TAB PO SCH ×2 (08:58→21:07)
[2019-04-29] MEDS: SACUBITRIL/VALSARTAN 24/26 MG TAB PO SCH ×2 (08:59→21:08)
[2019-04-29] MEDS: FLUNISOLIDE NAS SCH (09:00)
[2019-04-29] MEDS: ENSURE CLEAR 200 ML CAN PO SCH ×3 (09:00→21:00)
[2019-04-29] MEDS: SOTALOL HCL 80 MG TAB PO SCH ×2 (09:00→21:07)
--- NOTE | 2019-04-29 09:42 | RAD REPORT ---
EXAM DESCRIPTION: RAD - Chest Pa And Lat (2 Views) - 04/29/2019 8:47 am CLINICAL HISTORY: pneumoniapneumonia COMPARISON: April 25 TECHNIQUE: PA and lateral views of the chest were obtained. FINDINGS: The lungs are better aerated. Lung opacity seen April 25 have mostly cleared. No new or progressive lung parenchymal process. Heart size and vasculature are normal range for portable vannessa ging. Defibrillator remains in place. No new tube or line. Small pleural effusions are present. No pneumothorax. No acute bony finding noted. No aortic abnorm ality. IMPRESSION: Near complete clearing of the lung parenchymal opacification seen April 25. Small bilateral pleural effusions remain.
[2019-04-29] MEDS: PANTOPRAZOLE 40MG TABLET PO SCH (16:48)
[2019-04-29] MEDS: CLOBETASOL PROPIONATE 0.05% TD SCH (21:00)
[2019-04-29] MEDS: THERA TEARS EACH EYE SCH (21:00)
[2019-04-29] MEDS: DIPHENHYDRAMINE 25 MG TAB/CAP PO SCH (21:07)
[2019-04-29] MEDS: ROSUVASTATIN 10 MG TAB PO SCH (21:08)
--- NOTE | 2019-04-29 22:05 | PN ---
Date of Progress Note: 04/29/2019 Subjective: Patient was seen this morning for followup. No new complaints or problems reported by t he patient. He was lying in bed, not in distress. Objective: Vital Signs: Reviewed. HEENT: Unremarkable. Lungs: Clear to auscultation. No rales. No rhonchi. Heart: Heart sounds normal. Abdomen: Soft, bowel sounds normal. No guarding, rigidity, tenderness, distention. Extremities: No leg edema. Laboratory Data: Yesterday's blood work results reviewed. WBC was 9.6, hemoglobin 12.2, and platele ts 227. Chemistry was unremarkable. Bicarb 35, BUN 19, glucose 144, magnesium 1.7, and magnesium wa s corrected yesterday. Impression: 1.Pneumonia. 2.Rib fracture. 3.Hypomagnesemia. 4.Generalized weakness. 5.Debility. Plan: We will get a chest x-ray done today for followup on pneumonia. Physical therapy to continue to work with the patient. Awaiting for Social Service to make arrangements for disposition. Rehab r equest is in place. We are awaiting for insurance company's decision to see whether he will be appro stacie for inpatient rehab therapy or not. FILOMENA/MODL Voice ID: [id number] Report ID: [id number]
[2019-04-30] MEDS: PIPER/TAZO/NS 3.375gm 3.375 GM/100 ML BAG IVPB SCH ×3 (01:01→16:14)
[2019-04-30 06:01] LABS: Absolute Lymphocytes (CBC) 1.4 K/uL (0.7-4.9); Basophils % 0.5 % (0-1.3); Hematocrit 31.9 % (39.6-49.0); Lymphocytes % 19.9 % (15.3-44.8); MPV 9.1 fL (7.6-11.3); RBC Red Blood Cell Count 3.48 M/uL (4.33-5.43)
[2019-04-30 06:17] LABS: Magnesium 1.8 mg/dL (1.8-2.4); Potassium 3.5 mmol/L (3.5-5.1)
[2019-04-30] MEDS: CLOPIDOGREL 75 MG TABLET PO SCH (08:59)
[2019-04-30] MEDS: ISOSORBIDE MONO 10 MG TAB PO SCH ×2 (08:59→22:29)
[2019-04-30] MEDS: predniSONE 10 MG TAB PO SCH (08:59)
[2019-04-30] MEDS: SOTALOL HCL 80 MG TAB PO SCH ×2 (08:59→22:28)
[2019-04-30] MEDS: FLUNISOLIDE NAS SCH (09:00)
[2019-04-30] MEDS: METFORMIN HCL 500 MG TAB PO SCH ×3 (09:00→16:14)
[2019-04-30] MEDS: DIGOXIN 0.125 MG TABLET PO SCH (09:00)
[2019-04-30] MEDS: SACUBITRIL/VALSARTAN 24/26 MG TAB PO SCH ×2 (09:00→22:29)
[2019-04-30] MEDS: GUAIFENESIN/CODEINE 5ML UCUP PO SCH ×4 (09:02→22:28)
[2019-04-30] MEDS: ENSURE CLEAR 200 ML CAN PO SCH ×3 (09:06→22:29)
[2019-04-30] MEDS: PANTOPRAZOLE 40MG TABLET PO SCH (16:14)
--- NOTE | 2019-04-30 17:42 | PN ---
Date of Progress Note: 04/30/2019 Subjective: Patient was seen this morning for followup. No new complaints or problems reported by katina telles. Denies any chest pain, shortness of breath. He ambulates with the therapy. Objective: Vital Signs: Reviewed. HEENT: Unremarkable. Lungs: Clear to auscultation. Heart: Sounds normal. Abdomen: Soft. Bowel sounds normal. No guarding, rigidity, tenderness, or distention. Extremities: No leg edema. Laboratory Data: White count 7, hemoglobin 10.4, platelets 108. Sodium 143, potassium 3.5, chloride 107, bicarb 32, BUN 18, creatinine 0.92, glucose 110, magnesium 1.8. Impression: 1.Pneumonia. 2.Pneumothorax, resolved. 3.Multiple rib fractures. 4.Continues to have chronic obstructive pulmonary disease. 5.Chronic systolic congestive heart failure. Plan: Continue current medications. We will go ahead and continue current antibiotic. Physical the rapy to continue to work with the patient and we are waiting for insurance [employer]'s approval for [facility] rehab benefit. If insurance company refuses, then we will have psychotherapist social worker assist him with long term facility placement. As per my discussion with the patient today, he informed me that, that is what he would like to do as a second option. FILOMENA/MODL Voice ID: [id number] Report ID: [id number]
[2019-04-30] MEDS: CLOBETASOL PROPIONATE 0.05% TD SCH (21:00)
[2019-04-30] MEDS: THERA TEARS EACH EYE SCH (21:00)
[2019-04-30] MEDS: DIPHENHYDRAMINE 25 MG TAB/CAP PO SCH (22:29)
[2019-04-30] MEDS: ROSUVASTATIN 10 MG TAB PO SCH (22:29)
[2019-05-01] MEDS: PIPER/TAZO/NS 3.375gm 3.375 GM/100 ML BAG IVPB SCH ×2 (00:41→08:53)
[2019-05-01] MEDS ORDERED: ALBUTEROL 2.5 MG/3 ML NEB SOL NEB PRN (08:00)
[2019-05-01] MEDS ORDERED: IPRATROPIUM BROM 0.5MG/2.5ML NEB PRN (08:00)
[2019-05-01] MEDS: SOTALOL HCL 80 MG TAB PO SCH ×2 (08:51→21:00)
[2019-05-01] MEDS: METFORMIN HCL 500 MG TAB PO SCH ×3 (08:51→16:53)
[2019-05-01] MEDS: predniSONE 10 MG TAB PO SCH (08:52)
[2019-05-01] MEDS: SACUBITRIL/VALSARTAN 24/26 MG TAB PO SCH ×2 (08:52→21:44)
[2019-05-01] MEDS: DIGOXIN 0.125 MG TABLET PO SCH (08:52)
[2019-05-01] MEDS: CLOPIDOGREL 75 MG TABLET PO SCH (08:52)
[2019-05-01] MEDS: ISOSORBIDE MONO 10 MG TAB PO SCH ×2 (08:52→21:44)
[2019-05-01] MEDS: GUAIFENESIN/CODEINE 5ML UCUP PO SCH ×4 (08:53→21:44)
[2019-05-01] MEDS: FLUNISOLIDE NAS SCH (08:53)
[2019-05-01] MEDS: ENSURE CLEAR 200 ML CAN PO SCH ×3 (08:57→21:00)
--- NOTE | 2019-05-01 15:13 | PN ---
Date of Progress Note: 05/01/2019 Subjective: Patient was seen this morning for followup. No new complaints or problems reported by katina telles. He was sleeping, easily arousable, not in distress. Denies any chest pain, shortness of mikael ath. Did not have bowel movement yesterday, but he reports having bowel movement day before yesterda y. Objective: Vital Signs: Reviewed. HEENT: Unremarkable. Lungs: Clear to auscultation. Heart: Sounds normal. Abdomen: Soft. Bowel sounds normal. No guarding, rigidity, tenderness, or distention. Extremities: No leg edema. Impression: 1.Pneumonia, resolved. 2.Chronic obstructive pulmonary disease. 3.Congestive heart failure, systolic. 4.Generalized weakness. 5.Debility. 6.Multiple rib fractures. Plan: We will continue current medications. Discontinue Zosyn. This patient has received adequate therapy for his pneumonia. Continue other current treatment including oxygen nebulizer treatment and other current medical management. Social service is working with insurance [employer] and so far we dee ve not received any decision from insurance [employer] regarding request for inpatient rehab stay. Yest scott, I did talk to social work coordinator and informed her that if insurance company refuses inpatient rehab benefit, then patient would like to go to correction facility and for social service to assist patient with that if it becomes necessary. FILOMENA/MODL Voice ID: [id number] Report ID: [id number]
[2019-05-01] MEDS: PANTOPRAZOLE 40MG TABLET PO SCH (16:53)
[2019-05-01] MEDS: THERA TEARS EACH EYE SCH (21:00)
[2019-05-01] MEDS: CLOBETASOL PROPIONATE 0.05% TD SCH (21:00)
[2019-05-01] MEDS: ROSUVASTATIN 10 MG TAB PO SCH (21:45)
[2019-05-01] MEDS: DIPHENHYDRAMINE 25 MG TAB/CAP PO SCH (21:45)
[2019-05-02] MEDS: FLUNISOLIDE NAS SCH (09:00)
[2019-05-02] MEDS: predniSONE 10 MG TAB PO SCH (09:27)
[2019-05-02] MEDS: SOTALOL HCL 80 MG TAB PO SCH ×2 (09:27→21:40)
[2019-05-02] MEDS: DIGOXIN 0.125 MG TABLET PO SCH (09:27)
[2019-05-02] MEDS: ISOSORBIDE MONO 10 MG TAB PO SCH ×2 (09:27→21:40)
[2019-05-02] MEDS: SACUBITRIL/VALSARTAN 24/26 MG TAB PO SCH ×2 (09:27→21:40)
[2019-05-02] MEDS: METFORMIN HCL 500 MG TAB PO SCH ×3 (09:28→16:52)
[2019-05-02] MEDS: ENSURE CLEAR 200 ML CAN PO SCH ×3 (09:28→21:00)
[2019-05-02] MEDS: CLOPIDOGREL 75 MG TABLET PO SCH (09:28)
[2019-05-02] MEDS: GUAIFENESIN/CODEINE 5ML UCUP PO SCH ×4 (09:38→21:39)
[2019-05-02] MEDS: PANTOPRAZOLE 40MG TABLET PO SCH (16:52)
--- NOTE | 2019-05-02 16:53 | PN ---
Date of Progress Note: 05/02/2019 Subjective: Patient was seen this morning for followup. No new complaints or problems reported by katina telles. He was sitting in the chair, eating his breakfast. Has some cough, but not coughing up any mucus. No shortness of breath. No nausea, no vomiting. Objective: Vital Signs: Reviewed. HEENT: Unremarkable. Lungs: Clear to auscultation. No crackles. No wheezing. Heart: Sounds normal. Abdomen: Soft. Bowel sounds normal. No guarding, rigidity, tenderness, or distention. Extremities: No leg edema. Impression: 1.Multiple rib fracture, left side. 2.Pneumonia, resolved. 3.Chronic obstructive pulmonary disease. 4.Chronic systolic congestive heart failure. 5.Coronary artery disease. 6.Generalized weakness. 7.Debility. Plan: Continue current medications. Continue oxygen nebulizer treatment, chronic steroid therapy, a nd other current medical management hopefully by tomorrow. We should hear from insurance [employer] mor quintero decision on inpatient rehab stay. FILOMENA/MODL Voice ID: [id number] Report ID: [id number]
[2019-05-02] MEDS: THERA TEARS EACH EYE SCH (21:00)
[2019-05-02] MEDS: CLOBETASOL PROPIONATE 0.05% TD SCH (21:00)
[2019-05-02] MEDS: ROSUVASTATIN 10 MG TAB PO SCH (21:40)
[2019-05-02] MEDS: DIPHENHYDRAMINE 25 MG TAB/CAP PO SCH (21:40)
[2019-05-03 04:37] LABS: Absolute Lymphocytes (CBC) 1.5 K/uL (0.7-4.9); Basophils % 0.6 % (0-1.3); Hematocrit 32.6 % (39.6-49.0); Lymphocytes % 19.4 % (15.3-44.8)
[2019-05-03 04:52] LABS: Magnesium 1.8 mg/dL (1.8-2.4); Potassium 4.1 mmol/L (3.5-5.1)
[2019-05-03] MEDS: ISOSORBIDE MONO 10 MG TAB PO SCH ×2 (08:08→21:13)
[2019-05-03] MEDS: DIGOXIN 0.125 MG TABLET PO SCH (08:08)
[2019-05-03] MEDS: SOTALOL HCL 80 MG TAB PO SCH ×2 (08:09→21:12)
[2019-05-03] MEDS: predniSONE 10 MG TAB PO SCH (08:09)
[2019-05-03] MEDS: SACUBITRIL/VALSARTAN 24/26 MG TAB PO SCH ×2 (08:09→21:14)
[2019-05-03] MEDS: METFORMIN HCL 500 MG TAB PO SCH ×3 (08:09→16:49)
[2019-05-03] MEDS: CLOPIDOGREL 75 MG TABLET PO SCH (08:09)
[2019-05-03] MEDS: GUAIFENESIN/CODEINE 5ML UCUP PO SCH ×4 (08:10→21:12)
[2019-05-03] MEDS: FLUNISOLIDE NAS SCH (08:13)
[2019-05-03] MEDS: ENSURE CLEAR 200 ML CAN PO SCH ×2 (08:49→14:00)
[2019-05-03] MEDS: PANTOPRAZOLE 40MG TABLET PO SCH (16:49)
[2019-05-03] MEDS: CLOBETASOL PROPIONATE 0.05% TD SCH (21:00)
[2019-05-03] MEDS: THERA TEARS EACH EYE SCH (21:00)
[2019-05-03] MEDS: DIPHENHYDRAMINE 25 MG TAB/CAP PO SCH (21:13)
[2019-05-03] MEDS: ROSUVASTATIN 10 MG TAB PO SCH (21:13)
[2019-05-03] MEDS: ENSURE ENLIVE 237 ML CAN PO SCH (21:14)
--- NOTE | 2019-05-03 23:51 | PN ---
Date of Progress Note: 05/03/2019 Subjective: Patient was seen this morning for followup. No new complaints or problems reported. Pa tient lying in bed, not in distress. Objective: Vital Signs: Reviewed. HEENT: Unremarkable. Lungs: Clear to auscultation. No rhonchi or rales. Heart: Sounds normal. Abdomen: Soft. Bowel sounds normal. No guarding, rigidity, tenderness, or distention. Extremities: No leg edema. Laboratory Data: White count 8, hemoglobin 10.7, platelets 209. Sodium 145, potassium 4.1, chloride 110, bicarb 32, BUN 17, creatinine 0.96, glucose 111, magnesium 1.8. Impression: 1.Pneumonia. 2.Chronic obstructive pulmonary disease. 3.Chronic systolic congestive heart failure. 4.Multiple left-sided rib fractures. 5.Debility. 6.Generalized weakness. Plan: Continue current medications. Continue physical therapy. I was notified today that patient's insurance company has refused inpatient rehab benefit, so now Social Service is assisting patient an d family with [facility] facility placement. FILOMENA/MODL Voice ID: [id number] Report ID: [id number]
[2019-05-04] MEDS: SOTALOL HCL 80 MG TAB PO SCH ×2 (08:31→20:57)
[2019-05-04] MEDS: GUAIFENESIN/CODEINE 5ML UCUP PO SCH ×4 (08:31→20:56)
[2019-05-04] MEDS: CLOPIDOGREL 75 MG TABLET PO SCH (08:31)
[2019-05-04] MEDS: METFORMIN HCL 500 MG TAB PO SCH ×3 (08:32→16:00)
[2019-05-04] MEDS: SACUBITRIL/VALSARTAN 24/26 MG TAB PO SCH ×2 (08:32→20:56)
[2019-05-04] MEDS: predniSONE 10 MG TAB PO SCH (08:32)
[2019-05-04] MEDS: DIGOXIN 0.125 MG TABLET PO SCH (08:32)
[2019-05-04] MEDS: FLUNISOLIDE NAS SCH (08:33)
[2019-05-04] MEDS: ENSURE ENLIVE 237 ML CAN PO SCH ×2 (08:34→20:56)
[2019-05-04] MEDS: ISOSORBIDE MONO 10 MG TAB PO SCH ×2 (10:26→20:57)
[2019-05-04] MEDS: PANTOPRAZOLE 40MG TABLET PO SCH (16:00)
[2019-05-04] MEDS: ROSUVASTATIN 10 MG TAB PO SCH (20:56)
[2019-05-04] MEDS: CLOBETASOL PROPIONATE 0.05% TD SCH (20:57)
[2019-05-04] MEDS: DIPHENHYDRAMINE 25 MG TAB/CAP PO SCH (20:57)
[2019-05-04] MEDS: THERA TEARS EACH EYE SCH (20:58)
--- NOTE | 2019-05-05 00:13 | PN ---
Date of Progress Note: 05/04/2019 Subjective: Patient was seen this morning for followup. No new complaints or problems reported by t he patient. He was sitting in chair. Denied any specific complaints. Objective: Vital signs: Reviewed. HEENT: Unremarkable. Lungs: Clear to auscultation. Heart: Sounds normal. Abdomen: Soft. Bowel sounds normal. No guarding, rigidity, tenderness, distention. Extremities: No leg edema. Impression: 1.Multiple rib fracture. 2.Chronic obstructive pulmonary disease. 3.Congestive heart failure, chronic, diastolic. 4.Debility. 5.Generalized weakness. Plan: Social Service is assisting patient with long term placement. Once completed, we will be a ble to discharge him to go to facility of his choice. Patient is medically stable for discharge. FILOMENA/MODL Voice ID: [id number] Report ID: [id number]
[2019-05-05] MEDS: CLOPIDOGREL 75 MG TABLET PO SCH (08:18)
[2019-05-05] MEDS: predniSONE 10 MG TAB PO SCH (08:18)
[2019-05-05] MEDS: GUAIFENESIN/CODEINE 5ML UCUP PO SCH ×4 (08:18→21:48)
[2019-05-05] MEDS: METFORMIN HCL 500 MG TAB PO SCH ×3 (08:18→16:11)
[2019-05-05] MEDS: ISOSORBIDE MONO 10 MG TAB PO SCH ×2 (08:18→21:49)
[2019-05-05] MEDS: DIGOXIN 0.125 MG TABLET PO SCH (08:18)
[2019-05-05] MEDS: ENSURE ENLIVE 237 ML CAN PO SCH ×2 (08:18→21:00)
[2019-05-05] MEDS: SOTALOL HCL 80 MG TAB PO SCH ×2 (08:19→21:49)
[2019-05-05] MEDS: FLUNISOLIDE NAS SCH (08:19)
[2019-05-05] MEDS: SACUBITRIL/VALSARTAN 24/26 MG TAB PO SCH ×2 (08:19→21:48)
--- NOTE | 2019-05-05 15:37 | PN ---
Date of Progress Note: 05/05/2019 Subjective: Patient was seen this morning for followup. Lying in bed. Had no complaints this rolando isaacs when I saw him. Objective: Vital Signs: Reviewed. HEENT: Unremarkable. Lungs: Clear to auscultation. Heart: Sounds normal. Abdomen: Soft. Bowel sounds normal. No guarding, rigidity, tenderness, distension. Extremities: No leg edema. Impression: 1.Multiple left-sided rib fracture. 2.Pneumothorax, resolved. 3.Pneumonia, resolved. 4.Chronic obstructive pulmonary disease. 5.Chronic systolic congestive heart failure. Plan: Continue current medications. Physical therapy to continue to work with the patient and patie nt is medically stable for discharge, but we are waiting for insurance company's approval for patient to go to [facility] facility and social service is working on it. FILOMENA/MODL Voice ID: [id number] Report ID: [id number]
[2019-05-05] MEDS: PANTOPRAZOLE 40MG TABLET PO SCH (16:11)
[2019-05-05] MEDS: THERA TEARS EACH EYE SCH (21:00)
[2019-05-05] MEDS: CLOBETASOL PROPIONATE 0.05% TD SCH (21:00)
[2019-05-05] MEDS: ROSUVASTATIN 10 MG TAB PO SCH (21:48)
[2019-05-05] MEDS: DIPHENHYDRAMINE 25 MG TAB/CAP PO SCH (21:49)
--- NOTE | 2019-05-06 04:21 | DS ---
Date of Discharge: 05/05/2019 History: Patient was seen this morning for followup, lying in bed, not in any distress. Physical Examination: Vital Signs: Reviewed. HEENT: Unremarkable. Lungs: Clear to auscultation. Heart: Heart sounds normal. Abdomen: Soft, bowel sounds normal. No guarding, rigidity, tenderness, distention. Extremities: No leg edema. Discharge Medications And Instructions: 1.Continue all prior home medications. 2.Physical Therapy and Occupational Therapy consultation at [facility]. 3.See copy of discharge order for details. Hospital Course: An 83-year-old pleasant male patient, admitted to the hospital after he fell down a t home. Please see dictated H and P for more information. Patient was admitted to the hospital afte r he presented to emergency room with diagnosis of left-sided pneumothorax, which was result of a fal l and injury and multiple left-sided rib fractures resulting in this pneumothorax. He did require ch est tube placement and Dr. Burkett from General Surgery was consulted, who managed the patient's pneu mothorax and chest tube management. Initially, he was in intensive care unit. Subsequently, we ling sferred him out of ICU to regular room. Hemodynamically, he was stable. His lung completely re-expa nded with chest tube placement and after he was transferred out of ICU to regular room, Housing Project Manager nena was consulted. Few days later, his chest tube was removed and he also had some pneumonia in righ t lung base, which was treated with IV antibiotics Zosyn. We finished IV antibiotic therapy. Last c hest x-ray had shown almost complete resolution of this pneumonia. He has participated well with phy sical therapy. His other home medications were continued. Initially, we consulted inpatient rehab a nd after a few days of wait time the patient's insurance company notified us on Friday of this week t hat they refused inpatient rehab benefit, but they would approve [facility] benefit, so with aminah p of social service we did start the process of a [facility] facility placement and finally we g ot approval today, so he was discharged in stable condition. His pain from rib fracture has signific antly improved to the extent that he just has a little discomfort when he changes position or coughs, but no pain as he describes. Final Diagnoses: 1.Left-sided pneumothorax, traumatic. 2.Multiple left-sided rib fractures secondary to fall. 3.Anemia, chronic. 4.Congestive heart failure, chronic, systolic. 5.Chronic obstructive pulmonary disease. 6.Type 2 diabetes mellitus. 7.Hypertension. 8.Generalized weakness. 9.Debility. 10.Mixed hyperlipidemia. 11.Coronary artery disease. 12.Abdominal aortic aneurysm. 13.Gastroesophageal reflux disease. 14.Diverticulosis. 15.Fatigue. 16.Renal cyst. Laboratory Data: Labs done during this hospitalization: Last blood work on 05/03/2019, sodium 145, potassium 4.1, chloride 110, bicarb 32, BUN 17, creatinine 0.96, glucose 111, magnesium 1.8. Last CB C on 05/03/2019, white count 8, hemoglobin 10.7, platelets 209. FILOMENA/MODL Voice ID: [id number] Report ID: [id number]
[2019-05-06] MEDS: SACUBITRIL/VALSARTAN 24/26 MG TAB PO SCH ×2 (08:52→21:05)
[2019-05-06] MEDS: ISOSORBIDE MONO 10 MG TAB PO SCH ×2 (08:52→21:05)
[2019-05-06] MEDS: predniSONE 10 MG TAB PO SCH (08:52)
[2019-05-06] MEDS: GUAIFENESIN/CODEINE 5ML UCUP PO SCH ×4 (08:52→21:05)
[2019-05-06] MEDS: METFORMIN HCL 500 MG TAB PO SCH ×3 (08:53→16:43)
[2019-05-06] MEDS: CLOPIDOGREL 75 MG TABLET PO SCH (08:53)
[2019-05-06] MEDS: SOTALOL HCL 80 MG TAB PO SCH ×2 (08:53→21:05)
[2019-05-06] MEDS: DIGOXIN 0.125 MG TABLET PO SCH (08:53)
[2019-05-06] MEDS: ENSURE ENLIVE 237 ML CAN PO SCH ×2 (08:56→21:00)
[2019-05-06] MEDS: FLUNISOLIDE NAS SCH (08:57)
[2019-05-06] MEDS: PANTOPRAZOLE 40MG TABLET PO SCH (16:43)
[2019-05-06] MEDS: CLOBETASOL PROPIONATE 0.05% TD SCH (21:00)
[2019-05-06] MEDS: THERA TEARS EACH EYE SCH (21:00)
[2019-05-06] MEDS: DIPHENHYDRAMINE 25 MG TAB/CAP PO SCH (21:05)
[2019-05-06] MEDS: ROSUVASTATIN 10 MG TAB PO SCH (21:05)
[2019-05-07 00:41] VITALS: O2SAT 96
--- NOTE | 2019-05-07 01:04 | PN ---
Date of Progress Note: 05/06/2019 Subjective: Patient was seen this morning for followup, lying in bed, not in any distress. Denied a ny complaints this morning. Objective: Vital Signs: Reviewed. HEENT: Unremarkable. Lungs: Clear to auscultation. No rhonchi. No rales. Heart: Sounds normal. Abdomen: Soft. Bowel sounds normal. No guarding, rigidity, tenderness, distention. Extremities: No leg edema. Impression: 1.Multiple rib fracture. 2.Pneumothorax, resolved. 3.Pneumonia, resolved. 4.Chronic obstructive pulmonary disease. 5.Congestive heart failure, chronic, systolic. 6.Generalized weakness. 7.Debility. Plan: Today I was notified late afternoon by Social Service that [facility], so I will talk to patient tomorrow morning to see if he want s me to appeal this so he wants to go home and depending on that we will assist him with that dischar ge plan. I will see him in the morning. FILOMENA/MODL Voice ID: [id number] Report ID: [id number]
[2019-05-07 05:43] VITALS: BMI 20.9
[2019-05-07] MEDS: CLOPIDOGREL 75 MG TABLET PO SCH (08:18)
[2019-05-07] MEDS: SOTALOL HCL 80 MG TAB PO SCH (08:18)
[2019-05-07] MEDS: METFORMIN HCL 500 MG TAB PO SCH (08:19)
[2019-05-07] MEDS: predniSONE 10 MG TAB PO SCH (08:19)
[2019-05-07] MEDS: SACUBITRIL/VALSARTAN 24/26 MG TAB PO SCH (08:19)
[2019-05-07] MEDS: ENSURE ENLIVE 237 ML CAN PO SCH (08:19)
[2019-05-07] MEDS: DIGOXIN 0.125 MG TABLET PO SCH (08:19)
[2019-05-07] MEDS: ISOSORBIDE MONO 10 MG TAB PO SCH (08:19)
[2019-05-07] MEDS: GUAIFENESIN/CODEINE 5ML UCUP PO SCH (08:20)
[2019-05-07] MEDS: FLUNISOLIDE NAS SCH (08:20)
[2019-05-07 08:47] VITALS: BP 122/66; TEMP 98
--- NOTE | 2019-05-08 03:35 | DS ---
Date of Discharge: 05/07/2019 Disposition: Discharged to go home. Discharge Medications And Instructions: 1.Continue all prior home medications. 2.Home health services and home physical therapy and occupational therapy to be arranged by Social Sal soriano. 3.Follow up at my office and for appointment patient to call office next week. FILOMENA/MODL Voice ID: [id number] Report ID: [id number]
== END 2019-05-07 11:32 | disposition home or self-care (01) | DRG 199 ==
LOC: ER 19:16 → ERHOLD 21:37 → 3RD-ICU 23:03 → 2ND 04-23 16:00
PROVIDERS: ADMIT Internal Medicine; ATTEND Internal Medicine
PROC: 0W9B30Z Drainage of Left Pleural Cavity with Drainage Device, Percutaneous Approach (ICD-10-PCS; principal; 2019-04-22)
DX: S27.0XXA Traumatic pneumothorax, initial encounter (principal); J18.9 Pneumonia, unspecified organism; S22.42XA Multiple fractures of ribs, left side, initial encounter for closed fracture; I50.22 Chronic systolic (congestive) heart failure; I11.0 Hypertensive heart disease with heart failure; E83.42 Hypomagnesemia; D64.9 Anemia, unspecified; E11.9 Type 2 diabetes mellitus without complications; J44.9 Chronic obstructive pulmonary disease, unspecified; E78.2 Mixed hyperlipidemia; I25.10 Atherosclerotic heart disease of native coronary artery without angina pectoris; K21.9 Gastro-esophageal reflux disease without esophagitis; I71.4 Abdominal aortic aneurysm, without rupture; N28.1 Cyst of kidney, acquired; R53.81 Other malaise; K57.90 Diverticulosis of intestine, part unspecified, without perforation or abscess without bleeding; W18.39XA Other fall on same level, initial encounter; Y92.009 Unspecified place in unspecified non-institutional (private) residence as the place of occurrence of the external cause; Z95.5 Presence of coronary angioplasty implant and graft
CPT/HCPCS: 36415; 70450; 71045; 71046; 71260; 72125; 74177; 80048; 80076; 80162; 82550; 82553; 82947; 83605; 83690; 83735; 83880; 84145; 84484; 85025; 85384; 85610; 85730; 86140; 87040; 93005; 96361; 96374; 96375; 97110; 97112; 97116; 97161; 97530; 99291; J1940; J2270; J2405; J2543; J2930; J3475; J7030; J7040; J7512; Q9967

== ENCOUNTER 2019-05-09 18:36 | Emergency (ER) | payer OTHER ==
--- OUTSIDE RECORDS SUMMARY | 2019-05-09 18:38 | XMS REPORT ---
:1935 [facility] Address [address] [place] [address] [place] [address] Care Team Providers Name Role Phone Unavailable Unavailable Unavailable Problems This patient has no known problems. Allergies, Adverse Reactions, Alerts This patient has no known allergies or adverse reactions. Medications This patient has no known medications.
--- NOTE | 2019-05-09 19:08 | RAD REPORT ---
EXAM DESCRIPTION: CT - CTHCSPWOC - 05/09/2019 6:55 pm CLINICAL HISTORY: Trauma, head and neck injury. Fall injury, headache COMPARISON: Head C Spine Mpr Wo Con dated 03/02/2019; Head C Spine Mpr Wo Con dated 07/06/2018 TECHNIQUE: Axial 5 mm thick images of the head were obtained. Axial 2 mm thick images of the cervical spine were obtained with sagittal and coronal reconstruction images generated and reviewed. All CT scans are performed using dose optimization technique as appropriate and may include automated exposure control or mA/KV adjustment according to patient size. FINDINGS: CT HEAD WITHOUT CONTRAST: No acute hemorrhage, hydrocephalus or extra-axial collection is identified.Moderate generalized brain atrophy is present with moderate periventricular and deep white matter chronic microvascular ischemi c changes.No areas of brain edema or midline shift. The paranasal sinuses and mastoids are clear.The calvarium is intact. Right posterior scalp hematoma. CT CERVICAL SPINE WITHOUT CONTRAST: No fracture or subluxation.Mild lower cervical degenerative changes.No prevertebral soft tissues swel ling is identified. IMPRESSION: No acute intracranial or cervical spine findings. Mild lower cervical degenerative changes.
--- NOTE | 2019-05-09 19:47 | EDPHYS ---
Physician Documentation [facility] Name: Cornelius Tierney Age: 83 yrs Sex: Male : 1935 Arrival Date: 05/09/2019 Time: 18:37 Bed 24 Private MD: ED Physician Yoav Shankar HPI: 05/09 18:44 This 83 yrs old Male presents to ER via EMS with complaints of Fall Injury, pm1 Closed Head Injury-Adult. 18:44 Details of fall: The patient fell from an upright position, while walking, with walker. pm1 Onset: The symptoms/episode began/occurred just prior to arrival. Associated injuries: The patient sustained injury to the head, contusion. 18:44 Patient was walking with his walker and then tripped on the carpet. He fell backwards, pm1 landed on his buttocks and hit his head. Patient reports pain only present to the lump on the back of his head when he lays his head on the bed. Denies any other pain. Patient's daughter reports that he complained of pain to his tailbone at the time of fall. Patient denies any neck pain, nausea, vomiting. Denies chest pain, shortness of breath. Patient is uncertain if he lost consciousness. Historical: - Allergies: 18:53 BACITRACIN; mg2 18:53 Bacitracin Zinc; mg2 18:53 Neomycin Sulfate; mg2 18:53 Neosporin ([id number]); mg2 18:53 polymyxin B; mg2 18:53 Ibuprofen; mg2 - PMHx: 18:53 AAA; Bladder CA; CAD; cardiac arrest; CHF; constipation; COPD; Diabetes - NIDDM; GERD; mg2 High Cholesterol; macular degeneration; Myocardial infarction; Atrial Fib; - PSHx: 18:53 Heart Surgery; mg2 - Immunization history: Last tetanus immunization: unknown. - Social history:: Smoking status: unknown. - Ebola Screening: : No symptoms or risks identified at this time. ROS: 19:06 Constitutional: Negative for fever, chills, and weight loss, Neck: Negative for injury, pm1 pain, and swelling, Cardiovascular: Negative for chest pain, palpitations, and edema, Respiratory: Negative for shortness of breath, cough, wheezing, and pleuritic chest pain, Abdomen/GI: Negative for abdominal pain, nausea, vomiting, diarrhea, and constipation, Back: Negative for injury and pain, MS/Extremity: Negative for injury and deformity, Skin: Negative for injury, rash, and discoloration. 19:06 Neuro: Positive for headache, of the contusion to back of head, Negative for numbness, tingling, weakness. 19:06 All other systems are negative. Exam: 19:06 Constitutional: This is a well developed, well nourished patient who is awake, alert, pm1 and in no acute distress. 19:06 Eyes: Pupils equal round and reactive to light, extra-ocular motions intact. Lids and lashes normal. Conjunctiva and sclera are non-icteric and not injected. Cornea within normal limits. Periorbital areas with no swelling, redness, or edema. ENT: Nares patent. No nasal discharge, no septal abnormalities noted. Tympanic membranes are normal and external auditory canals are clear. Oropharynx with no redness, swelling, or masses, exudates, or evidence of obstruction, uvula midline. Mucous membranes moist. Neck: Trachea midline, no thyromegaly or masses palpated, and no cervical lymphadenopathy. Supple, full range of motion without nuchal rigidity, or vertebral point tenderness. No Meningismus. Chest/axilla: Normal chest wall appearance and motion. Nontender with no deformity. No lesions are appreciated. Cardiovascular: Regular rate and rhythm with a normal S1 and S2. No gallops, murmurs, or rubs. No pulse deficits. Respiratory: Lungs have equal breath sounds bilaterally, clear to auscultation and percussion. No rales, rhonchi or wheezes noted. No increased work of breathing, no retractions or nasal flaring. Abdomen/GI: Soft, non-tender, with normal bowel sounds. No distension or tympany. No guarding or rebound. No evidence of tenderness throughout. Back: No spinal tenderness. No costovertebral tenderness. Full range of motion. 19:06 MS/ Extremity: Pulses equal, no cyanosis. Neurovascular intact. Full, normal range of motion. 19:06 Head/face: Noted is no obvious of injury or deformity except contusion, that is superficial, of the right side of the back of head. 19:06 Skin: Appearance: normal except for affected area, injury, two small skin tears: one to left hand and one to left forearm. 19:06 Neuro: Orientation: is normal, Motor: is normal, moves all fours. Vital Signs: 18:44 BP 123 / 73 LA (auto/reg); Pulse 62; Resp 20; Temp 98.6(O); Pulse Ox 97% on R/A; jp3 19:41 Pulse 64; Resp 18; Pulse Ox 99% on R/A; aj1 19:42 BP 125 / 72; aj1 Rosalia Coma Score: 18:58 Eye Response: spontaneous(4). Verbal Response: confused(4). Motor Response: obeys mg2 commands(6). Total: 14. Trauma Score (Adult): 18:58 Eye Response: spontaneous(1); Verbal Response: confused(1); Motor Response: obeys mg2 commands(2); Systolic BP: > 89 mm Hg(4); Respiratory Rate: 10 to 29 per min(4); Lorelei Score: 14; Trauma Score: 12 MDM: 18:43 Patient medically screened. pm1 19:44 Data reviewed: vital signs. Data interpreted: Pulse oximetry: on room air is 99 %. pm1 Interpretation: normal. Counseling: I had a detailed discussion with the patient and/or guardian regarding: the historical points, exam findings, and any diagnostic results supporting the discharge/admit diagnosis, radiology results, the need for outpatient follow up, to return to the emergency department if symptoms worsen or persist or if there are any questions or concerns that arise at home. 19:44 ED course: Patient without pain to palpation of spine including coccyx. Patient offered pm1 x-ray to evaluate tailbone but he and the family refused. Reports pain was present prior to fall today and it is not bothering him. 05/09 18:44 Order name: CT Head C Spine; Complete Time: 19:10 pm1 05/09 18:44 Order name: Ice pack; Complete Time: 18:44 pm1 Administered Medications: No medications were administered Disposition: 05/10 07:04 Co-signature as Attending Physician, Yoav Shankar MD. rn Disposition: 05/09/19 19:46 Discharged to Home. Impression: Superficial injury of head, Fall on same level from slipping, tripping and stumbling. - Condition is Stable. - Discharge Instructions: Head Injury, Adult, Fall Prevention in the Home. - Medication Reconciliation Form, Thank You Letter, Antibiotic Education, Prescription Opioid Use form. - Follow up: Emergency Department; When: As needed; Reason: Worsening of condition. Follow up: Private Physician; When: 2 - 3 days; Reason: Recheck today's complaints, Continuance of care, Re-evaluation by your physician. - Problem is new. - Symptoms have improved. Signatures: Dispatcher [employer] EDMS Katerine Collado RN RN aj1 Yoav Shankar MD MD rn Marinas, Patrick, HARNESS RACING HANDICAPPER HARNESS RACING HANDICAPPER pm1 Johnny Dennison RN RN mg2 Corrections: (The following items were deleted from the chart) 05/09 20:05 19:46 05/09/2019 19:46 Discharged to Home. Impression: Superficial injury of headFall aj1 on same level from slipping, tripping and stumbling. Condition is Stable. Forms are Medication Reconciliation Form, Thank You Letter, Antibiotic Education, Prescription Opioid Use. Follow up: Emergency Department; When: As needed; Reason: Worsening of condition. Follow up: Private Physician; When: 2 - 3 days; Reason: Recheck today's complaints, Continuance of care, Re-evaluation by your physician. Problem is new. Symptoms have improved. pm1
--- NOTE | 2019-05-09 19:47 | ER ---
Nurse's Notes [facility] Name: Cornelius Tierney Age: 83 yrs Sex: Male : 1935 Arrival Date: 05/09/2019 Time: 18:37 Bed 24 Private MD: Diagnosis: Fall on same level from slipping, tripping and stumbling;Superficial injury of head Presentation: 05/09 18:40 Presenting complaint: EMS states: he tripped while he was using his walker today. fell mg2 on his back and hit his head in floortile. sustained big bump at the back of his head. he also has few disorientation which is not normal for him. he was just dc 2 days ago from here due to fractured ribs on his left side from a fall last . he had lung collapsed and chest tube was inserted on his left. Care prior to arrival: None. Mechanism of Injury: Fall from standing position. Trauma event details: Injury occurred in the [facility], Injury occurred: at home. Injury occurred: May 09, 2019. 18:40 Acuity: WEI 2 mg2 18:40 Method Of Arrival: EMS: [facility] mg2 18:58 Transition of care: patient was not received from another setting of care. Onset of mg2 symptoms was May 09, 2019. Risk Assessment: Do you want to hurt yourself or someone else? Patient reports no desire to harm self or others. Initial Sepsis Screen: Does the patient meet any 2 criteria? No. Patient's initial sepsis screen is negative. Does the patient have a suspected source of infection? No. Patient's initial sepsis screen is negative. Trauma Activation: Alert Physician: ED Physician; Name: ; Notified At: ; Arrived At: Physician: General Surgeon; Name: ; Notified At: ; Arrived At: Physician: Radiology; Name: ; Notified At: ; Arrived At: Physician: Respiratory; Name: ; Notified At: ; Arrived At: Physician: Lab; Name: ; Notified At: ; Arrived At: Historical: - Allergies: 18:53 BACITRACIN; mg2 18:53 Bacitracin Zinc; mg2 18:53 Neomycin Sulfate; mg2 18:53 Neosporin ([id number]); mg2 18:53 polymyxin B; mg2 18:53 Ibuprofen; mg2 - PMHx: 18:53 AAA; Bladder CA; CAD; cardiac arrest; CHF; constipation; COPD; Diabetes - NIDDM; GERD; mg2 High Cholesterol; macular degeneration; Myocardial infarction; Atrial Fib; - PSHx: 18:53 Heart Surgery; mg2 - Immunization history: Last tetanus immunization: unknown. - Social history:: Smoking status: unknown. - Ebola Screening: : No symptoms or risks identified at this time. Screenin:55 Abuse screen: Denies threats or abuse. Denies injuries from another. Nutritional mg2 screening: No deficits noted. Tuberculosis screening: No symptoms or risk factors identified. 19:42 Fall Risk Fall in past 12 months (25 points). Ambulatory Aid- Crutches/Cane/Walker (15 aj1 pts). Primary Survey: 18:54 NO uncontrolled hemorrhage observed. A: The patient is alert. Airway: patent, No mg2 supplemental oxygen in use on arrival. Breathing/Chest: Respiratory pattern: regular, Respiratory effort: spontaneous, unlabored, Breath sounds: clear, bilaterally. in left posterior upper lobe, right posterior upper lobe, left posterior lower lobe, right posterior middle lobe and right posterior lower lobe. Circulation: Skin color: pink. Disability Alert. Exposure/Environment: All clothing and personal items were removed. Forensic evidence collection is not deemed to be indicated at this time. Items placed in patient belonging bag. There is no evidence of uncontrolled external bleeding. Obvious injury(ies) are noted at this time: bruising and swelling in the parietal area. 19:42 Reassessment Airway Airway Patent Breathing/Chest Respiratory pattern Regular aj1 Respiratory effort Spontaneous Unlabored Breath sounds Clear Chest inspection Symmetrical. Secondary Survey: 18:55 HEENT: No deficits noted. Gastrointestinal: No deficits noted. : No deficits noted. mg2 Musculoskeletal: No signs and/or symptoms reported regarding the musculoskeletal system. Assessment: 18:56 General: Appears in no apparent distress. comfortable, Behavior is calm, cooperative. mg2 Pain: Complains of pain in head. Neuro: Level of Consciousness is awake, obeys commands, confused. Cardiovascular: Capillary refill < 3 seconds Patient's skin is warm and dry. Respiratory: Airway is patent Respiratory effort is even, unlabored, Respiratory pattern is regular, symmetrical. GI: No signs and/or symptoms were reported involving the gastrointestinal system. : No deficits noted. EENT: No deficits noted. Derm: Skin is intact, is healthy with good turgor, Skin is pink, warm \T\ dry. normal. Musculoskeletal: Swelling present in parietal area of the head. 19:40 Reassessment: Patient appears in no apparent distress at this time. Patient and/or aj1 family updated on plan of care and expected duration. Pain level reassessed. Patient is alert, oriented x 3, equal unlabored respirations, skin warm/dry/pink. Vital Signs: 18:44 BP 123 / 73 LA (auto/reg); Pulse 62; Resp 20; Temp 98.6(O); Pulse Ox 97% on R/A; jp3 19:41 Pulse 64; Resp 18; Pulse Ox 99% on R/A; aj1 19:42 BP 125 / 72; aj1 Lorelei Coma Score: 18:58 Eye Response: spontaneous(4). Verbal Response: confused(4). Motor Response: obeys mg2 commands(6). Total: 14. Trauma Score (Adult): 18:58 Eye Response: spontaneous(1); Verbal Response: confused(1); Motor Response: obeys mg2 commands(2); Systolic BP: > 89 mm Hg(4); Respiratory Rate: 10 to 29 per min(4); [place] Score: 14; Trauma Score: 12 ED Course: 18:37 Patient arrived in ED. mg2 18:43 Paulo Bond NP is PHCP. pm1 18:43 Yoav Shankar MD is Attending Physician. pm1 18:44 Johnny Dennison, ROSIO is Primary Nurse. mg2 18:44 Patient has correct armband on for positive identification. Bed in low position. Call jp3 light in reach. Side rails up X 1. Side rails up X2. Warm blanket given. Pillow given. Verbal reassurance given. Pulse ox on. NIBP on. 18:45 Patient maintains SpO2 saturation greater than 95% on room air. jp3 18:50 Triage completed. mg2 18:54 CT completed. Patient tolerated procedure well. Patient moved back from CT. bq 18:55 CT Head C Spine In Process Unspecified. EDMS 18:59 Arm band placed on. mg2 18:59 No provider procedures requiring assistance completed. Patient did not have IV access mg2 during this emergency room visit. 18:59 Thermoregulation: warm blanket given to patient. mg2 Administered Medications: No medications were administered Intake: 18:58 PO: 0ml; Total: 0ml. mg2 Outcome: 19:46 Discharge ordered by MD. pm1 20:04 Discharged to home via wheelchair, with family. aj1 20:04 Condition: good 20:04 Discharge instructions given to patient, family, Instructed on discharge instructions, follow up and referral plans. Demonstrated understanding of instructions, follow-up care. 20:04 Patient's length of stay was not longer than 2 hours. 20:05 Patient left the ED. aj1 Signatures: Dispatcher [employer] EDKaterine Sarabia, ROSIO RN aj1 Roopa Donnelly Patrick, CLIPPER AUTOMATIC CLIPPER AUTOMATIC pm1 Johnny Dennison, ROSIO RN mg2 Saran Pederson jp3 Corrections: (The following items were deleted from the chart) 18:45 18:44 BP 123 / 73 Auto L Arm Regular; Pulse Ox 97% RA; Temp 98.6F Oral; jp3 jp3
[2019-05-09 20:10] VITALS: TEMP 98.6
[2019-05-09 20:12] VITALS: O2SAT 99
[2019-05-09 20:13] VITALS: BP 125/72
== END 2019-05-09 20:05 | disposition home or self-care (01) ==
LOC: ER 18:36
DX: S00.83XA Contusion of other part of head, initial encounter (principal); W01.0XXA Fall on same level from slipping, tripping and stumbling without subsequent striking against object, initial encounter; Y93.01 Activity, walking, marching and hiking; Y92.9 Unspecified place or not applicable; Z85.51 Personal history of malignant neoplasm of bladder; I25.2 Old myocardial infarction; Z88.3 Allergy status to other anti-infective agents; Z88.6 Allergy status to analgesic agent; Z88.8 Allergy status to other drugs, medicaments and biological substances
CPT/HCPCS: 70450; 72125; 99284

== ENCOUNTER 2019-05-12 16:49 | Observation (INO) | payer OTHER ==
--- OUTSIDE RECORDS SUMMARY | 2019-05-12 16:51 | XMS REPORT ---
:1935 [facility] Address [address] [place] [id number] Care Team Providers Name Role Phone Unavailable Unavailable Unavailable Problems This patient has no known problems. Allergies, Adverse Reactions, Alerts This patient has no known allergies or adverse reactions. Medications This patient has no known medications.
[2019-05-12] MEDS ORDERED: NA CHLORIDE 0.9% 1,000 ML ONE (17:15)
[2019-05-12 17:37] LABS: Absolute Lymphocytes (CBC) 0.7 K/uL (0.7-4.9); Basophils % 0.5 % (0-1.3); Hematocrit 34.3 % (39.6-49.0); Lymphocytes % 8.9 % (15.3-44.8); MPV 9.6 fL (7.6-11.3); Protime INR 0.99; RBC Red Blood Cell Count 3.73 M/uL (4.33-5.43)
[2019-05-12 18:10] LABS: Albumin 2.8 g/dL (3.4-5.0); Bilirubin Direct 0.3 mg/dL (0-0.2); Bilirubin Total 0.7 mg/dL (0.2-1.0); Magnesium 1.8 mg/dL (1.8-2.4); Potassium 4.2 mmol/L (3.5-5.1); Protein, Total 5.8 g/dL (6.4-8.2); Troponin (Emerg Dept Use Only) 0.02 ng/mL (0.0-0.045)
--- NOTE | 2019-05-12 18:10 | EDPHYS ---
Physician Documentation [facility] Name: Cornelius Tierney Age: 83 yrs Sex: Male : 1935 Arrival Date: 05/12/2019 Time: 16:53 Bed 23 Private MD: ED Physician Bryce Juan HPI: 05/12 17:26 This 83 yrs old Male presents to ER via EMS with complaints of Abnormal Lab karson Results. 17:26 weak, told to go to ed, dehydrated. Onset: The symptoms/episode began/occurred 2 day(s) karson ago. Severity of symptoms: At their worst the symptoms were mild. The patient has experienced similar episodes in the past, multiple times. Historical: - Allergies: 17:09 BACITRACIN; ls4 17:09 Bacitracin Zinc; ls4 17:09 Neomycin Sulfate; ls4 17:09 polymyxin B; ls4 17:09 Neosporin ([id number]); ls4 17:09 Ibuprofen; ls4 - Immunization history:: Adult Immunizations up to date, Pneumococcal vaccine is up to date, Flu vaccine is up to date. - Social history:: Smoking status: Patient/guardian denies using tobacco, never smoked. - Ebola Screening: : Patient negative for fever greater than or equal to 101.5 degrees Fahrenheit, and additional compatible Ebola Virus Disease symptoms Patient denies exposure to infectious person Patient denies travel to an Ebola-affected area in the 21 days before illness onset No symptoms or risks identified at this time. - Family history:: not pertinent. ROS: 17:26 Constitutional: Negative for fever, chills, and weight loss, Eyes: Negative for injury, karson pain, redness, and discharge, ENT: Negative for injury, pain, and discharge, Neck: Negative for injury, pain, and swelling, Cardiovascular: Negative for chest pain, palpitations, and edema, Respiratory: Negative for shortness of breath, cough, wheezing, and pleuritic chest pain, Abdomen/GI: Negative for abdominal pain, nausea, vomiting, diarrhea, and constipation, Back: Negative for injury and pain, : Negative for injury, bleeding, discharge, and swelling, MS/Extremity: Negative for injury and deformity, Skin: Negative for injury, rash, and discoloration, Psych: Negative for depression, anxiety, suicide ideation, homicidal ideation, and hallucinations, Allergy/Immunology: Negative for hives, rash, and allergies, Endocrine: Negative for neck swelling, polydipsia, polyuria, polyphagia, and marked weight changes, Hematologic/Lymphatic: Negative for swollen nodes, abnormal bleeding, and unusual bruising. 17:26 Neuro: Positive for weakness. Exam: 17:26 Constitutional: This is a well developed, well nourished patient who is awake, alert, karson and in no acute distress. Head/Face: Normocephalic, atraumatic. Eyes: Pupils equal round and reactive to light, extra-ocular motions intact. Lids and lashes normal. Conjunctiva and sclera are non-icteric and not injected. Cornea within normal limits. Periorbital areas with no swelling, redness, or edema. ENT: Nares patent. No nasal discharge, no septal abnormalities noted. Tympanic membranes are normal and external auditory canals are clear. Oropharynx with no redness, swelling, or masses, exudates, or evidence of obstruction, uvula midline. Mucous membranes moist. Neck: Trachea midline, no thyromegaly or masses palpated, and no cervical lymphadenopathy. Supple, full range of motion without nuchal rigidity, or vertebral point tenderness. No Meningismus. Chest/axilla: Normal chest wall appearance and motion. Nontender with no deformity. No lesions are appreciated. Cardiovascular: Regular rate and rhythm with a normal S1 and S2. No gallops, murmurs, or rubs. Normal PMI, no JVD. No pulse deficits. Respiratory: Lungs have equal breath sounds bilaterally, clear to auscultation and percussion. No rales, rhonchi or wheezes noted. No increased work of breathing, no retractions or nasal flaring. Abdomen/GI: Soft, non-tender, with normal bowel sounds. No distension or tympany. No guarding or rebound. No evidence of tenderness throughout. Back: No spinal tenderness. No costovertebral tenderness. Full range of motion. Male : Normal genitalia with no discharge or lesions. MS/ Extremity: Pulses equal, no cyanosis. Neurovascular intact. Full, normal range of motion. Neuro: Awake and alert, GCS 15, oriented to person, place, time, and situation. Cranial nerves II-XII grossly intact. Motor strength 5/5 in all extremities. Sensory grossly intact. Cerebellar exam normal. Normal gait. Psych: Awake, alert, with orientation to person, place and time. Behavior, mood, and affect are within normal limits. 17:26 Skin: Appearance: Color: pale. Vital Signs: 16:59 BP 127 / 59; Pulse 63; Resp 20; Temp 98.3(O); Pulse Ox 98% ; lt1 18:00 BP 112 / 76; Pulse 62; Resp 16; Temp 98.2; Pulse Ox 98% ; Pain 6/10; ls4 19:00 BP 122 / 60; Pulse 57; Resp 14; Pulse Ox 98% ; Pain 5/10; ls4 20:00 BP 120 / 62; Pulse 60; Resp 14; Temp 98.2; Pulse Ox 99% on R/A; Pain 6/10; ls4 MDM: 16:53 Patient medically screened. [facility] 17:29 Data reviewed: vital signs, nurses notes, lab test result(s), EKG, radiologic studies, karson plain films. 05/12 16:56 Order name: Basic Metabolic Panel; Complete Time: 18:19 [facility] 05/12 16:56 Order name: CBC with Diff [facility] 05/12 16:56 Order name: LFT's; Complete Time: 18:19 [facility] 05/12 16:56 Order name: Magnesium; Complete Time: 18:19 [facility] 05/12 16:56 Order name: NT PRO-BNP; Complete Time: 18:19 [facility] 05/12 16:56 Order name: PT-INR; Complete Time: 18:07 [facility] 05/12 16:56 Order name: Troponin (emerg Dept Use Only); Complete Time: 18:19 [facility] 05/12 16:56 Order name: XRAY Chest (1 view); Complete Time: 18:19 [facility] 05/12 16:56 Order name: Lipase; Complete Time: 18:19 [facility] 05/12 16:56 Order name: Urine Culture [facility] 05/12 18:27 Order name: Digoxin 05/12 18:34 Order name: Urine Dipstick--Ancillary (enter results) 05/12 18:47 Order name: Urine Dipstick-Ancillary; Complete Time: 19:07 EDMS 05/12 18:56 Order name: Digoxin Level; Complete Time: 19:07 EDMS 05/12 16:56 Order name: EKG; Complete Time: 16:57 [facility] 05/12 16:56 Order name: Cardiac monitoring; Complete Time: 17:23 [facility] 05/12 16:56 Order name: EKG - Nurse/Tech; Complete Time: 17:23 [facility] 05/12 16:56 Order name: IV Saline Lock; Complete Time: 17:08 [facility] 05/12 16:56 Order name: Labs collected and sent; Complete Time: 17:08 [facility] 05/12 16:56 Order name: O2 Per Protocol; Complete Time: 17:08 [facility] 05/12 16:56 Order name: O2 Sat Monitoring; Complete Time: 17:08 [facility] 05/12 16:56 Order name: Urine Dipstick-Ancillary (obtain specimen); Complete Time: 19:15 [facility] 05/12 18:23 Order name: CT Abd/Pelvis - Without Contrast [facility] 05/12 19:19 Order name: CT EDMS Administered Medications: Discontinued: NS 0.9% 1000 ml IV at 1 bolus Per protocol; 1000 mL bolus 17:14 Drug: NS 0.9% 1000 ml Route: IV; Rate: 1 bolus; Site: left forearm; ls4 19:19 Follow up: IV Status: Completed infusion; IV Intake: 1000ml ls4 Disposition: 05/12/19 18:10 Hospitalization ordered by Sada Subramanian for Inpatient Admission. Preliminary diagnosis are Weakness, Repeated falls, Anorexia, Unspecified combined systolic (congestive) and diastolic (congestive) heart failure, Pleural effusion in conditions classified elsewhere. - Bed requested for Telemetry/MedSurg (Inpatient). - Status is Inpatient Admission. ls4 - Condition is Fair. - Problem is new. - Symptoms have improved. UTI on Admission? No Signatures: Dispatcher [employer] EDBryce Aguilar MD MD cha Lasagna, Tonya RN RN tl1 Deepthi Aguiar RN RN ls4 Corrections: (The following items were deleted from the chart) 18:21 18:10 Hospitalization Ordered by A Moris CASTANON for Observation. Preliminary diagnosis is [facility] Weakness; Repeated falls; Anorexia. Bed requested for Telemetry/MedSurg (observation). Status is Observation. Condition is Fair. Problem is new. Symptoms have improved. UTI on Admission? No. [facility] 18:21 18:21 05/12/2019 18:10 Hospitalization Ordered by A Moris CASTANON for Observation. [facility] Preliminary diagnosis is Weakness; Repeated falls; Anorexia; Unspecified combined systolic (congestive) and diastolic (congestive) heart failure. Bed requested for Telemetry/MedSurg (observation). Status is Observation. Condition is Fair. Problem is new. Symptoms have improved. UTI on Admission? No. [facility] 19:19 18:21 05/12/2019 18:10 Hospitalization Ordered by A Moris CASTANON for Inpatient Admission. karson Preliminary diagnosis is Weakness; Repeated falls; Anorexia; Unspecified combined systolic (congestive) and diastolic (congestive) heart failure. Bed requested for Telemetry/MedSurg (Inpatient). Status is Inpatient Admission. Condition is Fair. Problem is new. Symptoms have improved. UTI on Admission? No. [facility] 19:52 19:19 05/12/2019 18:10 Hospitalization Ordered by A Moris CASTANON for Inpatient Admission. tl1 Preliminary diagnosis is Weakness; Repeated falls; Anorexia; Unspecified combined systolic (congestive) and diastolic (congestive) heart failure; Pleural effusion in conditions classified elsewhere. Bed requested for Telemetry/MedSurg (Inpatient). Status is Inpatient Admission. Condition is Fair. Problem is new. Symptoms have improved. UTI on Admission? No. [facility] 21:59 19:52 05/12/2019 18:10 Hospitalization Ordered by A Moris CASTANON for Inpatient Admission. ls4 Preliminary diagnosis is Weakness; Repeated falls; Anorexia; Unspecified combined systolic (congestive) and diastolic (congestive) heart failure; Pleural effusion in conditions classified elsewhere. Bed requested for Telemetry/MedSurg (Inpatient). Status is Inpatient Admission. Condition is Fair. Problem is new. Symptoms have improved. UTI on Admission? No. tl1
--- NOTE | 2019-05-12 18:10 | ER ---
Nurse's Notes [facility] Name: Cornelius Tierney Age: 83 yrs Sex: Male : 1935 Arrival Date: 05/12/2019 Time: 16:53 Bed 23 Private MD: Diagnosis: Weakness;Repeated falls;Anorexia;Unspecified combined systolic (congestive) and diastolic (congestive) heart failure;Pleural effusion in conditions classified elsewhere Presentation: 05/12 17:06 Presenting complaint: EMS states: Dr roach called patients family to let them know that ls4 pt is dehydrated and needs to go to ED. Transition of care: patient was not received from another setting of care. Onset of symptoms was May 12, 2019. Risk Assessment: Do you want to hurt yourself or someone else? Patient reports no desire to harm self or others. Initial Sepsis Screen: Does the patient meet any 2 criteria? No. Patient's initial sepsis screen is negative. Does the patient have a suspected source of infection? No. Patient's initial sepsis screen is negative. Care prior to arrival: Medication(s) given: Normal saline infusion, 250 ml IV initiated. 20 GA, in the left forearm. 17:06 Method Of Arrival: EMS: [facility] ls4 17:06 Acuity: WEI 3 ls4 Triage Assessment: 17:10 General: Appears ill, slender, Behavior is calm, cooperative. Pain: Complains of pain ls4 in back Pain currently is 5 out of 10 on a pain scale. Quality of pain is described as aching, Pain began years ago. Is chronic. Neuro: No deficits noted. Cardiovascular: Denies chest pain. Respiratory: Airway is patent Respiratory effort is even, unlabored, Respiratory pattern is regular, Breath sounds are clear bilaterally. Historical: - Allergies: 17:09 BACITRACIN; ls4 17:09 Bacitracin Zinc; ls4 17:09 Neomycin Sulfate; ls4 17:09 polymyxin B; ls4 17:09 Neosporin ([id number]); ls4 17:09 Ibuprofen; ls4 - Immunization history:: Adult Immunizations up to date, Pneumococcal vaccine is up to date, Flu vaccine is up to date. - Social history:: Smoking status: Patient/guardian denies using tobacco, never smoked. - Ebola Screening: : Patient negative for fever greater than or equal to 101.5 degrees Fahrenheit, and additional compatible Ebola Virus Disease symptoms Patient denies exposure to infectious person Patient denies travel to an Ebola-affected area in the 21 days before illness onset No symptoms or risks identified at this time. - Family history:: not pertinent. Screenin:10 Abuse screen: Denies threats or abuse. Denies injuries from another. Nutritional ls4 screening: No deficits noted. Tuberculosis screening: No symptoms or risk factors identified. Fall Risk None identified. Assessment: 17:00 Reassessment: No changes from previously documented assessment. Patient and/or family ls4 updated on plan of care and expected duration. Pain level reassessed. Patient is alert, oriented x 3, equal unlabored respirations, skin warm/dry/pink. General: Appears uncomfortable, slender, Behavior is cooperative, appropriate for age. 19:18 Reassessment: No changes from previously documented assessment. Patient and/or family ls4 updated on plan of care and expected duration. Pain level reassessed. Patient is alert, oriented x 3, equal unlabored respirations, skin warm/dry/pink. 20:07 Reassessment: No changes from previously documented assessment. Patient and/or family ls4 updated on plan of care and expected duration. Pain level reassessed. Patient is alert, oriented x 3, equal unlabored respirations, skin warm/dry/pink. report called to floor. family notified of plan. Dr roach in room. Vital Signs: 16:59 BP 127 / 59; Pulse 63; Resp 20; Temp 98.3(O); Pulse Ox 98% ; lt1 18:00 BP 112 / 76; Pulse 62; Resp 16; Temp 98.2; Pulse Ox 98% ; Pain 6/10; ls4 19:00 BP 122 / 60; Pulse 57; Resp 14; Pulse Ox 98% ; Pain 5/10; ls4 20:00 BP 120 / 62; Pulse 60; Resp 14; Temp 98.2; Pulse Ox 99% on R/A; Pain 6/10; ls4 ED Course: 16:53 Patient arrived in ED. karson 16:53 Bryce Juan MD is Attending Physician. karson 17:00 Arm band placed on. ls4 17:05 Deepthi Aguiar RN is Primary Nurse. ls4 17:06 Initial lab(s) drawn, by or, sent to lab. Inserted IV done by EMS, IV placed in the L lt1 padilla. 17:08 Triage completed. ls4 17:54 XRAY Chest (1 view) In Process Unspecified. EDMS 18:09 Sada Roach MD is Hospitalizing Provider. karson 18:10 No provider procedures requiring assistance completed. ls4 18:10 Patient has correct armband on for positive identification. Bed in low position. Call ls4 light in reach. Side rails up X 1. 19:15 Urine Culture Sent. lt1 23:26 intact. ls4 Administered Medications: Discontinued: NS 0.9% 1000 ml IV at 1 bolus Per protocol; 1000 mL bolus 17:14 Drug: NS 0.9% 1000 ml Route: IV; Rate: 1 bolus; Site: left forearm; ls4 19:19 Follow up: IV Status: Completed infusion; IV Intake: 1000ml ls4 Intake: 19:19 IV: 1000ml; Total: 1000ml. ls4 Outcome: 18:10 Decision to Hospitalize by Provider. karson 20:02 Condition: unchanged ls4 21:59 Patient left the ED. ls4 22:00 Admitted to Med/surg accompanied by tech, family with patient, via stretcher, room 415. ls4 22:00 Discharge instructions given to patient, family, Instructed on the need for admit. ls4 Signatures: Dispatcher [employer] EDMS Bryce Juan MD MD cha Stewart, Lisa, RN RN ls4 Maria M Felix lt1 Corrections: (The following items were deleted from the chart) 20:06 20:00 BP 120 / 62; Pulse 60bpm; Resp 14bpm; Pulse Ox 99% RA; Temp 98.2F; Pain 3/10; ls4 ls4
--- NOTE | 2019-05-12 18:15 | RAD REPORT ---
EXAM DESCRIPTION: Juan Single View05/12/2019 5:53 pm CLINICAL HISTORY: Cough COMPARISON: April 29, 2019 FINDINGS: Mild bilateral pulmonary opacities The heart is mildly enlarged. Pacemaker leads are in place. Postsurgical changes involve the chest IMPRESSION: Mild CHF
[2019-05-12 18:47] LABS: Urine Blood NEGATIVE (NEG); Urine Glucose NEGATIVE (NEG); Urine Protein 2+ (NEG); Urine Specific Gravity >1.030 (1.005-1.030)
--- NOTE | 2019-05-12 19:16 | RAD REPORT ---
EXAM DESCRIPTION: CT - Abdomen Pelvis Wo Contrast - 05/12/2019 6:44 pm CLINICAL HISTORY: Abdominal pain COMPARISON: 2013 TECHNIQUE: Computed axial tomography of the abdomen and pelvis was obtained. IV and oral contrast we re not requested. All CT scans are performed using dose optimization technique as appropriate and may include automated exposure control or mA/KV adjustment according to patient size. FINDINGS: The evaluation of solid organs, vessels and bowel is limited secondary to the lack of con trast administration. Small bilateral pleural effusions The liver, spleen, pancreas, and adrenals appear grossly normal. 8.3 centimeter left renal cyst. Renal arterial calcifications. No hydronephrosis 3.3 centimeter AP diameter abdominal aortic aneurysm unchanged. 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
[2019-05-12] MEDS ORDERED: ONDANSETRON 4 MG/2 ML VIAL IV PRN (21:35)
[2019-05-12] MEDS ORDERED: MORPHINE 2 MG/ML SYR IV PRN (21:35)
[2019-05-12] MEDS ORDERED: ACETAMINOPHEN 500 MG TAB PO PRN (21:35)
[2019-05-12 21:41] VITALS: BMI 20.1
[2019-05-12 22:10] LABS: Anisocytosis 1+; Blood Morphology Comment NOTED (NOT SEEN); Platelet Estimate ADEQ; Urine White Blood Cell Casts OK
[2019-05-12 22:12] LABS: Ovalocytes SLIGHT; Poikilocytosis SLIGHT
[2019-05-12] MEDS: FAMOTIDINE 20 MG/2 ML VIAL IV SCH (22:51)
[2019-05-12] MEDS: NA CHLORIDE 0.9% 1,000 ML IV SCH (22:51)
[2019-05-13] MEDS ORDERED: ACETAMINOPHEN 325 MG TABLET PO PRN (02:00)
[2019-05-13 05:51] VITALS: O2SAT 95
[2019-05-13 06:07] LABS: Absolute Lymphocytes (CBC) 1.1 K/uL (0.7-4.9); Basophils % 0.7 % (0-1.3); Hematocrit 30.2 % (39.6-49.0); Lymphocytes % 16.7 % (15.3-44.8); MPV 9.6 fL (7.6-11.3)
[2019-05-13 06:12] LABS: Potassium 3.9 mmol/L (3.5-5.1)
[2019-05-13] MEDS: NA CHLORIDE 0.9% 1,000 ML IV SCH (07:35)
[2019-05-13] MEDS: FAMOTIDINE 20 MG/2 ML VIAL IV SCH (09:27)
[2019-05-13 09:41] VITALS: BP 134/65; TEMP 97.1
--- NOTE | 2019-05-13 11:01 | EKG ---
Test Date: 2019-05-12 Test Time: 17:17:19 Skill Training Program Coordinator: JUAN M MEASUREMENT RESULTS: Intervals: Rate: 78 CA: 98 QRSD: 112 QT: 328 QTc: 373 [place]: P: CA: 98 QRS: -37 T: -76 INTERPRETIVE STATEMENTS: AV sequential or dual chamber electronic pacemaker Compared to ECG 04/23/2019 08:39:25 No significant changes Electronically Signed On 05-13-19 10:58:25 SOW FARM BARN TECHNICIAN by Hemanth Rai
--- NOTE | 2019-05-13 11:14 | RAD REPORT ---
EXAM DESCRIPTION: Spine Lumbar W obliques EXAM DESCRIPTION: Spine Lumbar W obliques CLINICAL HISTORY: 83 years Male, back pain COMPARISON: None. FINDINGS: 5 lumbar type vertebra are demonstrated. The lumbar vertebral body heights, interspaces, and alignments are maintained at all levels. There is mild diffuse spondylosis with endplate lipping demonstrated. There is moderately severe facet arthropathy bilaterally at L4-L5. The sacroiliac joints are unremarkable. Vascular calcifications are noted. IMPRESSION: 1. Mild diffuse spondylosis. 2. Moderately severe facet arthropathy bilaterally at L4-L5. Electronically signed by: Cornelius Lombardi MD 05/12/2019 9:26 PM NEUROLOGICAL SURGERY TEACHER Due to temporary technical issues with the PACS/Fluency reporting system, reports are being signed by the in house radiologist as a courtesy to ensure prompt reporting. The interpreting radiologist is f ully responsible for the content of the report.
--- NOTE | 2019-05-13 11:15 | RAD REPORT ---
EXAM DESCRIPTION: Thoracic Spine Ap/Lat EXAM DESCRIPTION: Thoracic Spine Ap/Lat CLINICAL HISTORY: 83 years Male, back pain COMPARISON: None. FINDINGS: 12 rib-bearing thoracic vertebra are identified. The thoracic vertebral body heights, interspaces, and alignments are maintained at all levels. There is moderately severe diffuse spondylosis with bridging syndesmophytes noted anteriorly and on t he right. IMPRESSION: 1. Moderately severe diffuse spondylosis. Electronically signed by: Cornelius Lombardi MD 05/12/2019 9:25 PM BAGGAGE AGENT SUPERVISOR Due to temporary technical issues with the PACS/Fluency reporting system, reports are being signed by the in house radiologist as a courtesy to ensure prompt reporting. The interpreting radiologist is f ully responsible for the content of the report.
[2019-05-13 12:32] LABS: Anisocytosis 1+; Blood Morphology Comment NOTED (NOT SEEN); Platelet Estimate ADEQ; Platelets, Giant FEW; Urine White Blood Cell Casts OK
[2019-05-13 12:33] LABS: Elliptocytes 1+
--- NOTE | 2019-05-14 03:20 | DS ---
Date of Discharge: 05/13/2019 Disposition: Discharged to go to snf facility. Physical Examination: HEENT: Unremarkable. Lungs: Clear to auscultation. Cardiac: Heart sounds normal. Abdomen: Soft, bowel sounds normal. No guarding, rigidity, tenderness, or distention. Extremities: No leg edema. Laboratory Data: Today, white count 6.4, hemoglobin 10, platelets 151. Sodium 147, potassium 3.9, c hloride 116, bicarb 27, BUN 24, creatinine 0.87, glucose 86. Discharge Medications/instruction: 1.Continue prior home medication. 2.Fall precautions. 3.Consult Physical therapy, Occupational Therapy at longterm. Diet: 2 g sodium. Hospital Course: An 83-year-old male patient admitted to the hospital after he came into emergency r oom yesterday. Please see dictated H and P for more information. After patient was evaluated admitt ed to the hospital, his condition remained stable overnight. Patient has had multiple recurrent fall s lately and last admission was as a result of fall, multiple rib fractures and traumatic pneumothora x. After he went home, he fell down 3 different times within matter a few days and during the last h ospital stay, his insurance company refused inpatient rehab and refused snf facility plac ement, so I have talked to patient and the patient's and daughter explained them that it is not safe for patient to stay home and he needs to be in a snf facility of family's choice. T he patient and family agrees and they actually initiated this arrangements on outpatient basis but no thing was finalized yet and after I talked to them today, I explained to patient's daughter to go [facility] ad and finish the paperwork this morning so we can discharge him to go to skilled facility of his [facility] ice where we believe that the patient will be safer than being at home. Final Diagnoses: 1.Debility. 2.Generalized weakness. 3.Chronic systolic congestive heart failure. 4.Chronic obstructive pulmonary disease. 5.Coronary artery disease. FILOMENA/MODL Voice ID: [id number] Report ID: [id number]
--- NOTE | 2019-05-14 22:11 | HP ---
Date of Admission: 05/12/2019 Chief Complaint: Frequent falls and back pain. History Of Present Illness: This is an 83-year-old male patient, who was recently discharged from [facility] and he was discharged to go home as patient's insurance company refused inpatient benefit and also refused snf facility benefit for him. Patient was ambulating with physical therapy coordinator apy at the hospital. After he went home, he actually had 3-4 falls over a matter of last 5 days or s o. I have talked to home health nurse 2 different times and last discussion I had with the home heal nurse was today and 2 days prior to that, when I had discussion with her my recommendation was to have the family either take him back to the emergency room considering his frequent falls or have ean ruiz take him to jail as a private pay patient considering the insurance has refused any such benefit. So when I talked to her again second time today on this day of admission, she informed me t hat the family is working with the local jail, but yesterday patient did not get out of bed, did not eat or drink anything almost all day and in the evening time when daughter went to visit him, he did eat small amount of food and this morning he had some breakfast. After I talked to nurse, ruth odonnell expressed my concerns about his well-being and multiple falls that he has had at home, we were co ncerned about CS injury with any such fall and was advised that either family should take him to the emergency room or take him to jail. Family decided to bring him to the ER. After he was orin luated in the ER, he was admitted to the hospital and I saw him in the emergency room, his and shahid jessica were at bedside. Patient is having lot of back pain with these falls. Denies any nausea, vo miting. No diarrhea. Medications: List reviewed. Review of Systems: Constitutional: Generalized weakness. Musculoskeletal: Back pain. All other systems negative. Allergies: TO AMIODARONE AND NEOSPORIN CAUSING RASH. Past Medical History: Chronic systolic congestive heart failure with an ejection fraction around 25% to 29%, type 2 diabetes mellitus, COPD, hypertension, mixed hyperlipidemia, abdominal aortic aneurys m, coronary artery disease, gastroesophageal reflux disease, diverticulosis, renal cyst, fatigue. Past Surgical History: Cataract surgery, retinal tear repair, coronary artery stent placement, coron thomas artery bypass surgery, abdominal aortic aneurysm surgery, cholecystectomy, removal of squamous ce ll carcinoma of skin. Family History: Significant for father, had abdominal aortic aneurysm. Mother had Alzheimer disease . Social History: Prior history of smoking, not at present time. Use of alcohol negative. Physical Examination: Vital Signs: Temperature 98.3, pulse 63, respiratory rate 20, blood pressure 127/59, oxygen saturati on 98%, height 5 feet 7 inches, weight 128 pounds. General: Awake, alert, oriented, not in distress. HEENT: Head atraumatic, normocephalic. Conjunctivae nonerythematous. Sclerae white. Mouth, no thr ush or edema noted. Ears/Nose, no mass, lesion, discharge noted. Neck: Supple. No JVD, lymph nodes, bruit, thyromegaly noted. Lungs: Bilateral good equal air entry. Clear to auscultation. No rhonchi. No rales. Heart: Normal heart sounds, no murmur or gallop. Abdomen: Soft, bowel sounds normal. No guarding, rigidity, tenderness, mass, hepatosplenomegaly, dis tention, or bruit noted. Extremities: No leg edema. No calf tenderness. Skin: No rash, ulcer, cellulitis. Lymphatics: No lymph node enlargement in neck, supraclavicular, infraclavicular region. Neuro: No focal neurological deficit. Chest: Unremarkable. External Genitalia: Deferred. Rectal: Deferred. Laboratory Data: White count 7.7, hemoglobin 11.1, platelets 193. Sodium 145, potassium 4.2, chlori de 111, bicarb 29, BUN 27, creatinine 1.13, glucose 113. Liver function tests unremarkable. Lipase 1541. Urinalysis; 2+ protein, otherwise negative. Digoxin level 1.68. Chest x-ray mild CHF pattern . CAT scan of abdomen without contrast, 3.3 cm abdominal aortic aneurysm, small bilateral pleural ef fusion. Pancreas appears normal. Impression: 1.Frequent falls. 2.Back pain. 3.Generalized weakness. 4.Debility. 5.Congestive heart failure, chronic, systolic. 6.Chronic obstructive pulmonary disease. 7.Coronary artery disease. 8.Mixed hyperlipidemia. 9.Hypertension. 10.Type 2 diabetes mellitus. 11.Abdominal aortic aneurysm. 12.Gastroesophageal reflux disease. Plan: Admit patient to hospital for further evaluation and management of this problem. Patient is a ppropriate for observation. We will continue his home medications. We will request Social Service t o work with family tomorrow to go ahead and assist with any arrangements that needs to be made in ord er for the patient to go to nursing facility of his choice and I will see him tomorrow morning for fo llowup and we will probably discharge him to go to nursing facility tomorrow. I will order x-ray of thoracic and lumbar spine considering his falls and complaining of back pain. I did talk to patient regarding advance directives and DNR order will be written in the chart per patient's decision. FILOMENA/MODL Voice ID: [id number]
== END 2019-05-13 10:50 ==
LOC: ER 16:49 → ERHOLD 18:11 → 4TH 20:00
PROVIDERS: ADMIT Internal Medicine; ATTEND Internal Medicine
DX: R53.81 Other malaise (principal); R53.1 Weakness; I11.0 Hypertensive heart disease with heart failure; I50.22 Chronic systolic (congestive) heart failure; J44.9 Chronic obstructive pulmonary disease, unspecified; E11.9 Type 2 diabetes mellitus without complications; I10 Essential (primary) hypertension; E78.2 Mixed hyperlipidemia; K21.9 Gastro-esophageal reflux disease without esophagitis; I25.10 Atherosclerotic heart disease of native coronary artery without angina pectoris; M54.9 Dorsalgia, unspecified; Z95.1 Presence of aortocoronary bypass graft; Z95.5 Presence of coronary angioplasty implant and graft
CPT/HCPCS: 96361; 93005; 87088; 85025 ×2; 80048 ×2; 36415; 83735; 85610; 80162; 80076; 81003; 84484; 83690; 83880; 74176; 71045; 72110; 72070; 96360; 99285; J2270; J7030 ×3; G0378 ×2; 87086

== ENCOUNTER 2019-05-26 09:17 | Inpatient (IN) | payer OTHER ==
--- OUTSIDE RECORDS SUMMARY | 2019-05-26 09:19 | XMS REPORT ---
:1935 [facility] Address [address] [place] [address] [place] [id number] Care Team Providers Name Role Phone Unavailable Unavailable Unavailable Problems This patient has no known problems. Allergies, Adverse Reactions, Alerts This patient has no known allergies or adverse reactions. Medications This patient has no known medications.
[2019-05-26] MEDS ORDERED: METHYLPREDNISOLONE 125 MG INJ ONE (09:46)
[2019-05-26] MEDS ORDERED: FUROSEMIDE 20 MG/ 2ML VIAL ONE ×2 (09:46→10:44)
[2019-05-26] MEDS ORDERED: IPRATROPIUM BROM 0.5MG/2.5ML ONE (09:46)
[2019-05-26] MEDS ORDERED: LEVALBUTEROL 1.25 MG/3 ML NEB ONE ×2 (09:46→10:27)
[2019-05-26] MEDS ORDERED: FAMOTIDINE 20 MG/2 ML VIAL IV ONE (09:47)
[2019-05-26] MEDS ORDERED: CEFTRIAXONE/SWI 1gm 1 GM/10 ML SYR ONE (09:47)
[2019-05-26 09:57] LABS: Arterial Blood Carboxyhemoglob 0.8 % (0-1.5); Blood Gas Oxyhemoglobin 95.9 % (94-97); Blood O2 Saturation 97.4 % (92-98.5)
--- NOTE | 2019-05-26 10:01 | RAD REPORT ---
EXAM DESCRIPTION: Juan Single View05/26/2019 9:54 am CLINICAL HISTORY: Shortness of breath COMPARISON: May 12, 2019 FINDINGS: Mild bilateral interstitial lung opacities. . The heart is mildly enlarged. Pacemaker lead s are in place. Postsurgical changes involve the chest IMPRESSION: Mild CHF
[2019-05-26 10:03] LABS: Urine Blood NEGATIVE (NEG); Urine Glucose NEGATIVE (NEG); Urine Protein 2+ (NEG); Urine Specific Gravity >1.030 (1.005-1.030)
[2019-05-26 10:13] LABS: Absolute Lymphocytes (CBC) 0.6 K/uL (0.7-4.9); Basophils % 0.1 % (0-1.3); Lymphocytes % 4.4 % (15.3-44.8); MPV 9.6 fL (7.6-11.3)
[2019-05-26 10:17] LABS: Protime INR 1.14
[2019-05-26 10:22] LABS: Potassium 4.8 mmol/L (3.5-5.1); Troponin (Emerg Dept Use Only) 0.24 ng/mL (0.0-0.045)
[2019-05-26] MEDS ORDERED: dexAMETHasone 10 MG/ML VIAL ONE (10:27)
[2019-05-26] MEDS ORDERED: PIPER/TAZO/NS 3.375gm 3.375 GM/100 ML BAG ONE (10:46)
--- NOTE | 2019-05-26 10:55 | EDPHYS ---
Physician Documentation [facility] Name: Cornelius Tierney Age: 83 yrs Sex: Male : 1935 Arrival Date: 05/26/2019 Time: 09:21 Bed 3 Private MD: ED Physician Bryce Juan HPI: 05/26 09:24 This 83 yrs old Male presents to ER via Unassigned with complaints of karson Respiratory Distress. 09:24 The patient has shortness of breath at rest, with light activity. Onset: The karson symptoms/episode began/occurred 2 day(s) ago. Duration: The symptoms are continuous, and are steadily getting worse. The patient's shortness of breath has no apparent modifying factors. Associated signs and symptoms: The patient has no apparent associated signs or symptoms. Severity of symptoms: At their worst the symptoms were moderate in the emergency department the symptoms are unchanged. The patient has not experienced similar symptoms in the past. Historical: - Allergies: 09:37 BACITRACIN; hb 09:37 Bacitracin Zinc; hb 09:37 Ibuprofen; hb 09:37 Neomycin Sulfate; hb 09:37 Neosporin ([id number]); hb 09:37 polymyxin B; hb - Home Meds: 09:37 atorvastatin 40 mg oral tab 1 tab nightly [Active]; digoxin 125 mcg Oral tab 1 tab once hb daily [Active]; Entresto 24-26 mg oral tab daily [Active]; flunisolide 25 mcg (0.025 %) Nasal spry 2 sprays daily [Active]; ipratropium-albuterol 0.5 mg-3 mg(2.5 mg base)/3 mL Inhl nebu 3 mL 4 times per day [Active]; isosorbide mononitrate 10 mg Oral tab 1 tab 2 times per day [Active]; melatonin 3 mg Oral tab 2 tab nightly [Active]; metformin 500 mg Oral tab 1 tab three times a day [Active]; nitroglycerin 0.4 mg SL subl 1 tab every 5 minutes [Active]; Plavix 75 mg Oral tab 1 tab once daily [Active]; prednisone 10 mg Oral tab once daily [Active]; Protonix 40 mg Oral TbEC 1 tab once daily [Active]; Ranexa 500 mg oral Tb12 1 tab 2 times per day [Active]; sotalol 80 mg Oral tab 1 tab 2 times per day [Active]; Trelegy Ellipta 100-62.5-25 mcg/inh [Active]; Ventolin Rotahaler/Rotacaps Inhl [Active]; - PMHx: 09:39 Flail Chest 05/13/19; Generalized Weakness; Cognitive Communication Deficit; Diabetes - hb NIDDM; Hyperlipidemia; Hypertension; Heart Failure; COPD; Asthma; GERD; - Immunization history:: Adult Immunizations up to date. - Coronavirus screen:: The patient has NOT traveled to [place], [place], or [place] in the past 14 days. The patient has NOT had contact with known/suspected case of Coronavirus? Proceed with normal triage procedures. - Family history:: not pertinent. - Social history:: Smoking status: Patient denies any tobacco usage or history of. - Ebola Screening: : No symptoms or risks identified at this time. ROS: 09:24 Constitutional: Negative for fever, chills, and weight loss, Eyes: Negative for injury, karson pain, redness, and discharge, ENT: Negative for injury, pain, and discharge, Neck: Negative for injury, pain, and swelling, Cardiovascular: Negative for chest pain, palpitations, and edema, Abdomen/GI: Negative for abdominal pain, nausea, vomiting, diarrhea, and constipation, Back: Negative for injury and pain, : Negative for injury, bleeding, discharge, and swelling, MS/Extremity: Negative for injury and deformity, Skin: Negative for injury, rash, and discoloration, Neuro: Negative for headache, weakness, numbness, tingling, and seizure, Psych: Negative for depression, anxiety, suicide ideation, homicidal ideation, and hallucinations, Allergy/Immunology: Negative for hives, rash, and allergies, Endocrine: Negative for neck swelling, polydipsia, polyuria, polyphagia, and marked weight changes, Hematologic/Lymphatic: Negative for swollen nodes, abnormal bleeding, and unusual bruising. 09:24 Respiratory: Positive for cough, shortness of breath, at rest. Exam: 09:24 Constitutional: This is a well developed, well nourished patient who is awake, alert, karson and in no acute distress. Head/Face: Normocephalic, atraumatic. Eyes: Pupils equal round and reactive to light, extra-ocular motions intact. Lids and lashes normal. Conjunctiva and sclera are non-icteric and not injected. Cornea within normal limits. Periorbital areas with no swelling, redness, or edema. ENT: Nares patent. No nasal discharge, no septal abnormalities noted. Tympanic membranes are normal and external auditory canals are clear. Oropharynx with no redness, swelling, or masses, exudates, or evidence of obstruction, uvula midline. Mucous membranes moist. Neck: Trachea midline, no thyromegaly or masses palpated, and no cervical lymphadenopathy. Supple, full range of motion without nuchal rigidity, or vertebral point tenderness. No Meningismus. Chest/axilla: Normal chest wall appearance and motion. Nontender with no deformity. No lesions are appreciated. Cardiovascular: Regular rate and rhythm with a normal S1 and S2. No gallops, murmurs, or rubs. Normal PMI, no JVD. No pulse deficits. Abdomen/GI: Soft, non-tender, with normal bowel sounds. No distension or tympany. No guarding or rebound. No evidence of tenderness throughout. Back: No spinal tenderness. No costovertebral tenderness. Full range of motion. Male : Normal genitalia with no discharge or lesions. Skin: Warm, dry with normal turgor. Normal color with no rashes, no lesions, and no evidence of cellulitis. MS/ Extremity: Pulses equal, no cyanosis. Neurovascular intact. Full, normal range of motion. Neuro: Awake and alert, GCS 15, oriented to person, place, time, and situation. Cranial nerves II-XII grossly intact. Motor strength 5/5 in all extremities. Sensory grossly intact. Cerebellar exam normal. Normal gait. Psych: Awake, alert, with orientation to person, place and time. Behavior, mood, and affect are within normal limits. 09:24 Respiratory: mild respiratory distress is noted, Respirations: labored breathing, Breath sounds: decreased breath sounds, that are moderate, Respiratory rate: 26 Vital Signs: 09:20 BP 142 / 81; Pulse 83; Resp 30; Temp 97.2(TE); Pulse Ox 98% on 100% CPAP; Weight 70 kg; hb Height 5 ft. 7 in. (170.18 cm); Pain 0/10; 10:00 BP 129 / 68; Pulse 79; Resp 33; Pulse Ox 99% on 30% BiPAP; sv 10:37 BP 129 / 71; Pulse 70; Resp 29; Pulse Ox 99% on 30% BiPAP; sv 11:02 BP 138 / 74; Pulse 68; Resp 30; Pulse Ox 99% on 30% BiPAP; sv 11:04 Weight 55.79 kg (R); sv 12:00 BP 100 / 77; Pulse 70; Resp 32; Pulse Ox 98% on 30% BiPAP; sv 11:04 Body Mass Index 19.26 (55.79 kg, 170.18 cm) sv MDM: 09:21 Patient medically screened. [facility] 09:25 Data reviewed: vital signs, nurses notes, lab test result(s), EKG, radiologic studies. [facility] 05/26 09:24 Order name: Blood Culture Adult (2) [facility] 05/26 09:24 Order name: ABG [facility] 05/26 09:26 Order name: Lactate; Complete Time: 10:50 [facility] 05/26 09:47 Order name: Urine Dipstick--Ancillary (enter results) 05/26 09:55 Order name: Basic Metabolic Panel; Complete Time: 10:38 [facility] 05/26 09:55 Order name: CBC with Automated Diff [facility] 05/26 09:55 Order name: Digoxin Level [facility] 05/26 09:55 Order name: Liver (Hepatic) Function [facility] 05/26 09:55 Order name: Magnesium [facility] 05/26 09:55 Order name: NT PRO-BNP [facility] 05/26 09:56 Order name: Protime (+INR) [facility] 05/26 09:56 Order name: PTT, Activated Partial Thromb [facility] 05/26 09:56 Order name: Troponin (Emerg Dept Use Only) [facility] 05/26 10:04 Order name: Urine Dipstick-Ancillary; Complete Time: 10:38 [facility] 05/26 10:05 Order name: ABG Arterial Blood Gas; Complete Time: 10:38 [facility] 05/26 11:28 Order name: CBC with Automated Diff [facility] 05/26 11:28 Order name: CBC with Automated Diff [facility] 05/26 11:28 Order name: CBC with Automated Diff [facility] 05/26 11:28 Order name: CBC with Automated Diff [facility] 05/26 11:28 Order name: CBC with Automated Diff [facility] 05/26 11:28 Order name: Comprehensive Metabolic Panel [facility] 05/26 11:29 Order name: Comprehensive Metabolic Panel [facility] 05/26 09:24 Order name: XRAY Chest (1 view) [facility] 05/26 09:24 Order name: EKG; Complete Time: 09:56 [facility] 05/26 09:24 Order name: Cardiac monitoring; Complete Time: 09:28 [facility] 05/26 09:24 Order name: EKG - Nurse/Tech; Complete Time: 09:28 [facility] 05/26 09:24 Order name: IV Saline Lock; Complete Time: 09:28 [facility] 05/26 09:24 Order name: Labs collected and sent; Complete Time: 09:41 [facility] 05/26 09:24 Order name: O2 Per Protocol; Complete Time: 09:28 [facility] 05/26 09:24 Order name: O2 Sat Monitoring; Complete Time: 09:28 [facility] 05/26 09:24 Order name: BIPAP [facility] 05/26 09:56 Order name: Chest Single View; Complete Time: 10:38 [facility] 05/26 10:51 Order name: Echo w/ Doppler [facility] 05/26 11:28 Order name: CONS Pharmacy Consult [facility] 05/26 11:29 Order name: Comprehensive Metabolic Panel [facility] 05/26 11:29 Order name: Comprehensive Metabolic Panel [facility] 05/26 11:29 Order name: Comprehensive Metabolic Panel [facility] 05/26 11:29 Order name: Lipid Profile [facility] 05/26 11:29 Order name: Lipid Profile [facility] 05/26 11:29 Order name: Troponin I [facility] 05/26 11:29 Order name: Troponin I [facility] 05/26 11:29 Order name: Troponin I [facility] 05/26 09:24 Order name: Urine Dipstick-Ancillary (obtain specimen); Complete Time: 09:45 [facility] 05/26 09:24 Order name: Jatin; Complete Time: 09:38 [facility] Administered Medications: 10:00 Drug: Xopenex 2.5 mg Route: Inhalation; ah 10:00 Drug: AtroVENT Aerosol 0.5 mg Route: Inhalation; ah 10:05 Drug: SOLU-Medrol 125 mg Route: IVP; Site: left forearm; 10:38 Follow up: Response: No adverse reaction sv 10:05 Drug: Lasix 20 mg Route: IVP; Site: left forearm; 10:38 Follow up: Response: No adverse reaction sv 10:05 Drug: Pepcid 20 mg Route: IVP; Site: left forearm; 10:37 Follow up: Response: No adverse reaction sv 10:05 Drug: Rocephin 1 grams Route: IV; Rate: per protocol; Site: left forearm; 10:07 Follow up: Response: No adverse reaction; IV Status: Completed infusion; IV Intake: 10mlsv 10:05 Drug: Lasix 20 mg Route: IVP; Site: left forearm; 10:37 Follow up: Response: No adverse reaction sv 10:30 Drug: Decadron - Dexamethasone 10 mg Route: IVP; Site: left forearm; sv 11:23 Follow up: Response: No adverse reaction ah 10:30 Drug: Xopenex 1.25 mg Route: Inhalation; sv 11:00 Drug: Zosyn 3.375 grams Route: IVPB; Infused Over: 60 mins; Site: left forearm; 12:00 Follow up: Response: No adverse reaction; IV Status: Completed infusion; IV Intake: sv 100ml 11:17 Drug: Heparin (CO-Bolus with thrombolytic) - HEParin 60 units/kg {Co-Signature: [facility] [facility] (Natalie Mabry RN).} Route: IVP; Site: left hand; 11:17 Follow up: Response: No adverse reaction sv 11:22 Drug: Heparin (CO Drip) 12 units/kg/hr - (HEParin 27518 units, D5W 500 ml) {Co-Signature: (Natalie Mabry RN).} Route: IV; Rate: calculated rate; Site: left forearm; 12:47 Follow up: Response: No adverse reaction; IV Status: Infusion continued upon admission sv Disposition: 05/26/19 10:53 Hospitalization ordered by Rogelio Subramanian for Inpatient Admission. Preliminary diagnosis are Unspecified combined systolic (congestive) and diastolic (congestive) heart failure, Unspecified kidney failure, Chronic obstructive pulmonary disease with (acute) exacerbation, Hypoxemia, Respiratory failure, unspecified, Respiratory failure, unspecified with hypercapnia, Anemia, unspecified. - Bed requested for Telemetry/MedSurg (Inpatient). - Status is Inpatient Admission. sv - Condition is Fair. - Problem is new. - Symptoms have improved. UTI on Admission? No Signatures: Dispatcher [employer] Natalie Andino RN RN sv Woody, Diana, RN RN dw Anderson, Corey, MD MD cha Baxter, Heather, RN RN hb Harris, Amy, RN RN ah Stephanie Raghavendra RN sv Corrections: (The following items were deleted from the chart) 10:35 09:56 BASIC METABOLIC PANEL+C.LAB.BRZ ordered. [facility] 10:35 09:56 CBC+H.LAB.BRZ ordered. [facility] 10:35 09:56 HEPATIC FUNCTION+C.LAB.BRZ ordered. [facility] 10:35 09:56 MAGNESIUM+C.LAB.BRZ ordered. [facility] :35 09:56 PROBNP+C.LAB.BRZ ordered. [facility] 10:35 09:56 PROTIME (+INR)+COAG.LAB.BRZ ordered. [facility] 10: 09:56 TROPONIN (EMERG DEPT USE ONLY)+C.LAB.BRZ ordered. [facility] 10:35 09:56 DIGOXIN+C.LAB.BRZ ordered. [facility] 10:55 10:53 Hospitalization Ordered by Santos Brewster for Inpatient Admission. Preliminary karson diagnosis is Unspecified combined systolic (congestive) and diastolic (congestive) heart failure; Unspecified kidney failure; Chronic obstructive pulmonary disease with (acute) exacerbation; Hypoxemia; Respiratory failure, unspecified; Respiratory failure, unspecified with hypercapnia. Bed requested for Telemetry/MedSurg (Inpatient). Status is Inpatient Admission. Condition is Fair. Problem is new. Symptoms have improved. UTI on Admission? No. karson 12:17 10:55 05/26/2019 10:53 Hospitalization Ordered by Anne Marie Poe MD for Inpatient dw Admission. Preliminary diagnosis is Unspecified combined systolic (congestive) and diastolic (congestive) heart failure; Unspecified kidney failure; Chronic obstructive pulmonary disease with (acute) exacerbation; Hypoxemia; Respiratory failure, unspecified; Respiratory failure, unspecified with hypercapnia. Bed requested for Telemetry/MedSurg (Inpatient). Status is Inpatient Admission. Condition is Fair. Problem is new. Symptoms have improved. UTI on Admission? No. karson 12:29 12:17 05/26/2019 10:53 Hospitalization Ordered by Anne Marie Poe MD for Inpatient karson Admission. Preliminary diagnosis is Unspecified combined systolic (congestive) and diastolic (congestive) heart failure; Unspecified kidney failure; Chronic obstructive pulmonary disease with (acute) exacerbation; Hypoxemia; Respiratory failure, unspecified; Respiratory failure, unspecified with hypercapnia. Bed requested for Telemetry/MedSurg (Inpatient). Status is Inpatient Admission. Condition is Fair. Problem is new. Symptoms have improved. UTI on Admission? No. dw 12:30 12:29 05/26/2019 10:53 Hospitalization Ordered by Rogelio Subramanian MD for Inpatient karson Admission. Preliminary diagnosis is Unspecified combined systolic (congestive) and diastolic (congestive) heart failure; Unspecified kidney failure; Chronic obstructive pulmonary disease with (acute) exacerbation; Hypoxemia; Respiratory failure, unspecified; Respiratory failure, unspecified with hypercapnia. Bed requested for Telemetry/MedSurg (Inpatient). Status is Inpatient Admission. Condition is Fair. Problem is new. Symptoms have improved. UTI on Admission? No. karson 12:47 12:30 05/26/2019 10:53 Hospitalization Ordered by Rogelio Subramanian MD for Inpatient sv Admission. Preliminary diagnosis is Unspecified combined systolic (congestive) and diastolic (congestive) heart failure; Unspecified kidney failure; Chronic obstructive pulmonary disease with (acute) exacerbation; Hypoxemia; Respiratory failure, unspecified; Respiratory failure, unspecified with hypercapnia; Anemia, unspecified. Bed requested for Telemetry/MedSurg (Inpatient). Status is Inpatient Admission. Condition is Fair. Problem is new. Symptoms have improved. UTI on Admission? No. karson
--- NOTE | 2019-05-26 10:55 | ER ---
Nurse's Notes [facility] Name: Cornelius Tierney Age: 83 yrs Sex: Male : 1935 Arrival Date: 05/26/2019 Time: 09:21 Bed 3 Private MD: Diagnosis: Unspecified combined systolic (congestive) and diastolic (congestive) heart failure;Unspecified kidney failure;Chronic obstructive pulmonary disease with (acute) exacerbation;Hypoxemia;Respiratory failure, unspecified;Respiratory failure, unspecified with hypercapnia;Anemia, unspecified Presentation: 05/26 09:21 Presenting complaint: EMS states: Toned out for unresponsive, on scene pt responsive to hb verbal stimuli, oriented to person, cyanotic, respirations shallow and rapid, SpO2 70s, + rales bilaterally. BVM assisted ventilations 5-10 mins then placed on CPAP for transport to ED. 22g Left FA. Transition of care: patient was received from another setting of care (long-term care facility), [facility]. Onset of symptoms was May 26, 2019. Risk Assessment: Do you want to hurt yourself or someone else? Patient reports no desire to harm self or others. Care prior to arrival: None. IV initiated. 22 GA, in the left forearm. 09:21 Method Of Arrival: EMS: [facility] hb 09:21 Acuity: WEI 1 hb 10:17 Initial Sepsis Screen: Does the patient meet any 2 criteria? RR > 20 per min. No. sv Patient's initial sepsis screen is negative. Does the patient have a suspected source of infection? No. Patient's initial sepsis screen is negative. Triage Assessment: 09:21 General: Appears distressed, uncomfortable, slender, malnourished, Behavior is calm, sv cooperative, appropriate for age. Pain: Denies pain. Neuro: Level of Consciousness is awake, alert, lethargic. Respiratory: Airway is patent Respiratory effort is shallow, weak, Respiratory pattern is tachypnea. Derm: Skin is pale, Decubitus located on sacrum is stage I is draining none noted. 09:21 Respiratory: the patient has severe shortness of breath. sv Historical: - Allergies: 09:37 BACITRACIN; hb 09:37 Bacitracin Zinc; hb 09:37 Ibuprofen; hb 09:37 Neomycin Sulfate; hb 09:37 Neosporin ([id number]); hb 09:37 polymyxin B; hb - Home Meds: 09:37 atorvastatin 40 mg oral tab 1 tab nightly [Active]; digoxin 125 mcg Oral tab 1 tab once hb daily [Active]; Entresto 24-26 mg oral tab daily [Active]; flunisolide 25 mcg (0.025 %) Nasal spry 2 sprays daily [Active]; ipratropium-albuterol 0.5 mg-3 mg(2.5 mg base)/3 mL Inhl nebu 3 mL 4 times per day [Active]; isosorbide mononitrate 10 mg Oral tab 1 tab 2 times per day [Active]; melatonin 3 mg Oral tab 2 tab nightly [Active]; metformin 500 mg Oral tab 1 tab three times a day [Active]; nitroglycerin 0.4 mg SL subl 1 tab every 5 minutes [Active]; Plavix 75 mg Oral tab 1 tab once daily [Active]; prednisone 10 mg Oral tab once daily [Active]; Protonix 40 mg Oral TbEC 1 tab once daily [Active]; Ranexa 500 mg oral Tb12 1 tab 2 times per day [Active]; sotalol 80 mg Oral tab 1 tab 2 times per day [Active]; Trelegy Ellipta 100-62.5-25 mcg/inh [Active]; Ventolin Rotahaler/Rotacaps Inhl [Active]; - PMHx: 09:39 Flail Chest 05/13/19; Generalized Weakness; Cognitive Communication Deficit; Diabetes - hb NIDDM; Hyperlipidemia; Hypertension; Heart Failure; COPD; Asthma; GERD; - Immunization history:: Adult Immunizations up to date. - Coronavirus screen:: The patient has NOT traveled to [place], [place], or [place] in the past 14 days. The patient has NOT had contact with known/suspected case of Coronavirus? Proceed with normal triage procedures. - Family history:: not pertinent. - Social history:: Smoking status: Patient denies any tobacco usage or history of. - Ebola Screening: : No symptoms or risks identified at this time. Screenin:28 Abuse screen: Denies threats or abuse. Denies injuries from another. Nutritional hb screening: No deficits noted. Tuberculosis screening: No symptoms or risk factors identified. Fall Risk Total Kelly Fall Scale indicates Low Risk Score (25-44 pts). Fall prevention measures have been instituted. Side Rails Up X 2 Frequent Obs/Assesments occuring As available Patient and Family Educated on Fall Prevention Program and strategies. Assessment: 09:21 Cardiovascular: Rhythm is A-V sequential pacer. sv 09:25 Reassessment: RT at bedside for BIPAP placement, 12/6, R 12, FiO2 35%. hb 10:30 Reassessment: Decadron 10mg IV administered and xopenex treatment started. ah 10:31 Reassessment: Patient appears in no apparent distress at this time. Patient and/or sv family updated on plan of care and expected duration. Pain level reassessed. Patient is alert, oriented x 3, equal unlabored respirations, skin warm/dry/pink. Respiratory: Reports shortness of breath at rest Airway is patent Respiratory effort is unlabored, shallow, Respiratory pattern is tachypnea. 12:33 Reassessment: Patient appears in no apparent distress at this time. Patient and/or sv family updated on plan of care and expected duration. Pain level reassessed. Patient is alert, oriented x 3, equal unlabored respirations, skin warm/dry/pink. Patient states feeling better. Patient states symptoms have improved. Vital Signs: 09:20 BP 142 / 81; Pulse 83; Resp 30; Temp 97.2(TE); Pulse Ox 98% on 100% CPAP; Weight 70 kg; hb Height 5 ft. 7 in. (170.18 cm); Pain 0/10; 10:00 BP 129 / 68; Pulse 79; Resp 33; Pulse Ox 99% on 30% BiPAP; sv 10:37 BP 129 / 71; Pulse 70; Resp 29; Pulse Ox 99% on 30% BiPAP; sv 11:02 BP 138 / 74; Pulse 68; Resp 30; Pulse Ox 99% on 30% BiPAP; sv 11:04 Weight 55.79 kg (R); sv 12:00 BP 100 / 77; Pulse 70; Resp 32; Pulse Ox 98% on 30% BiPAP; sv 11:04 Body Mass Index 19.26 (55.79 kg, 170.18 cm) sv ED Course: 09:21 Patient arrived in ED. hb 09:21 Bryce Juan MD is Attending Physician. karson 09:21 Maintain EMS IV. Dressing intact. Site clean \T\ dry. Gauge \T\ site: 22G L FA. sv 09:25 Patient has correct armband on for positive identification. Bed in low position. Call sv light in reach. Side rails up X2. manager monitoring on. Pulse ox on. NIBP on. Warm blanket given. Head of bed elevated. 09:25 First set of blood cultures drawn by me. Inserted saline lock: 20 gauge in left sv forearm, using aseptic technique. Blood collected. Flushed left forearm with 5 ml normal saline. 09:26 Triage completed. hb 09:29 Arm band placed on. hb 09:37 Natalie Mabry, ROSIO is Primary Nurse. sv 09:38 Steiner cath inserted, using sterile technique, 16 Fr., by me, balloon inflated, to em1 gravity drainage, urine specimen collected. returned tiffanie urine. Patient tolerated well. 10:00 Chest Single View In Process Unspecified. EDMS 10:10 Lab(s) recollected, by me, sent to lab. lactate recollect, called lab and spoke with deonte Sanchez who received the blood. 10:19 Blood Culture Adult (2) Sent. sv 10:19 Urine Dipstick--Ancillary (enter results) Sent. sv 10:19 Lactate Sent. sv 10:19 BIPAP Sent. sv 10:19 ABG Sent. sv 10:20 XRAY Chest (1 view) Sent. sv 10:35 EKG done, by injection molding process technician. reviewed by Bryce Juan MD. at1 10:52 Santos Brewster is Hospitalizing Provider. karson 10:55 Anne Marie Poe MD is Hospitalizing Provider. karson 12:29 Rogelio Subramanian MD is Hospitalizing Provider. karson 12:32 No provider procedures requiring assistance completed. Patient admitted, IV remains in sv place. intact. Administered Medications: 10:00 Drug: Xopenex 2.5 mg Route: Inhalation; ah 10:00 Drug: AtroVENT Aerosol 0.5 mg Route: Inhalation; ah 10:05 Drug: SOLU-Medrol 125 mg Route: IVP; Site: left forearm; ah 10:38 Follow up: Response: No adverse reaction sv 10:05 Drug: Lasix 20 mg Route: IVP; Site: left forearm; ah 10:38 Follow up: Response: No adverse reaction sv 10:05 Drug: Pepcid 20 mg Route: IVP; Site: left forearm; ah 10:37 Follow up: Response: No adverse reaction sv 10:05 Drug: Rocephin 1 grams Route: IV; Rate: per protocol; Site: left forearm; 10:07 Follow up: Response: No adverse reaction; IV Status: Completed infusion; IV Intake: 10mlsv 10:05 Drug: Lasix 20 mg Route: IVP; Site: left forearm; 10:37 Follow up: Response: No adverse reaction sv 10:30 Drug: Decadron - Dexamethasone 10 mg Route: IVP; Site: left forearm; sv 11:23 Follow up: Response: No adverse reaction ah 10:30 Drug: Xopenex 1.25 mg Route: Inhalation; sv 11:00 Drug: Zosyn 3.375 grams Route: IVPB; Infused Over: 60 mins; Site: left forearm; 12:00 Follow up: Response: No adverse reaction; IV Status: Completed infusion; IV Intake: sv 100ml 11:17 Drug: Heparin (OR-Bolus with thrombolytic) - HEParin 60 units/kg {Co-Signature: [facility] (Natalie Mabry RN).} Route: IVP; Site: left hand; 11:17 Follow up: Response: No adverse reaction sv 11:22 Drug: Heparin (OR Drip) 12 units/kg/hr - (HEParin 67893 units, D5W 500 ml) {Co-Signature: (Natalie Mabry RN).} Route: IV; Rate: calculated rate; Site: left forearm; 12:47 Follow up: Response: No adverse reaction; IV Status: Infusion continued upon admission sv Intake: 10:07 IV: 10ml; Total: 10ml. sv 12:00 IV: 100ml; Total: 110ml. sv Outcome: 10:53 Decision to Hospitalize by Provider. karson 12:32 Admitted to Tele accompanied by tech, family with patient, via stretcher, room 404, sv with oxygen, with chart, Report called to Chiquita AVELAR 12:32 Condition: stable 12:32 Instructed on the need for admit. 12:47 Patient left the ED. sv Signatures: Dispatcher [employer] Natalie Andino RN RN Bryce Juan MD MD cha Martinez, Eric em1 Parvin Bridges, field operations supervisor EKG Tat1 Yari Galicia RN RN hb Harris, Amy, RN RN Natalie Mabry RN Corrections: (The following items were deleted from the chart) 09:29 09:26 Pulse 83bpm; Resp 30bpm; Pulse Ox 98% 02 100% CPAP; Temp 97.2F Temporal; 70 kg; hb Height 5 ft. 7 in.; BMI: 24.1; Pain 0/10; hb 09:29 09:26 BP 142 / 81; Pulse 83bpm; Resp 30bpm; Pulse Ox 98% 02 100% CPAP; Temp 97.2F hb Temporal; 70 kg; Height 5 ft. 7 in.; BMI: 24.1; Pain 0/10; hb 10:31 10:00 BP 129 / 68; Pulse 79bpm; Resp 33bpm; Pulse Ox 99% 02 30% CPAP; sv sv 10:35 10:19 DIGOXIN+C.LAB.BRZ drawn and sent. sv EDMS 10:35 10:20 BASIC METABOLIC PANEL+C.LAB.BRZ drawn and sent. sv EDMS 10:35 10:20 CBC+H.LAB.BRZ drawn and sent. sv EDMS 10:35 10:20 HEPATIC FUNCTION+C.LAB.BRZ drawn and sent. sv EDMS 10:35 10:21 MAGNESIUM+C.LAB.BRZ drawn and sent. sv EDMS 10:35 10:21 PROBNP+C.LAB.BRZ drawn and sent. sv EDMS 10:35 10:21 PROTIME (+INR)+COAG.LAB.BRZ drawn and sent. sv EDMS 10:35 10:21 TROPONIN (EMERG DEPT USE ONLY)+C.LAB.BRZ drawn and sent. EDMS
[2019-05-26] MEDS ORDERED: HEPARIN 5000 UNIT/ML 1 ML VIAL ONE (11:14)
[2019-05-26] MEDS ORDERED: HEPARIN/D5W 25,000 UNIT/500 ML BAG IV ONE (11:15)
[2019-05-26] MEDS ORDERED: ACETAMINOPHEN 500 MG TAB PO PRN (11:24)
[2019-05-26] MEDS ORDERED: ONDANSETRON 4 MG/2 ML VIAL IV PRN ×2 (11:24→20:06)
[2019-05-26] MEDS ORDERED: INSULIN -REGULAR HUMAN 50 UNIT/0.5 ML ML SQ SCH (11:30)
[2019-05-26 12:36] LABS: Albumin 2.6 g/dL (3.4-5.0); Bilirubin Direct 0.6 mg/dL (0-0.2); Protein, Total 6.1 g/dL (6.4-8.2)
[2019-05-26 12:37] LABS: Digoxin Level 2.4 ng/mL (0.80-2.00); Magnesium 1.8 mg/dL (1.8-2.4)
--- NOTE | 2019-05-26 12:47 | EKG ---
Test Date: 2019-05-26 Test Time: 10:35:32 Flexible Nanny: HENIR MEASUREMENT RESULTS: Intervals: Rate: 69 WI: 138 QRSD: 130 QT: 400 QTc: 428 [place]: P: 64 WI: 138 QRS: -30 T: -14 INTERPRETIVE STATEMENTS: Atrial-sensed ventricular-paced rhythm tracking sinus rhythm Compared to ECG 05/12/2019 17:17:19 AV dual-paced complex(es) or rhythm no longer present Electronically Signed On 05-26-19 12:47:29 CALCULUS TUTOR by Fred Gan
[2019-05-26 13:00] LABS: Blood Morphology Comment NOT SEEN (NOT SEEN); Platelet Estimate ADEQ; Urine White Blood Cell Casts OK
[2019-05-26 13:51] VITALS: BMI 19.3
[2019-05-26] MEDS ORDERED: ALBUTEROL 2.5 MG/3 ML NEB SOL NEB SCH (14:00)
[2019-05-26] MEDS ORDERED: IPRATROPIUM BROM 0.5MG/2.5ML NEB SCH (14:00)
--- NOTE | 2019-05-26 15:32 | ECHO ---
HEIGHT: 5 ft 7 in WEIGHT: 123 lb 0 oz DATE OF STUDY: 05/26/[address]: Bryce Juan MD 2-DIMENSIONAL: YES M.MODE: YES DOPPLER: YES COLOR FLOW: YES TDS: NO PORTABLE: NO DEFINITY: NO BUBBLE STUDY: NO DIAGNOSIS: CONGESTIVE HEART FAILURE, ELEVATED TROPONIN CARDIAC HISTORY: CATHERIZATION: YES SURGERY: YES PROSTHETIC VALVE: NO PACEMAKER: YES MEASUREMENTS (cm) DIASTOLIC (NORMALS) SYSTOLIC (NORMALS) IVSd 1.0 (0.6-1.2) LA Diam 3.9 (1.9-4.0) LVEF 10-15% LVIDd 6.7 (3.5-5.7) LVIDs 6.0 (2.0-3.5) %FS 11% LVPWd 1.0 (0.6-1.2) Ao Diam 3.5 (2.0-3.7) 2 DIMENSIONAL ASSESSMENT: RIGHT ATRIUM: DILATED LEFT ATRIUM: DILATED RIGHT VENTRICLE: PACEMAKER, DILATED LEFT VENTRICLE: DILATED TRICUSPID VALVE: NORMAL MITRAL VALVE: NORMAL PULMONIC VALVE: NORMAL AORTIC VALVE: NORMAL PERICARDIAL EFFUSION: NONE AORTIC ROOT: NORMAL LEFT VENTRICULAR WALL MOTION: SEVERE GLOBAL HYPOKINESIS. DOPPLER/COLOR FLOW: MILD MITRAL REGURGITATION. MILD TO MODERATE AORTIC REGURGITATION. COMMENTS: FOUR CHAMBER DILATATION. SEVERLY DEPRESSED LEFT VENTRICULAR EJECTION FRACTION. PACEMAKER IN RIGHT VENTRICULAR APEX. MILD MITRAL REGURGITATION. MILD TO MODERATE AORTIC REGURGITATION. TECHNOLOGIST: Mehdi OVIEDO
[2019-05-26] MEDS ORDERED: HEPARIN/D5W 25,000 UNIT/500 ML BAG IV SCH (18:00)
[2019-05-26] MEDS ORDERED: ALBUTEROL 2.5 MG/3 ML NEB SOL NEB PRN (20:06)
[2019-05-26] MEDS ORDERED: MORPHINE 2 MG/ML SYR IV PRN (20:06)
--- NOTE | 2019-05-27 04:12 | HP ---
Date of Admission: 05/26/2019 Chief Complaint: Unresponsiveness and low oxygen. History Of Present Illness: This is an 83-year-old pleasant male patient with multiple comorbidities , who [facility] hospital and today he was brought back to emergency room because he was found unresponsive with low oxygen saturation around 70% or so. After he was evaluated in the ER, he was admitted to the hospital. When I saw him this evening jus t before my arrival, he was placed on BiPAP as he was having some hypoxia and some difficulty breathi ng. When I saw him, he appeared extremely weak. His eyes were closed. He opened up his eyes and de nies any chest pain or any pain anywhere. Family was at bedside including and daughter. Shavonne francis's reports that the patient has decubitus ulcer on his back. His blood pressure was low when I saw him this evening, machine read it 59 systolic blood pressure. Manual blood pressure was 70/38. Medications: List reviewed. Review of Systems: Cardiovascular: As mentioned above. Respiratory: As mentioned above. All other systems reviewed and negative. Allergies: TO AMIODARONE, NEOSPORIN CAUSING RASH. Past Medical History: Chronic systolic congestive heart failure with ejection fraction 10% to 15% as of echocardiogram done today. In the past, it was 25% to 29%. Type 2 diabetes mellitus, COPD, hype rtension, mixed hyperlipidemia, abdominal aortic aneurysm, coronary artery disease, gastroesophageal reflux disease, diverticulosis, renal cyst. Past Surgical History: Significant for surgery for retinal tear, cataracts surgery, coronary artery stent placement, coronary artery bypass surgery, abdominal aortic aneurysm repair, cholecystectomy, r emoval of squamous cell carcinoma. Family History: Significant for father had abdominal aortic aneurysm. Mother had Alzheimer disease. Social History: Prior history of smoking, not at present time. Use of alcohol negative. Physical Examination: VITAL SIGNS: Height 5 feet 7 inches, weight 123 pounds, temperature 97.1, pulse 71, respiratory rate 19, blood pressure 97/45. Last manual blood pressure when I was in room was 70/38. General: Patient appears extremely weak, lethargic, on BiPAP machine. HEENT: Head atraumatic, normocephalic. Conjunctivae nonerythematous. Sclerae white. Mouth, no thr ush or edema noted. Ears/Nose, no mass, lesion, discharge noted. Neck: Supple. No JVD, lymph nodes, bruit, thyromegaly noted. Lungs: Presence of some rales noted in lower lung field. Patient has shallow respiration. Heart: Normal heart sounds, no murmur or gallop. Abdomen: Soft, bowel sounds normal. No guarding, rigidity, tenderness, mass, hepatosplenomegaly, dis tention, or bruit noted. Extremities: Grade 2 pedal edema on both feet and grade 1 edema in lower legs. Skin: No rash, ulcer, cellulitis. Lymphatics: No lymph node enlargement in neck, supraclavicular, infraclavicular region. Neuro: No focal neurological deficit. Chest: Unremarkable. External Genitalia: Deferred. Rectal: Deferred. Laboratory Data: White count 14.1, hemoglobin 12.3, platelets 230. Blood gas; pH 7.25, pCO2 of 56.2 , pO2 of 123, oxygen saturation 97% on 100% FiO2. Sodium 142, potassium 4.8, chloride 106, bicarb 26 , BUN 45, creatinine 1.96, glucose 201. Liver function tests unremarkable. Troponin 0.[address] set, second set 0.25. SGOT 57. Urinalysis; 2+ protein, otherwise negative. Digoxin level 2.4. Atrial sensed ventricular paced rate. Chest x-ray shows mild CHF and echocardiogram today shows ejec tion fraction of 10% to 15%. Impression: 1.Acute respiratory failure with hypoxia and hypercapnia. 2.Congestive heart failure, chronic, systolic, with acute exacerbation. 3.Acute renal failure. 4.Coronary artery disease. 5.Chronic obstructive pulmonary disease. 6.Gastroesophageal reflux disease. 7.Diverticulosis. Plan: Admit patient to hospital for further evaluation and management of this problem. Patient is a ppropriate for inpatient and is expected to spend 2 midnights in hospital. When the patient was eval uated in the ER initially, he was admitted to the hospitalist and hospitalist informed me about this admission, so I came out to take over this patient's hospital care this evening. Noted that the hosp italist had started patient on IV heparin drip, which was discontinued. At this point, there is no i ndication of any acute coronary syndrome and no need for any IV heparin therapy, so it was discontinu ed. He had some antibiotic in emergency room and some steroids. At this point, his overall prognosi s is very poor and I believe that he will not survive this hospitalization and in fact, I do not luis shay that he will survive more than next 24-48 hours considering his disease continues to progress the way I have seen it now. I did talk to patient's daughter and the patient's in great detail. H is advanced directive of do not resuscitate was confirmed and order was written in the chart. I had a long discussion with them about comfort care and we talked about BiPAP therapy and at this point in my opinion, continuation of BiPAP therapy will not change the outcome and in fact, it may prolong hi s sufferings considering his other comorbidities and overall poor prognosis and family was made aware that as far as I am concerned, his BiPAP therapy can be discontinued and we can put him on regular o xygen or we can continue BiPAP therapy if family would like to do so. Patient's and daughter celine parra both decided to discontinue BiPAP therapy and use regular oxygen and while he was on BiPAP, actual ly he was constantly trying to pull out the mask. Comfort care will be provided using morphine and n ausea medication as needed. We will give nebulizer treatment as needed. I have recommended hospice care to be provided while in the hospital to utilize in-hospital benefit for hospice as I do not expe ct him to live more than 24-48 hours or so and if he does leave beyond 5 days, then arrangements shou ld be made for him to go to nursing facility with hospice care and all these details were discussed w ith family and they understand and agree with the treatment plan. Social service consultation was requested to provide a hospice care using [facility] hospice agency. I will see him tomorr ow morning for followup. FILOMENA/MODL Voice ID: [id number]
[2019-05-27 04:14] LABS: Basophils % 0.2 % (0-1.3); Hematocrit 38.8 % (39.6-49.0); Lymphocytes % 1.4 % (15.3-44.8); MPV 10.1 fL (7.6-11.3); RBC Red Blood Cell Count 4.07 M/uL (4.33-5.43)
[2019-05-27 04:15] LABS: Absolute Lymphocytes (CBC) 0.2 K/uL (0.7-4.9)
[2019-05-27 04:37] LABS: Bilirubin Total 0.7 mg/dL (0.2-1.0)
[2019-05-27 04:46] LABS: Potassium 5.7 mmol/L (3.5-5.1)
[2019-05-27 04:49] VITALS: BP 57/27; TEMP 96.4
[2019-05-27 04:58] VITALS: O2SAT 92
--- NOTE | 2019-05-28 02:42 | DS ---
Date of Discharge: 05/27/2019 Disposition: The patient this morning. Physical Examination: General: When I saw him this morning, his was present with him at bedside. Patient was unrespo nsive, lying in bed, breathing rapidly, but very shallow breathing. Lungs: Bilateral shallow air entry. Heart: Heart sounds normal. Abdomen: Soft, not distended. Bowel sounds present. Extremities: Leg edema unchanged from yesterday. Laboratory Data: White count this morning 11.6, hemoglobin 11.9, platelets 177. Sodium 144, potassi um 5.7, chloride 111, bicarb 24, BUN 61, creatinine 2.47, glucose 88, SGOT 261, SGPT 159, alkaline ph osphatase 127. Hospital Course: An 83-year-old pleasant male patient who was recently admitted to intermediate, was sent to emergency room yesterday after he was found unresponsive and low oxygen level. Please see d yulianaated H and P for more information. I saw the patient yesterday evening and details were discussed with family member. Patient was in respiratory failure, congestive heart failure, and his blood pre ssure was low. Echocardiogram had shown ejection fraction 10% to 15%. This was much worse than prev ious echocardiogram, which was about a few months ago. At that time, ejection fraction was 20% to 25 %. The patient also had acute renal failure. After I evaluated him yesterday, I suggested patient's family member that we should go ahead and start him on inpatient hospice care, but at the same time family was made aware of the fact that the patient will not survive this hospitalization and probably has 24-48 hours to leave. Family was in agreement. Advance directive was discussed and DNR order w as written in the chart. Comfort care order was written. Overnight, the patient's condition did not require any comfort care intervention as per my discussion with the nursing staff. This morning whe n I saw him, his condition had deteriorated and he was actively dying with very shallow and rapid mikael athing and he was unresponsive this morning. was at bedside. I did talk to patient's daughter on phone and explained it to daughter and that considering the patient's deteriorated condition overnight, I will go ahead and cancel hospice care because the patient is comfortable at this point, actively dying, and there is no need for any intervention from hospice care that we need at this time and soon after I saw him this morning, patient . Final Diagnoses: 1.Acute respiratory failure with hypoxia and hypercapnia. 2.Congestive heart failure, chronic, systolic, with acute exacerbation. 3.Acute renal failure. 4.Coronary artery disease. 5.Chronic obstructive pulmonary disease. 6.Gastroesophageal reflux disease. 7.Diverticulosis. 8.Hyperkalemia. FILOMENA/MODL Voice ID: [id number] Report ID: [id number]
== END 2019-05-27 10:00 | disposition expired | DRG 291 ==
LOC: ER 09:17 → ERHOLD 11:25 → UNDOADMIN 11:25 → ERHOLD 11:49 → 4TH 12:34
PROVIDERS: ADMIT Internal Medicine; ATTEND Internal Medicine
DX: I11.0 Hypertensive heart disease with heart failure (principal); J96.01 Acute respiratory failure with hypoxia; J96.02 Acute respiratory failure with hypercapnia; E43 Unspecified severe protein-calorie malnutrition; G93.41 Metabolic encephalopathy; N17.9 Acute kidney failure, unspecified; Z68.1 Body mass index [BMI] 19.9 or less, adult; I50.23 Acute on chronic systolic (congestive) heart failure; I25.10 Atherosclerotic heart disease of native coronary artery without angina pectoris; J44.9 Chronic obstructive pulmonary disease, unspecified; K21.9 Gastro-esophageal reflux disease without esophagitis; K57.90 Diverticulosis of intestine, part unspecified, without perforation or abscess without bleeding; E87.5 Hyperkalemia; E11.9 Type 2 diabetes mellitus without complications; E78.2 Mixed hyperlipidemia; I71.4 Abdominal aortic aneurysm, without rupture; Z66 Do not resuscitate
CPT/HCPCS: 36415; 51702; 71045; 80048; 80053; 80061; 80076; 80162; 81003; 82805; 82947; 83605; 83735; 83880; 84484; 85025; 85610; 85730; 87040; 93005; 93306; 94660; 94760; 96365; 96368; 96375; 99291; 99292; J0696; J1100; J1644; J1940; J2543; J2930